=== PATIENT | female | born 1955 | race Caucasian/White ===

== ENCOUNTER 2017-10-23 10:30 | Outpatient (RCR) | payer MEDICAID, SELFPAY ==
[2017-09-27 00:43] VITALS: BP 144/79; PULSE 52; RESP 16; TEMP 37; BMI 41.1
[2017-10-02 09:50] VITALS: BP 144/85; PULSE 54; RESP 18; TEMP 36.9; BMI 41.1
--- NOTE | 2017-10-02 10:41 | PCM.WC.PN ---
(1) Stage 3 chronic renal impairment associated with type 2 diabetes mellitus Status: Chronic Current Visit: Yes Code(s): E11.22 - Type 2 diabetes mellitus with diabetic chronic kidney disease; N18.3 - Chronic kidney disease, stage 3 (moderate) (2) Episodic atrial fibrillation Status: Chronic Current Visit: Yes Code(s): I48.0 - Paroxysmal atrial fibrillation (3) Left ischial pressure sore Status: Chronic Current Visit: Yes Code(s): L89.329 - Pressure ulcer of left buttock, unspecified stage (4) Palpitations Status: Chronic Current Visit: No Code(s): R00.2 - Palpitations (5) Pressure ulcer of left buttock, stage 2 Status: Chronic Current Visit: No Code(s): L89.322 - Pressure ulcer of left buttock, stage 2 (6) Stage II pressure ulcer of right buttock Status: Chronic Current Visit: Yes Code(s): L89.312 - Pressure ulcer of right buttock, stage 2 (7) Anemia Status: Chronic Current Visit: Yes Qualifiers: Anemia type: due to chronic kidney disease Code(s): D64.9 - Anemia, unspecified Type of Wound Date of Service: 10/02/17 Chief Complaint: Follow-up open ulcers on right and left buttocks for approximately 3 weeks History of Wound: 60-year-old white female who has a very complicated history of morbid obesity post bariatric surgery 10 years ago with many complications. 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 Patient has many disabilities and can still walk, but poorly. She has no muscle mass and her buttocks area and in the skin is flabby has developed open ulcers in the perirectal and on each cheek of the right and left buttocks from sitting. She also developed one in her left ischium. These all developed from driving in a car for long periods of time she has been trying to stretch out. She was family was murdered down in [place] and she has been driving daily for the infant is still alive and she travels to the hospital. Progress of Wound: The baby was able to come home with her now so she is not traveling down to [place] anymore. The ulcers on the left and right buttocks and ischium are healing but still open clean and looking healthy. Patient's labs show renal insufficiency stage III her anemia is down to 10 on a hemoglobin her TIBC was all normal. Magnesium was normal vitamin D level was normal and this her vitamin B12 was on the lower end of normal patient was encouraged to increase iron pills to 3 times a day and start vitamin C thousand milligrams a day and zinc. Patient complains of a burning sensation from the ulcers on her buttocks I suggested lighted [place] patches that she is going to try. - Physical Exam Vital Signs Temp Pulse Resp BP 98.4 F 54 L 18 144/85 H 10/02/17 09:50 10/02/17 09:50 10/02/17 09:50 10/02/17 09:50 General: Oriented x3, Cooperative, Well developed HEENT: Atraumatic, PERRLA Oral: Moist Mucosa Neck: Supple, No JVD Lungs: Clear to auscultation, Normal air movement Cardiovascular: Regular rate, Regular Rhythm Abdomen: Bowel Sounds Present, Soft, Non Tender, No Hepato-splenomegaly, Obese Extremities: No clubbing, No edema Skin: - - Decubitus ulcers right and left buttocks and left ischium Wound Measurements and Assessment - Nurse 1 - General Ulcer Measurement Start: 10/02/17 09:50 Freq: Status: Active Protocol: Activity Type Activity Date Activity User E-Sign Co-Sign Detail Recorded Client Recorded Date Recorded By Document 10/02/17 09:50 [id number] 10/02/17 09:59 10/02/17 09:50 Wound Center Nurse 1 [Ulcer Assessment Protocol: WC.WD.LOC] #6 LT GLUTEAL FOLD -Combined with other wound No -Current Size (cm) - Length 0.5 -Current Size (cm) - Width 0.4 -Current Size (cm) - Depth 0.2 -Total Square Cm 0.20 -Photo Taken No -Epithelialization Small 1-33% -Tunneling No -Undermining/Tunneling No -Circular Undermining No -Classification - Thickness Full Thickness without Exposed Support Structure -Exudate Amt Small (1-33%) -Exudate Type Serosanguineous -Wound Margin Distinct, Outline Attached -Granulation Amt Large (67-100%) -Granulation Quality [place] -Slough/Fibrin Yes -Necrosis Amt Small (1-33%) -Necrotic Tissue Type Adherent Slough -Structure Exposed Fascia Fat Layer Exposed -Texture (Lexi-wound Skin Appearance) Scarring -Moisture (Lexi-wound Skin Appearance No Abnormality ) -Color (Lexi-wound Skin Appearance) Erythema -Temperature (Lexi-wound Skin No Abnormality Appearance) (Pt Warm) -Tenderness on Palpation (Lexi-wound No Skin Appearance) -Ulcer Cleansing Rinsed/ Irrigated with Saline -Foul Odor after Cleansing No -Anesthetic Used 4% Lidocaine Solution #5 RT BUTTOCKS -Combined with other wound No -Current Size (cm) - Length 1.4 -Current Size (cm) - Width 1.6 -Current Size (cm) - Depth 0.2 -Total Square Cm 2.24 -Photo Taken No -Epithelialization Small 1-33% -Tunneling No -Undermining/Tunneling Yes -Undermining/Tunneling Starts (O' 9 clock) -Undermining/Tunneling Ends (O'clock) 5 -Maximum Distance (cm) 0.3 -Circular Undermining Yes -Classification - Thickness Full Thickness without Exposed Support Structure -Exudate Amt Small (1-33%) -Exudate Type Serosanguineous -Wound Margin Thickened & Rolled Under -Granulation Amt Large (67-100%) -Granulation Quality [place] -Slough/Fibrin Yes -Necrosis Amt Small (1-33%) -Necrotic Tissue Type Adherent Slough -Structure Exposed Fascia Fat Layer Exposed -Texture (Lexi-wound Skin Appearance) Scarring -Moisture (Lexi-wound Skin Appearance No Abnormality ) -Color (Lexi-wound Skin Appearance) Erythema -Temperature (Lexi-wound Skin No Abnormality Appearance) (Pt Warm) -Tenderness on Palpation (Lexi-wound No Skin Appearance) -Ulcer Cleansing Rinsed/ Irrigated with Saline -Foul Odor after Cleansing No -Anesthetic Used 4% Lidocaine Solution #4- LT BUTTOCKS -Combined with other wound No -Current Size (cm) - Length 1.0 -Current Size (cm) - Width 0.7 -Current Size (cm) - Depth 0.2 -Total Square Cm 0.70 -Photo Taken No -Epithelialization Small 1-33% -Tunneling No -Undermining/Tunneling No -Circular Undermining No -Classification - Thickness Full Thickness without Exposed Support Structure -Exudate Amt Small (1-33%) -Exudate Type Serosanguineous -Wound Margin Distinct, Outline Attached -Granulation Amt Large (67-100%) -Granulation Quality [place] -Slough/Fibrin Yes -Necrosis Amt Small (1-33%) -Necrotic Tissue Type Adherent Slough -Structure Exposed Fascia Fat Layer Exposed -Texture (Lexi-wound Skin Appearance) Scarring -Moisture (Lexi-wound Skin Appearance No Abnormality ) -Color (Lexi-wound Skin Appearance) Erythema -Temperature (Lexi-wound Skin No Abnormality Appearance) (Pt Warm) -Tenderness on Palpation (Lexi-wound No Skin Appearance) -Ulcer Cleansing Rinsed/ Irrigated with Saline -Foul Odor after Cleansing No -Anesthetic Used 4% Lidocaine Solution [Edema Assessment] -Lower Limb Edema Present No WC - Nurse 2 - General Ulcer CM Notes Start: 10/02/17 09:50 Freq: Status: Active Protocol: Activity Type Activity Date Activity User E-Sign Co-Sign Detail Recorded Client Recorded Date Recorded By Document 10/02/17 10:14 MW [id number] 10/02/17 10:20 MW 10/02/17 10:14 Wound Center Nurse 2 [Procedure/Treatment] #6 LT GLUTEAL FOLD -Time 10:15 -Correct Patient Yes -Correct Side, Site, Position Yes -Correct Procedure Yes -Procedure Performed Yes -Type of Procedure Debridement -Clinical Debridement Subcutaneous -Post Debridement Size (cm) - Length 0.4 -Post Debridement Size (cm) - Width 0.7 -Post Debridement Size (cm) - Depth 0.2 -Total Square Cm 0.28 -Wound/Ulcer Outcome Not Healed -Ulcer Cleansing Rinsed/ Irrigated with Saline -Foul Odor after Cleansing No -Bioengineered Tissue No -Cetacaine [place] No -Bleeding Controlled with Pressure -Treatment Response Procedure Tolerated Well #5 RT BUTTOCKS -Time 10:15 -Correct Patient Yes -Correct Side, Site, Position Yes -Correct Procedure Yes -Procedure Performed Yes -Type of Procedure Debridement -Clinical Debridement Subcutaneous -Post Debridement Size (cm) - Length 1.8 -Post Debridement Size (cm) - Width 1.8 -Post Debridement Size (cm) - Depth 0.3 -Total Square Cm 3.24 -Wound/Ulcer Outcome Not Healed -Ulcer Cleansing Rinsed/ Irrigated with Saline -Foul Odor after Cleansing No -Bioengineered Tissue No -Cetacaine [place] No -Bleeding Controlled with Pressure -Treatment Response Procedure Tolerated Well #4- LT BUTTOCKS -Time 10:15 -Correct Patient Yes -Correct Side, Site, Position Yes -Correct Procedure Yes -Procedure Performed Yes -Type of Procedure Debridement -Clinical Debridement Subcutaneous -Post Debridement Size (cm) - Length 0.6 -Post Debridement Size (cm) - Width 0.7 -Post Debridement Size (cm) - Depth 0.2 -Total Square Cm 0.42 -Wound/Ulcer Outcome Not Healed -Ulcer Cleansing Rinsed/ Irrigated with Saline -Foul Odor after Cleansing No -Bioengineered Tissue No -Cetacaine [place] No -Bleeding Controlled with Pressure -Treatment Response Procedure Tolerated Well [See Physician Procedure note for Specifics] Pain Scale: 0-10 Numeric [Pain] -Is Patient Pain Free? Yes Musculoskeletal: No Tenderness to Palpation of Joints or Extremities Lymphatic: No Cervical, Supraclavicular, or Inguinal Adenopathy Neurological: Cranial nerves II-XII grossly intact, Neuro grossly intact Psych/Mental Status: Normal Affect, Appropriate, Alert and oriented to time, place, person, mood and affect Debridement Note Post-Debridement Measurements/Treatment WC - Nurse 2 - General Ulcer CM Notes Start: 10/02/17 09:50 Freq: Status: Active Protocol: Activity Type Activity Date Activity User E-Sign Co-Sign Detail Recorded Client Recorded Date Recorded By Document 10/02/17 10:14 MW [id number] 10/02/17 10:20 MW 10/02/17 10:14 Wound Center Nurse 2 #6 LT GLUTEAL FOLD -Time 10:15 -Correct Patient Yes -Correct Side, Site, Position Yes -Correct Procedure Yes -Procedure Performed Yes -Type of Procedure Debridement -Clinical Debridement Subcutaneous -Post Debridement Size (cm) - Length 0.4 -Post Debridement Size (cm) - Width 0.7 -Post Debridement Size (cm) - Depth 0.2 -Total Square Cm 0.28 -Wound/Ulcer Outcome Not Healed -Ulcer Cleansing Rinsed/ Irrigated with Saline -Foul Odor after Cleansing No -Bioengineered Tissue No -Cetacaine [place] No -Bleeding Controlled with Pressure -Treatment Response Procedure Tolerated Well #5 RT BUTTOCKS -Time 10:15 -Correct Patient Yes -Correct Side, Site, Position Yes -Correct Procedure Yes -Procedure Performed Yes -Type of Procedure Debridement -Clinical Debridement Subcutaneous -Post Debridement Size (cm) - Length 1.8 -Post Debridement Size (cm) - Width 1.8 -Post Debridement Size (cm) - Depth 0.3 -Total Square Cm 3.24 -Wound/Ulcer Outcome Not Healed -Ulcer Cleansing Rinsed/ Irrigated with Saline -Foul Odor after Cleansing No -Bioengineered Tissue No -Cetacaine [place] No -Bleeding Controlled with Pressure -Treatment Response Procedure Tolerated Well #4- LT BUTTOCKS -Time 10:15 -Correct Patient Yes -Correct Side, Site, Position Yes -Correct Procedure Yes -Procedure Performed Yes -Type of Procedure Debridement -Clinical Debridement Subcutaneous -Post Debridement Size (cm) - Length 0.6 -Post Debridement Size (cm) - Width 0.7 -Post Debridement Size (cm) - Depth 0.2 -Total Square Cm 0.42 -Wound/Ulcer Outcome Not Healed -Ulcer Cleansing Rinsed/ Irrigated with Saline -Foul Odor after Cleansing No -Bioengineered Tissue No -Cetacaine [place] No -Bleeding Controlled with Pressure -Treatment Response Procedure Tolerated Well Pain Scale: 0-10 Numeric Is Patient Pain Free? Yes Wound debrided: Left ischium Wound Grade/Stage: Stage II Type of Debridement: Excisional debridement Anesthesia Used: 5% Lidocaine Gel Depth: Down to and including healthy tissue, in the subcutaneous layer Percentage of wound debrided: 100 Instrument Used: 5mm curette Tissue Removed: Fibrin Severity: Limited To Skin Breakdown Amount of bleeding with debridement: Mild Bleeding Controlled with: Compression and gauze Patient tolerated procedure well - Additional Wound Wound debrided: Left buttocks Wound Grade/Stage: Stage II Type of Debridement: Excisional debridement Anesthesia Used: 5% Lidocaine Gel Depth: Down to and including healthy tissue, in the subcutaneous layer Percentage of wound debrided: 100 Instrument Used: 3mm curette Tissue Removed: Fibrin Severity: Limited To Skin Breakdown Amount of bleeding with debridement: Mild Bleeding Controlled with: Compression and gauze Patient tolerated procedure: Patient tolerated procedure well - Additional Wound Wound debrided: Right buttocks Wound Grade/Stage: Stage II Type of Debridement: Excisional debridement Anesthesia Used: 5% Lidocaine Gel Depth: Down to and including healthy tissue, in the subcutaneous layer Percentage of wound debrided: 100 Instrument Used: 3mm curette Tissue Removed: Fibrin Severity: Limited To Skin Breakdown Amount of bleeding with debridement: Mild Bleeding Controlled with: Compression and gauze Patient tolerated procedure: Patient tolerated procedure well Assessment/Plan Active Problems Episodic atrial fibrillation (Chronic) Anemia (Chronic) Stage II pressure ulcer of right buttock (Chronic) Left ischial pressure sore (Chronic) Stage 3 chronic renal impairment associated with type 2 diabetes mellitus (Chronic) Assessment: Morbid obesity. Chronic renal failure stage III. Anemia. Stage II buttocks ulcer right and left ulcer and left ischium. Malnutrition. Chronic diarrhea Plan: Promogran moistened to the right left buttocks and gluteal fold area Adaptic and gauze dressings. These will be done daily. Continue to offload totally in bed on her sides. Overlay to mattress low air. Gel cushion for her chair sitting for when she eats only. Continue taking Doc or any other protein drinks. Follow-up in 1 weeks. Contact patient about cultures taken. Increase ferrous sulfate to 3 times daily for at least 3 months. Vitamin C 1000 mg daily. Zinc daily. Lidoderm patches to affected areas once a day
[2017-10-02 16:28] LABS: Prealbumin 21.2 mg/dL (20.0-40.0)
[2017-10-16 11:01] VITALS: BP 151/80; PULSE 59; RESP 18; TEMP 37.4; BMI 41.1
--- NOTE | 2017-10-16 12:12 | PN.PCM_ITS ---
(1) Stage 3 chronic renal impairment associated with type 2 diabetes mellitus Status: Chronic Current Visit: Yes Code(s): E11.22 - Type 2 diabetes mellitus with diabetic chronic kidney disease; N18.3 - Chronic kidney disease, stage 3 (moderate) (2) Episodic atrial fibrillation Status: Chronic Current Visit: Yes Code(s): I48.0 - Paroxysmal atrial fibrillation (3) Left ischial pressure sore Status: Chronic Current Visit: Yes Code(s): L89.329 - Pressure ulcer of left buttock, unspecified stage (4) Palpitations Status: Chronic Current Visit: No Code(s): R00.2 - Palpitations (5) Pressure ulcer of left buttock, stage 2 Status: Chronic Current Visit: No Code(s): L89.322 - Pressure ulcer of left buttock, stage 2 (6) Stage II pressure ulcer of right buttock Status: Chronic Current Visit: Yes Code(s): L89.312 - Pressure ulcer of right buttock, stage 2 (7) Anemia Status: Chronic Current Visit: Yes Qualifiers: Anemia type: due to chronic kidney disease Code(s): D64.9 - Anemia, unspecified Type of Wound Date of Service: 10/16/17 Chief Complaint: Follow-up open ulcers on right and left buttocks for approximately 3 weeks History of Wound: 60-year-old white female who has a very complicated history of morbid obesity post bariatric surgery 10 years ago with many complications. 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 Patient has many disabilities and can still walk, but poorly. She has no muscle mass and her buttocks area and in the skin is flabby has developed open ulcers in the perirectal and on each cheek of the right and left buttocks from sitting. She also developed one in her left ischium. These all developed from driving in a car for long periods of time she has been trying to stretch out. She was family was murdered down in [place] and she has been driving daily for the infant is still alive and she travels to the hospital. Progress of Wound: The baby was given up to her granddaughter for custody and she appears to be very upset over this. The ulcers on the left and right buttocks and ischium are healing but still open clean and looking healthy. The right buttocks is bigger because patient has been noncompliant in her office visits here. Patient's labs show renal insufficiency stage III her anemia is down to 10 on a hemoglobin her TIBC was all normal. Magnesium was normal vitamin D level was normal and this her vitamin B12 was on the lower end of normal patient was encouraged to increase iron pills to 3 times a day and start vitamin C thousand milligrams a day and zinc. Patient complains of a burning sensation from the ulcers on her buttocks I suggested lighted [place] patches that she is going to try. Her pre-albumin is just barely over at 21 we suggested increasing her protein which she states she has. - Physical Exam Vital Signs Temp Pulse Resp BP 99.3 F H 59 L 18 151/80 H 10/16/17 11:01 10/16/17 11:01 10/16/17 11:01 10/16/17 11:01 General: Oriented x3, Cooperative, Well developed HEENT: Atraumatic, PERRLA Oral: Moist Mucosa Neck: Supple, No JVD Lungs: Clear to auscultation, Normal air movement Cardiovascular: Regular rate, Regular Rhythm Abdomen: Bowel Sounds Present, Soft, Non Tender, No Hepato-splenomegaly, - - Right and left buttocks ulcers and left ischium ulcer Extremities: No clubbing, No edema Wound Measurements and Assessment WC - Nurse 1 - General Ulcer Measurement Start: 10/02/17 09:50 Freq: Status: Active Protocol: Activity Type Activity Date Activity User E-Sign Co-Sign Detail Recorded Client Recorded Date Recorded By Document 10/16/17 11:01 [id number] 10/16/17 11:14 10/16/17 11:01 Wound Center Nurse 1 [Ulcer Assessment Protocol: .WD.LOC] #6 LT GLUTEAL FOLD -Combined with other wound No -Current Size (cm) - Length 0.4 -Current Size (cm) - Width 0.4 -Current Size (cm) - Depth 0.1 -Total Square Cm 0.16 -Date of Last Picture (Recall this 10/16/17 field) -Photo Taken Yes -Epithelialization Small 1-33% -Tunneling No -Undermining/Tunneling No -Circular Undermining No -Classification - Thickness Full Thickness without Exposed Support Structure -Exudate Amt Small (1-33%) -Exudate Type Serosanguineous -Wound Margin Distinct, Outline Attached -Granulation Amt Large (67-100%) -Granulation Quality [place] -Slough/Fibrin Yes -Necrosis Amt Small (1-33%) -Necrotic Tissue Type Adherent Slough -Structure Exposed Fascia Fat Layer Exposed -Texture (Lexi-wound Skin Appearance) No Abnormality -Moisture (Lexi-wound Skin Appearance No Abnormality ) -Color (Lexi-wound Skin Appearance) Erythema -Temperature (Lexi-wound Skin No Abnormality Appearance) (Pt Warm) -Tenderness on Palpation (Lexi-wound No Skin Appearance) -Ulcer Cleansing Rinsed/ Irrigated with Saline -Foul Odor after Cleansing No -Anesthetic Used 5% Lidocaine Gel #5 RT BUTTOCKS -Combined with other wound No -Current Size (cm) - Length 2.8 -Current Size (cm) - Width 2.8 -Current Size (cm) - Depth 0.1 -Total Square Cm 7.84 -Date of Last Picture (Recall this 10/16/17 field) -Photo Taken Yes -Epithelialization Small 1-33% -Tunneling No -Undermining/Tunneling No -Circular Undermining No -Classification - Thickness Full Thickness without Exposed Support Structure -Exudate Amt Small (1-33%) -Exudate Type Serosanguineous -Wound Margin Distinct, Outline Attached -Granulation Amt Large (67-100%) -Granulation Quality [place]agland -Slough/Fibrin Yes -Necrosis Amt Small (1-33%) -Necrotic Tissue Type Adherent Slough -Structure Exposed Fascia Fat Layer Exposed -Texture (Lexi-wound Skin Appearance) No Abnormality -Moisture (Lexi-wound Skin Appearance No Abnormality ) -Color (Lexi-wound Skin Appearance) Erythema -Temperature (Lexi-wound Skin No Abnormality Appearance) (Pt Warm) -Tenderness on Palpation (Lexi-wound No Skin Appearance) -Ulcer Cleansing Rinsed/ Irrigated with Saline -Foul Odor after Cleansing No -Anesthetic Used 5% Lidocaine Gel #4- LT BUTTOCKS -Combined with other wound No -Current Size (cm) - Length 0.7 -Current Size (cm) - Width 0.9 -Current Size (cm) - Depth 0.1 -Total Square Cm 0.63 -Date of Last Picture (Recall this 10/16/17 field) -Photo Taken Yes -Epithelialization Small 1-33% -Tunneling No -Undermining/Tunneling No -Circular Undermining No -Classification - Thickness Full Thickness without Exposed Support Structure -Exudate Amt Small (1-33%) -Exudate Type Serosanguineous -Wound Margin Distinct, Outline Attached -Granulation Amt Large (67-100%) -Granulation Quality N/A Ragland -Slough/Fibrin Yes -Necrosis Amt Small (1-33%) -Necrotic Tissue Type Adherent Slough -Structure Exposed Fascia Fat Layer Exposed -Texture (Lexi-wound Skin Appearance) No Abnormality -Moisture (Lexi-wound Skin Appearance No Abnormality ) -Color (Lexi-wound Skin Appearance) Erythema -Temperature (Lexi-wound Skin No Abnormality Appearance) (Pt Warm) -Tenderness on Palpation (Lexi-wound No Skin Appearance) -Ulcer Cleansing Rinsed/ Irrigated with Saline -Foul Odor after Cleansing No -Anesthetic Used 5% Lidocaine Gel [Edema Assessment] -Lower Limb Edema Present No WC - Nurse 2 - General Ulcer CM Notes Start: 10/02/17 09:50 Freq: Status: Active Protocol: Activity Type Activity Date Activity User E-Sign Co-Sign Detail Recorded Client Recorded Date Recorded By Document 10/16/17 11:24 MW [id number] 10/16/17 11:27 MW 10/16/17 11:24 Wound Center Nurse 2 [Procedure/Treatment] #6 LT GLUTEAL FOLD -Time 11:25 -Correct Patient Yes -Correct Side, Site, Position Yes -Correct Procedure Yes -Procedure Performed Yes -Type of Procedure Debridement -Clinical Debridement Subcutaneous -Post Debridement Size (cm) - Length 0.4 -Post Debridement Size (cm) - Width 0.4 -Post Debridement Size (cm) - Depth 0.1 -Total Square Cm 0.16 -Wound/Ulcer Outcome Not Healed -Ulcer Cleansing Rinsed/ Irrigated with Saline -Foul Odor after Cleansing No -Bioengineered Tissue No -Cetacaine [place] No -Bleeding Controlled with Pressure -Treatment Response Procedure Tolerated Well #5 RT BUTTOCKS -Time 11:25 -Correct Patient Yes -Correct Side, Site, Position Yes -Correct Procedure Yes -Procedure Performed Yes -Type of Procedure Debridement -Clinical Debridement Subcutaneous -Post Debridement Size (cm) - Length 2.0 -Post Debridement Size (cm) - Width 1.2 -Post Debridement Size (cm) - Depth 0.2 -Total Square Cm 2.40 -Wound/Ulcer Outcome Not Healed -Ulcer Cleansing Rinsed/ Irrigated with Saline -Foul Odor after Cleansing No -Bioengineered Tissue No -Cetacaine [place] No -Bleeding Controlled with Pressure -Treatment Response Procedure Tolerated Well #4- LT BUTTOCKS -Time 11:26 -Correct Patient Yes -Correct Side, Site, Position Yes -Correct Procedure Yes -Procedure Performed Yes -Type of Procedure Debridement -Clinical Debridement Subcutaneous -Post Debridement Size (cm) - Length 0.9 -Post Debridement Size (cm) - Width 1.0 -Post Debridement Size (cm) - Depth 1 -Total Square Cm 0.90 -Wound/Ulcer Outcome Not Healed -Ulcer Cleansing Rinsed/ Irrigated with Saline -Foul Odor after Cleansing No -Bioengineered Tissue No -Cetacaine [place] No -Bleeding Controlled with Pressure -Treatment Response Procedure Tolerated Well [See Physician Procedure note for Specifics] Pain Scale: 0-10 Numeric [Pain] -Is Patient Pain Free? Yes Musculoskeletal: No Tenderness to Palpation of Joints or Extremities Lymphatic: No Cervical, Supraclavicular, or Inguinal Adenopathy Neurological: Cranial nerves II-XII grossly intact, Neuro grossly intact Psych/Mental Status: Normal Affect, Appropriate, Alert and oriented to time, place, person, mood and affect Debridement Note Post-Debridement Measurements/Treatment WC - Nurse 2 - General Ulcer CM Notes Start: 10/02/17 09:50 Freq: Status: Active Protocol: Activity Type Activity Date Activity User E-Sign Co-Sign Detail Recorded Client Recorded Date Recorded By Document 10/02/17 10:14 MW [id number] 10/02/17 10:20 MW Document 10/16/17 11:24 MW [id number] 10/16/17 11:27 MW 10/02/17 10/16/17 10:14 11:24 Wound Center Nurse 2 #6 LT GLUTEAL FOLD -Time 10:15 11:25 -Correct Patient Yes Yes -Correct Side, Site, Position Yes Yes -Correct Procedure Yes Yes -Procedure Performed Yes Yes -Type of Procedure Debridement Debridement -Clinical Debridement Subcutaneous Subcutaneous -Post Debridement Size (cm) - Length 0.4 0.4 -Post Debridement Size (cm) - Width 0.7 0.4 -Post Debridement Size (cm) - Depth 0.2 0.1 -Total Square Cm 0.28 0.16 -Wound/Ulcer Outcome Not Healed Not Healed -Ulcer Cleansing Rinsed/ Rinsed/ Irrigated with Irrigated with Saline Saline -Foul Odor after Cleansing No No -Bioengineered Tissue No No -Cetacaine [place] No No -Bleeding Controlled with Pressure Pressure -Treatment Response Procedure Procedure Tolerated Well Tolerated Well #5 RT BUTTOCKS -Time 10:15 11:25 -Correct Patient Yes Yes -Correct Side, Site, Position Yes Yes -Correct Procedure Yes Yes -Procedure Performed Yes Yes -Type of Procedure Debridement Debridement -Clinical Debridement Subcutaneous Subcutaneous -Post Debridement Size (cm) - Length 1.8 2.0 -Post Debridement Size (cm) - Width 1.8 1.2 -Post Debridement Size (cm) - Depth 0.3 0.2 -Total Square Cm 3.24 2.40 -Wound/Ulcer Outcome Not Healed Not Healed -Ulcer Cleansing Rinsed/ Rinsed/ Irrigated with Irrigated with Saline Saline -Foul Odor after Cleansing No No -Bioengineered Tissue No No -Cetacaine [place] No No -Bleeding Controlled with Pressure Pressure -Treatment Response Procedure Procedure Tolerated Well Tolerated Well #4- LT BUTTOCKS -Time 10:15 11:26 -Correct Patient Yes Yes -Correct Side, Site, Position Yes Yes -Correct Procedure Yes Yes -Procedure Performed Yes Yes -Type of Procedure Debridement Debridement -Clinical Debridement Subcutaneous Subcutaneous -Post Debridement Size (cm) - Length 0.6 0.9 -Post Debridement Size (cm) - Width 0.7 1.0 -Post Debridement Size (cm) - Depth 0.2 1 -Total Square Cm 0.42 0.90 -Wound/Ulcer Outcome Not Healed Not Healed -Ulcer Cleansing Rinsed/ Rinsed/ Irrigated with Irrigated with Saline Saline -Foul Odor after Cleansing No No -Bioengineered Tissue No No -Cetacaine [place] No No -Bleeding Controlled with Pressure Pressure -Treatment Response Procedure Procedure Tolerated Well Tolerated Well Pain Scale: 0-10 Numeric Is Patient Pain Free? Yes Yes Wound debrided: Right buttocks ulcer Wound Grade/Stage: Stage II pressure Type of Debridement: Excisional debridement Anesthesia Used: 5% Lidocaine Gel Depth: Down to and including healthy tissue, in the subcutaneous layer Percentage of wound debrided: 100 Instrument Used: 5mm curette Tissue Removed: Fibrin Severity: Limited To Skin Breakdown Amount of bleeding with debridement: Mild Bleeding Controlled with: Compression and gauze Patient tolerated procedure well - Additional Wound Wound debrided: Left buttocks ulcer Wound Grade/Stage: Stage II Type of Debridement: Excisional debridement Depth: Down to and including healthy tissue, in the subcutaneous layer Instrument Used: 5mm curette Tissue Removed: Fibrin Severity: Limited To Skin Breakdown Amount of bleeding with debridement: Mild Bleeding Controlled with: Compression and gauze Patient tolerated procedure: Patient tolerated procedure well - Additional Wound Wound debrided: Left ischium ulcer Wound Grade/Stage: Stage II Type of Debridement: Excisional debridement Anesthesia Used: 5% Lidocaine Gel Depth: Down to and including healthy tissue, in the subcutaneous layer Percentage of wound debrided: 100 Instrument Used: 5mm curette Tissue Removed: Fibrin Severity: Limited To Skin Breakdown Amount of bleeding with debridement: Mild Bleeding Controlled with: Compression and gauze Patient tolerated procedure: Patient tolerated procedure well Assessment/Plan Active Problems Episodic atrial fibrillation (Chronic) Anemia (Chronic) Stage II pressure ulcer of right buttock (Chronic) Left ischial pressure sore (Chronic) Stage 3 chronic renal impairment associated with type 2 diabetes mellitus ( Chronic) Assessment: Morbid obesity. Chronic renal failure stage III. Anemia. Stage II buttocks ulcer right and left ulcer and left ischium. Malnutrition. Chronic diarrhea Plan: Promogran moistened to the right left buttocks and gluteal fold area Adaptic and gauze dressings. These will be done daily. Apply for substitute skin for all open areas. Continue to offload totally in bed on her sides. Overlay to mattress low air. Gel cushion for her chair sitting for when she eats only. Continue taking Doc or any other protein drinks. Follow-up in 1 weeks. Contact patient about cultures taken. Increase ferrous sulfate to 3 times daily for at least 3 months. Vitamin C 1000 mg daily. Zinc daily. Lidoderm patches to affected areas once a day
[2017-10-23 10:30] VITALS: BP 165/91; PULSE 70; RESP 18; TEMP 37; BMI 41.1
--- NOTE | 2017-10-23 11:17 | PCM.WC.PN ---
(1) Stage 3 chronic renal impairment associated with type 2 diabetes mellitus Status: Chronic Current Visit: Yes Code(s): E11.22 - Type 2 diabetes mellitus with diabetic chronic kidney disease; N18.3 - Chronic kidney disease, stage 3 (moderate) (2) Episodic atrial fibrillation Status: Chronic Current Visit: Yes Code(s): I48.0 - Paroxysmal atrial fibrillation (3) Left ischial pressure sore Status: Chronic Current Visit: Yes Code(s): L89.329 - Pressure ulcer of left buttock, unspecified stage (4) Palpitations Status: Chronic Current Visit: No Code(s): R00.2 - Palpitations (5) Pressure ulcer of left buttock, stage 2 Status: Chronic Current Visit: No Code(s): L89.322 - Pressure ulcer of left buttock, stage 2 (6) Stage II pressure ulcer of right buttock Status: Chronic Current Visit: Yes Code(s): L89.312 - Pressure ulcer of right buttock, stage 2 (7) Anemia Status: Chronic Current Visit: Yes Qualifiers: Anemia type: due to chronic kidney disease Code(s): D64.9 - Anemia, unspecified Type of Wound Date of Service: 10/23/17 Chief Complaint: Follow-up open ulcers on right and left buttocks for approximately 3 weeks History of Wound: 60-year-old white female who has a very complicated history of morbid obesity post bariatric surgery 10 years ago with many complications. 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 Patient has many disabilities and can still walk, but poorly. She has no muscle mass and her buttocks area and in the skin is flabby has developed open ulcers in the perirectal and on each cheek of the right and left buttocks from sitting. She also developed one in her left ischium. These all developed from driving in a car for long periods of time she has been trying to stretch out. She was family was murdered down in [place] and she has been driving daily for the infant is still alive and she travels to the hospital. Progress of Wound: The baby was given up to her granddaughter for custody and she appears to be very upset over this. The ulcers on the left and right buttocks and ischium are healing but still open clean and looking healthy. The right buttocks is bigger because patient has been noncompliant in her office visits here. Patient's labs show renal insufficiency stage III her anemia is down to 10 on a hemoglobin her TIBC was all normal. Magnesium was normal vitamin D level was normal and this her vitamin B12 was on the lower end of normal patient was encouraged to increase iron pills to 3 times a day and start vitamin C thousand milligrams a day and zinc. Patient complains of a burning sensation from the ulcers on her buttocks I suggested lidoderm patches that she is going to try. Her pre-albumin is just barely over at 21 we suggested increasing her protein which she states she has. Applied for skin substitute and did get it approved. Today she will receive her first 1 - Physical Exam Vital Signs Temp Pulse Resp BP 98.6 F 70 18 165/91 H 10/23/17 10:30 10/23/17 10:30 10/23/17 10:30 10/23/17 10:30 General: Oriented x3, Cooperative, Well developed HEENT: Atraumatic, PERRLA Oral: Moist Mucosa Neck: Supple, No JVD Lungs: Clear to auscultation, Normal air movement Cardiovascular: Regular rate, Regular Rhythm Abdomen: Bowel Sounds Present, Soft, Non Tender, No Hepato-splenomegaly, Obese Extremities: No clubbing, No edema, - - Right buttocks left gluteal fold and left buttocks decubitus ulcers Wound Measurements and Assessment - Nurse 1 - General Ulcer Measurement Start: 10/02/17 09:50 Freq: Status: Active Protocol: Activity Type Activity Date Activity User E-Sign Co-Sign Detail Recorded Client Recorded Date Recorded By Document 10/23/17 10:30 [id number] 10/23/17 10:34 10/23/17 10:30 Wound Center Nurse 1 [Ulcer Assessment Protocol: .WD.LOC] #6 LT GLUTEAL FOLD -Combined with other wound No -Current Size (cm) - Length 0.3 -Current Size (cm) - Width 0.4 -Current Size (cm) - Depth 0.1 -Total Square Cm 0.12 -Photo Taken No -Epithelialization Small 1-33% -Tunneling No -Undermining/Tunneling No -Circular Undermining No -Classification - Thickness Full Thickness without Exposed Support Structure -Exudate Amt Small (1-33%) -Exudate Type Serosanguineous -Wound Margin Distinct, Outline Attached -Granulation Amt Medium (34-66%) -Granulation Quality [place] -Slough/Fibrin Yes -Necrosis Amt Medium (34-66%) -Necrotic Tissue Type Adherent Slough -Structure Exposed Fascia Fat Layer Exposed -Texture (Lexi-wound Skin Appearance) Scarring -Moisture (Lexi-wound Skin Appearance No Abnormality ) -Color (Lexi-wound Skin Appearance) Erythema -Temperature (Lexi-wound Skin No Abnormality Appearance) (Pt Warm) -Tenderness on Palpation (Lexi-wound No Skin Appearance) -Foul Odor after Cleansing No -Anesthetic Used 5% Lidocaine Gel #5 RT BUTTOCKS -Combined with other wound No -Current Size (cm) - Length 1.0 -Current Size (cm) - Width 2.0 -Current Size (cm) - Depth 0.1 -Total Square Cm 2.00 -Photo Taken No -Epithelialization Small 1-33% -Tunneling No -Undermining/Tunneling No -Circular Undermining No -Classification - Thickness Full Thickness without Exposed Support Structure -Exudate Amt Small (1-33%) -Exudate Type Serosanguineous -Wound Margin Distinct, Outline Attached -Granulation Amt Large (67-100%) -Granulation Quality [place] -Slough/Fibrin Yes -Necrosis Amt Small (1-33%) -Necrotic Tissue Type Adherent Slough -Structure Exposed Fascia Fat Layer Exposed -Texture (Lexi-wound Skin Appearance) Scarring -Moisture (Lexi-wound Skin Appearance No Abnormality ) -Color (Leix-wound Skin Appearance) Erythema -Temperature (Lexi-wound Skin No Abnormality Appearance) (Pt Warm) -Tenderness on Palpation (Lexi-wound No Skin Appearance) -Ulcer Cleansing Rinsed/ Irrigated with Saline -Foul Odor after Cleansing No -Anesthetic Used 5% Lidocaine Gel #4- LT BUTTOCKS -Combined with other wound No -Current Size (cm) - Length 1.0 -Current Size (cm) - Width 0.4 -Current Size (cm) - Depth 0.1 -Total Square Cm 0.40 -Photo Taken No -Epithelialization Small 1-33% -Tunneling No -Undermining/Tunneling No -Circular Undermining No -Classification - Thickness Full Thickness without Exposed Support Structure -Exudate Amt Small (1-33%) -Exudate Type Serosanguineous -Wound Margin Distinct, Outline Attached -Granulation Amt Large (67-100%) -Granulation Quality [place] -Slough/Fibrin Yes -Necrosis Amt Small (1-33%) -Necrotic Tissue Type Adherent Slough -Structure Exposed Fascia Fat Layer Exposed -Texture (Lexi-wound Skin Appearance) Scarring -Moisture (Lexi-wound Skin Appearance No Abnormality ) -Color (Lexi-wound Skin Appearance) Erythema -Temperature (Lexi-wound Skin No Abnormality Appearance) (Pt Warm) -Tenderness on Palpation (Lexi-wound No Skin Appearance) -Ulcer Cleansing Rinsed/ Irrigated with Saline -Foul Odor after Cleansing No -Anesthetic Used 5% Lidocaine Gel [Edema Assessment] -Lower Limb Edema Present No WC - Nurse 2 - General Ulcer CM Notes Start: 10/02/17 09:50 Freq: Status: Active Protocol: Activity Type Activity Date Activity User E-Sign Co-Sign Detail Recorded Client Recorded Date Recorded By Document 10/23/17 10:51 MW [id number] 10/23/17 11:07 MW 10/23/17 10:51 Wound Center Nurse 2 [Procedure/Treatment] #6 LT GLUTEAL FOLD -Time 10:51 -Correct Patient Yes -Correct Side, Site, Position Yes -Correct Procedure Yes -Procedure Performed Yes -Type of Procedure Debridement -Clinical Debridement Subcutaneous -Post Debridement Size (cm) - Length 0.2 -Post Debridement Size (cm) - Width 0.3 -Post Debridement Size (cm) - Depth 0.1 -Total Square Cm 0.06 -Wound/Ulcer Outcome Not Healed -Ulcer Cleansing Rinsed/ Irrigated with Saline -Foul Odor after Cleansing No -Bioengineered Tissue No -Type of bioengineered Tissue EPIFIX -Cetacaine [place] No -Bleeding Controlled with Pressure -Treatment Response Procedure Tolerated Well #5 RT BUTTOCKS -Time 10:52 -Correct Patient Yes -Correct Side, Site, Position Yes -Correct Procedure Yes -Procedure Performed Yes -Type of Procedure Debridement -Clinical Debridement Subcutaneous -Post Debridement Size (cm) - Length 1.8 -Post Debridement Size (cm) - Width 1.8 -Post Debridement Size (cm) - Depth 0.2 -Total Square Cm 3.24 -Wound/Ulcer Outcome Not Healed -Ulcer Cleansing Rinsed/ Irrigated with Saline -Foul Odor after Cleansing No -Bioengineered Tissue No -Expiration Date 08/26/22 -Product Lot Number [id number] -Percent Used 100 -Saline Lot Number [id number] -Cetacaine [place] No -Bleeding Controlled with Pressure -Treatment Response Procedure Tolerated Well #4- LT BUTTOCKS -Time 10:52 -Correct Patient Yes -Correct Side, Site, Position Yes -Correct Procedure Yes -Procedure Performed Yes -Type of Procedure Debridement -Clinical Debridement Subcutaneous -Post Debridement Size (cm) - Length 0.3 -Post Debridement Size (cm) - Width 1.0 -Post Debridement Size (cm) - Depth 0.1 -Total Square Cm 0.30 -Wound/Ulcer Outcome Not Healed -Ulcer Cleansing Rinsed/ Irrigated with Saline -Foul Odor after Cleansing No -Bioengineered Tissue No -Cetacaine [place] No -Bleeding Controlled with Pressure -Treatment Response Procedure Tolerated Well [See Physician Procedure note for Specifics] Pain Scale: 0-10 Numeric [Pain] -Is Patient Pain Free? Yes Musculoskeletal: No Tenderness to Palpation of Joints or Extremities Lymphatic: No Cervical, Supraclavicular, or Inguinal Adenopathy Neurological: Cranial nerves II-XII grossly intact, Neuro grossly intact Psych/Mental Status: Normal Affect, Appropriate Debridement Note Post-Debridement Measurements/Treatment WC - Nurse 2 - General Ulcer CM Notes Start: 10/02/17 09:50 Freq: Status: Active Protocol: Activity Type Activity Date Activity User E-Sign Co-Sign Detail Recorded Client Recorded Date Recorded By Document 10/02/17 10:14 MW [id number] 10/02/17 10:20 MW Document 10/16/17 11:24 MW [id number] 10/16/17 11:27 MW Document 10/23/17 10:51 MW [id number] 10/23/17 11:07 MW 10/02/17 10/16/17 10/23/17 10:14 11:24 10:51 Wound Center Nurse 2 #6 LT GLUTEAL FOLD -Time 10:15 11:25 10:51 -Correct Patient Yes Yes Yes -Correct Side, Site, Position Yes Yes Yes -Correct Procedure Yes Yes Yes -Procedure Performed Yes Yes Yes -Type of Procedure Debridement Debridement Debridement -Clinical Debridement Subcutaneous Subcutaneous Subcutaneous -Post Debridement Size (cm) - Length 0.4 0.4 0.2 -Post Debridement Size (cm) - Width 0.7 0.4 0.3 -Post Debridement Size (cm) - Depth 0.2 0.1 0.1 -Total Square Cm 0.28 0.16 0.06 -Wound/Ulcer Outcome Not Healed Not Healed Not Healed -Ulcer Cleansing Rinsed/ Rinsed/ Rinsed/ Irrigated with Irrigated with Irrigated with Saline Saline Saline -Foul Odor after Cleansing No No No -Bioengineered Tissue No No No -Type of bioengineered Tissue EPIFIX -Cetacaine [place] No No No -Bleeding Controlled with Pressure Pressure Pressure -Treatment Response Procedure Procedure Procedure Tolerated Well Tolerated Well Tolerated Well #5 RT BUTTOCKS -Time 10:15 11:25 10:52 -Correct Patient Yes Yes Yes -Correct Side, Site, Position Yes Yes Yes -Correct Procedure Yes Yes Yes -Procedure Performed Yes Yes Yes -Type of Procedure Debridement Debridement Debridement -Clinical Debridement Subcutaneous Subcutaneous Subcutaneous -Post Debridement Size (cm) - Length 1.8 2.0 1.8 -Post Debridement Size (cm) - Width 1.8 1.2 1.8 -Post Debridement Size (cm) - Depth 0.3 0.2 0.2 -Total Square Cm 3.24 2.40 3.24 -Wound/Ulcer Outcome Not Healed Not Healed Not Healed -Ulcer Cleansing Rinsed/ Rinsed/ Rinsed/ Irrigated with Irrigated with Irrigated with Saline Saline Saline -Foul Odor after Cleansing No No No -Bioengineered Tissue No No No -Expiration Date 08/26/22 -Product Lot Number [id number] -Percent Used 100 -Saline Lot Number [id number] -Cetacaine [place] No No No -Bleeding Controlled with Pressure Pressure Pressure -Treatment Response Procedure Procedure Procedure Tolerated Well Tolerated Well Tolerated Well #4- LT BUTTOCKS -Time 10:15 11:26 10:52 -Correct Patient Yes Yes Yes -Correct Side, Site, Position Yes Yes Yes -Correct Procedure Yes Yes Yes -Procedure Performed Yes Yes Yes -Type of Procedure Debridement Debridement Debridement -Clinical Debridement Subcutaneous Subcutaneous Subcutaneous -Post Debridement Size (cm) - Length 0.6 0.9 0.3 -Post Debridement Size (cm) - Width 0.7 1.0 1.0 -Post Debridement Size (cm) - Depth 0.2 1 0.1 -Total Square Cm 0.42 0.90 0.30 -Wound/Ulcer Outcome Not Healed Not Healed Not Healed -Ulcer Cleansing Rinsed/ Rinsed/ Rinsed/ Irrigated with Irrigated with Irrigated with Saline Saline Saline -Foul Odor after Cleansing No No No -Bioengineered Tissue No No No -Cetacaine [place] No No No -Bleeding Controlled with Pressure Pressure Pressure -Treatment Response Procedure Procedure Procedure Tolerated Well Tolerated Well Tolerated Well Pain Scale: 0-10 Numeric Is Patient Pain Free? Yes Yes Yes Wound debrided: Right buttocks ulcer Wound Grade/Stage: Stage II Type of Debridement: Excisional debridement Anesthesia Used: 5% Lidocaine Gel Depth: Down to and including healthy tissue, in the subcutaneous layer Percentage of wound debrided: 100 Instrument Used: 3mm curette Severity: Limited To Skin Breakdown Amount of bleeding with debridement: Moderate Bleeding Controlled with: Compression and gauze Patient tolerated procedure well - Additional Wound Wound debrided: Left gluteal fold Type of Debridement: Excisional debridement Anesthesia Used: 5% Lidocaine Gel Depth: Down to and including healthy tissue, in the subcutaneous layer Percentage of wound debrided: 100 Instrument Used: 3mm curette Tissue Removed: Fibrin Severity: Limited To Skin Breakdown Amount of bleeding with debridement: Mild Bleeding Controlled with: Compression and gauze Patient tolerated procedure: Patient tolerated procedure well - Additional Wound Wound debrided: Left buttocks Wound Grade/Stage: Stage II Type of Debridement: Excisional debridement Anesthesia Used: 5% Lidocaine Gel Depth: Down to and including healthy tissue, in the subcutaneous layer Percentage of wound debrided: 100 Instrument Used: 3mm curette Tissue Removed: Fibrin Severity: Limited To Skin Breakdown Amount of bleeding with debridement: Mild Bleeding Controlled with: Compression and gauze Patient tolerated procedure: Patient tolerated procedure well Assessment/Plan Active Problems Episodic atrial fibrillation (Chronic) Anemia (Chronic) Stage II pressure ulcer of right buttock (Chronic) Left ischial pressure sore (Chronic) Stage 3 chronic renal impairment associated with type 2 diabetes mellitus (Chronic) Assessment: Morbid obesity. Chronic renal failure stage III. Anemia. Stage II buttocks ulcer right and left ulcer and left ischium. Malnutrition. Chronic diarrhea Plan: Promogran moistened to the left buttocks and gluteal fold area Adaptic and gauze dressings. These will be done daily. #1 epi flex substitute skin to the right buttocks. Cover with Adaptic Steri-Strips gauze tape. Continue to offload totally in bed on her sides. Overlay to mattress low air. Gel cushion for her chair sitting for when she eats only. Continue taking Doc or any other protein drinks. Follow-up in 1 weeks. Contact patient about cultures taken. Increase ferrous sulfate to 3 times daily for at least 3 months. Vitamin C 1000 mg daily. Zinc daily. Lidoderm patches to affected areas once a day
--- NOTE | 2017-10-23 11:23 | PN.PCM_ITS ---
(1) Stage 3 chronic renal impairment associated with type 2 diabetes mellitus Status: Chronic Current Visit: Yes Code(s): E11.22 - Type 2 diabetes mellitus with diabetic chronic kidney disease; N18.3 - Chronic kidney disease, stage 3 (moderate) (2) Episodic atrial fibrillation Status: Chronic Current Visit: Yes Code(s): I48.0 - Paroxysmal atrial fibrillation (3) Left ischial pressure sore Status: Chronic Current Visit: Yes Code(s): L89.329 - Pressure ulcer of left buttock, unspecified stage (4) Palpitations Status: Chronic Current Visit: No Code(s): R00.2 - Palpitations (5) Pressure ulcer of left buttock, stage 2 Status: Chronic Current Visit: No Code(s): L89.322 - Pressure ulcer of left buttock, stage 2 (6) Stage II pressure ulcer of right buttock Status: Chronic Current Visit: Yes Code(s): L89.312 - Pressure ulcer of right buttock, stage 2 (7) Anemia Status: Chronic Current Visit: Yes Qualifiers: Anemia type: due to chronic kidney disease Code(s): D64.9 - Anemia, unspecified Type of Wound Date of Service: 10/23/17 Chief Complaint: Follow-up open ulcers on right and left buttocks for approximately 3 weeks History of Wound: 60-year-old white female who has a very complicated history of morbid obesity post bariatric surgery 10 years ago with many complications. 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 Patient has many disabilities and can still walk, but poorly. She has no muscle mass and her buttocks area and in the skin is flabby has developed open ulcers in the perirectal and on each cheek of the right and left buttocks from sitting. She also developed one in her left ischium. These all developed from driving in a car for long periods of time she has been trying to stretch out. She was family was murdered down in [place] and she has been driving daily for the infant is still alive and she travels to the hospital. Progress of Wound: The baby was given up to her granddaughter for custody and she appears to be very upset over this. The ulcers on the left and right buttocks and ischium are healing but still open clean and looking healthy. The right buttocks is bigger because patient has been noncompliant in her office visits here. Patient's labs show renal insufficiency stage III her anemia is down to 10 on a hemoglobin her TIBC was all normal. Magnesium was normal vitamin D level was normal and this her vitamin B12 was on the lower end of normal patient was encouraged to increase iron pills to 3 times a day and start vitamin C thousand milligrams a day and zinc. Patient complains of a burning sensation from the ulcers on her buttocks I suggested lidoderm patches that she is going to try. Her pre-albumin is just barely over at 21 we suggested increasing her protein which she states she has. Applied for skin substitute and did get it approved. Today she will receive her first 1 - Physical Exam Vital Signs Temp Pulse Resp BP 98.6 F 70 18 165/91 H 10/23/17 10:30 10/23/17 10:30 10/23/17 10:30 10/23/17 10:30 General: Oriented x3, Cooperative, Well developed HEENT: Atraumatic, PERRLA Oral: Moist Mucosa Neck: Supple, No JVD Lungs: Clear to auscultation, Normal air movement Cardiovascular: Regular rate, Regular Rhythm Abdomen: Bowel Sounds Present, Soft, Non Tender, No Hepato-splenomegaly, Obese Extremities: No clubbing, No edema, - - Right buttocks left gluteal fold and left buttocks decubitus ulcers Wound Measurements and Assessment - Nurse 1 - General Ulcer Measurement Start: 10/02/17 09:50 Freq: Status: Active Protocol: Activity Type Activity Date Activity User E-Sign Co-Sign Detail Recorded Client Recorded Date Recorded By Document 10/23/17 10:30 [id number] 10/23/17 10:34 10/23/17 10:30 Wound Center Nurse 1 [Ulcer Assessment Protocol: .WD.LOC] #6 LT GLUTEAL FOLD -Combined with other wound No -Current Size (cm) - Length 0.3 -Current Size (cm) - Width 0.4 -Current Size (cm) - Depth 0.1 -Total Square Cm 0.12 -Photo Taken No -Epithelialization Small 1-33% -Tunneling No -Undermining/Tunneling No -Circular Undermining No -Classification - Thickness Full Thickness without Exposed Support Structure -Exudate Amt Small (1-33%) -Exudate Type Serosanguineous -Wound Margin Distinct, Outline Attached -Granulation Amt Medium (34-66%) -Granulation Quality [place] -Slough/Fibrin Yes -Necrosis Amt Medium (34-66%) -Necrotic Tissue Type Adherent Slough -Structure Exposed Fascia Fat Layer Exposed -Texture (Lexi-wound Skin Appearance) Scarring -Moisture (Lexi-wound Skin Appearance No Abnormality ) -Color (Lexi-wound Skin Appearance) Erythema -Temperature (Lexi-wound Skin No Abnormality Appearance) (Pt Warm) -Tenderness on Palpation (Lexi-wound No Skin Appearance) -Foul Odor after Cleansing No -Anesthetic Used 5% Lidocaine Gel #5 RT BUTTOCKS -Combined with other wound No -Current Size (cm) - Length 1.0 -Current Size (cm) - Width 2.0 -Current Size (cm) - Depth 0.1 -Total Square Cm 2.00 -Photo Taken No -Epithelialization Small 1-33% -Tunneling No -Undermining/Tunneling No -Circular Undermining No -Classification - Thickness Full Thickness without Exposed Support Structure -Exudate Amt Small (1-33%) -Exudate Type Serosanguineous -Wound Margin Distinct, Outline Attached -Granulation Amt Large (67-100%) -Granulation Quality [place] -Slough/Fibrin Yes -Necrosis Amt Small (1-33%) -Necrotic Tissue Type Adherent Slough -Structure Exposed Fascia Fat Layer Exposed -Texture (Lexi-wound Skin Appearance) Scarring -Moisture (Lexi-wound Skin Appearance No Abnormality ) -Color (Lexi-wound Skin Appearance) Erythema -Temperature (Lexi-wound Skin No Abnormality Appearance) (Pt Warm) -Tenderness on Palpation (Lexi-wound No Skin Appearance) -Ulcer Cleansing Rinsed/ Irrigated with Saline -Foul Odor after Cleansing No -Anesthetic Used 5% Lidocaine Gel #4- LT BUTTOCKS -Combined with other wound No -Current Size (cm) - Length 1.0 -Current Size (cm) - Width 0.4 -Current Size (cm) - Depth 0.1 -Total Square Cm 0.40 -Photo Taken No -Epithelialization Small 1-33% -Tunneling No -Undermining/Tunneling No -Circular Undermining No -Classification - Thickness Full Thickness without Exposed Support Structure -Exudate Amt Small (1-33%) -Exudate Type Serosanguineous -Wound Margin Distinct, Outline Attached -Granulation Amt Large (67-100%) -Granulation Quality [place] -Slough/Fibrin Yes -Necrosis Amt Small (1-33%) -Necrotic Tissue Type Adherent Slough -Structure Exposed Fascia Fat Layer Exposed -Texture (Lexi-wound Skin Appearance) Scarring -Moisture (Lexi-wound Skin Appearance No Abnormality ) -Color (Lexi-wound Skin Appearance) Erythema -Temperature (Lexi-wound Skin No Abnormality Appearance) (Pt Warm) -Tenderness on Palpation (Lexi-wound No Skin Appearance) -Ulcer Cleansing Rinsed/ Irrigated with Saline -Foul Odor after Cleansing No -Anesthetic Used 5% Lidocaine Gel [Edema Assessment] -Lower Limb Edema Present No WC - Nurse 2 - General Ulcer CM Notes Start: 10/02/17 09:50 Freq: Status: Active Protocol: Activity Type Activity Date Activity User E-Sign Co-Sign Detail Recorded Client Recorded Date Recorded By Document 10/23/17 10:51 MW [id number] 10/23/17 11:07 MW 10/23/17 10:51 Wound Center Nurse 2 [Procedure/Treatment] #6 LT GLUTEAL FOLD -Time 10:51 -Correct Patient Yes -Correct Side, Site, Position Yes -Correct Procedure Yes -Procedure Performed Yes -Type of Procedure Debridement -Clinical Debridement Subcutaneous -Post Debridement Size (cm) - Length 0.2 -Post Debridement Size (cm) - Width 0.3 -Post Debridement Size (cm) - Depth 0.1 -Total Square Cm 0.06 -Wound/Ulcer Outcome Not Healed -Ulcer Cleansing Rinsed/ Irrigated with Saline -Foul Odor after Cleansing No -Bioengineered Tissue No -Type of bioengineered Tissue EPIFIX -Cetacaine [place] No -Bleeding Controlled with Pressure -Treatment Response Procedure Tolerated Well #5 RT BUTTOCKS -Time 10:52 -Correct Patient Yes -Correct Side, Site, Position Yes -Correct Procedure Yes -Procedure Performed Yes -Type of Procedure Debridement -Clinical Debridement Subcutaneous -Post Debridement Size (cm) - Length 1.8 -Post Debridement Size (cm) - Width 1.8 -Post Debridement Size (cm) - Depth 0.2 -Total Square Cm 3.24 -Wound/Ulcer Outcome Not Healed -Ulcer Cleansing Rinsed/ Irrigated with Saline -Foul Odor after Cleansing No -Bioengineered Tissue No -Expiration Date 08/26/22 -Product Lot Number [id number] -Percent Used 100 -Saline Lot Number [id number] -Cetacaine [place] No -Bleeding Controlled with Pressure -Treatment Response Procedure Tolerated Well #4- LT BUTTOCKS -Time 10:52 -Correct Patient Yes -Correct Side, Site, Position Yes -Correct Procedure Yes -Procedure Performed Yes -Type of Procedure Debridement -Clinical Debridement Subcutaneous -Post Debridement Size (cm) - Length 0.3 -Post Debridement Size (cm) - Width 1.0 -Post Debridement Size (cm) - Depth 0.1 -Total Square Cm 0.30 -Wound/Ulcer Outcome Not Healed -Ulcer Cleansing Rinsed/ Irrigated with Saline -Foul Odor after Cleansing No -Bioengineered Tissue No -Cetacaine [place] No -Bleeding Controlled with Pressure -Treatment Response Procedure Tolerated Well [See Physician Procedure note for Specifics] Pain Scale: 0-10 Numeric [Pain] -Is Patient Pain Free? Yes Musculoskeletal: No Tenderness to Palpation of Joints or Extremities Lymphatic: No Cervical, Supraclavicular, or Inguinal Adenopathy Neurological: Cranial nerves II-XII grossly intact, Neuro grossly intact Psych/Mental Status: Normal Affect, Appropriate Debridement Note Post-Debridement Measurements/Treatment WC - Nurse 2 - General Ulcer CM Notes Start: 10/02/17 09:50 Freq: Status: Active Protocol: Activity Type Activity Date Activity User E-Sign Co-Sign Detail Recorded Client Recorded Date Recorded By Document 10/02/17 10:14 MW [id number] 10/02/17 10:20 MW Document 10/16/17 11:24 MW [id number] 10/16/17 11:27 MW Document 10/23/17 10:51 MW [id number] 10/23/17 11:07 MW 10/02/17 10/16/17 10/23/17 10:14 11:24 10:51 Wound Center Nurse 2 #6 LT GLUTEAL FOLD -Time 10:15 11:25 10:51 -Correct Patient Yes Yes Yes -Correct Side, Site, Position Yes Yes Yes -Correct Procedure Yes Yes Yes -Procedure Performed Yes Yes Yes -Type of Procedure Debridement Debridement Debridement -Clinical Debridement Subcutaneous Subcutaneous Subcutaneous -Post Debridement Size (cm) - Length 0.4 0.4 0.2 -Post Debridement Size (cm) - Width 0.7 0.4 0.3 -Post Debridement Size (cm) - Depth 0.2 0.1 0.1 -Total Square Cm 0.28 0.16 0.06 -Wound/Ulcer Outcome Not Healed Not Healed Not Healed -Ulcer Cleansing Rinsed/ Rinsed/ Rinsed/ Irrigated with Irrigated with Irrigated with Saline Saline Saline -Foul Odor after Cleansing No No No -Bioengineered Tissue No No No -Type of bioengineered Tissue EPIFIX -Cetacaine [place] No No No -Bleeding Controlled with Pressure Pressure Pressure -Treatment Response Procedure Procedure Procedure Tolerated Well Tolerated Well Tolerated Well #5 RT BUTTOCKS -Time 10:15 11:25 10:52 -Correct Patient Yes Yes Yes -Correct Side, Site, Position Yes Yes Yes -Correct Procedure Yes Yes Yes -Procedure Performed Yes Yes Yes -Type of Procedure Debridement Debridement Debridement -Clinical Debridement Subcutaneous Subcutaneous Subcutaneous -Post Debridement Size (cm) - Length 1.8 2.0 1.8 -Post Debridement Size (cm) - Width 1.8 1.2 1.8 -Post Debridement Size (cm) - Depth 0.3 0.2 0.2 -Total Square Cm 3.24 2.40 3.24 -Wound/Ulcer Outcome Not Healed Not Healed Not Healed -Ulcer Cleansing Rinsed/ Rinsed/ Rinsed/ Irrigated with Irrigated with Irrigated with Saline Saline Saline -Foul Odor after Cleansing No No No -Bioengineered Tissue No No No -Expiration Date 08/26/22 -Product Lot Number [id number] -Percent Used 100 -Saline Lot Number [id number] -Cetacaine [place] No No No -Bleeding Controlled with Pressure Pressure Pressure -Treatment Response Procedure Procedure Procedure Tolerated Well Tolerated Well Tolerated Well #4- LT BUTTOCKS -Time 10:15 11:26 10:52 -Correct Patient Yes Yes Yes -Correct Side, Site, Position Yes Yes Yes -Correct Procedure Yes Yes Yes -Procedure Performed Yes Yes Yes -Type of Procedure Debridement Debridement Debridement -Clinical Debridement Subcutaneous Subcutaneous Subcutaneous -Post Debridement Size (cm) - Length 0.6 0.9 0.3 -Post Debridement Size (cm) - Width 0.7 1.0 1.0 -Post Debridement Size (cm) - Depth 0.2 1 0.1 -Total Square Cm 0.42 0.90 0.30 -Wound/Ulcer Outcome Not Healed Not Healed Not Healed -Ulcer Cleansing Rinsed/ Rinsed/ Rinsed/ Irrigated with Irrigated with Irrigated with Saline Saline Saline -Foul Odor after Cleansing No No No -Bioengineered Tissue No No No -Cetacaine [place] No No No -Bleeding Controlled with Pressure Pressure Pressure -Treatment Response Procedure Procedure Procedure Tolerated Well Tolerated Well Tolerated Well Pain Scale: 0-10 Numeric Is Patient Pain Free? Yes Yes Yes Wound debrided: Right buttocks ulcer Wound Grade/Stage: Stage II Type of Debridement: Excisional debridement Anesthesia Used: 5% Lidocaine Gel Depth: Down to and including healthy tissue, in the subcutaneous layer Percentage of wound debrided: 100 Instrument Used: 3mm curette Severity: Limited To Skin Breakdown Amount of bleeding with debridement: Moderate Bleeding Controlled with: Compression and gauze Patient tolerated procedure well - Additional Wound Wound debrided: Left gluteal fold Type of Debridement: Excisional debridement Anesthesia Used: 5% Lidocaine Gel Depth: Down to and including healthy tissue, in the subcutaneous layer Percentage of wound debrided: 100 Instrument Used: 3mm curette Tissue Removed: Fibrin Severity: Limited To Skin Breakdown Amount of bleeding with debridement: Mild Bleeding Controlled with: Compression and gauze Patient tolerated procedure: Patient tolerated procedure well - Additional Wound Wound debrided: Left buttocks Wound Grade/Stage: Stage II Type of Debridement: Excisional debridement Anesthesia Used: 5% Lidocaine Gel Depth: Down to and including healthy tissue, in the subcutaneous layer Percentage of wound debrided: 100 Instrument Used: 3mm curette Tissue Removed: Fibrin Severity: Limited To Skin Breakdown Amount of bleeding with debridement: Mild Bleeding Controlled with: Compression and gauze Patient tolerated procedure: Patient tolerated procedure well Assessment/Plan Active Problems Episodic atrial fibrillation (Chronic) Anemia (Chronic) Stage II pressure ulcer of right buttock (Chronic) Left ischial pressure sore (Chronic) Stage 3 chronic renal impairment associated with type 2 diabetes mellitus ( Chronic) Assessment: Morbid obesity. Chronic renal failure stage III. Anemia. Stage II buttocks ulcer right and left ulcer and left ischium. Malnutrition. Chronic diarrhea Plan: Promogran moistened to the left buttocks and gluteal fold area Adaptic and gauze dressings. These will be done daily. #1 epi flex substitute skin to the right buttocks. Cover with Adaptic Steri-Strips gauze tape. Continue to offload totally in bed on her sides. Overlay to mattress low air. Gel cushion for her chair sitting for when she eats only. Continue taking Doc or any other protein drinks. Follow-up in 1 weeks. Contact patient about cultures taken. Increase ferrous sulfate to 3 times daily for at least 3 months. Vitamin C 1000 mg daily. Zinc daily. Lidoderm patches to affected areas once a day
== END 2017-10-25 23:59 ==
LOC: WC 10:30
PROVIDERS: Family Provider Family Medicine; PCP Family Medicine; Visit Provider Nurse Practitioner
DX: E11.622 Type 2 diabetes mellitus with other skin ulcer (principal); E11.22 Type 2 diabetes mellitus with diabetic chronic kidney disease; N18.3 Chronic kidney disease, stage 3 (moderate); I48.0 Paroxysmal atrial fibrillation; E66.01 Morbid (severe) obesity due to excess calories; Z68.41 Body mass index [BMI] 40.0-44.9, adult; Z71.3 Dietary counseling and surveillance; Z98.84 Bariatric surgery status; L89.322 Pressure ulcer of left buttock, stage 2; L89.312 Pressure ulcer of right buttock, stage 2; L89.222 Pressure ulcer of left hip, stage 2; D63.1 Anemia in chronic kidney disease
CPT/HCPCS: 11042; 84134

== ENCOUNTER 2017-11-13 10:27 | Outpatient (RCR) | payer MEDICAID, SELFPAY ==
[2017-10-26 01:03] VITALS: BP 165/91; PULSE 70; RESP 18; TEMP 37; BMI 41.1
[2017-11-13 10:41] VITALS: BP 161/72; PULSE 69; RESP 18; TEMP 36.2; BMI 41.1
--- NOTE | 2017-11-13 11:22 | PCM.WC.PN ---
(1) Afib Status: Chronic Current Visit: Yes Code(s): I48.91 - Unspecified atrial fibrillation (2) Anemia Status: Chronic Current Visit: Yes Code(s): D64.9 - Anemia, unspecified (3) Aortic valve stenosis, nonrheumatic Status: Chronic Current Visit: Yes Code(s): I35.0 - Nonrheumatic aortic (valve) stenosis (4) Atrial arrhythmia Status: Chronic Current Visit: Yes Code(s): I49.8 - Other specified cardiac arrhythmias (5) Atrial premature beats Status: Chronic Current Visit: Yes Code(s): I49.1 - Atrial premature depolarization (6) Chronic diarrhea Status: Chronic Current Visit: Yes Code(s): K52.9 - Noninfective gastroenteritis and colitis, unspecified (7) Chronic renal insufficiency, stage III (moderate) Status: Chronic Current Visit: Yes Code(s): N18.3 - Chronic kidney disease, stage 3 (moderate) (8) Cirrhosis Status: Chronic Current Visit: Yes Code(s): K74.60 - Unspecified cirrhosis of liver (9) DM2 (diabetes mellitus, type 2) Status: Chronic Current Visit: Yes Code(s): E11.9 - Type 2 diabetes mellitus without complications (10) Pressure ulcer of left buttock, stage 2 Status: Acute Current Visit: Yes Code(s): L89.322 - Pressure ulcer of left buttock, stage 2 (11) Stage II pressure ulcer of right buttock Status: Acute Current Visit: Yes Code(s): L89.312 - Pressure ulcer of right buttock, stage 2 Type of Wound Date of Service: 11/13/17 Chief Complaint: Follow-up open ulcers on right and left buttocks for approximately 3 weeks History of Wound: 60-year-old white female who has a very complicated history of morbid obesity post bariatric surgery 10 years ago with many complications. 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 Patient has many disabilities and can still walk, but poorly. She has no muscle mass and her buttocks area and in the skin is flabby has developed open ulcers in the perirectal and on each cheek of the right and left buttocks from sitting. She also developed one in her left ischium. These all developed from driving in a car for long periods of time she has been trying to stretch out. She was family was murdered down in [place] and she has been driving daily for the infant is still alive and she travels to the hospital. Progress of Wound: Today both ulcers are about half to quarter this size they were before using the epi fix. Patient states that they did stay on and healed well. Seen her for 2 weeks because of weather and illness. Her labs show renal insufficiency stage III her anemia is down to 10 on a hemoglobin her TIBC was all normal. Magnesium was normal vitamin D level was normal and this her vitamin B12 was on the lower end of normal patient was encouraged to increase iron pills to 3 times a day and start vitamin C thousand milligrams a day and zinc. Patient complaints of burning are better since using the epi flex. Her pre-albumin is just barely over at 21 we suggested increasing her protein which she states she has. - Physical Exam Vital Signs Temp Pulse Resp BP 97.1 F L 69 18 161/72 H 11/13/17 10:41 11/13/17 10:41 11/13/17 10:41 11/13/17 10:41 General: Oriented x3, Cooperative, Well developed HEENT: Atraumatic, PERRLA Oral: Moist Mucosa Neck: Supple, No JVD Lungs: Clear to auscultation, Normal air movement Cardiovascular: Regular rate, Regular Rhythm Abdomen: Bowel Sounds Present, Soft, Non Tender, No Hepato-splenomegaly Extremities: No clubbing, No edema Wound Measurements and Assessment - Nurse 1 - General Ulcer Measurement Start: 11/13/17 10:40 Freq: Status: Active Protocol: Activity Type Activity Date Activity User E-Sign Co-Sign Detail Recorded Client Recorded Date Recorded By Document 11/13/17 10:41 [id number] 11/13/17 10:45 11/13/17 10:41 Wound Center Nurse 1 [Ulcer Assessment Protocol: WC.WD.LOC] #6 LT GLUTEAL FOLD -Combined with other wound No -Current Size (cm) - Length 0 -Current Size (cm) - Width 0 -Current Size (cm) - Depth 0 -Total Square Cm 0 -Date of Last Picture (Recall this 11/13/17 field) -Photo Taken Yes -Epithelialization Large 67-100% -Tunneling No -Undermining/Tunneling No -Circular Undermining No -Classification - Thickness Full Thickness without Exposed Support Structure -Exudate Amt None Present (0 %) -Wound Margin Distinct, Outline Attached -Granulation Amt Large (67-100%) -Granulation Quality [place] -Slough/Fibrin No -Necrosis Amt None Present (0 %) -Structure Exposed None/Limited to Skin Breakdown -Texture (Lexi-wound Skin Appearance) Scarring -Moisture (Lexi-wound Skin Appearance Dry/Scaly ) -Color (Lexi-wound Skin Appearance) Erythema -Temperature (Lexi-wound Skin No Abnormality Appearance) (Pt Warm) -Tenderness on Palpation (Lexi-wound No Skin Appearance) -Ulcer Cleansing Rinsed/ Irrigated with Saline -Foul Odor after Cleansing No #5 RT BUTTOCKS -Current Size (cm) - Length 0.5 -Current Size (cm) - Width 0.3 -Current Size (cm) - Depth 0.1 -Total Square Cm 0.15 -Date of Last Picture (Recall this 11/13/17 field) -Photo Taken Yes -Epithelialization Small 1-33% -Tunneling No -Undermining/Tunneling No -Circular Undermining No -Classification - Thickness Full Thickness without Exposed Support Structure -Exudate Amt Small (1-33%) -Exudate Type Serosanguineous -Wound Margin Distinct, Outline Attached -Granulation Amt Large (67-100%) -Granulation Quality Red -Slough/Fibrin Yes -Necrosis Amt Small (1-33%) -Necrotic Tissue Type Adherent Slough -Structure Exposed Fascia Fat Layer Exposed -Texture (Lexi-wound Skin Appearance) Scarring -Moisture (Lexi-wound Skin Appearance No Abnormality ) -Color (Lexi-wound Skin Appearance) Erythema -Temperature (Lexi-wound Skin No Abnormality Appearance) (Pt Warm) -Tenderness on Palpation (Lexi-wound No Skin Appearance) -Ulcer Cleansing Rinsed/ Irrigated with Saline -Foul Odor after Cleansing No -Anesthetic Used 5% Lidocaine Gel #4- LT BUTTOCKS -Combined with other wound No -Current Size (cm) - Length 0.4 -Current Size (cm) - Width 0.5 -Current Size (cm) - Depth 0.1 -Total Square Cm 0.20 -Date of Last Picture (Recall this 11/13/17 field) -Photo Taken Yes -Epithelialization Small 1-33% -Tunneling No -Undermining/Tunneling No -Circular Undermining No -Classification - Thickness Full Thickness without Exposed Support Structure -Exudate Amt Small (1-33%) -Exudate Type Serosanguineous -Wound Margin Distinct, Outline Attached -Granulation Amt Large (67-100%) -Granulation Quality [place] -Slough/Fibrin Yes -Necrosis Amt Small (1-33%) -Necrotic Tissue Type Adherent Slough -Structure Exposed Fascia Fat Layer Exposed -Texture (Lexi-wound Skin Appearance) Scarring -Moisture (Lexi-wound Skin Appearance No Abnormality ) -Color (Lexi-wound Skin Appearance) Erythema -Temperature (Lexi-wound Skin No Abnormality Appearance) (Pt Warm) -Tenderness on Palpation (Lexi-wound No Skin Appearance) -Ulcer Cleansing Rinsed/ Irrigated with Saline -Foul Odor after Cleansing No -Anesthetic Used 5% Lidocaine Gel [Edema Assessment] -Lower Limb Edema Present No WC - Nurse 2 - General Ulcer CM Notes Start: 11/13/17 10:40 Freq: Status: Active Protocol: Activity Type Activity Date Activity User E-Sign Co-Sign Detail Recorded Client Recorded Date Recorded By Document 11/13/17 11:04 MW [id number] 11/13/17 11:10 MW 11/13/17 11:04 Wound Center Nurse 2 [Procedure/Treatment] #5 RT BUTTOCKS -Time 11:05 -Correct Patient Yes -Correct Side, Site, Position Yes -Correct Procedure Yes -Procedure Performed Yes -Type of Procedure Debridement -Clinical Debridement Subcutaneous -Post Debridement Size (cm) - Length 0.7 -Post Debridement Size (cm) - Width 0.4 -Post Debridement Size (cm) - Depth 0.2 -Total Square Cm 0.28 -Wound/Ulcer Outcome Not Healed -Ulcer Cleansing Rinsed/ Irrigated with Saline -Foul Odor after Cleansing No -Bioengineered Tissue Yes -Type of bioengineered Tissue EPIFIX -Expiration Date 08/26/22 -Product Lot Number [id number] -Percent Used 100 -Saline Lot Number [id number] -Cetacaine [place] No -Bleeding Controlled with Pressure -Treatment Response Procedure Tolerated Well #4- LT BUTTOCKS -Time 11:07 -Correct Patient Yes -Correct Side, Site, Position Yes -Correct Procedure Yes -Procedure Performed Yes -Type of Procedure Debridement -Clinical Debridement Subcutaneous -Post Debridement Size (cm) - Length 0.4 -Post Debridement Size (cm) - Width 0.7 -Post Debridement Size (cm) - Depth 0.1 -Total Square Cm 0.28 -Wound/Ulcer Outcome Not Healed -Ulcer Cleansing Rinsed/ Irrigated with Saline -Foul Odor after Cleansing No -Bioengineered Tissue Yes -Type of bioengineered Tissue EPIFIX -Expiration Date 08/26/22 -Product Lot Number [id number] -Percent Used 100 -Saline Lot Number [id number] -Cetacaine [place] No -Bleeding Controlled with Pressure -Treatment Response Procedure Tolerated Well [See Physician Procedure note for Specifics] Pain Scale: 0-10 Numeric [Pain] -Is Patient Pain Free? Yes Musculoskeletal: No Tenderness to Palpation of Joints or Extremities Lymphatic: No Cervical, Supraclavicular, or Inguinal Adenopathy Neurological: Cranial nerves II-XII grossly intact, Neuro grossly intact Psych/Mental Status: Normal Affect, Appropriate, Alert and oriented to time, place, person, mood and affect Debridement Note Post-Debridement Measurements/Treatment WC - Nurse 2 - General Ulcer CM Notes Start: 11/13/17 10:40 Freq: Status: Active Protocol: Activity Type Activity Date Activity User E-Sign Co-Sign Detail Recorded Client Recorded Date Recorded By Document 11/13/17 11:04 MW [id number] 11/13/17 11:10 MW 11/13/17 11:04 Wound Center Nurse 2 #5 RT BUTTOCKS -Time 11:05 -Correct Patient Yes -Correct Side, Site, Position Yes -Correct Procedure Yes -Procedure Performed Yes -Type of Procedure Debridement -Clinical Debridement Subcutaneous -Post Debridement Size (cm) - Length 0.7 -Post Debridement Size (cm) - Width 0.4 -Post Debridement Size (cm) - Depth 0.2 -Total Square Cm 0.28 -Wound/Ulcer Outcome Not Healed -Ulcer Cleansing Rinsed/ Irrigated with Saline -Foul Odor after Cleansing No -Bioengineered Tissue Yes -Type of bioengineered Tissue EPIFIX -Expiration Date 08/26/22 -Product Lot Number [id number] -Percent Used 100 -Saline Lot Number [id number] -Cetacaine [place] No -Bleeding Controlled with Pressure -Treatment Response Procedure Tolerated Well #4- LT BUTTOCKS -Time 11:07 -Correct Patient Yes -Correct Side, Site, Position Yes -Correct Procedure Yes -Procedure Performed Yes -Type of Procedure Debridement -Clinical Debridement Subcutaneous -Post Debridement Size (cm) - Length 0.4 -Post Debridement Size (cm) - Width 0.7 -Post Debridement Size (cm) - Depth 0.1 -Total Square Cm 0.28 -Wound/Ulcer Outcome Not Healed -Ulcer Cleansing Rinsed/ Irrigated with Saline -Foul Odor after Cleansing No -Bioengineered Tissue Yes -Type of bioengineered Tissue EPIFIX -Expiration Date 08/26/22 -Product Lot Number [id number] -Percent Used 100 -Saline Lot Number [id number] -Cetacaine [place] No -Bleeding Controlled with Pressure -Treatment Response Procedure Tolerated Well Pain Scale: 0-10 Numeric Is Patient Pain Free? Yes Wound debrided: Right buttocks Wound Grade/Stage: Page 2 Type of Debridement: Excisional debridement Anesthesia Used: 5% Lidocaine Gel Depth: Down to and including healthy tissue Percentage of wound debrided: 100 Instrument Used: 3mm curette Tissue Removed: Fibrin Severity: Limited To Skin Breakdown Amount of bleeding with debridement: Mild Bleeding Controlled with: Compression and gauze Patient tolerated procedure well - Additional Wound Wound debrided: Left buttocks Wound Grade/Stage: Stage II Type of Debridement: Excisional debridement Depth: Down to and including healthy tissue, in the subcutaneous layer Percentage of wound debrided: 100 Instrument Used: 3mm curette Tissue Removed: Fibrin Severity: Limited To Skin Breakdown Amount of bleeding with debridement: Mild Bleeding Controlled with: Pressure, Compression and gauze Patient tolerated procedure: Patient tolerated procedure well Assessment/Plan Active Problems (Last Reviewed 11/09/17 @ 11:16 by Annalee Laura) Aortic valve stenosis, nonrheumatic (Chronic) Atrial premature beats (Chronic) Cirrhosis (Chronic) DM2 (diabetes mellitus, type 2) (Chronic) Atrial arrhythmia (Chronic) Afib (Chronic) Anemia (Chronic) Chronic renal insufficiency, stage III (moderate) (Chronic) Pressure ulcer of left buttock, stage 2 (Acute) Stage II pressure ulcer of right buttock (Acute) Chronic diarrhea (Chronic) Assessment: Morbid obesity. Chronic renal failure stage III. Anemia. Stage II buttocks ulcer right and left ulcer and left ischium. Malnutrition. Chronic diarrhea Plan: #2 epi flex substitute skin to the right buttocks and left buttocks. Cover with Adaptic Steri-Strips gauze tape. Continue to offload totally in bed on her sides. Overlay to mattress low air. Gel cushion for her chair sitting for when she eats only. Continue taking Doc or any other protein drinks. Follow-up in 1 weeks. Contact patient about cultures taken. Increase ferrous sulfate to 3 times daily for at least 3 months. Vitamin C 1000 mg daily. Zinc daily. Lidoderm patches to affected areas once a day
--- NOTE | 2017-11-13 11:29 | PN.PCM_ITS ---
(1) Afib Status: Chronic Current Visit: Yes Code(s): I48.91 - Unspecified atrial fibrillation (2) Anemia Status: Chronic Current Visit: Yes Code(s): D64.9 - Anemia, unspecified (3) Aortic valve stenosis, nonrheumatic Status: Chronic Current Visit: Yes Code(s): I35.0 - Nonrheumatic aortic ( valve) stenosis (4) Atrial arrhythmia Status: Chronic Current Visit: Yes Code(s): I49.8 - Other specified cardiac arrhythmias (5) Atrial premature beats Status: Chronic Current Visit: Yes Code(s): I49.1 - Atrial premature depolarization (6) Chronic diarrhea Status: Chronic Current Visit: Yes Code(s): K52.9 - Noninfective gastroenteritis and colitis, unspecified (7) Chronic renal insufficiency, stage III (moderate) Status: Chronic Current Visit: Yes Code(s): N18.3 - Chronic kidney disease, stage 3 (moderate) (8) Cirrhosis Status: Chronic Current Visit: Yes Code(s): K74.60 - Unspecified cirrhosis of liver (9) DM2 (diabetes mellitus, type 2) Status: Chronic Current Visit: Yes Code(s): E11.9 - Type 2 diabetes mellitus without complications (10) Pressure ulcer of left buttock, stage 2 Status: Acute Current Visit: Yes Code(s): L89.322 - Pressure ulcer of left buttock, stage 2 (11) Stage II pressure ulcer of right buttock Status: Acute Current Visit: Yes Code(s): L89.312 - Pressure ulcer of right buttock, stage 2 Type of Wound Date of Service: 11/13/17 Chief Complaint: Follow-up open ulcers on right and left buttocks for approximately 3 weeks History of Wound: 60-year-old white female who has a very complicated history of morbid obesity post bariatric surgery 10 years ago with many complications. 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 Patient has many disabilities and can still walk, but poorly. She has no muscle mass and her buttocks area and in the skin is flabby has developed open ulcers in the perirectal and on each cheek of the right and left buttocks from sitting. She also developed one in her left ischium. These all developed from driving in a car for long periods of time she has been trying to stretch out. She was family was murdered down in [place] and she has been driving daily for the infant is still alive and she travels to the hospital. Progress of Wound: Today both ulcers are about half to quarter this size they were before using the epi fix. Patient states that they did stay on and healed well. Seen her for 2 weeks because of weather and illness. Her labs show renal insufficiency stage III her anemia is down to 10 on a hemoglobin her TIBC was all normal. Magnesium was normal vitamin D level was normal and this her vitamin B12 was on the lower end of normal patient was encouraged to increase iron pills to 3 times a day and start vitamin C thousand milligrams a day and zinc. Patient complaints of burning are better since using the epi flex. Her pre-albumin is just barely over at 21 we suggested increasing her protein which she states she has. - Physical Exam Vital Signs Temp Pulse Resp BP 97.1 F L 69 18 161/72 H 11/13/17 10:41 11/13/17 10:41 11/13/17 10:41 11/13/17 10:41 General: Oriented x3, Cooperative, Well developed HEENT: Atraumatic, PERRLA Oral: Moist Mucosa Neck: Supple, No JVD Lungs: Clear to auscultation, Normal air movement Cardiovascular: Regular rate, Regular Rhythm Abdomen: Bowel Sounds Present, Soft, Non Tender, No Hepato-splenomegaly Extremities: No clubbing, No edema Wound Measurements and Assessment - Nurse 1 - General Ulcer Measurement Start: 11/13/17 10:40 Freq: Status: Active Protocol: Activity Type Activity Date Activity User E-Sign Co-Sign Detail Recorded Client Recorded Date Recorded By Document 11/13/17 10:41 [id number] 11/13/17 10:45 11/13/17 10:41 Wound Center Nurse 1 [Ulcer Assessment Protocol: WC.WD.LOC] #6 LT GLUTEAL FOLD -Combined with other wound No -Current Size (cm) - Length 0 -Current Size (cm) - Width 0 -Current Size (cm) - Depth 0 -Total Square Cm 0 -Date of Last Picture (Recall this 11/13/17 field) -Photo Taken Yes -Epithelialization Large 67-100% -Tunneling No -Undermining/Tunneling No -Circular Undermining No -Classification - Thickness Full Thickness without Exposed Support Structure -Exudate Amt None Present (0 %) -Wound Margin Distinct, Outline Attached -Granulation Amt Large (67-100%) -Granulation Quality [place] -Slough/Fibrin No -Necrosis Amt None Present (0 %) -Structure Exposed None/Limited to Skin Breakdown -Texture (Lexi-wound Skin Appearance) Scarring -Moisture (Lexi-wound Skin Appearance Dry/Scaly ) -Color (Lexi-wound Skin Appearance) Erythema -Temperature (Lexi-wound Skin No Abnormality Appearance) (Pt Warm) -Tenderness on Palpation (Lexi-wound No Skin Appearance) -Ulcer Cleansing Rinsed/ Irrigated with Saline -Foul Odor after Cleansing No #5 RT BUTTOCKS -Current Size (cm) - Length 0.5 -Current Size (cm) - Width 0.3 -Current Size (cm) - Depth 0.1 -Total Square Cm 0.15 -Date of Last Picture (Recall this 11/13/17 field) -Photo Taken Yes -Epithelialization Small 1-33% -Tunneling No -Undermining/Tunneling No -Circular Undermining No -Classification - Thickness Full Thickness without Exposed Support Structure -Exudate Amt Small (1-33%) -Exudate Type Serosanguineous -Wound Margin Distinct, Outline Attached -Granulation Amt Large (67-100%) -Granulation Quality Red -Slough/Fibrin Yes -Necrosis Amt Small (1-33%) -Necrotic Tissue Type Adherent Slough -Structure Exposed Fascia Fat Layer Exposed -Texture (Lexi-wound Skin Appearance) Scarring -Moisture (Lexi-wound Skin Appearance No Abnormality ) -Color (Lexi-wound Skin Appearance) Erythema -Temperature (Lexi-wound Skin No Abnormality Appearance) (Pt Warm) -Tenderness on Palpation (Lexi-wound No Skin Appearance) -Ulcer Cleansing Rinsed/ Irrigated with Saline -Foul Odor after Cleansing No -Anesthetic Used 5% Lidocaine Gel #4- LT BUTTOCKS -Combined with other wound No -Current Size (cm) - Length 0.4 -Current Size (cm) - Width 0.5 -Current Size (cm) - Depth 0.1 -Total Square Cm 0.20 -Date of Last Picture (Recall this 11/13/17 field) -Photo Taken Yes -Epithelialization Small 1-33% -Tunneling No -Undermining/Tunneling No -Circular Undermining No -Classification - Thickness Full Thickness without Exposed Support Structure -Exudate Amt Small (1-33%) -Exudate Type Serosanguineous -Wound Margin Distinct, Outline Attached -Granulation Amt Large (67-100%) -Granulation Quality [place] -Slough/Fibrin Yes -Necrosis Amt Small (1-33%) -Necrotic Tissue Type Adherent Slough -Structure Exposed Fascia Fat Layer Exposed -Texture (Lexi-wound Skin Appearance) Scarring -Moisture (Lexi-wound Skin Appearance No Abnormality ) -Color (Lexi-wound Skin Appearance) Erythema -Temperature (Leix-wound Skin No Abnormality Appearance) (Pt Warm) -Tenderness on Palpation (Lexi-wound No Skin Appearance) -Ulcer Cleansing Rinsed/ Irrigated with Saline -Foul Odor after Cleansing No -Anesthetic Used 5% Lidocaine Gel [Edema Assessment] -Lower Limb Edema Present No WC - Nurse 2 - General Ulcer CM Notes Start: 11/13/17 10:40 Freq: Status: Active Protocol: Activity Type Activity Date Activity User E-Sign Co-Sign Detail Recorded Client Recorded Date Recorded By Document 11/13/17 11:04 MW [id number] 11/13/17 11:10 MW 11/13/17 11:04 Wound Center Nurse 2 [Procedure/Treatment] #5 RT BUTTOCKS -Time 11:05 -Correct Patient Yes -Correct Side, Site, Position Yes -Correct Procedure Yes -Procedure Performed Yes -Type of Procedure Debridement -Clinical Debridement Subcutaneous -Post Debridement Size (cm) - Length 0.7 -Post Debridement Size (cm) - Width 0.4 -Post Debridement Size (cm) - Depth 0.2 -Total Square Cm 0.28 -Wound/Ulcer Outcome Not Healed -Ulcer Cleansing Rinsed/ Irrigated with Saline -Foul Odor after Cleansing No -Bioengineered Tissue Yes -Type of bioengineered Tissue EPIFIX -Expiration Date 08/26/22 -Product Lot Number [id number] -Percent Used 100 -Saline Lot Number [id number] -Cetacaine Linn No -Bleeding Controlled with Pressure -Treatment Response Procedure Tolerated Well #4- LT BUTTOCKS -Time 11:07 -Correct Patient Yes -Correct Side, Site, Position Yes -Correct Procedure Yes -Procedure Performed Yes -Type of Procedure Debridement -Clinical Debridement Subcutaneous -Post Debridement Size (cm) - Length 0.4 -Post Debridement Size (cm) - Width 0.7 -Post Debridement Size (cm) - Depth 0.1 -Total Square Cm 0.28 -Wound/Ulcer Outcome Not Healed -Ulcer Cleansing Rinsed/ Irrigated with Saline -Foul Odor after Cleansing No -Bioengineered Tissue Yes -Type of bioengineered Tissue EPIFIX -Expiration Date 08/26/22 -Product Lot Number [id number] -Percent Used 100 -Saline Lot Number [id number] -Cetacaine Linn No -Bleeding Controlled with Pressure -Treatment Response Procedure Tolerated Well [See Physician Procedure note for Specifics] Pain Scale: 0-10 Numeric [Pain] -Is Patient Pain Free? Yes Musculoskeletal: No Tenderness to Palpation of Joints or Extremities Lymphatic: No Cervical, Supraclavicular, or Inguinal Adenopathy Neurological: Cranial nerves II-XII grossly intact, Neuro grossly intact Psych/Mental Status: Normal Affect, Appropriate, Alert and oriented to time, place, person, mood and affect Debridement Note Post-Debridement Measurements/Treatment WC - Nurse 2 - General Ulcer CM Notes Start: 11/13/17 10:40 Freq: Status: Active Protocol: Activity Type Activity Date Activity User E-Sign Co-Sign Detail Recorded Client Recorded Date Recorded By Document 11/13/17 11:04 MW [id number] 11/13/17 11:10 MW 11/13/17 11:04 Wound Center Nurse 2 #5 RT BUTTOCKS -Time 11:05 -Correct Patient Yes -Correct Side, Site, Position Yes -Correct Procedure Yes -Procedure Performed Yes -Type of Procedure Debridement -Clinical Debridement Subcutaneous -Post Debridement Size (cm) - Length 0.7 -Post Debridement Size (cm) - Width 0.4 -Post Debridement Size (cm) - Depth 0.2 -Total Square Cm 0.28 -Wound/Ulcer Outcome Not Healed -Ulcer Cleansing Rinsed/ Irrigated with Saline -Foul Odor after Cleansing No -Bioengineered Tissue Yes -Type of bioengineered Tissue EPIFIX -Expiration Date 08/26/22 -Product Lot Number [id number] -Percent Used 100 -Saline Lot Number [id number] -Cetacaine [place] No -Bleeding Controlled with Pressure -Treatment Response Procedure Tolerated Well #4- LT BUTTOCKS -Time 11:07 -Correct Patient Yes -Correct Side, Site, Position Yes -Correct Procedure Yes -Procedure Performed Yes -Type of Procedure Debridement -Clinical Debridement Subcutaneous -Post Debridement Size (cm) - Length 0.4 -Post Debridement Size (cm) - Width 0.7 -Post Debridement Size (cm) - Depth 0.1 -Total Square Cm 0.28 -Wound/Ulcer Outcome Not Healed -Ulcer Cleansing Rinsed/ Irrigated with Saline -Foul Odor after Cleansing No -Bioengineered Tissue Yes -Type of bioengineered Tissue EPIFIX -Expiration Date 08/26/22 -Product Lot Number [id number] -Percent Used 100 -Saline Lot Number [id number] -Cetacaine [place] No -Bleeding Controlled with Pressure -Treatment Response Procedure Tolerated Well Pain Scale: 0-10 Numeric Is Patient Pain Free? Yes Wound debrided: Right buttocks Wound Grade/Stage: Page 2 Type of Debridement: Excisional debridement Anesthesia Used: 5% Lidocaine Gel Depth: Down to and including healthy tissue Percentage of wound debrided: 100 Instrument Used: 3mm curette Tissue Removed: Fibrin Severity: Limited To Skin Breakdown Amount of bleeding with debridement: Mild Bleeding Controlled with: Compression and gauze Patient tolerated procedure well - Additional Wound Wound debrided: Left buttocks Wound Grade/Stage: Stage II Type of Debridement: Excisional debridement Depth: Down to and including healthy tissue, in the subcutaneous layer Percentage of wound debrided: 100 Instrument Used: 3mm curette Tissue Removed: Fibrin Severity: Limited To Skin Breakdown Amount of bleeding with debridement: Mild Bleeding Controlled with: Pressure, Compression and gauze Patient tolerated procedure: Patient tolerated procedure well Assessment/Plan Active Problems (Last Reviewed 11/09/17 @ 11:16 by Annalee Laura) Aortic valve stenosis, nonrheumatic (Chronic) Atrial premature beats (Chronic) Cirrhosis (Chronic) DM2 (diabetes mellitus, type 2) (Chronic) Atrial arrhythmia (Chronic) Afib (Chronic) Anemia (Chronic) Chronic renal insufficiency, stage III (moderate) (Chronic) Pressure ulcer of left buttock, stage 2 (Acute) Stage II pressure ulcer of right buttock (Acute) Chronic diarrhea (Chronic) Assessment: Morbid obesity. Chronic renal failure stage III. Anemia. Stage II buttocks ulcer right and left ulcer and left ischium. Malnutrition. Chronic diarrhea Plan: #2 epi flex substitute skin to the right buttocks and left buttocks. Cover with Adaptic Steri-Strips gauze tape. Continue to offload totally in bed on her sides. Overlay to mattress low air. Gel cushion for her chair sitting for when she eats only. Continue taking Doc or any other protein drinks. Follow-up in 1 weeks. Contact patient about cultures taken. Increase ferrous sulfate to 3 times daily for at least 3 months. Vitamin C 1000 mg daily. Zinc daily. Lidoderm patches to affected areas once a day
== END 2017-11-25 23:59 ==
LOC: WC 10:27
PROVIDERS: Family Provider Family Medicine; PCP Family Medicine; Visit Provider Nurse Practitioner
DX: E11.622 Type 2 diabetes mellitus with other skin ulcer (principal); L89.322 Pressure ulcer of left buttock, stage 2; L89.312 Pressure ulcer of right buttock, stage 2; K74.60 Unspecified cirrhosis of liver; E11.22 Type 2 diabetes mellitus with diabetic chronic kidney disease; N18.3 Chronic kidney disease, stage 3 (moderate); I48.2 Chronic atrial fibrillation; Z98.84 Bariatric surgery status; E66.01 Morbid (severe) obesity due to excess calories; Z68.41 Body mass index [BMI] 40.0-44.9, adult; Z71.3 Dietary counseling and surveillance
CPT/HCPCS: 15271; Q4131

== ENCOUNTER 2017-12-11 10:30 | Outpatient (RCR) | payer MEDICAID, SELFPAY ==
[2017-11-13 10:41] VITALS: BP 161/72
[2017-11-26 00:42] VITALS: PULSE 69; RESP 18; TEMP 36.2
[2017-11-27 08:32] VITALS: BP 144/72; PULSE 56; RESP 18; TEMP 37; BMI 41.1
--- NOTE | 2017-11-27 10:39 | PCM.WC.PN ---
(1) Pressure ulcer of left buttock, stage 2 Status: Acute Current Visit: Yes Code(s): L89.322 - Pressure ulcer of left buttock, stage 2 (2) Stage II pressure ulcer of right buttock Status: Acute Current Visit: Yes Code(s): L89.312 - Pressure ulcer of right buttock, stage 2 (3) Afib Status: Chronic Current Visit: Yes Code(s): I48.91 - Unspecified atrial fibrillation (4) Anemia Status: Chronic Current Visit: Yes Code(s): D64.9 - Anemia, unspecified (5) Aortic valve stenosis, nonrheumatic Status: Chronic Current Visit: Yes Code(s): I35.0 - Nonrheumatic aortic (valve) stenosis (6) Atrial arrhythmia Status: Chronic Current Visit: Yes Code(s): I49.8 - Other specified cardiac arrhythmias (7) Atrial premature beats Status: Chronic Current Visit: Yes Code(s): I49.1 - Atrial premature depolarization (8) Chronic diarrhea Status: Chronic Current Visit: Yes Code(s): K52.9 - Noninfective gastroenteritis and colitis, unspecified Type of Wound Date of Service: 11/27/17 Chief Complaint: Follow-up open ulcers on right and left buttocks for approximately 3 weeks History of Wound: 60-year-old white female who has a very complicated history of morbid obesity post bariatric surgery 10 years ago with many complications. 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 Patient has many disabilities and can still walk, but poorly. She has no muscle mass and her buttocks area and in the skin is flabby has developed open ulcers in the perirectal and on each cheek of the right and left buttocks from sitting. She also developed one in her left ischium. These all developed from driving in a car for long periods of time she has been trying to stretch out. She was family was murdered down in [place] and she has been driving daily for the infant is still alive and she travels to the hospital. Progress of Wound: Today both ulcers are bigger mostly because patient has not been here for 2 weeks. He will continue to use epi-fax because of the healing properties it did so well after 2 applications they are still's much smaller than what they were originally. Patient is encouraged please come in every week. Patient states was sick last week and that is why they did not show up. Her labs show renal insufficiency stage III her anemia is down to 10 on a hemoglobin her TIBC was all normal. Magnesium was normal vitamin D level was normal and this her vitamin B12 was on the lower end of normal patient was encouraged to increase iron pills to 3 times a day and start vitamin C thousand milligrams a day and zinc. Patient complaints of burning are better since using the epi flex. Her pre-albumin is just barely over at 21 we suggested increasing her protein which she states she has. - Physical Exam Vital Signs Temp Pulse Resp BP 98.6 F 56 L 18 144/72 H 11/27/17 08:32 11/27/17 08:32 11/27/17 08:32 11/27/17 08:32 General: Oriented x3, Cooperative, Well developed HEENT: Atraumatic, PERRLA Oral: Moist Mucosa Neck: Supple, No JVD Lungs: Clear to auscultation, Normal air movement Cardiovascular: Regular rate, Regular Rhythm Abdomen: Bowel Sounds Present, Soft, Non Tender, No Hepato-splenomegaly Extremities: No clubbing, No edema Skin: - - Bilateral stage II pressure ulcers right and left buttocks and some superficial ulcers from skin tears from tape. Wound Measurements and Assessment WC - Nurse 1 - General Ulcer Measurement Start: 11/27/17 08:30 Freq: Status: Active Protocol: Activity Type Activity Date Activity User E-Sign Co-Sign Detail Recorded Client Recorded Date Recorded By Document 11/27/17 08:32 DV [id number] 11/27/17 08:39 DV 11/27/17 08:32 Wound Center Nurse 1 [Ulcer Assessment Protocol: SOFIA.WD.LOC] #5 RT BUTTOCKS -Combined with other wound No -Current Size (cm) - Length 0.7 -Current Size (cm) - Width 0.4 -Current Size (cm) - Depth 0.2 -Total Square Cm 0.28 -Photo Taken No -Epithelialization Small 1-33% -Undermining/Tunneling No -Circular Undermining No -Exudate Amt None Present (0 %) -Wound Margin Distinct, Outline Attached -Granulation Amt None Present (0 %) -Granulation Quality N/A -Slough/Fibrin Yes -Necrosis Amt Large (67-100%) -Necrotic Tissue Type Adherent Slough -Structure Exposed None/Limited to Skin Breakdown -Texture (Lexi-wound Skin Appearance) No Abnormality Assessed -Moisture (Lexi-wound Skin Appearance No Abnormality ) Assessed -Color (Lexi-wound Skin Appearance) No Abnormality Assessed -Temperature (Lexi-wound Skin No Abnormality Appearance) (Pt Warm) -Ulcer Cleansing Rinsed/ Irrigated with Saline -Foul Odor after Cleansing No -Anesthetic Used 4% Lidocaine Solution #4- LT BUTTOCKS -Combined with other wound No -Current Size (cm) - Length 0.6 -Current Size (cm) - Width 0.6 -Current Size (cm) - Depth 0.1 -Total Square Cm 0.36 -Photo Taken No -Epithelialization Small 1-33% -Tunneling No -Undermining/Tunneling No -Circular Undermining No -Exudate Amt None Present (0 %) -Wound Margin Distinct, Outline Attached -Granulation Amt None Present (0 %) -Slough/Fibrin No -Necrosis Amt Large (67-100%) -Necrotic Tissue Type Adherent Slough -Structure Exposed None/Limited to Skin Breakdown -Texture (Lexi-wound Skin Appearance) No Abnormality Assessed -Moisture (Lexi-wound Skin Appearance No Abnormality ) Assessed -Color (Lexi-wound Skin Appearance) No Abnormality Assessed -Temperature (Lexi-wound Skin No Abnormality Appearance) (Pt Warm) -Tenderness on Palpation (Lexi-wound Yes Skin Appearance) -Ulcer Cleansing Rinsed/ Irrigated with Saline -Foul Odor after Cleansing No -Anesthetic Used 4% Lidocaine Solution WC - Nurse 2 - General Ulcer CM Notes Start: 11/27/17 08:30 Freq: Status: Active Protocol: Activity Type Activity Date Activity User E-Sign Co-Sign Detail Recorded Client Recorded Date Recorded By Document 11/27/17 08:58 MW [id number] 11/27/17 09:09 MW 11/27/17 08:58 Wound Center Nurse 2 [Procedure/Treatment] #5 RT BUTTOCKS -Time 08:58 -Correct Patient Yes -Correct Side, Site, Position Yes -Correct Procedure Yes -Procedure Performed Yes -Type of Procedure Debridement -Clinical Debridement Subcutaneous -Post Debridement Size (cm) - Length 0.7 -Post Debridement Size (cm) - Width 0.3 -Post Debridement Size (cm) - Depth 0.2 -Total Square Cm 0.21 -Wound/Ulcer Outcome Not Healed -Ulcer Cleansing Rinsed/ Irrigated with Saline -Foul Odor after Cleansing No -Bioengineered Tissue No -Cetacaine [place] No -Bleeding Controlled with Pressure -Treatment Response Procedure Tolerated Well #4- LT BUTTOCKS -Time 08:59 -Correct Patient Yes -Correct Side, Site, Position Yes -Correct Procedure Yes -Procedure Performed Yes -Type of Procedure Debridement -Clinical Debridement Subcutaneous -Post Debridement Size (cm) - Length 0.5 -Post Debridement Size (cm) - Width 0.6 -Post Debridement Size (cm) - Depth 0.1 -Total Square Cm 0.30 -Wound/Ulcer Outcome Not Healed -Ulcer Cleansing Rinsed/ Irrigated with Saline -Foul Odor after Cleansing No -Bioengineered Tissue Yes -Type of bioengineered Tissue EPIFIX -Expiration Date 10/26/21 -Product Lot Number [id number] -Percent Used 50 -Saline Lot Number [id number] -Cetacaine [place] No -Bleeding Controlled with Pressure -Treatment Response Procedure Tolerated Well [See Physician Procedure note for Specifics] Pain Scale: 0-10 Numeric [Pain] -Is Patient Pain Free? Yes Musculoskeletal: No Tenderness to Palpation of Joints or Extremities Lymphatic: No Cervical, Supraclavicular, or Inguinal Adenopathy Neurological: Cranial nerves II-XII grossly intact, Neuro grossly intact Psych/Mental Status: Normal Affect, Appropriate Debridement Note Post-Debridement Measurements/Treatment WC - Nurse 2 - General Ulcer CM Notes Start: 11/27/17 08:30 Freq: Status: Active Protocol: Activity Type Activity Date Activity User E-Sign Co-Sign Detail Recorded Client Recorded Date Recorded By Document 11/27/17 08:58 MW [id number] 11/27/17 09:09 MW 11/27/17 08:58 Wound Center Nurse 2 #5 RT BUTTOCKS -Time 08:58 -Correct Patient Yes -Correct Side, Site, Position Yes -Correct Procedure Yes -Procedure Performed Yes -Type of Procedure Debridement -Clinical Debridement Subcutaneous -Post Debridement Size (cm) - Length 0.7 -Post Debridement Size (cm) - Width 0.3 -Post Debridement Size (cm) - Depth 0.2 -Total Square Cm 0.21 -Wound/Ulcer Outcome Not Healed -Ulcer Cleansing Rinsed/ Irrigated with Saline -Foul Odor after Cleansing No -Bioengineered Tissue No -Cetacaine [place] No -Bleeding Controlled with Pressure -Treatment Response Procedure Tolerated Well #4- LT BUTTOCKS -Time 08:59 -Correct Patient Yes -Correct Side, Site, Position Yes -Correct Procedure Yes -Procedure Performed Yes -Type of Procedure Debridement -Clinical Debridement Subcutaneous -Post Debridement Size (cm) - Length 0.5 -Post Debridement Size (cm) - Width 0.6 -Post Debridement Size (cm) - Depth 0.1 -Total Square Cm 0.30 -Wound/Ulcer Outcome Not Healed -Ulcer Cleansing Rinsed/ Irrigated with Saline -Foul Odor after Cleansing No -Bioengineered Tissue Yes -Type of bioengineered Tissue EPIFIX -Expiration Date 10/26/21 -Product Lot Number [id number] -Percent Used 50 -Saline Lot Number [id number] -Cetacaine [place] No -Bleeding Controlled with Pressure -Treatment Response Procedure Tolerated Well Pain Scale: 0-10 Numeric Is Patient Pain Free? Yes Wound debrided: Right buttocks ulcer Wound Grade/Stage: Stage II Type of Debridement: Excisional debridement Anesthesia Used: 5% Lidocaine Gel Depth: Down to and including healthy tissue, in the subcutaneous layer Percentage of wound debrided: 100 Instrument Used: 3mm curette Tissue Removed: Fibrin Amount of bleeding with debridement: Mild Bleeding Controlled with: Pressure Patient tolerated procedure well - Additional Wound Wound debrided: Left buttocks ulcer Wound Grade/Stage: Stage II Type of Debridement: Excisional debridement Anesthesia Used: 5% Lidocaine Gel Depth: Down to and including healthy tissue, in the subcutaneous layer Percentage of wound debrided: 100 Instrument Used: 3mm curette Tissue Removed: Fibrin Severity: Limited To Skin Breakdown Amount of bleeding with debridement: Mild Bleeding Controlled with: Compression and gauze Patient tolerated procedure: Patient tolerated procedure well Assessment/Plan Active Problems (Last Reviewed 11/09/17 @ 11:16 by Annalee Laura) Aortic valve stenosis, nonrheumatic (Chronic) Atrial premature beats (Chronic) Atrial arrhythmia (Chronic) Afib (Chronic) Anemia (Chronic) Pressure ulcer of left buttock, stage 2 (Acute) Stage II pressure ulcer of right buttock (Acute) Chronic diarrhea (Chronic) Assessment: Morbid obesity. Chronic renal failure stage III. Anemia. Stage II buttocks ulcer right and left ulcer and left ischium. Malnutrition. Chronic diarrhea Plan: #3 epi flex substitute skin to the right buttocks and left buttocks. Cover with Adaptic Steri-Strips gauze tape. Continue to offload totally in bed on her sides. Overlay to mattress low air. Gel cushion for her chair sitting for when she eats only. Continue taking Doc or any other protein drinks. Follow-up in 1 weeks. Contact patient about cultures taken. Increase ferrous sulfate to 3 times daily for at least 3 months. Vitamin C 1000 mg daily. Zinc daily. Lidoderm patches to affected areas once a day
--- NOTE | 2017-11-27 10:46 | PN.PCM_ITS ---
(1) Pressure ulcer of left buttock, stage 2 Status: Acute Current Visit: Yes Code(s): L89.322 - Pressure ulcer of left buttock, stage 2 (2) Stage II pressure ulcer of right buttock Status: Acute Current Visit: Yes Code(s): L89.312 - Pressure ulcer of right buttock, stage 2 (3) Afib Status: Chronic Current Visit: Yes Code(s): I48.91 - Unspecified atrial fibrillation (4) Anemia Status: Chronic Current Visit: Yes Code(s): D64.9 - Anemia, unspecified (5) Aortic valve stenosis, nonrheumatic Status: Chronic Current Visit: Yes Code(s): I35.0 - Nonrheumatic aortic ( valve) stenosis (6) Atrial arrhythmia Status: Chronic Current Visit: Yes Code(s): I49.8 - Other specified cardiac arrhythmias (7) Atrial premature beats Status: Chronic Current Visit: Yes Code(s): I49.1 - Atrial premature depolarization (8) Chronic diarrhea Status: Chronic Current Visit: Yes Code(s): K52.9 - Noninfective gastroenteritis and colitis, unspecified Type of Wound Date of Service: 11/27/17 Chief Complaint: Follow-up open ulcers on right and left buttocks for approximately 3 weeks History of Wound: 60-year-old white female who has a very complicated history of morbid obesity post bariatric surgery 10 years ago with many complications. 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 Patient has many disabilities and can still walk, but poorly. She has no muscle mass and her buttocks area and in the skin is flabby has developed open ulcers in the perirectal and on each cheek of the right and left buttocks from sitting. She also developed one in her left ischium. These all developed from driving in a car for long periods of time she has been trying to stretch out. She was family was murdered down in [place] and she has been driving daily for the is still alive and she travels to the hospital. Progress of Wound: Today both ulcers are bigger mostly because patient has not been here for 2 weeks. He will continue to use epi-fax because of the healing properties it did so well after 2 applications they are still's much smaller than what they were originally. Patient is encouraged please come in every week. Patient states was sick last week and that is why they did not show up. Her labs show renal insufficiency stage III her anemia is down to 10 on a hemoglobin her TIBC was all normal. Magnesium was normal vitamin D level was normal and this her vitamin B12 was on the lower end of normal patient was encouraged to increase iron pills to 3 times a day and start vitamin C thousand milligrams a day and zinc. Patient complaints of burning are better since using the epi flex. Her pre-albumin is just barely over at 21 we suggested increasing her protein which she states she has. - Physical Exam Vital Signs Temp Pulse Resp BP 98.6 F 56 L 18 144/72 H 11/27/17 08:32 11/27/17 08:32 11/27/17 08:32 11/27/17 08:32 General: Oriented x3, Cooperative, Well developed HEENT: Atraumatic, PERRLA Oral: Moist Mucosa Neck: Supple, No JVD Lungs: Clear to auscultation, Normal air movement Cardiovascular: Regular rate, Regular Rhythm Abdomen: Bowel Sounds Present, Soft, Non Tender, No Hepato-splenomegaly Extremities: No clubbing, No edema Skin: - - Bilateral stage II pressure ulcers right and left buttocks and some superficial ulcers from skin tears from tape. Wound Measurements and Assessment WC - Nurse 1 - General Ulcer Measurement Start: 11/27/17 08:30 Freq: Status: Active Protocol: Activity Type Activity Date Activity User E-Sign Co-Sign Detail Recorded Client Recorded Date Recorded By Document 11/27/17 08:32 DV [id number] 11/27/17 08:39 DV 11/27/17 08:32 Wound Center Nurse 1 [Ulcer Assessment Protocol: SOFIA.WD.LOC] #5 RT BUTTOCKS -Combined with other wound No -Current Size (cm) - Length 0.7 -Current Size (cm) - Width 0.4 -Current Size (cm) - Depth 0.2 -Total Square Cm 0.28 -Photo Taken No -Epithelialization Small 1-33% -Undermining/Tunneling No -Circular Undermining No -Exudate Amt None Present (0 %) -Wound Margin Distinct, Outline Attached -Granulation Amt None Present (0 %) -Granulation Quality N/A -Slough/Fibrin Yes -Necrosis Amt Large (67-100%) -Necrotic Tissue Type Adherent Slough -Structure Exposed None/Limited to Skin Breakdown -Texture (Lexi-wound Skin Appearance) No Abnormality Assessed -Moisture (Lexi-wound Skin Appearance No Abnormality ) Assessed -Color (Lexi-wound Skin Appearance) No Abnormality Assessed -Temperature (Lexi-wound Skin No Abnormality Appearance) (Pt Warm) -Ulcer Cleansing Rinsed/ Irrigated with Saline -Foul Odor after Cleansing No -Anesthetic Used 4% Lidocaine Solution #4- LT BUTTOCKS -Combined with other wound No -Current Size (cm) - Length 0.6 -Current Size (cm) - Width 0.6 -Current Size (cm) - Depth 0.1 -Total Square Cm 0.36 -Photo Taken No -Epithelialization Small 1-33% -Tunneling No -Undermining/Tunneling No -Circular Undermining No -Exudate Amt None Present (0 %) -Wound Margin Distinct, Outline Attached -Granulation Amt None Present (0 %) -Slough/Fibrin No -Necrosis Amt Large (67-100%) -Necrotic Tissue Type Adherent Slough -Structure Exposed None/Limited to Skin Breakdown -Texture (Lexi-wound Skin Appearance) No Abnormality Assessed -Moisture (Lexi-wound Skin Appearance No Abnormality ) Assessed -Color (Lexi-wound Skin Appearance) No Abnormality Assessed -Temperature (Lexi-wound Skin No Abnormality Appearance) (Pt Warm) -Tenderness on Palpation (Lexi-wound Yes Skin Appearance) -Ulcer Cleansing Rinsed/ Irrigated with Saline -Foul Odor after Cleansing No -Anesthetic Used 4% Lidocaine Solution WC - Nurse 2 - General Ulcer CM Notes Start: 11/27/17 08:30 Freq: Status: Active Protocol: Activity Type Activity Date Activity User E-Sign Co-Sign Detail Recorded Client Recorded Date Recorded By Document 11/27/17 08:58 MW [id number] 11/27/17 09:09 MW 11/27/17 08:58 Wound Center Nurse 2 [Procedure/Treatment] #5 RT BUTTOCKS -Time 08:58 -Correct Patient Yes -Correct Side, Site, Position Yes -Correct Procedure Yes -Procedure Performed Yes -Type of Procedure Debridement -Clinical Debridement Subcutaneous -Post Debridement Size (cm) - Length 0.7 -Post Debridement Size (cm) - Width 0.3 -Post Debridement Size (cm) - Depth 0.2 -Total Square Cm 0.21 -Wound/Ulcer Outcome Not Healed -Ulcer Cleansing Rinsed/ Irrigated with Saline -Foul Odor after Cleansing No -Bioengineered Tissue No -Cetacaine [place] No -Bleeding Controlled with Pressure -Treatment Response Procedure Tolerated Well #4- LT BUTTOCKS -Time 08:59 -Correct Patient Yes -Correct Side, Site, Position Yes -Correct Procedure Yes -Procedure Performed Yes -Type of Procedure Debridement -Clinical Debridement Subcutaneous -Post Debridement Size (cm) - Length 0.5 -Post Debridement Size (cm) - Width 0.6 -Post Debridement Size (cm) - Depth 0.1 -Total Square Cm 0.30 -Wound/Ulcer Outcome Not Healed -Ulcer Cleansing Rinsed/ Irrigated with Saline -Foul Odor after Cleansing No -Bioengineered Tissue Yes -Type of bioengineered Tissue EPIFIX -Expiration Date 10/26/21 -Product Lot Number [id number] -Percent Used 50 -Saline Lot Number [id number] -Cetacaine [place] No -Bleeding Controlled with Pressure -Treatment Response Procedure Tolerated Well [See Physician Procedure note for Specifics] Pain Scale: 0-10 Numeric [Pain] -Is Patient Pain Free? Yes Musculoskeletal: No Tenderness to Palpation of Joints or Extremities Lymphatic: No Cervical, Supraclavicular, or Inguinal Adenopathy Neurological: Cranial nerves II-XII grossly intact, Neuro grossly intact Psych/Mental Status: Normal Affect, Appropriate Debridement Note Post-Debridement Measurements/Treatment WC - Nurse 2 - General Ulcer CM Notes Start: 11/27/17 08:30 Freq: Status: Active Protocol: Activity Type Activity Date Activity User E-Sign Co-Sign Detail Recorded Client Recorded Date Recorded By Document 11/27/17 08:58 MW [id number] 11/27/17 09:09 MW 11/27/17 08:58 Wound Center Nurse 2 #5 RT BUTTOCKS -Time 08:58 -Correct Patient Yes -Correct Side, Site, Position Yes -Correct Procedure Yes -Procedure Performed Yes -Type of Procedure Debridement -Clinical Debridement Subcutaneous -Post Debridement Size (cm) - Length 0.7 -Post Debridement Size (cm) - Width 0.3 -Post Debridement Size (cm) - Depth 0.2 -Total Square Cm 0.21 -Wound/Ulcer Outcome Not Healed -Ulcer Cleansing Rinsed/ Irrigated with Saline -Foul Odor after Cleansing No -Bioengineered Tissue No -Cetacaine [place] No -Bleeding Controlled with Pressure -Treatment Response Procedure Tolerated Well #4- LT BUTTOCKS -Time 08:59 -Correct Patient Yes -Correct Side, Site, Position Yes -Correct Procedure Yes -Procedure Performed Yes -Type of Procedure Debridement -Clinical Debridement Subcutaneous -Post Debridement Size (cm) - Length 0.5 -Post Debridement Size (cm) - Width 0.6 -Post Debridement Size (cm) - Depth 0.1 -Total Square Cm 0.30 -Wound/Ulcer Outcome Not Healed -Ulcer Cleansing Rinsed/ Irrigated with Saline -Foul Odor after Cleansing No -Bioengineered Tissue Yes -Type of bioengineered Tissue EPIFIX -Expiration Date 10/26/21 -Product Lot Number [id number] -Percent Used 50 -Saline Lot Number [id number] -Cetacaine [place] No -Bleeding Controlled with Pressure -Treatment Response Procedure Tolerated Well Pain Scale: 0-10 Numeric Is Patient Pain Free? Yes Wound debrided: Right buttocks ulcer Wound Grade/Stage: Stage II Type of Debridement: Excisional debridement Anesthesia Used: 5% Lidocaine Gel Depth: Down to and including healthy tissue, in the subcutaneous layer Percentage of wound debrided: 100 Instrument Used: 3mm curette Tissue Removed: Fibrin Amount of bleeding with debridement: Mild Bleeding Controlled with: Pressure Patient tolerated procedure well - Additional Wound Wound debrided: Left buttocks ulcer Wound Grade/Stage: Stage II Type of Debridement: Excisional debridement Anesthesia Used: 5% Lidocaine Gel Depth: Down to and including healthy tissue, in the subcutaneous layer Percentage of wound debrided: 100 Instrument Used: 3mm curette Tissue Removed: Fibrin Severity: Limited To Skin Breakdown Amount of bleeding with debridement: Mild Bleeding Controlled with: Compression and gauze Patient tolerated procedure: Patient tolerated procedure well Assessment/Plan Active Problems (Last Reviewed 11/09/17 @ 11:16 by Annalee Laura) Aortic valve stenosis, nonrheumatic (Chronic) Atrial premature beats (Chronic) Atrial arrhythmia (Chronic) Afib (Chronic) Anemia (Chronic) Pressure ulcer of left buttock, stage 2 (Acute) Stage II pressure ulcer of right buttock (Acute) Chronic diarrhea (Chronic) Assessment: Morbid obesity. Chronic renal failure stage III. Anemia. Stage II buttocks ulcer right and left ulcer and left ischium. Malnutrition. Chronic diarrhea Plan: #3 epi flex substitute skin to the right buttocks and left buttocks. Cover with Adaptic Steri-Strips gauze tape. Continue to offload totally in bed on her sides. Overlay to mattress low air. Gel cushion for her chair sitting for when she eats only. Continue taking Doc or any other protein drinks. Follow-up in 1 weeks. Contact patient about cultures taken. Increase ferrous sulfate to 3 times daily for at least 3 months. Vitamin C 1000 mg daily. Zinc daily. Lidoderm patches to affected areas once a day
[2017-12-04 10:49] VITALS: BP 132/76; PULSE 59; RESP 18; TEMP 37; BMI 41.1
--- NOTE | 2017-12-04 12:04 | PCM.WC.PN ---
(1) Pressure ulcer of left buttock, stage 2 Status: Acute Current Visit: Yes Code(s): L89.322 - Pressure ulcer of left buttock, stage 2 (2) Stage II pressure ulcer of right buttock Status: Acute Current Visit: No Code(s): L89.312 - Pressure ulcer of right buttock, stage 2 (3) Afib Status: Chronic Current Visit: Yes Code(s): I48.91 - Unspecified atrial fibrillation (4) Anemia Status: Chronic Current Visit: Yes Code(s): D64.9 - Anemia, unspecified (5) Aortic valve stenosis, nonrheumatic Status: Chronic Current Visit: Yes Code(s): I35.0 - Nonrheumatic aortic (valve) stenosis (6) Atrial arrhythmia Status: Chronic Current Visit: Yes Code(s): I49.8 - Other specified cardiac arrhythmias (7) Atrial premature beats Status: Chronic Current Visit: Yes Code(s): I49.1 - Atrial premature depolarization (8) Chronic diarrhea Status: Chronic Current Visit: Yes Code(s): K52.9 - Noninfective gastroenteritis and colitis, unspecified Type of Wound Date of Service: 12/04/17 Chief Complaint: Follow-up open ulcers on right and left buttocks for approximately 3 weeks History of Wound: 60-year-old white female who has a very complicated history of morbid obesity post bariatric surgery 10 years ago with many complications. 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 Patient has many disabilities and can still walk, but poorly. She has no muscle mass and her buttocks area and in the skin is flabby has developed open ulcers in the perirectal and on each cheek of the right and left buttocks from sitting. She also developed one in her left ischium. These all developed from driving in a car for long periods of time she has been trying to stretch out. She was family was murdered down in [place] and she has been driving daily for the is still alive and she travels to the hospital. Progress of Wound: Today right buttocks ulcer is healed after 3 epi fix and the left buttocks ulcer is getting smaller. SHe will continue to use epi-fix because of the healing properties it did so well after 2 applications they are still's much smaller than what they were originally. Patient is encouraged please come in every week. Patient states was sick last week and that is why they did not show up. Her labs show renal insufficiency stage III her anemia is down to 10 on a hemoglobin her TIBC was all normal. Magnesium was normal vitamin D level was normal and this her vitamin B12 was on the lower end of normal patient was encouraged to increase iron pills to 3 times a day and start vitamin C thousand milligrams a day and zinc. Patient complaints of burning are better since using the epi flex. Her pre-albumin is just barely over at 21 we suggested increasing her protein which she states she has. - Physical Exam Vital Signs Temp Pulse Resp BP 98.6 F 59 L 18 132/76 H 12/04/17 10:49 12/04/17 10:49 12/04/17 10:49 12/04/17 10:49 General: Oriented x3, Cooperative, Well developed HEENT: Atraumatic, PERRLA Oral: Moist Mucosa Neck: Supple, No JVD Lungs: Clear to auscultation, Normal air movement Cardiovascular: Regular rate, Regular Rhythm Abdomen: Bowel Sounds Present, Soft, Non Tender, No Hepato-splenomegaly Extremities: No clubbing, No edema Skin: - - And left buttocks ulcers stage II's Wound Measurements and Assessment WC - Nurse 1 - General Ulcer Measurement Start: 11/27/17 08:30 Freq: Status: Active Protocol: Activity Type Activity Date Activity User E-Sign Co-Sign Detail Recorded Client Recorded Date Recorded By Document 12/04/17 10:49 [id number] 12/04/17 10:52 12/04/17 10:49 Wound Center Nurse 1 [Ulcer Assessment Protocol: SOFIA.WD.LOC] #5 RT BUTTOCKS -Combined with other wound No -Current Size (cm) - Length 0 -Current Size (cm) - Width 0 -Current Size (cm) - Depth 0 -Total Square Cm 0 -Date of Last Picture (Recall this 12/04/17 field) -Photo Taken Yes -Epithelialization Large 67-100% -Tunneling No -Undermining/Tunneling No -Circular Undermining No -Classification - Thickness Full Thickness without Exposed Support Structure -Exudate Amt None Present (0 %) -Wound Margin Distinct, Outline Attached -Granulation Amt Large (67-100%) -Granulation Quality [place] -Slough/Fibrin No -Necrosis Amt None Present (0 %) -Structure Exposed None/Limited to Skin Breakdown -Texture (Lexi-wound Skin Appearance) Friable Scarring -Moisture (Lexi-wound Skin Appearance Dry/Scaly ) -Color (Lexi-wound Skin Appearance) No Abnormality -Temperature (Lexi-wound Skin No Abnormality Appearance) (Pt Warm) -Tenderness on Palpation (Lexi-wound No Skin Appearance) -Ulcer Cleansing Rinsed/ Irrigated with Saline -Foul Odor after Cleansing No #4- LT BUTTOCKS -Combined with other wound No -Current Size (cm) - Length 0.5 -Current Size (cm) - Width 0.3 -Current Size (cm) - Depth 0.1 -Total Square Cm 0.15 -Photo Taken No -Epithelialization Small 1-33% -Tunneling No -Undermining/Tunneling No -Circular Undermining No -Classification - Thickness Full Thickness without Exposed Support Structure -Exudate Amt Small (1-33%) -Exudate Type Serosanguineous -Wound Margin Distinct, Outline Attached -Granulation Amt None Present (0 %) -Granulation Quality N/A -Slough/Fibrin Yes -Necrosis Amt Large (67-100%) -Necrotic Tissue Type Adherent Slough -Structure Exposed Fascia Fat Layer Exposed -Texture (Lexi-wound Skin Appearance) Friable Scarring -Moisture (Lexi-wound Skin Appearance No Abnormality ) -Color (Lexi-wound Skin Appearance) Erythema -Temperature (Lexi-wound Skin No Abnormality Appearance) (Pt Warm) -Tenderness on Palpation (Lexi-wound No Skin Appearance) -Ulcer Cleansing Rinsed/ Irrigated with Saline -Foul Odor after Cleansing No -Anesthetic Used 5% Lidocaine Gel [Edema Assessment] -Lower Limb Edema Present No WC - Nurse 2 - General Ulcer CM Notes Start: 11/27/17 08:30 Freq: Status: Active Protocol: Activity Type Activity Date Activity User E-Sign Co-Sign Detail Recorded Client Recorded Date Recorded By Document 12/04/17 11:17 MW [id number] 12/04/17 11:22 MW 12/04/17 11:17 Wound Center Nurse 2 [Procedure/Treatment] #4- LT BUTTOCKS -Time 11:18 -Correct Patient Yes -Correct Side, Site, Position Yes -Correct Procedure Yes -Procedure Performed Yes -Type of Procedure Debridement -Clinical Debridement Subcutaneous -Post Debridement Size (cm) - Length 0.7 -Post Debridement Size (cm) - Width 0.4 -Post Debridement Size (cm) - Depth 0.1 -Total Square Cm 0.28 -Wound/Ulcer Outcome Not Healed -Ulcer Cleansing Rinsed/ Irrigated with Saline -Foul Odor after Cleansing No -Bioengineered Tissue Yes -Type of bioengineered Tissue EPIFIX -Expiration Date 08/26/11 -Product Lot Number [id number] -Percent Used 50 -Saline Lot Number [id number] -Bleeding Controlled with Pressure -Treatment Response Procedure Tolerated Well [See Physician Procedure note for Specifics] Pain Scale: 0-10 Numeric [Pain] -Is Patient Pain Free? Yes Musculoskeletal: No Tenderness to Palpation of Joints or Extremities Lymphatic: No Cervical, Supraclavicular, or Inguinal Adenopathy Neurological: Cranial nerves II-XII grossly intact, Neuro grossly intact Psych/Mental Status: Normal Affect, Appropriate Debridement Note Post-Debridement Measurements/Treatment WC - Nurse 2 - General Ulcer CM Notes Start: 11/27/17 08:30 Freq: Status: Active Protocol: Activity Type Activity Date Activity User E-Sign Co-Sign Detail Recorded Client Recorded Date Recorded By Document 11/27/17 08:58 MW [id number] 11/27/17 09:09 MW Document 12/04/17 11:17 MW [id number] 12/04/17 11:22 MW 11/27/17 12/04/17 08:58 11:17 Wound Center Nurse 2 #5 RT BUTTOCKS -Time 08:58 -Correct Patient Yes -Correct Side, Site, Position Yes -Correct Procedure Yes -Procedure Performed Yes -Type of Procedure Debridement -Clinical Debridement Subcutaneous -Post Debridement Size (cm) - Length 0.7 -Post Debridement Size (cm) - Width 0.3 -Post Debridement Size (cm) - Depth 0.2 -Total Square Cm 0.21 -Wound/Ulcer Outcome Not Healed -Ulcer Cleansing Rinsed/ Irrigated with Saline -Foul Odor after Cleansing No -Bioengineered Tissue No -Cetacaine [place] No -Bleeding Controlled with Pressure -Treatment Response Procedure Tolerated Well #4- LT BUTTOCKS -Time 08:59 11:18 -Correct Patient Yes Yes -Correct Side, Site, Position Yes Yes -Correct Procedure Yes Yes -Procedure Performed Yes Yes -Type of Procedure Debridement Debridement -Clinical Debridement Subcutaneous Subcutaneous -Post Debridement Size (cm) - Length 0.5 0.7 -Post Debridement Size (cm) - Width 0.6 0.4 -Post Debridement Size (cm) - Depth 0.1 0.1 -Total Square Cm 0.30 0.28 -Wound/Ulcer Outcome Not Healed Not Healed -Ulcer Cleansing Rinsed/ Rinsed/ Irrigated with Irrigated with Saline Saline -Foul Odor after Cleansing No No -Bioengineered Tissue Yes Yes -Type of bioengineered Tissue EPIFIX EPIFIX -Expiration Date 10/26/21 08/26/11 -Product Lot Number [id number] -Percent Used 50 50 -Saline Lot Number [id number] -Cetacaine [place] No -Bleeding Controlled with Pressure Pressure -Treatment Response Procedure Procedure Tolerated Well Tolerated Well Pain Scale: 0-10 Numeric Is Patient Pain Free? Yes Yes Wound debrided: Buttocks ulcer Type of Debridement: Excisional debridement Anesthesia Used: 5% Lidocaine Gel Depth: Down to and including healthy tissue, in the subcutaneous layer Percentage of wound debrided: 100 Instrument Used: 3mm curette Tissue Removed: fibrin and slough Severity: Limited To Skin Breakdown Amount of bleeding with debridement: Mild Bleeding Controlled with: Compression and gauze Patient tolerated procedure well Assessment/Plan Active Problems (Last Reviewed 11/09/17 @ 11:16 by Annalee Laura) Aortic valve stenosis, nonrheumatic (Chronic) Atrial premature beats (Chronic) Atrial arrhythmia (Chronic) Afib (Chronic) Anemia (Chronic) Pressure ulcer of left buttock, stage 2 (Acute) Chronic diarrhea (Chronic) Assessment: Morbid obesity. Chronic renal failure stage III. Anemia. Stage II buttocks ulcer right healed. left ulcer stage II. Malnutrition. Chronic diarrhea Plan: #4epi fix substitute skin to the left buttocks. Cover with Adaptic Steri-Strips gauze tape. Continue to offload totally in bed on her sides. Overlay to mattress low air. Gel cushion for her chair sitting for when she eats only. Continue taking Doc or any other protein drinks. Follow-up in 1 weeks. Contact patient about cultures taken. Increase ferrous sulfate to 3 times daily for at least 3 months. Vitamin C 1000 mg daily. Zinc daily. Lidoderm patches to affected areas once a day
--- NOTE | 2017-12-04 12:14 | PN.PCM_ITS ---
(1) Pressure ulcer of left buttock, stage 2 Status: Acute Current Visit: Yes Code(s): L89.322 - Pressure ulcer of left buttock, stage 2 (2) Stage II pressure ulcer of right buttock Status: Acute Current Visit: No Code(s): L89.312 - Pressure ulcer of right buttock, stage 2 (3) Afib Status: Chronic Current Visit: Yes Code(s): I48.91 - Unspecified atrial fibrillation (4) Anemia Status: Chronic Current Visit: Yes Code(s): D64.9 - Anemia, unspecified (5) Aortic valve stenosis, nonrheumatic Status: Chronic Current Visit: Yes Code(s): I35.0 - Nonrheumatic aortic ( valve) stenosis (6) Atrial arrhythmia Status: Chronic Current Visit: Yes Code(s): I49.8 - Other specified cardiac arrhythmias (7) Atrial premature beats Status: Chronic Current Visit: Yes Code(s): I49.1 - Atrial premature depolarization (8) Chronic diarrhea Status: Chronic Current Visit: Yes Code(s): K52.9 - Noninfective gastroenteritis and colitis, unspecified Type of Wound Date of Service: 12/04/17 Chief Complaint: Follow-up open ulcers on right and left buttocks for approximately 3 weeks History of Wound: 60-year-old white female who has a very complicated history of morbid obesity post bariatric surgery 10 years ago with many complications. 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 Patient has many disabilities and can still walk, but poorly. She has no muscle mass and her buttocks area and in the skin is flabby has developed open ulcers in the perirectal and on each cheek of the right and left buttocks from sitting. She also developed one in her left ischium. These all developed from driving in a car for long periods of time she has been trying to stretch out. She was family was murdered down in [place] and she has been driving daily for the infant is still alive and she travels to the hospital. Progress of Wound: Today right buttocks ulcer is healed after 3 epi fix and the left buttocks ulcer is getting smaller. SHe will continue to use epi-fix because of the healing properties it did so well after 2 applications they are still's much smaller than what they were originally. Patient is encouraged please come in every week. Patient states was sick last week and that is why they did not show up. Her labs show renal insufficiency stage III her anemia is down to 10 on a hemoglobin her TIBC was all normal. Magnesium was normal vitamin D level was normal and this her vitamin B12 was on the lower end of normal patient was encouraged to increase iron pills to 3 times a day and start vitamin C thousand milligrams a day and zinc. Patient complaints of burning are better since using the epi flex. Her pre-albumin is just barely over at 21 we suggested increasing her protein which she states she has. - Physical Exam Vital Signs Temp Pulse Resp BP 98.6 F 59 L 18 132/76 H 12/04/17 10:49 12/04/17 10:49 12/04/17 10:49 12/04/17 10:49 General: Oriented x3, Cooperative, Well developed HEENT: Atraumatic, PERRLA Oral: Moist Mucosa Neck: Supple, No JVD Lungs: Clear to auscultation, Normal air movement Cardiovascular: Regular rate, Regular Rhythm Abdomen: Bowel Sounds Present, Soft, Non Tender, No Hepato-splenomegaly Extremities: No clubbing, No edema Skin: - - And left buttocks ulcers stage II's Wound Measurements and Assessment WC - Nurse 1 - General Ulcer Measurement Start: 11/27/17 08:30 Freq: Status: Active Protocol: Activity Type Activity Date Activity User E-Sign Co-Sign Detail Recorded Client Recorded Date Recorded By Document 12/04/17 10:49 [id number] 12/04/17 10:52 12/04/17 10:49 Wound Center Nurse 1 [Ulcer Assessment Protocol: SOFIA.WD.LOC] #5 RT BUTTOCKS -Combined with other wound No -Current Size (cm) - Length 0 -Current Size (cm) - Width 0 -Current Size (cm) - Depth 0 -Total Square Cm 0 -Date of Last Picture (Recall this 12/04/17 field) -Photo Taken Yes -Epithelialization Large 67-100% -Tunneling No -Undermining/Tunneling No -Circular Undermining No -Classification - Thickness Full Thickness without Exposed Support Structure -Exudate Amt None Present (0 %) -Wound Margin Distinct, Outline Attached -Granulation Amt Large (67-100%) -Granulation Quality [place] -Slough/Fibrin No -Necrosis Amt None Present (0 %) -Structure Exposed None/Limited to Skin Breakdown -Texture (Lexi-wound Skin Appearance) Friable Scarring -Moisture (Lexi-wound Skin Appearance Dry/Scaly ) -Color (Lexi-wound Skin Appearance) No Abnormality -Temperature (Lexi-wound Skin No Abnormality Appearance) (Pt Warm) -Tenderness on Palpation (Lexi-wound No Skin Appearance) -Ulcer Cleansing Rinsed/ Irrigated with Saline -Foul Odor after Cleansing No #4- LT BUTTOCKS -Combined with other wound No -Current Size (cm) - Length 0.5 -Current Size (cm) - Width 0.3 -Current Size (cm) - Depth 0.1 -Total Square Cm 0.15 -Photo Taken No -Epithelialization Small 1-33% -Tunneling No -Undermining/Tunneling No -Circular Undermining No -Classification - Thickness Full Thickness without Exposed Support Structure -Exudate Amt Small (1-33%) -Exudate Type Serosanguineous -Wound Margin Distinct, Outline Attached -Granulation Amt None Present (0 %) -Granulation Quality N/A -Slough/Fibrin Yes -Necrosis Amt Large (67-100%) -Necrotic Tissue Type Adherent Slough -Structure Exposed Fascia Fat Layer Exposed -Texture (Lexi-wound Skin Appearance) Friable Scarring -Moisture (Lexi-wound Skin Appearance No Abnormality ) -Color (Lexi-wound Skin Appearance) Erythema -Temperature (Lexi-wound Skin No Abnormality Appearance) (Pt Warm) -Tenderness on Palpation (Lexi-wound No Skin Appearance) -Ulcer Cleansing Rinsed/ Irrigated with Saline -Foul Odor after Cleansing No -Anesthetic Used 5% Lidocaine Gel [Edema Assessment] -Lower Limb Edema Present No WC - Nurse 2 - General Ulcer CM Notes Start: 11/27/17 08:30 Freq: Status: Active Protocol: Activity Type Activity Date Activity User E-Sign Co-Sign Detail Recorded Client Recorded Date Recorded By Document 12/04/17 11:17 MW [id number] 12/04/17 11:22 MW 12/04/17 11:17 Wound Center Nurse 2 [Procedure/Treatment] #4- LT BUTTOCKS -Time 11:18 -Correct Patient Yes -Correct Side, Site, Position Yes -Correct Procedure Yes -Procedure Performed Yes -Type of Procedure Debridement -Clinical Debridement Subcutaneous -Post Debridement Size (cm) - Length 0.7 -Post Debridement Size (cm) - Width 0.4 -Post Debridement Size (cm) - Depth 0.1 -Total Square Cm 0.28 -Wound/Ulcer Outcome Not Healed -Ulcer Cleansing Rinsed/ Irrigated with Saline -Foul Odor after Cleansing No -Bioengineered Tissue Yes -Type of bioengineered Tissue EPIFIX -Expiration Date 08/26/11 -Product Lot Number [id number] -Percent Used 50 -Saline Lot Number [id number] -Bleeding Controlled with Pressure -Treatment Response Procedure Tolerated Well [See Physician Procedure note for Specifics] Pain Scale: 0-10 Numeric [Pain] -Is Patient Pain Free? Yes Musculoskeletal: No Tenderness to Palpation of Joints or Extremities Lymphatic: No Cervical, Supraclavicular, or Inguinal Adenopathy Neurological: Cranial nerves II-XII grossly intact, Neuro grossly intact Psych/Mental Status: Normal Affect, Appropriate Debridement Note Post-Debridement Measurements/Treatment WC - Nurse 2 - General Ulcer CM Notes Start: 11/27/17 08:30 Freq: Status: Active Protocol: Activity Type Activity Date Activity User E-Sign Co-Sign Detail Recorded Client Recorded Date Recorded By Document 11/27/17 08:58 MW [id number] 11/27/17 09:09 MW Document 12/04/17 11:17 MW [id number] 12/04/17 11:22 MW 11/27/17 12/04/17 08:58 11:17 Wound Center Nurse 2 #5 RT BUTTOCKS -Time 08:58 -Correct Patient Yes -Correct Side, Site, Position Yes -Correct Procedure Yes -Procedure Performed Yes -Type of Procedure Debridement -Clinical Debridement Subcutaneous -Post Debridement Size (cm) - Length 0.7 -Post Debridement Size (cm) - Width 0.3 -Post Debridement Size (cm) - Depth 0.2 -Total Square Cm 0.21 -Wound/Ulcer Outcome Not Healed -Ulcer Cleansing Rinsed/ Irrigated with Saline -Foul Odor after Cleansing No -Bioengineered Tissue No -Cetacaine [place] No -Bleeding Controlled with Pressure -Treatment Response Procedure Tolerated Well #4- LT BUTTOCKS -Time 08:59 11:18 -Correct Patient Yes Yes -Correct Side, Site, Position Yes Yes -Correct Procedure Yes Yes -Procedure Performed Yes Yes -Type of Procedure Debridement Debridement -Clinical Debridement Subcutaneous Subcutaneous -Post Debridement Size (cm) - Length 0.5 0.7 -Post Debridement Size (cm) - Width 0.6 0.4 -Post Debridement Size (cm) - Depth 0.1 0.1 -Total Square Cm 0.30 0.28 -Wound/Ulcer Outcome Not Healed Not Healed -Ulcer Cleansing Rinsed/ Rinsed/ Irrigated with Irrigated with Saline Saline -Foul Odor after Cleansing No No -Bioengineered Tissue Yes Yes -Type of bioengineered Tissue EPIFIX EPIFIX -Expiration Date 10/26/21 08/26/11 -Product Lot Number [id number] -Percent Used 50 50 -Saline Lot Number [id number] -Cetacaine [place] No -Bleeding Controlled with Pressure Pressure -Treatment Response Procedure Procedure Tolerated Well Tolerated Well Pain Scale: 0-10 Numeric Is Patient Pain Free? Yes Yes Wound debrided: Buttocks ulcer Type of Debridement: Excisional debridement Anesthesia Used: 5% Lidocaine Gel Depth: Down to and including healthy tissue, in the subcutaneous layer Percentage of wound debrided: 100 Instrument Used: 3mm curette Tissue Removed: fibrin and slough Severity: Limited To Skin Breakdown Amount of bleeding with debridement: Mild Bleeding Controlled with: Compression and gauze Patient tolerated procedure well Assessment/Plan Active Problems (Last Reviewed 11/09/17 @ 11:16 by Annalee Laura) Aortic valve stenosis, nonrheumatic (Chronic) Atrial premature beats (Chronic) Atrial arrhythmia (Chronic) Afib (Chronic) Anemia (Chronic) Pressure ulcer of left buttock, stage 2 (Acute) Chronic diarrhea (Chronic) Assessment: Morbid obesity. Chronic renal failure stage III. Anemia. Stage II buttocks ulcer right healed. left ulcer stage II. Malnutrition. Chronic diarrhea Plan: #4epi fix substitute skin to the left buttocks. Cover with Adaptic Steri -Strips gauze tape. Continue to offload totally in bed on her sides. Overlay to mattress low air. Gel cushion for her chair sitting for when she eats only. Continue taking Doc or any other protein drinks. Follow-up in 1 weeks. Contact patient about cultures taken. Increase ferrous sulfate to 3 times daily for at least 3 months. Vitamin C 1000 mg daily. Zinc daily. Lidoderm patches to affected areas once a day
[2017-12-11 10:36] VITALS: BP 150/97; PULSE 71; RESP 18; TEMP 36.5; BMI 41.1
--- NOTE | 2017-12-11 10:59 | PCM.WC.PN ---
(1) Pressure ulcer of left buttock, stage 2 Status: Acute Current Visit: Yes Code(s): L89.322 - Pressure ulcer of left buttock, stage 2 (2) Stage II pressure ulcer of right buttock Status: Acute Current Visit: No Code(s): L89.312 - Pressure ulcer of right buttock, stage 2 (3) Afib Status: Chronic Current Visit: Yes Code(s): I48.91 - Unspecified atrial fibrillation (4) Anemia Status: Chronic Current Visit: Yes Code(s): D64.9 - Anemia, unspecified (5) Aortic valve stenosis, nonrheumatic Status: Chronic Current Visit: Yes Code(s): I35.0 - Nonrheumatic aortic (valve) stenosis (6) Atrial arrhythmia Status: Chronic Current Visit: Yes Code(s): I49.8 - Other specified cardiac arrhythmias (7) Atrial premature beats Status: Chronic Current Visit: Yes Code(s): I49.1 - Atrial premature depolarization (8) Chronic diarrhea Status: Chronic Current Visit: Yes Code(s): K52.9 - Noninfective gastroenteritis and colitis, unspecified Type of Wound Date of Service: 12/11/17 Chief Complaint: Follow-up open ulcers on right and left buttocks for approximately 3 weeks History of Wound: 60-year-old white female who has a very complicated history of morbid obesity post bariatric surgery 10 years ago with many complications. 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 Patient has many disabilities and can still walk, but poorly. She has no muscle mass and her buttocks area and in the skin is flabby has developed open ulcers in the perirectal and on each cheek of the right and left buttocks from sitting. She also developed one in her left ischium. These all developed from driving in a car for long periods of time she has been trying to stretch out. She was family was murdered down in [place] and she has been driving daily for the is still alive and she travels to the hospital. Progress of Wound: Today right buttocks ulcer is healed after 3 epi fix and the left buttocks ulcer is healed after 4 epi effects. Patient will be discharged from the wound center follow-up as needed - Physical Exam Vital Signs Temp Pulse Resp BP 97.7 F L 71 18 150/97 H 12/11/17 10:36 12/11/17 10:36 12/11/17 10:36 12/11/17 10:36 General: Oriented x3, Cooperative, Well developed HEENT: Atraumatic, PERRLA Oral: Moist Mucosa Neck: Supple, No JVD Lungs: Clear to auscultation, Normal air movement Cardiovascular: Regular rate, Regular Rhythm Abdomen: Bowel Sounds Present, Soft, Non Tender, No Hepato-splenomegaly Extremities: No clubbing, No edema Skin: Ulcer/ Wound - Left buttocks ulcer Wound Measurements and Assessment WC - Nurse 1 - General Ulcer Measurement Start: 11/27/17 08:30 Freq: Status: Active Protocol: Activity Type Activity Date Activity User E-Sign Co-Sign Detail Recorded Client Recorded Date Recorded By Document 12/11/17 10:36 TM [id number] 12/11/17 10:38 TM 12/11/17 10:36 Wound Center Nurse 1 [Ulcer Assessment] #4- LT BUTTOCKS -Combined with other wound No -Current Size (cm) - Length 0 -Current Size (cm) - Width 0 -Current Size (cm) - Depth 0 -Total Square Cm 0 -Date of Last Picture (Recall this 12/11/17 field) -Photo Taken Yes -Epithelialization Large 67-100% -Tunneling No -Undermining/Tunneling No -Circular Undermining No -Classification - Thickness Full Thickness without Exposed Support Structure -Exudate Amt None Present (0 %) -Wound Margin Distinct, Outline Attached -Granulation Amt Large (67-100%) -Granulation Quality Pale -Slough/Fibrin No -Necrosis Amt None Present (0 %) -Structure Exposed None/Limited to Skin Breakdown -Texture (Lexi-wound Skin Appearance) Scarring -Moisture (Lexi-wound Skin Appearance Dry/Scaly ) -Color (Lexi-wound Skin Appearance) Erythema -Temperature (Lexi-wound Skin No Abnormality Appearance) (Pt Warm) -Tenderness on Palpation (Lexi-wound No Skin Appearance) -Ulcer Cleansing Rinsed/ Irrigated with Saline -Foul Odor after Cleansing No [Edema Assessment] -Lower Limb Edema Present No WC - Nurse 2 - General Ulcer CM Notes Start: 11/27/17 08:30 Freq: Status: Active Protocol: Activity Type Activity Date Activity User E-Sign Co-Sign Detail Recorded Client Recorded Date Recorded By Document 12/11/17 10:47 MW [id number] 12/11/17 10:48 MW 12/11/17 10:47 Pain Scale: 0-10 Numeric [Pain] -Is Patient Pain Free? Yes Musculoskeletal: No Tenderness to Palpation of Joints or Extremities Lymphatic: No Cervical, Supraclavicular, or Inguinal Adenopathy Neurological: Cranial nerves II-XII grossly intact, Neuro grossly intact Psych/Mental Status: Normal Affect, Appropriate Debridement Note Post-Debridement Measurements/Treatment WC - Nurse 2 - General Ulcer CM Notes Start: 11/27/17 08:30 Freq: Status: Active Protocol: Activity Type Activity Date Activity User E-Sign Co-Sign Detail Recorded Client Recorded Date Recorded By Document 11/27/17 08:58 MW [id number] 11/27/17 09:09 MW Document 12/04/17 11:17 MW [id number] 12/04/17 11:22 MW Document 12/11/17 10:47 MW [id number] 12/11/17 10:48 MW 11/27/17 12/04/17 12/11/17 08:58 11:17 10:47 Wound Center Nurse 2 #5 RT BUTTOCKS -Time 08:58 -Correct Patient Yes -Correct Side, Site, Position Yes -Correct Procedure Yes -Procedure Performed Yes -Type of Procedure Debridement -Clinical Debridement Subcutaneous -Post Debridement Size (cm) - Length 0.7 -Post Debridement Size (cm) - Width 0.3 -Post Debridement Size (cm) - Depth 0.2 -Total Square Cm 0.21 -Wound/Ulcer Outcome Not Healed -Ulcer Cleansing Rinsed/ Irrigated with Saline -Foul Odor after Cleansing No -Bioengineered Tissue No -Cetacaine [place] No -Bleeding Controlled with Pressure -Treatment Response Procedure Tolerated Well #4- LT BUTTOCKS -Time 08:59 11:18 -Correct Patient Yes Yes -Correct Side, Site, Position Yes Yes -Correct Procedure Yes Yes -Procedure Performed Yes Yes -Type of Procedure Debridement Debridement -Clinical Debridement Subcutaneous Subcutaneous -Post Debridement Size (cm) - Length 0.5 0.7 -Post Debridement Size (cm) - Width 0.6 0.4 -Post Debridement Size (cm) - Depth 0.1 0.1 -Total Square Cm 0.30 0.28 -Wound/Ulcer Outcome Not Healed Not Healed -Ulcer Cleansing Rinsed/ Rinsed/ Irrigated with Irrigated with Saline Saline -Foul Odor after Cleansing No No -Bioengineered Tissue Yes Yes -Type of bioengineered Tissue EPIFIX EPIFIX -Expiration Date 10/26/21 08/26/11 -Product Lot Number [id number] -Percent Used 50 50 -Saline Lot Number [id number] -Cetacaine [place] No -Bleeding Controlled with Pressure Pressure -Treatment Response Procedure Procedure Tolerated Well Tolerated Well Pain Scale: 0-10 Numeric Is Patient Pain Free? Yes Yes Yes No debridement was completed today Assessment/Plan Active Problems (Last Reviewed 11/09/17 @ 11:16 by Annalee Laura) Aortic valve stenosis, nonrheumatic (Chronic) Atrial premature beats (Chronic) Atrial arrhythmia (Chronic) Afib (Chronic) Anemia (Chronic) Pressure ulcer of left buttock, stage 2 (Acute) Chronic diarrhea (Chronic) Assessment: Morbid obesity. Chronic renal failure stage III. Anemia. Stage II buttocks ulcer right healed. left ulcer stage II. Malnutrition. Chronic diarrhea Plan: From the wound center follow-up as needed
--- NOTE | 2017-12-11 11:02 | PN.PCM_ITS ---
(1) Pressure ulcer of left buttock, stage 2 Status: Acute Current Visit: Yes Code(s): L89.322 - Pressure ulcer of left buttock, stage 2 (2) Stage II pressure ulcer of right buttock Status: Acute Current Visit: No Code(s): L89.312 - Pressure ulcer of right buttock, stage 2 (3) Afib Status: Chronic Current Visit: Yes Code(s): I48.91 - Unspecified atrial fibrillation (4) Anemia Status: Chronic Current Visit: Yes Code(s): D64.9 - Anemia, unspecified (5) Aortic valve stenosis, nonrheumatic Status: Chronic Current Visit: Yes Code(s): I35.0 - Nonrheumatic aortic ( valve) stenosis (6) Atrial arrhythmia Status: Chronic Current Visit: Yes Code(s): I49.8 - Other specified cardiac arrhythmias (7) Atrial premature beats Status: Chronic Current Visit: Yes Code(s): I49.1 - Atrial premature depolarization (8) Chronic diarrhea Status: Chronic Current Visit: Yes Code(s): K52.9 - Noninfective gastroenteritis and colitis, unspecified Type of Wound Date of Service: 12/11/17 Chief Complaint: Follow-up open ulcers on right and left buttocks for approximately 3 weeks History of Wound: 60-year-old white female who has a very complicated history of morbid obesity post bariatric surgery 10 years ago with many complications. 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 Patient has many disabilities and can still walk, but poorly. She has no muscle mass and her buttocks area and in the skin is flabby has developed open ulcers in the perirectal and on each cheek of the right and left buttocks from sitting. She also developed one in her left ischium. These all developed from driving in a car for long periods of time she has been trying to stretch out. She was family was murdered down in [place] and she has been driving daily for the infant is still alive and she travels to the hospital. Progress of Wound: Today right buttocks ulcer is healed after 3 epi fix and the left buttocks ulcer is healed after 4 epi effects. Patient will be discharged from the wound center follow-up as needed - Physical Exam Vital Signs Temp Pulse Resp BP 97.7 F L 71 18 150/97 H 12/11/17 10:36 12/11/17 10:36 12/11/17 10:36 12/11/17 10:36 General: Oriented x3, Cooperative, Well developed HEENT: Atraumatic, PERRLA Oral: Moist Mucosa Neck: Supple, No JVD Lungs: Clear to auscultation, Normal air movement Cardiovascular: Regular rate, Regular Rhythm Abdomen: Bowel Sounds Present, Soft, Non Tender, No Hepato-splenomegaly Extremities: No clubbing, No edema Skin: Ulcer/ Wound - Left buttocks ulcer Wound Measurements and Assessment WC - Nurse 1 - General Ulcer Measurement Start: 11/27/17 08:30 Freq: Status: Active Protocol: Activity Type Activity Date Activity User E-Sign Co-Sign Detail Recorded Client Recorded Date Recorded By Document 12/11/17 10:36 TM [id number] 12/11/17 10:38 TM 12/11/17 10:36 Wound Center Nurse 1 [Ulcer Assessment] #4- LT BUTTOCKS -Combined with other wound No -Current Size (cm) - Length 0 -Current Size (cm) - Width 0 -Current Size (cm) - Depth 0 -Total Square Cm 0 -Date of Last Picture (Recall this 12/11/17 field) -Photo Taken Yes -Epithelialization Large 67-100% -Tunneling No -Undermining/Tunneling No -Circular Undermining No -Classification - Thickness Full Thickness without Exposed Support Structure -Exudate Amt None Present (0 %) -Wound Margin Distinct, Outline Attached -Granulation Amt Large (67-100%) -Granulation Quality Pale -Slough/Fibrin No -Necrosis Amt None Present (0 %) -Structure Exposed None/Limited to Skin Breakdown -Texture (Lexi-wound Skin Appearance) Scarring -Moisture (Lexi-wound Skin Appearance Dry/Scaly ) -Color (Lexi-wound Skin Appearance) Erythema -Temperature (Lexi-wound Skin No Abnormality Appearance) (Pt Warm) -Tenderness on Palpation (Lexi-wound No Skin Appearance) -Ulcer Cleansing Rinsed/ Irrigated with Saline -Foul Odor after Cleansing No [Edema Assessment] -Lower Limb Edema Present No WC - Nurse 2 - General Ulcer CM Notes Start: 11/27/17 08:30 Freq: Status: Active Protocol: Activity Type Activity Date Activity User E-Sign Co-Sign Detail Recorded Client Recorded Date Recorded By Document 12/11/17 10:47 MW [id number] 12/11/17 10:48 MW 12/11/17 10:47 Pain Scale: 0-10 Numeric [Pain] -Is Patient Pain Free? Yes Musculoskeletal: No Tenderness to Palpation of Joints or Extremities Lymphatic: No Cervical, Supraclavicular, or Inguinal Adenopathy Neurological: Cranial nerves II-XII grossly intact, Neuro grossly intact Psych/Mental Status: Normal Affect, Appropriate Debridement Note Post-Debridement Measurements/Treatment WC - Nurse 2 - General Ulcer CM Notes Start: 11/27/17 08:30 Freq: Status: Active Protocol: Activity Type Activity Date Activity User E-Sign Co-Sign Detail Recorded Client Recorded Date Recorded By Document 11/27/17 08:58 MW [id number] 11/27/17 09:09 MW Document 12/04/17 11:17 MW [id number] 12/04/17 11:22 MW Document 12/11/17 10:47 MW [id number] 12/11/17 10:48 MW 11/27/17 12/04/17 12/11/17 08:58 11:17 10:47 Wound Center Nurse 2 #5 RT BUTTOCKS -Time 08:58 -Correct Patient Yes -Correct Side, Site, Position Yes -Correct Procedure Yes -Procedure Performed Yes -Type of Procedure Debridement -Clinical Debridement Subcutaneous -Post Debridement Size (cm) - Length 0.7 -Post Debridement Size (cm) - Width 0.3 -Post Debridement Size (cm) - Depth 0.2 -Total Square Cm 0.21 -Wound/Ulcer Outcome Not Healed -Ulcer Cleansing Rinsed/ Irrigated with Saline -Foul Odor after Cleansing No -Bioengineered Tissue No -Cetacaine [place] No -Bleeding Controlled with Pressure -Treatment Response Procedure Tolerated Well #4- LT BUTTOCKS -Time 08:59 11:18 -Correct Patient Yes Yes -Correct Side, Site, Position Yes Yes -Correct Procedure Yes Yes -Procedure Performed Yes Yes -Type of Procedure Debridement Debridement -Clinical Debridement Subcutaneous Subcutaneous -Post Debridement Size (cm) - Length 0.5 0.7 -Post Debridement Size (cm) - Width 0.6 0.4 -Post Debridement Size (cm) - Depth 0.1 0.1 -Total Square Cm 0.30 0.28 -Wound/Ulcer Outcome Not Healed Not Healed -Ulcer Cleansing Rinsed/ Rinsed/ Irrigated with Irrigated with Saline Saline -Foul Odor after Cleansing No No -Bioengineered Tissue Yes Yes -Type of bioengineered Tissue EPIFIX EPIFIX -Expiration Date 10/26/21 08/26/11 -Product Lot Number [id number] -Percent Used 50 50 -Saline Lot Number [id number] -Cetacaine [place] No -Bleeding Controlled with Pressure Pressure -Treatment Response Procedure Procedure Tolerated Well Tolerated Well Pain Scale: 0-10 Numeric Is Patient Pain Free? Yes Yes Yes No debridement was completed today Assessment/Plan Active Problems (Last Reviewed 11/09/17 @ 11:16 by Annalee Laura) Aortic valve stenosis, nonrheumatic (Chronic) Atrial premature beats (Chronic) Atrial arrhythmia (Chronic) Afib (Chronic) Anemia (Chronic) Pressure ulcer of left buttock, stage 2 (Acute) Chronic diarrhea (Chronic) Assessment: Morbid obesity. Chronic renal failure stage III. Anemia. Stage II buttocks ulcer right healed. left ulcer stage II. Malnutrition. Chronic diarrhea Plan: From the wound center follow-up as needed
== END 2017-12-23 23:59 ==
LOC: WC 10:30
PROVIDERS: Family Provider Family Medicine; PCP Family Medicine; Visit Provider Nurse Practitioner
DX: L89.312 Pressure ulcer of right buttock, stage 2 (principal); L89.322 Pressure ulcer of left buttock, stage 2; I48.2 Chronic atrial fibrillation; K52.9 Noninfective gastroenteritis and colitis, unspecified; E66.01 Morbid (severe) obesity due to excess calories; Z68.41 Body mass index [BMI] 40.0-44.9, adult; Z71.3 Dietary counseling and surveillance; N18.3 Chronic kidney disease, stage 3 (moderate); D64.9 Anemia, unspecified
CPT/HCPCS: 11042; 15271; 99212; Q4131; G0463

== ENCOUNTER → 2017-12-11 10:52 | Outpatient (CLI) | payer MEDICAID, SELFPAY ==
[2017-11-27 08:32] VITALS: BP 144/72
[2017-12-11 12:07] LABS: Albumin, Serum 3.4 g/dL (3.2-5.0); BUN 30 mg/dL (7-18); BUN/Creat Ratio 17.4 RATIO (10-20); Calcium,Total 8.7 mg/dL (8.5-10.1); Chloride 114 mmol/L (98-107); Creatinine, Serum 1.72 mg/dL (0.55-1.02); EST Glomerular Filtration Rate 32 mL/min (>60); Est Glom Filt Rate - Afr Amer 39 mL/min (>60); Glucose 89 mg/dL (74-106); Phosphorus 4.5 mg/dL (2.5-4.9); Potassium 4.6 mmol/L (3.5-5.1); Sodium Level 144 mmol/L (136-145)
== END ==
PROVIDERS: Family Provider Family Medicine; PCP Family Medicine; Visit Provider Internal Medicine Nephrology
DX: N18.3 Chronic kidney disease, stage 3 (moderate) (principal); L89.312 Pressure ulcer of right buttock, stage 2; L89.322 Pressure ulcer of left buttock, stage 2; I48.2 Chronic atrial fibrillation; K52.9 Noninfective gastroenteritis and colitis, unspecified; E66.01 Morbid (severe) obesity due to excess calories; Z68.41 Body mass index [BMI] 40.0-44.9, adult; Z71.3 Dietary counseling and surveillance; D64.9 Anemia, unspecified
CPT/HCPCS: 36415; 80069; 99212; G0463

== ENCOUNTER → 2018-01-29 08:34 | Outpatient (CLI) | payer MEDICAID, SELFPAY ==
[2018-01-29 09:38] LABS: Albumin, Serum 2.9 g/dL (3.2-5.0); BUN 39 mg/dL (7-18); BUN/Creat Ratio 20.1 RATIO (10-20); Calcium,Total 8.5 mg/dL (8.5-10.1); Chloride 114 mmol/L (98-107); Creatinine, Serum 1.94 mg/dL (0.55-1.02); EST Glomerular Filtration Rate 28 mL/min (>60); Est Glom Filt Rate - Afr Amer 34 mL/min (>60); Glucose 91 mg/dL (74-106); Phosphorus 3.7 mg/dL (2.5-4.9); Potassium 4.7 mmol/L (3.5-5.1); Sodium Level 143 mmol/L (136-145)
== END ==
PROVIDERS: Family Provider Family Medicine; PCP Family Medicine; Visit Provider Internal Medicine Nephrology
DX: N18.3 Chronic kidney disease, stage 3 (moderate) (principal)
CPT/HCPCS: 36415; 80069

== ENCOUNTER → 2018-03-31 12:23 | Outpatient (CLI) | payer MEDICAID, SELFPAY ==
--- NOTE | 2018-03-31 12:23 | DT_ITS ---
This patient was seen during an EMR downtime March 29, 2018 - April 05, 2018. This patient may have a combination of paper and electronic documentation or all paper documentation. All documentation is viewable within the e-chart portion of [facility] for each patient visit.
[2018-04-05 15:40] LABS: BUN 33 mg/dL (7-18); Glucose 92 mg/dL (74-106)
[2018-04-05 15:41] LABS: Anion Gap 8 (5-15); BUN/Creat Ratio 17.2 RATIO (10-20); Calcium,Total 8.6 mg/dL (8.5-10.1); Chloride 115 mmol/L (98-107); Creatinine, Serum 1.92 mg/dL (0.55-1.02); EST Glomerular Filtration Rate 28 mL/min (>60); Est Glom Filt Rate - Afr Amer 34 mL/min (>60); Potassium 5.1 mmol/L (3.5-5.1); Sodium Level 144 mmol/L (136-145)
== END ==
PROVIDERS: Family Provider Family Medicine; PCP Family Medicine; Visit Provider Internal Medicine Nephrology
DX: N17.9 Acute kidney failure, unspecified (principal)
CPT/HCPCS: 36415; 80048

== ENCOUNTER → 2018-04-30 08:46 | Outpatient (CLI) | payer MEDICAID, SELFPAY ==
--- NOTE | 2018-04-30 08:51 | CDU_ITS ---
Reason For Study: CAROTID STENOSIS Rt. Velocities/BP Lt. Velocities/BP Prox CCA 89/20 cm/sec. Prox CCA 78/16 cm/sec. Mid CCA 71/16 cm/sec. Mid CCA 73/21 cm/sec. Dist CCA 58/16 cm/sec. Dist CCA 70/24 cm/sec. Prox ICA 70/26 cm/sec. Prox ICA 74/25 cm/sec. Mid ICA 97/41 cm/sec. Mid ICA 123/43 cm/sec. Dist ICA 168/39 cm/sec. Dist ICA 86/31 cm/sec. Rt. ICA/CCA = 2.4. Lt. ICA/CCA = 1.7. Prox ECA 58/11 cm/sec. Prox ECA 74/16 cm/sec. Rt. Vert. 85/22 cm/sec. Lt. Vert. 59/22 cm/sec. Right Extracranial There is homogeneous, smooth atherosclerotic plaque noted in the right common carotid artery. There is heterogeneous, irregular atherosclerotic plaque noted in the right internal carotid artery. The tortuous nature of the right internal carotid artery may result in flow velocities overestimating the degree of stenosis. There is heterogeneous, irregular atherosclerotic plaque noted in the right external carotid artery. Antegrade flow is noted in the right vertebral artery. There is heterogeneous, irregular atherosclerotic plaque noted in the right bulb. Left Extracranial There is homogeneous, smooth atherosclerotic plaque noted in the left common carotid artery. There is heterogeneous, irregular atherosclerotic plaque noted in the left internal carotid artery. There is heterogeneous, irregular atherosclerotic plaque noted in the left external carotid artery. Antegrade flow is noted in the left vertebral artery. There is heterogeneous, irregular atherosclerotic plaque noted in the left bulb. Procedure Carotid Duplex [id number]. Exam performed in department. Interpretation Summary Mild (<50%) stenosis right extracranial internal carotid. Mild (<50%) stenosis left extracranial internal carotid. Flow within the vertebral arteries is antegrade bilaterally. Ordering Physician: Brenda Aguilera Referring Physician: YFN SUGGS FREE Performed By: Ariane Cardenas, SWAPNA, RVT
--- NOTE | 2018-04-30 09:46 | EKG12_ITS ---
Test Reason : ARRHYTHMIA Blood Pressure : / mmHG Vent. Rate : 066 BPM Atrial Rate : 055 BPM P-R Int : 000 ms QRS Dur : 096 ms QT Int : 422 ms P-R-T Axes : 000 002 058 degrees QTc Int : 442 ms Atrial fibrillation Nonspecific ST and T wave abnormality , probably digitalis effect Abnormal ECG Confirmed by JOSE ANTONIO CABAN, CRYSTAL ([id number]), subeditor IAN CHAPMAN ([id number]) on 05/03/2018 3:29:22 PM Referred By: [facility] Confirmed By:CRYSTAL BRADY MD
== END ==
PROVIDERS: Family Provider Nurse Practitioner Family; PCP Nurse Practitioner Family; Visit Provider Nurse Practitioner Family
DX: R09.89 Other specified symptoms and signs involving the circulatory and respiratory systems (principal); I49.9 Cardiac arrhythmia, unspecified
CPT/HCPCS: 93005; 93880

== ENCOUNTER → 2018-05-20 08:50 | Outpatient (CLI) | payer MEDICAID, SELFPAY ==
--- NOTE | 2018-05-20 08:52 | ECHOD_ITS ---
Reason For Study: DARDEN Procedure This was a 2D Doppler, Color Flow transthoracic echocardiogram. The exam was of adequate technical quality. Exam performed in department. Left Ventricle Normal LV size. Left ventricular systolic function is normal. The estimated ejection fraction is 65 %. There is evidence of diastolic dysfunction. No regional wall motion abnormalities noted. Right Ventricle Normal RV size. Normal systolic function. Atria The left atrium is moderately enlarged. Normal right atrium. No doppler evidence for ASD. Mitral Valve There is no mitral annular calcification. Normal mitral valve. Trivial mitral valve insufficiency. Tricuspid Valve Normal tricuspid valve. Trivial tricuspid valve insufficiency. Right ventricular systolic pressure estimated to be 29 mmHg. Aortic Valve Trisinus/trileaflet aortic valve. Mild focal aortic valve calcification. Aortic sclerosis, no stenosis. Trivial aortic valve insufficiency. Pulmonic Valve The pulmonic valve is not well visualized. Trivial pulmonic valve insufficiency. Great Vessels Normal sized aortic root. Calcified aortic root. Pericardium/Pleural No pericardial effusion. MMode/2D Measurements & Calculations LVIDd: 5.2 cm IVSd: 1.1 cm LVOT diam: 2.2 cm LVIDs: 3.0 cm LVPWd: 1.1 cm LVOT area: 3.8 cm2 RVDd: 3.2 cm FS: 42.7 % Ao root diam: 3.3 cm LAV(MOD-bp): 114.9 ml LA A4 area: 30.9 cm2 LA dimension: 5.1 cm LAV(MOD-bp) Indexed: 53.0 ml/m2 LAV(MOD-sp2): 113.1 ml LAV(MOD-sp4): 113.8 ml RA A4 area: 20.0 cm2 Doppler Measurements & Calculations MV E max darryl: 104.2 cm/sec Lat Peak E' Darryl: 9.6 cm/sec Med Peak E' Darryl: 7.0 cm/sec MV A max darryl: 77.2 cm/sec E/E' lat: 10.8 E/E' med: 14.8 MV E/A: 1.3 Ao V2 max: 223.3 cm/sec AI max darryl: 357.3 cm/sec LV V1 max: 119.0 cm/sec Ao max P.9 mmHg AI max P.1 mmHg LV V1 max P.7 mmHg Ao V2 mean: 158.9 cm/sec AI dec slope: 99.8 cm/sec2 LV V1 mean P.3 mmHg Ao mean P.0 mmHg AI P1/2t: 1049 msec LV V1 mean: 88.4 cm/sec Ao V2 VTI: 55.1 cm LV V1 VTI: 30.6 cm RIGOBERTO(I,D): 2.1 cm2 RIGOBERTO(V,D): 2.0 cm2 SV(LVOT): 116.6 ml PA V2 max: 119.1 cm/sec PI end-d darryl: 97.3 cm/sec TR max darryl: 255.1 cm/sec TR max P.3 mmHg Interpretation Summary Left ventricular systolic function is normal. The estimated ejection fraction is 65 %. The left atrium is moderately enlarged. Trivial mitral valve insufficiency. Trivial tricuspid valve insufficiency. Aortic sclerosis, no stenosis. Trivial aortic valve insufficiency. Trivial pulmonic valve insufficiency. Calcified aortic root. Right ventricular systolic pressure estimated to be 29 mmHg. There is evidence of diastolic dysfunction. Ordering Physician: Joel Gomez Referring Physician: [facility] Performed By: Jessica Guzman, SWAPNA, RVT
== END ==
PROVIDERS: Visit Provider Nurse Practitioner Family
DX: R06.09 Other forms of dyspnea (principal); R00.2 Palpitations; I49.8 Other specified cardiac arrhythmias
CPT/HCPCS: 93225; 93226; 93306

== ENCOUNTER → 2018-07-14 14:02 | Outpatient (CLI) | payer MEDICAID, SELFPAY ==
[2018-07-14 16:15] LABS: Anion Gap 9 (5-15); BUN 45 mg/dL (7-18); Calcium,Total 8.8 mg/dL (8.5-10.1); Chloride 116 mmol/L (98-107); Creatinine, Serum 2.25 mg/dL (0.55-1.02); EST Glomerular Filtration Rate 24 mL/min (>60); Est Glom Filt Rate - Afr Amer 28 mL/min (>60); Glucose 91 mg/dL (74-106); Potassium 5.3 mmol/L (3.5-5.1); Sodium Level 141 mmol/L (136-145)
== END ==
PROVIDERS: Visit Provider Internal Medicine Nephrology
DX: N17.9 Acute kidney failure, unspecified (principal)
CPT/HCPCS: 36415; 80048

== ENCOUNTER → 2018-09-02 09:38 | Outpatient (CLI) | payer MEDICAID, SELFPAY ==
[2018-09-02 11:09] LABS: Albumin, Serum 3.2 g/dL (3.2-5.0); BUN 39 mg/dL (7-18); BUN/Creat Ratio 17.2 RATIO (10-20); Calcium,Total 8.6 mg/dL (8.5-10.1); Chloride 112 mmol/L (98-107); Creatinine, Serum 2.27 mg/dL (0.55-1.02); EST Glomerular Filtration Rate 23 mL/min (>60); Est Glom Filt Rate - Afr Amer 28 mL/min (>60); Glucose 87 mg/dL (74-106); Phosphorus 4.2 mg/dL (2.5-4.9); Potassium 4.8 mmol/L (3.5-5.1); Sodium Level 140 mmol/L (136-145)
[2018-09-02 17:48] LABS: PTHIN 199.5 pg/mL (18.4-80.1)
== END ==
PROVIDERS: Referring Provider Internal Medicine Nephrology; Visit Provider Internal Medicine Nephrology
DX: E87.5 Hyperkalemia (principal)
CPT/HCPCS: 36415; 80069; 83970

== ENCOUNTER → 2018-09-27 15:29 | Outpatient (CLI) | payer MEDICAID, SELFPAY ==
[2018-08-26 12:59] VITALS: BMI 44.6
[2018-09-27 16:30] LABS: Absolute Lymphocyte Count 0.37 X10^3/ul (0.83-4.51); Absolute Neutrophil Count 1.3 X10^3/uL (2.0-7.7); Basophil# 0.02 X10^3/uL; Eosinophil# 0.12 X10^3/uL; Eosinophils% 5.8 % (0-5); Hematocrit 31.7 % (37-47); Hemoglobin 10.2 g/dl (12.0-15.0); Lymphocyte # 0.37 X10^3/ul (4.0); Lymphocyte % 17.9 % (19-41); Mean Corp Hgb Conc 32.2 g/gl (32-36); Mean Corpuscular Hgb 29.3 pg (27.0-32.0); Mean Corpuscular Volume 91.1 fL (81-99); Mean Platelet Vol. 11.8 fl (6.2-12.0); Monocyte# 0.22 X10^3/uL; Monocyte% 10.6 % (0-10); Neutrophil # 1.34 X10^3/uL (2.7-7.7); Neutrophil % 64.7 % (47-70); Platelet Count 83 K/mm3 (150-450); RBC Distribution Width CV 14.1 % (11.6-14.6); RBC Distribution Width SD 45.1 fl (35.1-43.9); Red Blood Count 3.48 M/mm3 (4.2-5.4); White Blood Count 2.1 K/mm3 (4.4-11.0)
[2018-09-27 16:32] LABS: Differential Indicated SCAN CRITERIA MET; POSITIVE COUNT NO; POSITIVE DIFFERENTIAL YES; POSITIVE MORPHOLOGY NO
== END ==
PROVIDERS: Referring Provider Physician Assistant Medical; Visit Provider Physician Assistant Medical
DX: I48.0 Paroxysmal atrial fibrillation (principal)
CPT/HCPCS: 36415; 85025

== ENCOUNTER → 2018-11-12 13:12 | Outpatient (CLI) | payer MEDICAID, SELFPAY ==
[2018-08-26 12:59] VITALS: BMI 44.6
[2018-11-12 14:24] LABS: Albumin, Serum 3.1 g/dL (3.2-5.0); BUN 32 mg/dL (7-18); BUN/Creat Ratio 16.6 RATIO (10-20); Calcium,Total 8.5 mg/dL (8.5-10.1); Chloride 113 mmol/L (98-107); Creatinine, Serum 1.93 mg/dL (0.55-1.02); EST Glomerular Filtration Rate 28 mL/min (>60); Est Glom Filt Rate - Afr Amer 34 mL/min (>60); Glucose 89 mg/dL (74-106); Phosphorus 4.8 mg/dL (2.5-4.9); Potassium 5.5 mmol/L (3.5-5.1); Sodium Level 144 mmol/L (136-145)
[2018-11-12 14:33] LABS: PTHIN 177.9 pg/mL (18.4-80.1); Vitamin D,25 Hydroxy 34.3 ng/mL (29.95-100.01)
--- OUTSIDE RECORDS SUMMARY | 2019-01-17 03:10 | XMS RPT_ITS ---
:1955 Author Organization OHIP Support Name Relationship Address Phone GUYMATTHEW TENORIO Unavailable [address] + [address] [place] [address] D Unavailable Unavailable Unavailable GUY MATTHEW Unavailable [address] + [address] [place] [address] D Unavailable Unavailable Unavailable GUY MATTHEW Unavailable [address] + [address] [place] [address] D Unavailable Unavailable Unavailable GUY MATTHEW Unavailable [address] + [address] [place] [address] D Unavailable Unavailable Unavailable GUY MATTHEW Unavailable [address] + [address] [place] [address] D Unavailable Unavailable Unavailable UGY MATTHEW Unavailable [address] + [address] [place] [address] D Unavailable Unavailable Unavailable GUY MATTHEW Unavailable [address] + [address] [place] [address] D Unavailable Unavailable Unavailable GUY MATTHEW Unavailable [address] + [address] [place] [address] D Unavailable Unavailable Unavailable GUY MATTHEW Unavailable [address] + [address] [place] [address] D Unavailable Unavailable Unavailable GUY MATTHEW Unavailable [address] + [address] [place] [address] D Unavailable Unavailable Unavailable GUY MATTHEW Unavailable [address] + [address] [place] [address] D Unavailable Unavailable Unavailable GUY MATTHEW Unavailable [address] + [address] [place] [address] D Unavailable Unavailable Unavailable GUY MATTHEW Unavailable [address] + [address] [place] [address] D Unavailable Unavailable Unavailable GUY, MATTHEW Unavailable [address] + [address] [place] [address] D Unavailable Unavailable Unavailable MATTHEW TOVAR Unavailable [address] + [address] [place] [address] D Unavailable Unavailable Unavailable MATTHEW TOVAR Unavailable [address] + [address] [place] [address] D Unavailable Unavailable Unavailable MATTHEW TOVAR Unavailable [address] + [address] [place] [address] D Unavailable Unavailable Unavailable MATTHEW TOVAR Unavailable [address] + [address] [place] [address] D Unavailable Unavailable Unavailable MATTHEW TOVAR Unavailable [address] + [address] [place] [address] D Unavailable Unavailable Unavailable MATTHEW TOVAR Unavailable [address] + [address] [place] [address] D Unavailable Unavailable Unavailable MATTHEW TOVAR Unavailable [address] + [address] [place] [address] D Unavailable Unavailable Unavailable Care Team Providers Name Role Phone Gerardo Russell Attending Unavailable Gerardo Russell Referring Unavailable Kayla Jacobs Attending Unavailable [facility] Primary Care Unavailable Kayla Jacobs Referring Unavailable Brenda Aguilera Consulting Unavailable [place] BIRTHING NURSE-C Attending Unavailable Sanjay, Nora Primary Care Unavailable Kayla Jacobs Attending Unavailable Sanjay, Nora Primary Care Unavailable Kayla Jacobs Referring Unavailable Sanjay, Nora Attending Unavailable Sanjay, Nora Primary Care Unavailable Kayla Jacobs Attending Unavailable [facility] Primary Care Unavailable [place] BIRTHING NURSE-C Attending Unavailable Sanjay, Nora Primary Care Unavailable Kayla Jacobs Attending Unavailable Sanjay, Nora Primary Care Unavailable Kayla Jacobs Referring Unavailable Kayla Jacobs Attending Unavailable Sanjay, Nora Primary Care Unavailable Kayla Jacobs Referring Unavailable Gerardo Russell Attending Unavailable Sanjay, Nora Referring Unavailable Brenda Aguilera Attending Unavailable [facility] Referring Unavailable Brenda Aguilera Primary Care Unavailable Matthew Gomez Attending Unavailable Brenda Aguilera Referring Unavailable Brenda Aguilera Primary Care Unavailable Roof, Matthew H Attending Unavailable Roof, Matthew H Referring Unavailable [facility] Primary Care Unavailable Brenda Aguilera Consulting Unavailable PrietoPancho decker Attending Unavailable PrietoPancho decker Referring Unavailable Kayla Jacobs Attending Unavailable [facility] Primary Care Unavailable MoodGerardo glover Attending Unavailable Edna Nash Attending Unavailable Brenda Aguilera Referring Unavailable [facility] Primary Care Unavailable Edna Nash Attending Unavailable Edna Nash Referring Unavailable [facility] Primary Care Unavailable Edna Nash Attending Unavailable [facility] Referring Unavailable Kayla Jacobs Attending Unavailable [facility] Primary Care Unavailable Kayla Jacobs Referring Unavailable Edna Nash Attending Unavailable Edna Nash Referring Unavailable [facility] Primary Care Unavailable PROBLEMS PROBLEMS DATE TYPE CONDITION / CODE ATTENDING STATUS SOURCE 11/16/2018 Unknown E87.5 - Hyperkalemia / Kayla Jacobs Active [place] E87.5(ICD-10) [facility] Repository 09/27/2018 Unknown I48.0 - Paroxysmal Nash Active [place] atrial fibrillation / [facility] I48.0(ICD-10) Hospital Repository 10/08/2018 Unknown R00.1 - Bradycardia, [place], Active [place] unspecified / [facility] R00.1(ICD-10) Hospital Repository 07/14/2018 Unknown R53.83 - Other fatigue Nash, Active [place] / R53.83(ICD-10) [facility] Repository 05/11/2018 Unknown R00.2 - Palpitations / Matthew Gomez Active [place] R00.2(ICD-10) [facility] Repository 05/11/2018 Unknown I49.8 - Other Roof, Matthew Dangelo Active [place] specified cardiac Community arrhythmias / Hospital I49.8(ICD-10) Repository 05/11/2018 Unknown R06.09 - Other forms Matthew Gomez Active [place] of dyspnea / Community R06.09(ICD-10) Hospital Repository 05/31/2018 Unknown R94.31 - Abnormal [place], [place] Active [place] electrocardiogram Community [ECG] [EKG] / Hospital R94.31(ICD-10) Repository 05/31/2018 Unknown I49.9 - Cardiac PrietoRakan deckerril Active [place] arrhythmia, Community unspecified / Hospital I49.9(ICD-10) Repository 04/21/2018 Unknown N17.9 - Acute kidney Kayla Jacobs Active [place] failure, unspecified / Community N17.9(ICD-10) Hospital Repository 12/11/2017 Unknown N18.3 - Chronic kidney Kayla Jacobs Active [place] disease, stage 3 Community (moderate) / Hospital N18.3(ICD-10) Repository PROCEDURES PROCEDURES No Procedure Records FoundRESULTS RESULTS CBC-COMPLETE BLOOD CNT Collected: 11/16/2018 Status: F Source: [place] NO DIFF 10:31 AM [facility] REPOSITORY TYPE CODE TESTS RESULT OUT OF RANGE REFERENCE UNITS LAB L100.1000 4.4-11.0 K/mm3 Low WBC 1.8 LAB L100.1200 4.2-5.4 M/mm3 Low RBC 3.30 LAB L100.1300 12.0-15.0 g/dl Low HGB 9.6 LAB L100.1400 37-47 % Low HCT 30.4 LAB L100.1500 81-99 fL Normal MCV 92.1 LAB L100.1600 27.0-32.0 pg Normal MCH 29.1 LAB L100.1700 32-36 g/gl Low MCHC 31.6 LAB L100.1810 11.6-14.6 % Normal RDW CV 14.6 LAB L100.1820 35.1-43.9 fl High RDW SD 48.8 LAB L100.1900 150-450 K/mm3 Low PLT 68 LAB L100.2000 6.2-12.0 fl High MPV 12.3 Performed By: #### L100.0500 #### [facility] [address] [place], [address] POTASSIUM Collected: 11/16/2018 Status: F Source: [place] 10:31 AM [facility] REPOSITORY TYPE CODE TESTS RESULT OUT OF RANGE REFERENCE UNITS LAB L501.5600 3.5-5.1 mmol/L High K 5.4 Performed By: #### L501.5600 #### [facility] [address] [place], [address] RENAL PROFILE Collected: 11/12/2018 Status: F Source: [place] 1:20 PM [facility] REPOSITORY TYPE CODE TESTS RESULT OUT OF RANGE REFERENCE UNITS LAB L501.0100 74-106 mg/dL Normal GLU 89 Result Comment: Please note revised GLUCOSE reference range effective 2017. LAB L501.1000 7-18 mg/dL High BUN 32 LAB L501.1100 0.55-1.02 mg/dL High CREAT,SERUM 1.93 Result Comment: The validity of the calculated GFR AND GFRAA in patients over 70 years has not been determined. Clinical correlation is essential. LAB L501.1110 >60 mL/min Low EST GFR 28 Result Comment: Non- GFR Calc LAB L501.1115 >60 mL/min Low EST GFR - AA 34 Result Comment: GFR Calc LAB L501.1300 10-20 RATIO Normal BUN/CRE 16.6 LAB L501.1800 3.2-5.0 g/dL Low ALB 3.1 LAB L501.2200 8.5-10.1 mg/dL CA Normal 8.5 LAB L501.2300 2.5-4.9 mg/dL Normal PHOS 4.8 LAB L501.5300 136-145 mmol/L NA Normal 144 LAB L501.5600 3.5-5.1 mmol/L High K 5.5 LAB L501.5900 98-107 mmol/L High CL 113 LAB L501.6100 21.0-32.0 mmol/L Normal CO2 21.0 Performed By: #### L500.3600 #### [facility] [address] [place], [place] [address] [place], [address] VITAMIN D,25 HYDROXY Collected: 11/12/2018 Status: F Source: [place] 1:20 PM [facility] REPOSITORY TYPE CODE TESTS RESULT OUT OF RANGE REFERENCE UNITS LAB L506.1000 29.95-100.01 ng/mL Normal Vitamin D 34.3 25-OH Result Comment: Vitamin D 25(OH) Status Range Deficiency <20 ng/mL (50nmol/L) Insuffciency 20 - 30 ng/mL (50 - 75 nmol/L) Sufficiency 30 - 100 ng/mL (75 - 250 nmol/L) Toxicity >100 ng/mL (>250 nmol/L) Performed By: #### L506.1000 #### [facility] [address] [place], [place], [address] PTHIN Collected: 11/12/2018 Status: F Source: [place] 1:20 PM [facility] REPOSITORY TYPE CODE TESTS RESULT OUT OF RANGE REFERENCE UNITS LAB L509.1000 18.4-80.1 pg/mL High PTHIN 177.9 Performed By: #### L509.1000 #### [facility] [address] [place], [address] CBC W/DIFF, AUTOMATED Collected: 09/27/2018 Status: F Source: [place] 3:46 PM [facility] REPOSITORY TYPE CODE TESTS RESULT OUT OF RANGE REFERENCE UNITS LAB L100.1000 4.4-11.0 K/mm3 Low WBC 2.1 LAB L100.1200 4.2-5.4 M/mm3 Low RBC 3.48 LAB L100.1300 12.0-15.0 g/dl Low HGB 10.2 LAB L100.1400 37-47 % Low HCT 31.7 LAB L100.1500 81-99 fL Normal MCV 91.1 LAB L100.1600 27.0-32.0 pg Normal MCH 29.3 LAB L100.1700 32-36 g/gl Normal MCHC 32.2 LAB L100.1810 11.6-14.6 % Normal RDW CV 14.1 LAB L100.1820 35.1-43.9 fl High RDW SD 45.1 LAB L100.1900 150-450 K/mm3 Low PLT 83 LAB L100.2000 6.2-12.0 fl Normal MPV 11.8 LAB L100.2100 47-70 % Normal NEUT% 64.7 LAB L100.2200 19-41 % Low LY% 17.9 LAB L100.2300 0-10 % High MONO% 10.6 LAB L100.2400 0-5 % High EO% 5.8 LAB L100.2500 0-1 % Normal BASO% 1.0 LAB L100.2550 0.0-0.9 % Normal IM GRAN % 0.000 Result Comment: IG% - Immature Granulocytes (promyelocytes, myelocytes and metamyelocytes) > 1% indicates that a LEFT SHIFT is Present. LAB L100.2620 2.0-7.7 X10 3/uL Low Absolute Neut 1.3 LAB L100.2720 0.83-4.51 X10 3/ul Low Absolute Lymph 0.37 LAB L100.4500 SMEAR Normal COMMENT Result Comment: LYMPHOPENIA NOTED Performed By: #### L100.0100 #### [facility] [address] [facility] [place], [address] PTHIN Collected: 09/02/2018 Status: F Source: [place] 1:57 PM [facility] REPOSITORY TYPE CODE TESTS RESULT OUT OF RANGE REFERENCE UNITS LAB L509.1000 18.4-80.1 pg/mL High PTHIN 199.5 Performed By: #### L509.1000 #### [facility] [address] [place], [place], [address] RENAL PROFILE Collected: 09/02/2018 Status: F Source: [place] 9:45 AM [facility] REPOSITORY TYPE CODE TESTS RESULT OUT OF RANGE REFERENCE UNITS LAB L501.0100 74-106 mg/dL Normal GLU 87 Result Comment: Please note revised GLUCOSE reference range effective 2017. LAB L501.1000 7-18 mg/dL High BUN 39 LAB L501.1100 0.55-1.02 mg/dL High CREAT,SERUM 2.27 Result Comment: The validity of the calculated GFR AND GFRAA in patients over 70 years has not been determined. Clinical correlation is essential. LAB L501.1110 >60 mL/min Low EST GFR 23 Result Comment: Non- GFR Calc LAB L501.1115 >60 mL/min Low EST GFR - AA 28 Result Comment: GFR Calc LAB L501.1300 10-20 RATIO Normal BUN/CRE 17.2 LAB L501.1800 3.2-5.0 g/dL Normal ALB 3.2 LAB L501.2200 8.5-10.1 mg/dL CA Normal 8.6 LAB L501.2300 2.5-4.9 mg/dL Normal PHOS 4.2 LAB L501.5300 136-145 mmol/L NA Normal 140 LAB L501.5600 3.5-5.1 mmol/L K Normal 4.8 LAB L501.5900 98-107 mmol/L High CL 112 LAB L501.6100 21.0-32.0 mmol/L Normal CO2 22.0 Performed By: #### L500.3600 #### [facility] [address] [place], [address] CARDIOLOGY VISIT Observed: 08/26/2018 Status: F Source: [place] REPORT 1:49 PM [facility] REPOSITORY [facility] [facility] [address] [place] [address] OFFICE VISIT Date of Service: 08/26/18 MR#: [id number] Acct: [id number] Name: RISSA TOVAR Rep #: [id number] : 1955 Provider: Edna Nash Age/Sex: 62/F [place] [facility] [place] Status: Signed HPI HPI Details: RISSA TOVAR, is a 62 F who presents to the office today for a cardiovascular outpatient follow-up. At her last office visit, patient continues to still complain of fatigue and feeling that her heart is dragging and racing. We did obtain a 30-day event monitor. She has a history of atrial fibrillation with RVR, bradycardia, anemia, chronic kidney disease, and gastric bypass. She has been intolerant to beta-ivan/metoprolol due to sinus bradycardia. She has been intolerant to anticoagulation due to anemia and need for blood transfusions. She is legally blind in rt eye. Pts main complaint is fatigue. She does not have any palpitations that she is aware of. She does not have any lightheadedness or dizziness. She does not have any chest pain or worsening shortness of breath. She does not have any lower extremity edema. Intake Vital Signs08/26/18 Height 5 ft 4 in 08/26/18 Weight: 260 lb 08/26/18 Body Mass Index (BMI) 44.6 08/26/18 Blood Pressure 138/70 H 08/26/18 Blood Pressure Location Lt brachial Intake Visit Reasons: 6 wk FU Infectious Waste Technician Required: No Accompanied by: None Is patient in pain?: No Allergies aspirin Allergy (Verified 08/26/18 13:06) Shortness of breath celecoxib [From Celebrex] Allergy (Verified 08/26/18 13:06) Shortness of breath Iodinated Contrast- Oral and IV Dye [Iodinated Contrast Media - IV Dye] Allergy (Verified 08/26/18 13:06) Shortness of breath lithium [Raymore] Allergy (Verified 08/26/18 13:06) Shortness of breath metoprolol Adverse Reaction (Severe, Verified 08/26/18 13:06) Marked bradycardia divalproex sodium [From Depakote] Adverse Reaction (Verified 08/26/18 13:06) Other Sulfa (Sulfonamide Antibiotics) Adverse Reaction (Verified 08/26/18 13:06) Unknown Medications Cetirizine HCl [Zyrtec] 10 mg PO DAILY 04/16/16 [History Confirmed 08/26/18] Cholestyramine/Aspartame [Cholestyramine Light Powder] 4 gm PO TID 04/16/16 [History Confirmed 08/26/18] Latanoprost 0.005% [Xalatan Opthalmic] 1 drp EACH EYE QHS 04/16/16 [History Confirmed 08/26/18] Brimonidine Tartrate 0.2% [Brimonidine 0.2% 5Ml Bottle] 1 drp EACH EYE BID 08/22/16 [History Confirmed 08/26/18] Timolol 0.5% [Timoptic] 1 drp EACH EYE BID 08/22/16 [History Confirmed 08/26/18] Aripiprazole [Abilify] 10 mg PO DAILY 09/11/17 [History Confirmed 08/26/18] Cholecalciferol (Vitamin D3) [Vitamin D3] 50,000 unit PO QWEEK 09/11/17 [History Confirmed 08/26/18] Cyanocobalamin (Vitamin B-12) [Vitamin B12] 10,000 mcg PO DAILY 09/11/17 [History Confirmed 08/26/18] aspirin 81 mg tablet,delayed release 81 mg PO DAILY #1 tab 08/26/18 [Rx Confirmed 08/26/18] netarsudil 0.02 % eye drops 1 drp OPHTHALMIC QPM 08/26/18 [History Confirmed 08/26/18] Ejection fraction %: 65 to 70 PFSH Medical History Thrombocytopenia, unspecified (Chronic) Aortic valve stenosis, nonrheumatic (Chronic) Shortness of breath (Chronic) Atrial premature beats (Chronic) Premature ventricular contraction (Chronic) Sinus bradycardia (Chronic) Paroxysmal atrial fibrillation (Chronic) Orthostatic hypotension (Chronic) Left carotid bruit (Chronic) Surgical History History of appendectomy (Resolved) History of cholecystectomy (Resolved) H/O gastric bypass (Resolved) H/O: hysterectomy (Resolved) Family History Mother , Age 60 of CHF Diabetes Hypertension Myocardial infarction CHF (congestive heart failure) Father , 34 [place] Myocardial infarction Ruptured, aorta CAD (coronary artery disease) Brother Diabetes Brother , [place] age 44 Myocardial infarction Diabetes Liver problem Social History Smoking Status: Former smoker how long ago did patient quit smokin alcohol intake: never substance use type: does not use caffeine: Yes Type: coffee Number of servings: 1, tea Number of servings: 2 what type of physical activity do you participate in: none additional social history: ROS Const Const: Negative for weakness, fatigue, fever(s) or headache(s) Eyes Eyes: Negative for blind spots, loss of peripheral vision or transient loss of vision ENT ENT: Negative for headache(s), dizziness, tinnitus or Nosebleed/epistaxis Cardio Chest Pain: No Palpitations: No Edema: None Muscle aches with walking: None Resp Respiratory: Negative for SOB with activity, SOB at rest, SOB orthopnea\SOB lying down or Cough GI GI: Negative nausea, vomiting, heartburn or vomiting blood/hematemesis : Negative for hematuria Musc Musc: Negative for muscle aches/ myalgia Neuro Neuro: Negative for weakness, headache(s), dizziness, near syncope, syncope, lightheadedness or orthostatic symptoms Edmund Hematologic/Lymphatic: Negative for easy bleeding Endo Endo: Negative for fatigue Cardiology Exam Const Appearance: cooperative, healthy appearing, comfortable and no acute distress Nutritional Appearance: obese Orientation: alert, awake and oriented x3 Head Head: normal to inspection Ears: hearing grossly normal bilaterally Nose: external nose normal Face and Sinus: face symmetric Mouth: oral mucosae normal Eyes General: appearance normal, both eyes and all related structures Eyelids: eyelids normal Neck Neck: no JVD and normal visual inspection Carotids: normal carotid upstroke Chest Chest inspection: normal inspection of the chest and normal respiratory effort; negative cough Auscultation: Bilateral: Clear to Auscultation Cardio Rate: bradycardic Rhythm: regular rhythm Heart sounds: S2 normal and murmur; negative rub or gallop Murmur: Grade 2/6 and LLSB GI GI: obese Neuro General: alert, awake, oriented x3 and CN's II-XI intact bilaterally Skin Skin: no rashes or lesions noted Extremities Pulses: Normal: Right Posterior Tibial Pulse, Left Posterior Tibial Pulse, Right Radial Pulse, Left Radial Pulse Lower Extremity Edema: None: Bilateral Psych Psychological: normal affect Supplemental Info Echocardiogram from 2018 demonstrated an ejection fraction of 65%. Left atrium is moderately enlarged. Trivial mitral, tricuspid, aortic and pulmonic valvular insufficiency. RVSP 29 mmHg. Stress test from July 2014 was a normal pharmacological myocardial perfusion stress test with a preserved ejection fraction of 61%. 24-hour Holter monitor demonstrated an average heart rate of 57 bpm with approximately 5% atrial ectopy. Assessment AND Plan Problems 1. Paroxysmal atrial fibrillation I48.0 Plan Reviewed 30-day event monitor with patient. Patient does have paroxysms of atrial fibrillation. It has been a number of years since she has needed a transfusion. Would like to retry a low-dose aspirin for her paroxysmal atrial fibrillation. She does have a chads score of 0. She is intolerant to beta-blockers due to her low heart rates. We will recheck her blood counts in the near future. Patient Instructions Start a low dose Aspirin daily and repeat blood work in 4- 6 weeks. Orders Orders: Medications New: Plan Detail Follow Up 08/26/18 (Keep as is) Coding Level of Care Code Off vis,est,level 3 Diagnoses Paroxysmal atrial fibrillation I48.0 Coding Level of Care Code Off vis,est,level 3 Diagnoses Paroxysmal atrial fibrillation I48.0 08/26/18 1349 <Electronically signed by Edna ALFARO> Date Edna ALFARO Cosigner Signature: Date (if applicable) CC: [facility] BASIC METABOLIC Collected: 07/14/2018 Status: F Source: [place] PROFILE (BMP) 2:05 PM [facility] REPOSITORY TYPE CODE TESTS RESULT OUT OF RANGE REFERENCE UNITS LAB L501.0100 74-106 mg/dL Normal GLU 91 Result Comment: Please note revised GLUCOSE reference range effective 2017. LAB L501.1000 7-18 mg/dL High BUN 45 LAB L501.1100 0.55-1.02 mg/dL High CREAT,SERUM 2.25 Result Comment: The validity of the calculated GFR AND GFRAA in patients over 70 years has not been determined. Clinical correlation is essential. LAB L501.1110 >60 mL/min Low EST GFR 24 Result Comment: Non- GFR Calc LAB L501.1115 >60 mL/min Low EST GFR - AA 28 Result Comment: GFR Calc LAB L501.1300 10-20 RATIO Normal BUN/CRE 20.0 LAB L501.2200 8.5-10.1 mg/dL CA Normal 8.8 LAB L501.5300 136-145 mmol/L NA Normal 141 LAB L501.5600 3.5-5.1 mmol/L High K 5.3 LAB L501.5900 98-107 mmol/L High CL 116 LAB L501.6100 21.0-32.0 mmol/L Low CO2 16.0 LAB L501.6200 5-15 Normal GAP 9 Performed By: #### L500.2500 #### [facility] [address] [facility] [place], [address] CARDIOLOGY VISIT Observed: 07/14/2018 Status: F Source: [place] REPORT 1:46 PM [facility] REPOSITORY [facility] [address] [place] [address] OFFICE VISIT Date of Service: 07/14/18 MR#: [id number] Acct: [id number] Name: RISSA TOVAR Rep #: [id number] : 1955 Provider: Edna Nash Age/Sex: 62/F Location: [facility] [place] Status: Signed HPI HPI Details: RISSA TOVAR, is a 62 F who presents to the office today for a cardiovascular outpatient follow-up. She has a history of atrial fibrillation with RVR, bradycardia, anemia, chronic kidney disease, and gastric bypass. She has been intolerant to beta-ivan/metoprolol due to sinus bradycardia. She has been intolerant to anticoagulation due to anemia and need for blood transfusions. She was in our office 2 months ago with concerns over just not feeling right. Echocardiogram demonstrated an ejection fraction of 65%. 24-hour Holter monitor demonstrated an average heart rate of 57 bpm with approximately 5% atrial ectopy. Pt feels that she is better than what she was 2 months ago. But she still have times where she just has no energy. She has also discussed this with her PCP. She does not have any chest pain/heaviness. She only feels more SOB when she is tired. She has had a few palpitations since she was here last, these are not new and do not last long. She does feels at times that her heart is dragging and other times it is racing. She does not have any syncope but does feels as if she could pass out. She does not have any edema. She is legally blind in rt eye. Intake Vital Signs07/14/18 Height 5 ft 4 in 07/14/18 Weight: 257 lb 07/14/18 Body Mass Index (BMI) 44.1 07/14/18 Blood Pressure 138/85 07/14/18 Blood Pressure Location Lt brachial Intake Visit Reasons: 2 M Infectious Waste Technician Required: No Accompanied by: none Is patient in pain?: No Allergies aspirin Allergy (Verified 07/14/18 13:04) Shortness of breath celecoxib [From Celebrex] Allergy (Verified 07/14/18 13:04) Shortness of breath Iodinated Contrast- Oral and IV Dye [Iodinated Contrast Media - IV Dye] Allergy (Verified 07/14/18 13:04) Shortness of breath lithium [Raymore] Allergy (Verified 07/14/18 13:04) Shortness of breath metoprolol Adverse Reaction (Severe, Verified 07/14/18 13:04) Marked bradycardia divalproex sodium [From Depakote] Adverse Reaction (Verified 07/14/18 13:04) Other Sulfa (Sulfonamide Antibiotics) Adverse Reaction (Verified 07/14/18 13:04) Unknown Medications Cetirizine HCl [Zyrtec] 10 mg PO DAILY 04/16/16 [History Confirmed 05/11/18] Cholestyramine/Aspartame [Cholestyramine Light Powder] 4 gm PO TID 04/16/16 [History Confirmed 05/11/18] Latanoprost 0.005% [Xalatan Opthalmic] 1 drp EACH EYE QHS 04/16/16 [History Confirmed 05/11/18] Brimonidine Tartrate 0.2% [Brimonidine 0.2% 5Ml Bottle] 1 drp EACH EYE BID 08/22/16 [History Confirmed 05/11/18] Timolol 0.5% [Timoptic] 1 drp EACH EYE BID 08/22/16 [History Confirmed 05/11/18] Calcium Carbonate/Vitamin D3 [Os-Be 500+D3 Caplet] 1 ea PO DAILY #30 tab 08/24/16 [Rx Confirmed 05/11/18] Aripiprazole [Abilify] 10 mg PO DAILY 09/11/17 [History Confirmed 05/11/18] Cholecalciferol (Vitamin D3) [Vitamin D3] 50,000 unit PO QWEEK 09/11/17 [History Confirmed 05/11/18] Cyanocobalamin (Vitamin B-12) [Vitamin B12] 10,000 mcg PO DAILY 09/11/17 [History Confirmed 05/11/18] PFSH Medical History Thrombocytopenia, unspecified (Chronic) Aortic valve stenosis, nonrheumatic (Chronic) Shortness of breath (Chronic) Atrial premature beats (Chronic) Premature ventricular contraction (Chronic) Sinus bradycardia (Chronic) Paroxysmal atrial fibrillation (Chronic) Orthostatic hypotension (Chronic) Left carotid bruit (Chronic) Surgical History H/O gastric bypass (Resolved) H/O: hysterectomy (Resolved) Family History Mother , Age 60 of CHF Diabetes Hypertension Myocardial infarction CHF (congestive heart failure) Father , 34 [place] Myocardial infarction Ruptured, aorta CAD (coronary artery disease) Brother Diabetes Brother , [place] age 44 Myocardial infarction Diabetes Liver problem Social History Smoking Status: Former smoker how long ago did patient quit smokin alcohol intake: never substance use type: does not use what type of physical activity do you participate in: none additional social history: ROS Const Const: Positive for weakness and fatigue; negative for fever(s) or headache(s) Eyes Eyes: Positive for other (blind in Right, cateract in left) ENT ENT: Negative for headache(s), dizziness, tinnitus or Nosebleed/epistaxis Cardio Chest Pain: No Palpitations: Yes Edema: None Muscle aches with walking: None Resp Respiratory: Positive for SOB with activity (when she feels fatigued); negative for SOB at rest, SOB orthopnea\SOB lying down or Cough GI GI: Negative nausea, vomiting, heartburn or vomiting blood/hematemesis : Negative for hematuria Musc Musc: Positive for muscle weakness; negative for muscle aches/ myalgia Neuro Neuro: Positive for weakness; negative for headache(s), dizziness, near syncope, syncope, lightheadedness or orthostatic symptoms Edmund Hematologic/Lymphatic: Negative for easy bleeding Endo Endo: Positive for fatigue Cardiology Exam Const Appearance: cooperative, healthy appearing, comfortable and no acute distress Nutritional Appearance: obese Orientation: alert, awake and oriented x3 Head Head: normal to inspection Ears: hearing grossly normal bilaterally Nose: external nose normal Face and Sinus: face symmetric Mouth: oral mucosae normal Eyes General: appearance normal, both eyes and all related structures Eyelids: eyelids normal Neck Neck: no JVD and normal visual inspection Carotids: normal carotid upstroke Chest Chest inspection: normal inspection of the chest and normal respiratory effort; negative cough Auscultation: Bilateral: Clear to Auscultation Cardio Rate: bradycardic Rhythm: regular rhythm Heart sounds: S2 normal and murmur; negative rub or gallop Murmur: Grade 2/6 and LLSB GI GI: obese Neuro General: alert, awake, oriented x3 and CN's II-XI intact bilaterally Skin Skin: no rashes or lesions noted Extremities Pulses: Normal: Right Posterior Tibial Pulse, Left Posterior Tibial Pulse, Right Radial Pulse, Left Radial Pulse Lower Extremity Edema: None: Bilateral Psych Psychological: normal affect Supplemental Info Echocardiogram from 2018 demonstrated an ejection fraction of 65%. Left atrium is moderately enlarged. Trivial mitral, tricuspid, aortic and pulmonic valvular insufficiency. RVSP 29 mmHg. Stress test from July 2014 was a normal pharmacological myocardial perfusion stress test with a preserved ejection fraction of 61%. Assessment AND Plan Problems 1. Paroxysmal atrial fibrillation I48.0 2. Fatigue, unspecified type R53.83 3. Sinus bradycardia R00.1 Plan With patient's continued complaint over feeling her fast heart rates in her slow heart rates and feeling like she might pass out will obtain a 30 day event monitor to see if she is having any pauses that were not noted on her Holter monitor. Patient is agreeable with this. She will follow-up with her office after testing is complete. Orders Orders: Plan Detail Additional Comments Thank you for allowing us to participate in the patients plan of care, if you have any questions please do not hesitate to call. This note was generated using a voice recognition system and there may be incorrect words, spelling or punctuation that were not noted when reviewing the office note prior to saving. Follow Up 6 Weeks (MMM) Coding Level of Care Code Off vis,est,level 4 Diagnoses Paroxysmal atrial fibrillation I48.0 Fatigue, unspecified type R53.83 Fatigue type: unspecified Sinus bradycardia R00.1 Coding Level of Care Code Off vis,est,level 4 Diagnoses Paroxysmal atrial fibrillation I48.0 Fatigue, unspecified type R53.83 Fatigue type: unspecified Sinus bradycardia R00.1 07/14/18 1346 <Electronically signed by Edna ALFARO> Date Edna ALFARO Cosigner Signature: Date (if applicable) CC: YFN [facility] ECHOCARDIOGRAM COMPLETE Observed: 05/20/2018 Status: F Source: [place] 5:43 PM [facility] REPOSITORY [facility] Cardiovascular Services [address] [place] [address] Echo Complete 05/20/18 0852 MR#: [id number] Acct: [id number] Name: RISSA TOVAR Rep #: [id number] : 1955 62 From: Gerardo Russell MD Attending Dr: Matthew Gomez BIRTHING NURSE Status: REG CLI Ordering Dr: Matthew Gomez BIRTHING NURSE-C Date: 05/20/18 Location: [facility] Sex: F C Admitted: Reason For Study: DARDEN Procedure This was a 2D Doppler, Color Flow transthoracic echocardiogram. The exam was of adequate technical quality. Exam performed in department. Left Ventricle Normal LV size. Left ventricular systolic function is normal. The estimated ejection fraction is 65 %. There is evidence of diastolic dysfunction. No regional wall motion abnormalities noted. Right Ventricle Normal RV size. Normal systolic function. Atria The left atrium is moderately enlarged. Normal right atrium. No doppler evidence for ASD. Mitral Valve There is no mitral annular calcification. Normal mitral valve. Trivial mitral valve insufficiency. Tricuspid Valve Normal tricuspid valve. Trivial tricuspid valve insufficiency. Right ventricular systolic pressure estimated to be 29 mmHg. Aortic Valve Trisinus/trileaflet aortic valve. Mild focal aortic valve calcification. Aortic sclerosis, no stenosis. Trivial aortic valve insufficiency. Pulmonic Valve The pulmonic valve is not well visualized. Trivial pulmonic valve insufficiency. Great Vessels Normal sized aortic root. Calcified aortic root. Pericardium/Pleural No pericardial effusion. MMode/2D Measurements AND Calculations LVIDd: 5.2 cm IVSd: 1.1 cm LVOT diam: 2.2 cm LVIDs: 3.0 cm LVPWd: 1.1 cm LVOT area: 3.8 cm2 RVDd: 3.2 cm FS: 42.7 % Ao root diam: 3.3 cm LAV(MOD-bp): 114.9 ml LA A4 area: 30.9 cm2 LA dimension: 5.1 cm LAV(MOD-bp) Indexed: 53.0 ml/m2 LAV(MOD-sp2): 113.1 ml LAV(MOD-sp4): 113.8 ml RA A4 area: 20.0 cm2 Doppler Measurements AND Calculations MV E max darryl: 104.2 cm/sec Lat Peak E' Darryl: 9.6 cm/sec Med Peak E' Darryl: 7.0 cm/sec MV A max darryl: 77.2 cm/sec E/E' lat: 10.8 E/E' med: 14.8 MV E/A: 1.3 Ao V2 max: 223.3 cm/sec AI max darryl: 357.3 cm/sec LV V1 max: 119.0 cm/sec Ao max P.9 mmHg AI max P.1 mmHg LV V1 max P.7 mmHg Ao V2 mean: 158.9 cm/sec AI dec slope: 99.8 cm/sec2 LV V1 mean P.3 mmHg Ao mean P.0 mmHg AI P1/2t: 1049 msec LV V1 mean: 88.4 cm/sec Ao V2 VTI: 55.1 cm LV V1 VTI: 30.6 cm RIGOBERTO(I,D): 2.1 cm2 RIGOBERTO(V,D): 2.0 cm2 SV(LVOT): 116.6 ml PA V2 max: 119.1 cm/sec PI end-d darryl: 97.3 cm/sec TR max darryl: 255.1 cm/sec TR max P.3 mmHg Interpretation Summary Left ventricular systolic function is normal. The estimated ejection fraction is 65 %. The left atrium is moderately enlarged. Trivial mitral valve insufficiency. Trivial tricuspid valve insufficiency. Aortic sclerosis, no stenosis. Trivial aortic valve insufficiency. Trivial pulmonic valve insufficiency. Calcified aortic root. Right ventricular systolic pressure estimated to be 29 mmHg. There is evidence of diastolic dysfunction. Ordering Physician: Matthew Gomez Referring Physician: Y[facility] Performed By: Jessica Guzman RDCS, RVT 05/20/181741 Date Gerarod Russell MD CC: JOESPH Gomez; YFN [facility] Date Dictated: 05/20/18 0852 Date Transcribed: 05/20/181741 Service Cashier: Signed CARDIOLOGY VISIT Observed: 05/11/2018 Status: F Source: [place] REPORT 4:45 PM [facility] REPOSITORY [facility] [address] [place] [address] OFFICE VISIT Date of Service: 05/11/18 MR#: [id number] Acct: [id number] Name: RISSA TOVAR Rep #: [id number] : 1955 Provider: JOESPH Gomez Age/Sex: 62/F Location: [facility] Status: Signed HPI HPI Details: RISSA TOVAR, is a 62 F who presents to the office today for a cardiovascular outpatient follow-up. She has a history of atrial fibrillation with RVR, bradycardia, anemia, chronic kidney disease, and gastric bypass. She has been intolerant to beta-ivan/metoprolol due to sinus bradycardia. She has been intolerant to anticoagulation due to anemia and need for blood transfusions. Patient states feeling generalized weakness and tiredness with elements of palpitations and the sensations of going down. These symptoms have been going on for a least one year. She states feeling dyspnea on exertion. She also states with minimal exertion she has some back pain. The symptoms have been ongoing for years. Pt denies chest, arm, jaw, or neck discomfort. His exercise tolerance is stable. Pt denies syncopal episodes. Pt denies edema or claudication issues. Pt. denies orthopnea, PND, fever, chills, blood in urine, blood in stool, myalgia. Intake Vital Signs05/11/18 Height 5 ft 4 in 05/11/18 Weight: 257 lb 05/11/18 Body Mass Index (BMI) 44.1 05/11/18 Blood Pressure 138/90 Intake Visit Reasons: 6 M FU Allergies aspirin Allergy (Verified 08/28/16 11:00) Shortness of breath celecoxib [From Celebrex] Allergy (Verified 08/28/16 11:00) Shortness of breath Iodinated Contrast- Oral and IV Dye [Iodinated Contrast Media - IV Dye] Allergy (Verified 04/16/16 18:12) Shortness of breath lithium [[place]] Allergy (Unverified 08/28/16 11:00) Shortness of breath metoprolol Adverse Reaction (Severe, Verified 01/21/18 11:10) Marked bradycardia divalproex sodium [From Depakote] Adverse Reaction (Verified 08/28/16 11:00) Other Sulfa (Sulfonamide Antibiotics) Adverse Reaction (Verified 11/09/17 10:41) Unknown Medications Cetirizine HCl [Zyrtec] 10 mg PO DAILY 04/16/16 [History Confirmed 05/11/18] Cholestyramine/Aspartame [Cholestyramine Light Powder] 4 gm PO TID 04/16/16 [History Confirmed 05/11/18] Latanoprost 0.005% [Xalatan Opthalmic] 1 drp EACH EYE QHS 04/16/16 [History Confirmed 05/11/18] Brimonidine Tartrate 0.2% [Brimonidine 0.2% 5Ml Bottle] 1 drp EACH EYE BID 08/22/16 [History Confirmed 05/11/18] Timolol 0.5% [Timoptic] 1 drp EACH EYE BID 08/22/16 [History Confirmed 05/11/18] Calcium Carbonate/Vitamin D3 [Os-Be 500+D3 Caplet] 1 ea PO DAILY #30 tab 08/24/16 [Rx Confirmed 05/11/18] Aripiprazole [Abilify] 10 mg PO DAILY 09/11/17 [History Confirmed 05/11/18] Cholecalciferol (Vitamin D3) [Vitamin D3] 50,000 unit PO QWEEK 09/11/17 [History Confirmed 05/11/18] Cyanocobalamin (Vitamin B-12) [Vitamin B12] 10,000 mcg PO DAILY 09/11/17 [History Confirmed 05/11/18] PFSH Medical History Thrombocytopenia, unspecified (Chronic) Aortic valve stenosis, nonrheumatic (Chronic) Shortness of breath (Chronic) Atrial premature beats (Chronic) Premature ventricular contraction (Chronic) Sinus bradycardia (Chronic) Paroxysmal atrial fibrillation (Chronic) Orthostatic hypotension (Chronic) Left carotid bruit (Chronic) Surgical History H/O gastric bypass (Resolved) H/O: hysterectomy (Resolved) Family History Mother , Age 60 of CHF Diabetes Hypertension Myocardial infarction CHF (congestive heart failure) Father , 34 [place] Myocardial infarction Ruptured, aorta CAD (coronary artery disease) Brother Diabetes Brother , [place] age 44 Myocardial infarction Diabetes Liver problem Social History Smoking Status: Former smoker how long ago did patient quit smokin alcohol intake: never substance use type: does not use what type of physical activity do you participate in: none additional social history: ROS Const Const: Positive for fatigue and weakness; negative for body ache, fever(s) or chills ENT ENT: Positive for dizziness Cardio Chest Pain: No Palpitations: No Edema: None Muscle aches with walking: None Resp Respiratory: Positive for SOB with activity; negative for SOB at rest, SOB orthopnea\SOB lying down or paroxysmal nocturnal dyspnea GI GI: Negative nausea, black,tarry stools, bright, red blood in stools or vomiting blood/hematemesis : Negative for hematuria or frequent nighttime urination/ nocturia Musc Musc: Negative for muscle aches/ myalgia Skin Skin: Negative non-healing lesions or rash Neuro Neuro: Positive for weakness, dizziness, lightheadedness and near syncope; negative for syncope or orthostatic symptoms Endo Endo: Positive for fatigue Allergy Allergy/Immunology: Negative for rash Cardiology Exam Const Appearance: cooperative, healthy appearing, comfortable and no acute distress Nutritional Appearance: obese Orientation: alert, awake and oriented x3 Head Head: normal to inspection Ears: hearing grossly normal bilaterally Nose: external nose normal Face and Sinus: face symmetric Mouth: oral mucosae normal Eyes General: appearance normal, both eyes and all related structures Eyelids: eyelids normal Neck Neck: no JVD and normal visual inspection Carotids: normal carotid upstroke Chest Chest inspection: normal inspection of the chest and normal respiratory effort; negative cough Auscultation: Bilateral: Clear to Auscultation Cardio Rate: bradycardic Rhythm: regular rhythm Heart sounds: S2 normal and murmur; negative rub or gallop Murmur: Grade 2/6 and LLSB GI GI: normal to inspection and obese Neuro General: alert, awake, oriented x3 and CN's II-XI intact bilaterally Skin Skin: no rashes or lesions noted Extremities Pulses: Normal: Right Posterior Tibial Pulse, Left Posterior Tibial Pulse, Right Radial Pulse, Left Radial Pulse Lower Extremity Edema: None: Bilateral Psych Psychological: normal affect Supplemental Info Echocardiogram from July 2016 showed mild concentric LVH, estimated ejection fraction of 65%, stage I diastolic dysfunction, RVSP of 26 mmHg, mild aortic stenosis, and when compared to echocardiogram in July 2014 LV function has remained the same, RVSP has increased from 13-26 mmHg, and degree of aortic stenosis has remained the same. Stress test from July 2014 was a normal pharmacological myocardial perfusion stress test with a preserved ejection fraction of 61%. Assessment AND Plan 1. Dyspnea on exertion R06.09 Plan Patient describes very vague symptoms of dyspnea on exertion. The symptoms are not new, but patient states that they are more persistent. She will undergo a repeat echocardiogram to evaluate ejection fraction and valvular status. She will continue current medications in the interim. Orders Orders: 2. Paroxysmal atrial fibrillation I48.0 Plan Patient's heart rate remains low today in office. She is not on any rate limiting medications other than timolol eye drops. She will undergo a 24-hour Holter monitor to evaluate rhythm and average heart rate. We will wait for the results of this test for further recommendation. 3. Sinus bradycardia R00.1 Plan Patient's heart rhythm appears regular in office she will be undergoing a 24-hour Holter monitor for further evaluation of this. 4. Anemia D64.9 Plan This may be contributing to patient's shortness of breath. This has recently been evaluated by primary care physician and she states that her hemoglobin was 10.6. She has not tolerated iron supplements in the past. She was asked to continue to follow- up with primary care physician for ongoing treatment and management of this. 5. Non-rheumatic aortic stenosis I35.0 Plan Patient's echocardiogram from July 2016 showed mild aortic stenosis. She will undergo a repeat echocardiogram to evaluate if there are any changes that are contributing to her dyspnea on exertion. She will continue current medications. We will wait for results of her echocardiogram for further recommendation. 6. Left carotid bruit R09.89 Plan Carotid duplex ultrasound from April 2018 showed mild, less than 50%, stenosis of both right and left extracranial internal carotid. This is consistent with her July 2017 report. She will continue current medications and we will continue to monitor. Plan Detail Other Orders Orders: Additional Comments He will see her back in approximately 2 months to evaluate 24-hour Holter monitor and echocardiogram results. Thank you for allowing us to participate in the patients plan of care, if you have any questions please do not hesitate to call. This note was generated using a voice recognition system and there may be incorrect words, spelling or punctuation that were not noted when reviewing the office note prior to saving. Coding Level of Care Code Off vis,est,level 3 Diagnoses Dyspnea on exertion R06.09 Paroxysmal atrial fibrillation I48.0 Sinus bradycardia R00.1 Anemia D64.9 Non-rheumatic aortic stenosis I35.0 Left carotid bruit R09.89 Coding Level of Care Code Off vis,est,level 3 Diagnoses Dyspnea on exertion R06.09 Paroxysmal atrial fibrillation I48.0 Sinus bradycardia R00.1 Anemia D64.9 Non-rheumatic aortic stenosis I35.0 Left carotid bruit R09.89 05/11/18 5845 <Electronically signed by Matthew ROY> Date Matthew ROY Cosigner Signature: Date (if applicable) CC: Brenda VILLALTA CAROTID DUPLEX Observed: 05/05/2018 Status: F Source: [place] ULTRASOUND 11:18 AM [facility] REPOSITORY [facility] Cardiovascular Services [address] [address] Carotid Duplex Ultrasound 04/30/18 0902 MR#: [id number] Acct: [id number] Name: RISSA TOVAR Rep #: [id number] : 1955 62 From: Samuel Patterson MD Attending Dr: Brenda Aguilera Status: REG CLI Ordering Dr: Brenda Ge BIRTHING NURSE-C Date: 04/30/18 Location: [facility] Sex: F C Admitted: Reason For Study: CAROTID STENOSIS Rt. Velocities/BP Lt. Velocities/BP Prox CCA 89/20 cm/sec. Prox CCA 78/16 cm/sec. Mid CCA 71/16 cm/sec. Mid CCA 73/21 cm/sec. Dist CCA 58/16 cm/sec. Dist CCA 70/24 cm/sec. Prox ICA 70/26 cm/sec. Prox ICA 74/25 cm/sec. Mid ICA 97/41 cm/sec. Mid ICA 123/43 cm/sec. Dist ICA 168/39 cm/sec. Dist ICA 86/31 cm/sec. Rt. ICA/CCA = 2.4. Lt. ICA/CCA = 1.7. Prox ECA 58/11 cm/sec. Prox ECA 74/16 cm/sec. Rt. Vert. 85/22 cm/sec. Lt. Vert. 59/22 cm/sec. Right Extracranial There is homogeneous, smooth atherosclerotic plaque noted in the right common carotid artery. There is heterogeneous, irregular atherosclerotic plaque noted in the right internal carotid artery. The tortuous nature of the right internal carotid artery may result in flow velocities overestimating the degree of stenosis. There is heterogeneous, irregular atherosclerotic plaque noted in the right external carotid artery. Antegrade flow is noted in the right vertebral artery. There is heterogeneous, irregular atherosclerotic plaque noted in the right bulb. Left Extracranial There is homogeneous, smooth atherosclerotic plaque noted in the left common carotid artery. There is heterogeneous, irregular atherosclerotic plaque noted in the left internal carotid artery. There is heterogeneous, irregular atherosclerotic plaque noted in the left external carotid artery. Antegrade flow is noted in the left vertebral artery. There is heterogeneous, irregular atherosclerotic plaque noted in the left bulb. Procedure Carotid Duplex 84723. Exam performed in department. Interpretation Summary Mild (<50%) stenosis right extracranial internal carotid. Mild (<50%) stenosis left extracranial internal carotid. Flow within the vertebral arteries is antegrade bilaterally. Ordering Physician: Brenda Aguilera Referring Physician: YFN SUGGS Performed By: Ariane Cardenas, SWAPNA, RVT 05/05/18 1117 Date Samuel Patterson MD CC: Brenda VILLALTA; YFN [facility] Date Dictated: 04/30/18901 Date Transcribed: 05/05/18 111 Service Cashier: Signed 12 LEAD ELECTROCARDIOGRAM Observed: 05/03/2018 Status: F Source: [place] 3:29 PM [facility] REPOSITORY [facility] Cardiovascular Services [address] [place] [address] 12 Lead EKG 04/30/18 1011 MR#: [id number] Acct: [id number] Name: RISSA TOVAR Rep #: [id number] : 1955 62 From: Pancho Moreau MD Attending Dr: Brenda Aguilera Status: REG CLI Ordering Dr: Brenda Ge BIRTHING NURSE-C Date: 04/30/18 Location: [facility] Sex: F C Admitted: Test Reason : ARRHYTHMIA Blood Pressure : / mmHG Vent. Rate : 066 BPM Atrial Rate : 055 BPM P-R Int : 000 ms QRS Dur : 096 ms QT Int : 422 ms P-R-T Axes : 000 002 058 degrees QTc Int : 442 ms Atrial fibrillation Nonspecific ST and T wave abnormality , probably digitalis effect Abnormal ECG Confirmed by PRIETO CABAN, PANCHO ([id number]), supervising editor news reel IAN CHAPMAN ([id number]) on 05/03/2018 3:29:22 PM Referred By: [facility] Confirmed By:PANCHO MOREAU MD 05/03/18 1529 Date Pancho Moreau MD CC: Brenda VILLALTA; YFN [facility] Signed DOWNTIME REPORT Observed: 04/15/2018 Status: F Source: [place] 11:59 AM [facility] REPOSITORY [facility] Medical Records Department [address] [facility] [address] Downtime Report MR#: [id number] Acct: [id number] Name: RISSA TOVAR Rep #: [id number] : 1955 62 From: Billy Chapman PCP: Sanjay CABANNora Status: REG CLI This patient was seen during an EMR downtime March 29, 2018 - April 05, 2018. This patient may have a combination of paper and electronic documentation or all paper documentation. All documentation is viewable within the e-chart portion of knowNormal for each patient visit. BASIC METABOLIC Collected: 03/31/2018 Status: F Source: [place] PROFILE (BMP) 12:32 PM [facility] REPOSITORY Order Comment: RESULT(S) PREVIOUSLY REPORTED ON MANUAL REQUISITION DURING DOWNTIME. TYPE CODE TESTS RESULT OUT OF RANGE REFERENCE UNITS LAB L501.0100 74-106 mg/dL Normal GLU 92 Result Comment: Please note revised GLUCOSE reference range effective 2017. LAB L501.1000 7-18 mg/dL High BUN 33 LAB L501.1100 0.55-1.02 mg/dL High CREAT,SERUM 1.92 Result Comment: The validity of the calculated GFR AND GFRAA in patients over 70 years has not been determined. Clinical correlation is essential. LAB L501.1110 >60 mL/min Low EST GFR 28 LAB L501.1115 >60 mL/min Low EST GFR - AA 34 LAB L501.1300 10-20 RATIO Normal BUN/CRE 17.2 LAB L501.2200 8.5-10.1 mg/dL Normal CA 8.6 LAB L501.5300 136-145 mmol/L Normal NA 144 LAB L501.5600 3.5-5.1 mmol/L Normal K 5.1 LAB L501.5900 98-107 mmol/L High CL 115 LAB L501.6100 21.0-32.0 mmol/L Normal CO2 21.0 LAB L501.6200 5-15 Normal GAP 8 Performed By: #### L500.2500 #### [facility] [address] [place], [address] RENAL PROFILE Collected: 01/29/2018 Status: F Source: [place] 8:40 AM [facility] REPOSITORY TYPE CODE TESTS RESULT OUT OF RANGE REFERENCE UNITS LAB L501.0100 74-106 mg/dL Normal GLU 91 Result Comment: Please note revised GLUCOSE reference range effective 2017. LAB L501.1000 7-18 mg/dL High BUN 39 LAB L501.1100 0.55-1.02 mg/dL High CREAT,SERUM 1.94 Result Comment: The validity of the calculated GFR AND GFRAA in patients over 70 years has not been determined. Clinical correlation is essential. LAB L501.1110 >60 mL/min Low EST GFR 28 Result Comment: Non- GFR Calc LAB L501.1115 >60 mL/min Low EST GFR - AA 34 Result Comment: GFR Calc LAB L501.1300 10-20 RATIO High BUN/CRE 20.1 LAB L501.1800 3.2-5.0 g/dL Low ALB 2.9 LAB L501.2200 8.5-10.1 mg/dL CA Normal 8.5 LAB L501.2300 2.5-4.9 mg/dL Normal PHOS 3.7 LAB L501.5300 136-145 mmol/L NA Normal 143 LAB L501.5600 3.5-5.1 mmol/L K Normal 4.7 LAB L501.5900 98-107 mmol/L High CL 114 LAB L501.6100 21.0-32.0 mmol/L Low CO2 20.0 Performed By: #### L500.3600 #### [facility] [address] [place], [place], [id number] RENAL PROFILE Collected: 12/11/2017 Status: F Source: [place] 10:58 AM [facility] [facility] REPOSITORY TYPE CODE TESTS RESULT OUT OF RANGE REFERENCE UNITS LAB L501.0100 74-106 mg/dL Normal GLU 89 Result Comment: Please note revised GLUCOSE reference range effective 2017. LAB L501.1000 7-18 mg/dL High BUN 30 LAB L501.1100 0.55-1.02 mg/dL High CREAT,SERUM 1.72 Result Comment: The validity of the calculated GFR AND GFRAA in patients over 70 years has not been determined. Clinical correlation is essential. LAB L501.1110 >60 mL/min Low EST GFR 32 Result Comment: Non- GFR Calc LAB L501.1115 >60 mL/min Low EST GFR - AA 39 Result Comment: GFR Calc LAB L501.1300 10-20 RATIO Normal BUN/CRE 17.4 LAB L501.1800 3.2-5.0 g/dL Normal ALB 3.4 LAB L501.2200 8.5-10.1 mg/dL CA Normal 8.7 LAB L501.2300 2.5-4.9 mg/dL Normal PHOS 4.5 LAB L501.5300 136-145 mmol/L NA Normal 144 LAB L501.5600 3.5-5.1 mmol/L K Normal 4.6 LAB L501.5900 98-107 mmol/L High CL 114 LAB L501.6100 21.0-32.0 mmol/L Low CO2 20.0 Performed By: #### L500.3600 #### [facility] [address] [place], [place], [address] ALLERGIES ALLERGIES DATE TYPE / CODE NAME / CODE REACTION SEVERITY SOURCE 08/26/2018 Drug Iodinated Shortness of Unknown [place] Allergy/416 Contrast- Oral breath [facility] 154179([facility] and [facility] ED CT) Dye/[id number](R Repository XNORM) 08/26/2018 Drug Sulfa Unknown Unknown [place] Allergy/416 (Sulfonamide Community 868649([facility] Antibiotics)/F[address] [facility] [address] [facility]) 7359337(RXNORM) Repository 08/26/2018 Drug lithium/[id number] Shortness of Unknown [place] Allergy/416 32(RXNORM) breath Community 571206([facility] ED CT) Repository 08/26/2018 Drug aspirin/Y0467612 Shortness of Unknown [place] Allergy/416 87(RXNORM) breath Community 458323([facility] ED CT) Repository 08/26/2018 Drug divalproex Other Unknown [place] Allergy/416 sodium/[id number] Community 866988([facility] 4(RXNORM) [facility] ED CT) Repository 08/26/2018 Drug metoprolol/F0060 Marked SV [place] Allergy/416 91005(RXNORM) bradycardia Community 747938([facility] ED CT) Repository 08/26/2018 Drug celecoxib/Z85472 Shortness of Unknown [place] Allergy/416 7731(RXNORM) breath Community 281364([facility] ED CT) Repository ENCOUNTERS ENCOUNTERS ADMIT/DISCHARGE ACCOUNT ADMITTING ENCOUNTER LOCATION SOURCE NUMBER CLASS 11/16/2018 [id number] Ambulatory [place] 3 [facility] ing:POLAB3 Repository 11/12/2018 [id number] Ambulatory [place] 9 [facility] ing:LAB.FUTUR Repository E 09/27/2018 [id number] Ambulatory [place] 3 [facility] ing:LAB Repository 09/02/2018 [id number] Ambulatory [place] 0 [facility] ing:LAB.FUTUR Repository E 08/26/2018/ [id number] Ambulatory BMSBuilding:B [place] 8 8 [facility] Repository 07/16/2018 [id number] Ambulatory [place] 8 [facility] ing:[facility] Repository 07/16/2018 [id number] Ambulatory BMSBuilding:W [place] 8 [facility] Repository 07/14/2018 [id number] Ambulatory [place] 2 [facility] ing:POLAB3 Repository 07/14/2018/ [id number] Ambulatory BMSBuilding:B [place] 8 6 [facility] Repository 05/20/2018 [id number] Ambulatory [place] 1 [facility] ing:[facility] Repository 05/20/2018 [id number] Ambulatory BMSBuilding:W [place] 9 [facility] Repository 05/11/2018/ [id number] Ambulatory BMSBuilding:B [place] 8 8 [facility] Repository 04/30/2018 [id number] Ambulatory [place] 1 [facility] ing:[facility] Repository 04/30/2018 [id number] Ambulatory BMSBuilding:W [place] 1 [facility] Repository 04/26/2018 [id number] Ambulatory BMSBuilding:B [place] 1 [facility] Repository 03/31/2018 [id number] Ambulatory [place] 0 [facility] ing:LAB.FUTUR Repository E 01/29/2018 [id number] Ambulatory [place] 4 [facility] ing:LAB.FUTUR Repository E 01/03/2018 [id number] Ambulatory [place] 6 [facility] ing: Repository 12/11/2017 [id number] Ambulatory [place] 8 [facility] ing:LAB.FUTUR Repository E 12/11/2017/ [id number] Ambulatory [place] 8 0 [facility] ing: Repository 12/09/2017 [id number] Ambulatory [place] 5 [facility] ing:LAB.FUTUR Repository E PAYERS PAYERS ENCOUNTER GUARANTOR PAYER SUBSCRIBER SOURCE 11/16/2018 RISSA L Primary RISSA L [place] [id number] [facility]P [facility] Number: [id number] [id number] Repository [address]Wns: 234) Date:2018-11-16 O [phone] () [address]ATTN: [place] [address]JS: 11/16/2018 Secondary NOT GIVENUNK [place] Insurance:SELF PAY [facility] Number: Effective Repository Date:2018-11-16 11/12/2018 RISSA L Primary RISSA L [place] [id number] Insurance:CARESOURCEP BRANHAMDOB: Community DO mar Number: [id number] [id number] Repository 98[address]Vyz: (234) Date:2018-11-08P O [phone] () [address]ATTN: [place] [address]WS: 11/12/2018 Secondary NOT GIVENUNK [place] Insurance:SELF PAY [facility] Number: Effective Repository Date:2018-11-08 09/27/2018 RISSA L Primary RISSA L [place] [id number] Insurance:CARESOURCEP BRANHAMDOB: [facility] DO mar Number: [id number] [id number] Repository 48[address]Ytv: (234) Date:2018-09-27P O [phone] () [address]ATTN: [place] [address]FX: 09/27/2018 Secondary NOT GIVENUNK [place] Insurance:SELF PAY [facility] Number: Effective Repository Date:2018-09-27 09/02/2018 RISSA L Primary RISSA L [place] [id number] Insurance:CARESOURCEP BRANHAMDOB: [facility] DO mar Number: [id number] [id number] Repository [address]Pjl: (234) Date:2018-08-30P O [phone] () [address]ATTN: [place] [address]VF: 09/02/2018 Secondary NOT GIVENUNK [place] Insurance:SELF PAY [facility] Number: Effective Repository Date:2018-08-30 08/26/2018 RISSA L Primary RISSA L [place] [id number] Insurance:CARESOURCEP BRANHAMDOB: [facility] DO DIANE mar Number: [id number] [id number] Repository 4[address]Rie: (234) Date:2018-07-14P O [phone] () [address]ATTN: [place] [address]OY: 08/26/2018 Secondary NOT GIVENUNK [place] Insurance:SELF PAY [facility] Number: Effective Repository Date:2018-08-26 07/16/2018 RISSA L Primary NOT GIVENUNK [place] [id number] Insurance:SELF PAY [address] Number: Effective Repository [phone]: (234) Date:2018-07-14 [phone] () 07/16/2018 RISSA L Primary RISSA L [place] [id number] Insurance:CARESOURCEP BRANHAMDOB: Community DO DRAPT olicy Number: [id number] [id number] Repository 26[address]Xzl: (234) Date:2018-06-14 O [phone] () [address]ATTN: [place] [address]EW: 07/16/2018 Secondary NOT GIVENUNK [place] Insurance:SELF PAY [facility] Number: Effective Repository Date:2018-07-16 07/14/2018 RISSA L Primary RISSA L [place] [id number] Insurance:CARESOURCEP BRANHAMDOB: [facility] DO [address] o[place]y Number: [id number] [id number] Repository 454[address]Rxw: (234) Date:2018-06-14P O [phone] () [address]ATTN: [place] [address]ZX: 07/14/2018 Secondary NOT GIVENUNK [place] Insurance:SELF PAY [facility] Number: Effective Repository Date:2018-06-14 07/14/2018 RISSA L Primary RISSA L [place] [id number] Insurance:CARESOURCEP BRANHAMDOB: [facility] DO [address] Number: [id number] [id number] Repository 37[address]Prv: (234) Date:2018-05-11 O [phone] (HP) [address]ATTN: [place] [address]QY: 07/14/2018 Secondary NOT GIVENUNK [place] Insurance:SELF PAY [facility] Number: Effective Repository Date:2018-07-14 05/20/2018 RISSA L Primary RISSA L [place] [id number] Insurance:CARESOURCEP BRANHAMDOB: Community DO [address] [place] Number: [id number] [id number] Repository [address]Uao: (234) Date:2018-05-11P O [phone] () [address]ATTN: [place] [address]YS: 05/20/2018 Secondary NOT GIVENUNK [place] Insurance:SELF PAY [facility] Number: Effective Repository Date:2018-05-11 05/20/2018 RISSA L Primary RISSA L [place] [id number] Insurance:CARESOURCEP BRANHAMDOB: Community DO [address] [place] Number: [id number] [id number] Repository [address]Dik: (234) Date:2018-05-11 O [phone] () [address]ATTN: [place] [address]QD: 05/20/2018 Secondary NOT GIVENUNK [place] Insurance:SELF PAY [facility] Number: Effective Repository Date:2018-05-20 05/11/2018 RISSA L Primary RISSA L [place] [id number] Insurance:CARESOURCEP BRANHAMDOB: Community DO [address] Number: [id number] [id number] Repository [address]Mrq: (234) Date:2018-05-05 O [phone] () [address]ATTN: [place] [address]ZP: 05/11/2018 Secondary NOT GIVENUNK [place] Insurance:SELF PAY [facility] Number: Effective Repository Date:2018-05-11 04/30/2018 RISSA L Primary RISSA L [place] [id number] Insurance:CARESOURCEP BRANHAMDOB: Community DO [address] Number: [id number] [id number] Repository 25[address]Mkz: (234) Date:2018-04-23P O [phone] () [address]ATTN: [place] [address]GW: 04/30/2018 Secondary NOT GIVENUNK [place] Insurance:SELF PAY [facility] Number: Effective Repository Date:2018-04-23 04/30/2018 RISSA L Primary RISSA L [place] [id number] Insurance:CARESOURCEP BRANHAMDOB: [facility] DO APT oldavidy Number: [id number] [id number] Repository 71218Uch: (234) Date:2018-04-23P O [phone] () [address]ATTN: [place] [address]CR: 04/30/2018 Secondary NOT GIVENUNK [place] Insurance:SELF PAY [facility] Number: Effective Repository Date:2018-04-30 04/26/2018 RISSA L Primary RISSA L [place] [id number] Insurance:CARESOURCEP BRANHAMDOB: Community Do [address] Number: [id number] [id number] Repository [address]Xcd: (234) Date:2017-10-13P O [phone] () [address]ATTN: [place] [address]MZ: 04/26/2018 Secondary NOT GIVENUNK [place] Insurance:SELF PAY [facility] Number: Effective Repository Date:2017-10-13 03/31/2018 RISSA L Primary RISSA L [place] [id number] Insurance:CARESOURCEP BRANHAMDOB: Community DO valenciay Number: [id number] [id number] Repository [address]Daj: (234) Date:2018-03-01P O [phone] () [address]ATTN: [place] [address]OR: 03/31/2018 Secondary NOT GIVENUNK [place] Insurance:SELF PAY [facility] Number: Effective Repository Date:2018-03-01 01/29/2018 RISSA L Primary RISSA L [place] [id number] Insurance:CARESOURCEP BRANHAMDOB: [facility] Do [place] olicy Number: [id number] [id number] Repository 1987[address]Cfh: (234) Date:2018-01-05P O [phone] () [address]ATTN: [place] [address]OF: 01/29/2018 Secondary NOT GIVENUNK [place] Insurance:SELF PAY [facility] Number: Effective Repository Date:2018-01-05 01/03/2018 Rissa Primary Rissa [place] [id number] Insurance:CARESOURCEP BranhamDOB: Community Do [place] [address] Number: [id number] [id number] Repository [address]49[address]Htw: (234) Date:2016-08-21P O [phone] () [address]ATTN: [place] [address]LC: 01/03/2018 Secondary NOT GIVENUNK [place] Insurance:SELF PAY [facility] Number: Effective Repository Date:2017-12-24 12/11/2017 Rissa Primary Rissa [place] [id number] Insurance:CARESOURCEP BranhamDOB: Community Do [place] Number: [id number] [id number] Repository [address]Nps: (234) Date:2017-12-01P O [phone] () [address]ATTN: [place] [address]AL: 12/11/2017 Secondary NOT GIVENUNK [place] Insurance:SELF PAY [facility] Number: Effective Repository Date:2017-12-01 12/11/2017 Rissa Primary Rissa [place] [id number] Insurance:CARESOURCEP BranhamDOB: [facility] Number: [id number] [id number] Repository [address]Ecm: (234) Date:2016-08-21P O [phone] (HP) [address]ATTN: [place] [address]MA: 12/11/2017 Secondary NOT GIVENUNK [place] Insurance:SELF PAY [facility] Number: Effective Repository Date:2017-11-26 12/09/2017 Rissa Primary Rissa Storm [id number] Insurance:CARESOURCEP BranhamDOB: [facility] Number: [id number] [id number] Repository [address]Yln: (234) Date:2017-12-09P O [phone] () [address]ATTN: [place] [address]OS: 12/09/2017 Secondary NOT GIVENUNK [place] Insurance:SELF PAY [facility] Number: Effective Repository Date:2017-12-09
== END ==
PROVIDERS: Referring Provider Internal Medicine Nephrology; Visit Provider Internal Medicine Nephrology
DX: E55.9 Vitamin D deficiency, unspecified (principal); N17.9 Acute kidney failure, unspecified; N25.81 Secondary hyperparathyroidism of renal origin
CPT/HCPCS: 36415; 80069; 82306; 83970

== ENCOUNTER → 2018-11-16 10:29 | Outpatient (CLI) | payer MEDICAID, SELFPAY ==
[2018-11-16 10:44] LABS: Hematocrit 30.4 % (37-47); Hemoglobin 9.6 g/dl (12.0-15.0); Mean Corp Hgb Conc 31.6 g/gl (32-36); Mean Corpuscular Hgb 29.1 pg (27.0-32.0); Mean Corpuscular Volume 92.1 fL (81-99); Mean Platelet Vol. 12.3 fl (6.2-12.0); Platelet Count 68 K/mm3 (150-450); RBC Distribution Width CV 14.6 % (11.6-14.6); RBC Distribution Width SD 48.8 fl (35.1-43.9); White Blood Count 1.8 K/mm3 (4.4-11.0)
[2018-11-16 10:45] LABS: Scan Indicated on CBC? Y/N NO
[2018-11-16 10:52] LABS: Potassium 5.4 mmol/L (3.5-5.1)
--- OUTSIDE RECORDS SUMMARY | 2019-01-18 13:14 | XMS RPT_ITS ---
:1955 Author Organization OHIP Support Name Relationship Address Phone GUYMATTHEW TENORIO Unavailable [address] + [address] [place] [address] D Unavailable Unavailable Unavailable GUY MATTHEW Unavailable [address] + [address] [place] [address] D Unavailable Unavailable Unavailable GUY MATTHEW Unavailable [address] + [address] [place] [address] D Unavailable Unavailable Unavailable GUY MATTHEW Unavailable [address] + [address] [place] [address] D Unavailable Unavailable Unavailable GUY MATTHEW Unavailable [address] + [address] [place] [address] D Unavailable Unavailable Unavailable GUY MATTHEW Unavailable [address] + [address] [place] [address] D Unavailable Unavailable Unavailable GUY MATTHEW Unavailable [address] + [address] [place] [address] D Unavailable Unavailable Unavailable GUY MATTHEW Unavailable [address] + [address] [place] [address] D Unavailable Unavailable Unavailable GUY MATTHEW Unavailable [address] + [address] [place] [address] D Unavailable Unavailable Unavailable GUY MATTHEW Unavailable [address] + [address] [place] [address] D Unavailable Unavailable Unavailable GUY MATTHEW Unavailable [address] + [address] [place] [address] D Unavailable Unavailable Unavailable GUY MATTHEW Unavailable [address] + [address] [place] [address] D Unavailable Unavailable Unavailable GUY MATTHEW Unavailable [address] + [address] [place] [address] D Unavailable Unavailable Unavailable GUY, MATTHEW Unavailable [address] + [address] [place] [address] D Unavailable Unavailable Unavailable MATTHEW TOVAR Unavailable [address] + [address] [place] [address] D Unavailable Unavailable Unavailable MATTHEW TOVAR Unavailable [address] + [address] [place] [address] D Unavailable Unavailable Unavailable MATTHEW TOVAR Unavailable [address] + [address] [place] [address] D Unavailable Unavailable Unavailable MATTHEW TOVAR Unavailable [address] + [address] [place] [address] D Unavailable Unavailable Unavailable MATTHEW TOVAR Unavailable [address] + [address] [place] [address] D Unavailable Unavailable Unavailable MATTHEW TOVAR Unavailable [address] + [address] [place] [address] D Unavailable Unavailable Unavailable MATTHEW TOVAR Unavailable [address] + [address] [place] [address] D Unavailable Unavailable Unavailable Care Team Providers Name Role Phone Gerardo Russell Attending Unavailable Gerardo Russell Referring Unavailable Kayla Jacobs Attending Unavailable [facility] Primary Care Unavailable Edna Nash Attending Unavailable Edna Nash Referring Unavailable [facility] Primary Care Unavailable Edna Nash Attending Unavailable Edna Nash Referring Unavailable [facility] Primary Care Unavailable Kayla Jacobs Attending Unavailable [facility] Primary Care Unavailable Kayla Jacobs Referring Unavailable Edna Nash Attending Unavailable [facility] Referring Unavailable Edna Nash Attending Unavailable Brenda Aguilera Referring Unavailable [facility] Primary Care Unavailable Gerardo Russell Attending Unavailable Kayla Jacobs Attending Unavailable [facility] Primary Care Unavailable Pancho Moreau Attending Unavailable Pancho Moreau Referring Unavailable Matthew Gomez Attending Unavailable Matthew Gomez Referring Unavailable [facility] Primary Care Unavailable Brenda Aguilera Consulting Unavailable Matthew Gomez Attending Unavailable Luma VILLALTA, Brenda Referring Unavailable [place] PULMONOLOGY TECHNICIAN, Brenda Primary Care Unavailable Luma VILLALTA, Brenda Attending Unavailable [facility] Referring Unavailable Luma VILLALTA, Brenda Primary Care Unavailable Moodispaw, Gerardo Attending Unavailable Sanjay, Nora Referring Unavailable Kayla Jacobs Attending Unavailable Sanjay, Nora Primary Care Unavailable Kayla Jacobs Referring Unavailable Kayla Jacobs Attending Unavailable Sanjay, Nora Primary Care Unavailable ReynaldoKayla Referring Unavailable [place] UTILIZATION MANAGEMENT RN-C Attending Unavailable Sanjay, Nora Primary Care Unavailable Sanjay, Nora Attending Unavailable Sanjay, Nora Primary Care Unavailable Kayla Jacobs Attending Unavailable Sanjay, Nora Primary Care Unavailable Kayla Jacobs Referring Unavailable [place] UTILIZATION MANAGEMENT RN-C Attending Unavailable Sanjay, Nora Primary Care Unavailable Reynaldo, Kayla Attending Unavailable [facility], [facility] Primary Care Unavailable Thien Jacobsine Referring Unavailable Luma VILLALTA, Brenda Consulting Unavailable PROBLEMS PROBLEMS DATE TYPE CONDITION / CODE ATTENDING STATUS SOURCE 11/16/2018 Unknown E87.5 - Hyperkalemia / Kayla Jacobs Active [place] E87.5(ICD-10) [facility] Repository 09/27/2018 Unknown I48.0 - Paroxysmal Nsah, Active [place] atrial fibrillation / [facility] I48.0(ICD-10) Hospital Repository 10/08/2018 Unknown R00.1 - Bradycardia, Moodispaw, Active [place] unspecified / [facility] R00.1(ICD-10) Hospital Repository 07/14/2018 Unknown R53.83 - Other fatigue Nash, Active [place] / R53.83(ICD-10) [facility] Repository 05/11/2018 Unknown R00.2 - Palpitations / Matthew Gomez Active [place] R00.2(ICD-10) [facility] Repository 05/11/2018 Unknown I49.8 - Other Matthew Gomez Active [place] specified cardiac Community arrhythmias / Hospital I49.8(ICD-10) Repository 05/11/2018 Unknown R06.09 - Other forms Matthew Gomez Active [place] of dyspnea / Community R06.09(ICD-10) Hospital Repository 05/31/2018 Unknown R94.31 - Abnormal Prieto, [place] Active [place] electrocardiogram Community [ECG] [EKG] / Hospital R94.31(ICD-10) Repository 05/31/2018 Unknown I49.9 - Cardiac PrietoRakna deckerril Active [place] arrhythmia, Community unspecified / Hospital I49.9(ICD-10) Repository 04/21/2018 Unknown N17.9 - Acute kidney Kayla Jacobs Active [place] failure, unspecified / Community N17.9(ICD-10) Hospital Repository 12/11/2017 Unknown N18.3 - Chronic kidney Kayla Jacobs Active [place] disease, stage 3 Community (moderate) / Hospital N18.3(ICD-10) Repository PROCEDURES PROCEDURES No Procedure Records FoundRESULTS RESULTS CBC-COMPLETE BLOOD CNT Collected: 11/16/2018 Status: F Source: [place] NO DIFF 10:31 AM [facility] REPOSITORY TYPE CODE TESTS RESULT OUT OF [...] MPV 12.3 Performed By: #### L100.0500 #### [facility] [address] [place], [address] POTASSIUM Collected: 11/16/2018 Status: F Source: [place] 10:31 AM [facility] REPOSITORY TYPE CODE TESTS RESULT OUT OF RANGE REFERENCE UNITS LAB L501.5600 3.5-5.1 mmol/L High K 5.4 Performed By: #### L501.5600 #### [facility] [address] [place] [place], [address] RENAL PROFILE Collected: 11/12/2018 Status: F Source: [place] 1:20 PM [facility] REPOSITORY TYPE CODE TESTS RESULT OUT OF [...] CO2 21.0 Performed By: #### L500.3600 #### [facility] [address] [place], [place] [address] [place], [address] VITAMIN D,25 HYDROXY Collected: 11/12/2018 Status: F Source: [place] 1:20 PM [facility] REPOSITORY TYPE CODE TESTS RESULT OUT OF RANGE REFERENCE UNITS LAB L506.1000 29.95-100.01 ng/mL Normal Vitamin D 34.3 25-OH Result Comment: Vitamin D 25(OH) Status Range Deficiency <20 ng/mL (50nmol/L) Insuffciency 20 - 30 ng/mL (50 - 75 nmol/L) Sufficiency 30 - 100 ng/mL (75 - 250 nmol/L) Toxicity >100 ng/mL (>250 nmol/L) Performed By: #### L506.1000 #### [facility] [address] [place], [place], [address] PTHIN Collected: 11/12/2018 Status: F Source: [place] 1:20 PM [facility] REPOSITORY TYPE CODE TESTS RESULT OUT OF RANGE REFERENCE UNITS LAB L509.1000 18.4-80.1 pg/mL High PTHIN 177.9 Performed By: #### L509.1000 #### [facility] [address] [place], [address] CBC W/DIFF, AUTOMATED Collected: 09/27/2018 Status: F Source: [place] 3:46 PM [facility] REPOSITORY TYPE CODE TESTS RESULT OUT OF [...] LYMPHOPENIA NOTED Performed By: #### L100.0100 #### [facility] [address] [facility] [place], [address] PTHIN Collected: 09/02/2018 Status: F Source: [place] 1:57 PM [facility] REPOSITORY TYPE CODE TESTS RESULT OUT OF RANGE REFERENCE UNITS LAB L509.1000 18.4-80.1 pg/mL High PTHIN 199.5 Performed By: #### L509.1000 #### [facility] [address] [place], [place], [address] RENAL PROFILE Collected: 09/02/2018 Status: F Source: [place] 9:45 AM [facility] REPOSITORY TYPE CODE TESTS RESULT OUT OF [...] CO2 22.0 Performed By: #### L500.3600 #### [facility] [address] [place], [address] CARDIOLOGY VISIT Observed: 08/26/2018 Status: F Source: [place] REPORT 1:49 PM [facility] REPOSITORY [facility] [address] [place] [address] OFFICE VISIT Date of Service: 08/26/18 MR#: [id number] Acct: [id number] Name: RISSA TOVAR Rep #: [id number] : 1955 Provider: Edna Nash Age/Sex: 62/F Location[facility] Status: Signed HPI HPI Details: RISSA TOVRA, is a 62 F who presents to [...] brachial Intake Visit Reasons: 6 wk FU Water Service Dispatcher Required: No Accompanied by: None Is patient in pain?: No Allergies aspirin Allergy (Verified 08/26/18 13:06) Shortness of breath celecoxib [From Celebrex] Allergy (Verified 08/26/18 13:06) Shortness of breath Iodinated Contrast- Oral and IV Dye [Iodinated Contrast Media - IV Dye] Allergy (Verified 08/26/18 13:06) Shortness of breath lithium [Old Mystic] Allergy (Verified 08/26/18 13:06) Shortness of breath [...] CHF (congestive heart failure) Father , 34 [place] Myocardial infarction Ruptured, aorta CAD (coronary artery disease) Brother Diabetes Brother , [place] age 44 Myocardial infarction Diabetes Liver problem [...] F Source: [place] PROFILE (BMP) 2:05 PM [facility] REPOSITORY TYPE CODE TESTS RESULT OUT OF [...] GAP 9 Performed By: #### L500.2500 #### [facility] [address] [facility] [place], [address] CARDIOLOGY VISIT Observed: 07/14/2018 Status: F Source: [place] REPORT 1:46 PM [facility] REPOSITORY [facility] [address] [place] [address] OFFICE VISIT Date of Service: 07/14/18 MR#: [id number] Acct: [id number] Name: RISSA TOVAR Rep #: [id number] : 1955 Provider: Edna Nash Age/Sex: 62/F Location: [facility] Status: Signed HPI HPI Details: RISSA TOVAR, [...] Lt brachial Intake Visit Reasons: 2 M Water Service Dispatcher Required: No Accompanied by: none Is patient in pain?: No Allergies aspirin Allergy (Verified 07/14/18 13:04) Shortness of breath celecoxib [From Celebrex] Allergy (Verified 07/14/18 13:04) Shortness of breath Iodinated Contrast- Oral and IV Dye [Iodinated Contrast Media - IV Dye] Allergy (Verified 07/14/18 13:04) Shortness of breath lithium [[place] Mystic] Allergy (Verified 07/14/18 13:04) Shortness of breath [...] CHF (congestive heart failure) Father , 34 [place] Myocardial infarction Ruptured, aorta CAD (coronary artery disease) Brother Diabetes Brother , [place] age 44 Myocardial infarction Diabetes Liver problem [...] Signature: Date (if applicable) CC: YFN [facility] ECHOCARDIOGRAM COMPLETE Observed: 05/20/2018 Status: F Source: [place] 5:43 PM [facility] REPOSITORY [facility] Cardiovascular Services [address] [place] [address] Echo Complete 05/20/18 0852 MR#: [id number] Acct: [id number] Name: RISSA TOVAR Rep #: [id number] : 1955 62 From: Gerardo Russell MD Attending Dr: Matthew Gomez UTILIZATION MANAGEMENT RN Status: REG CLI Ordering Dr: Matthew Gomez UTILIZATION MANAGEMENT RN-C Date: 05/20/18 Location: [facility] Sex: F C Admitted: Reason For Study: [...] By: Jessica Guzman RDCS, RVT 05/20/181741 Date Gerardo Russell MD CC: JOESPH Gomez; YFN [facility] Date Dictated: 05/20/18 0852 Date Transcribed: 05/20/181741 Finishing Machine Operator Automatic: Signed CARDIOLOGY VISIT Observed: 05/11/2018 Status: F Source: [place] REPORT 4:45 PM [facility] REPOSITORY [place] [facility] [address] [place] [address] OFFICE VISIT Date of Service: 05/11/18 MR#: [id number] Acct: [id number] Name: RISSA TOVAR Rep #: [id number] : 1955 Provider: JOESPH Gomez Age/Sex: 62/F Location: [facility] Status: Signed HPI HPI Details: RISSA TOVAR, [...] (Verified 04/16/16 18:12) Shortness of breath lithium [[place] Mystic] Allergy (Unverified 08/28/16 11:00) Shortness of breath [...] CHF (congestive heart failure) Father , 34 [place] Myocardial infarction Ruptured, aorta CAD (coronary artery disease) Brother Diabetes Brother , [place] age 44 Myocardial infarction Diabetes Liver problem [...] stenosis I35.0 Left carotid bruit R09.89 05/11/18 3095 <Electronically signed by Matthew ROY> Date Matthew ROY Cosigner Signature: Date (if applicable) CC: Brenda VILLALTA CAROTID DUPLEX Observed: 05/05/2018 Status: F Source: [place] ULTRASOUND 11:18 AM [facility] REPOSITORY [facility] Cardiovascular Services [address] [address] Carotid Duplex Ultrasound 04/30/18 0902 MR#: [id number] Acct: [id number] Name: RISSA TOVAR Rep #: [id number] : 1955 62 From: Samuel Patterson MD Attending Dr: Brenda Aguilera Status: REG CLI Ordering Dr: Brenda Ge UTILIZATION MANAGEMENT RN-C Date: 04/30/18 Location: [facility] Sex: F C Admitted: Reason For Study: [...] in the left bulb. Procedure Carotid Duplex 26234. Exam performed in department. Interpretation Summary Mild (<50%) stenosis right extracranial internal carotid. Mild (<50%) stenosis left extracranial internal carotid. Flow within the vertebral arteries is antegrade bilaterally. Ordering Physician: Brenda Aguilera Referring Physician: YFN SUGGS Performed By: Ariane Cardenas, SWAPNA, RVT 05/05/18 1117 Date Samuel Patterson MD CC: Brenda VILLALTA; YFN [facility] Date Dictated: 04/30/18901 Date Transcribed: 05/05/18 111 Finishing Machine Operator Automatic: Signed 12 LEAD ELECTROCARDIOGRAM Observed: 05/03/2018 Status: F Source: [place] 3:29 PM [facility] REPOSITORY [facility] Cardiovascular Services [address] [place] [address] 12 Lead EKG 04/30/18 1011 MR#: [id number] Acct: [id number] Name: RISSA TOVAR Rep #: [id number] : 1955 62 From: Pancho Moreau MD Attending Dr: Brenda Aguilera Status: REG CLI Ordering Dr: Brenda Ge UTILIZATION MANAGEMENT RN-C Date: 04/30/18 Location: [facility] Sex: F C Admitted: Test Reason : [...] ECG Confirmed by PRIETO CABAN, PANCHO ([id number]), desk editor IAN CHAPMAN ([id number]) on 05/03/2018 3:29:22 PM Referred By: [facility] Confirmed By:PANCHO MOREAU MD 05/03/18 1529 Date Pancho Moreau MD CC: Brenda VILLALTA; YFN [facility] Signed DOWNTIME REPORT Observed: 04/15/2018 Status: F Source: [place] 11:59 AM [facility] REPOSITORY [facility] Medical Records Department [address] [facility] [address] Downtime Report MR#: [id number] Acct: [id number] Name: RISSA TOVAR Rep #: [id number] : 1955 62 From: Billy Chapman PCP: Sanjay CABANNora Status: REG CLI This patient was seen during an EMR downtime March 29, 2018 - April 05, 2018. This patient may have a combination of paper and electronic documentation or all paper documentation. All documentation is viewable within the e-chart portion of [facility] for each patient visit. BASIC METABOLIC Collected: 03/31/2018 Status: F Source: [place] PROFILE (BMP) 12:32 PM [facility] REPOSITORY Order Comment: RESULT(S) PREVIOUSLY REPORTED ON [...] GAP 8 Performed By: #### L500.2500 #### [facility] [address] [place], [address] RENAL PROFILE Collected: 01/29/2018 Status: F Source: [place] 8:40 AM [facility] REPOSITORY TYPE CODE TESTS RESULT OUT OF [...] CO2 20.0 Performed By: #### L500.3600 #### [facility] [address] [place], [place], [address] RENAL PROFILE Collected: 12/11/2017 Status: F Source: [place] 10:58 AM [facility] REPOSITORY TYPE CODE TESTS RESULT OUT OF [...] CO2 20.0 Performed By: #### L500.3600 #### [facility] [address] [place], [place], [address] ALLERGIES ALLERGIES DATE TYPE / CODE NAME / CODE REACTION SEVERITY SOURCE 08/26/2018 Drug Iodinated Shortness of Unknown [place] Allergy/416 Contrast- Oral breath [facility] 113874([facility] ED CT) Dye/[id number](R Repository XNORM) 08/26/2018 Drug Sulfa Unknown Unknown [place] Allergy/416 (Sulfonamide Community 562503([facility] Antibiotics)/F[address]) 6480980(RXNORM) Repository 08/26/2018 Drug lithium/H0488847 Shortness of Unknown [place] Allergy/416 32(RXNORM) breath Community 780438([facility] ED CT) Repository 08/26/2018 Drug aspirin/G3383577 Shortness of Unknown [place] Allergy/416 87(RXNORM) breath Community 322726([facility] ED CT) Repository 08/26/2018 Drug divalproex Other Unknown [place] Allergy/416 sodium/K24513013 Community 671672([facility] 4(RXNORM) [facility] ED CT) Repository 08/26/2018 Drug metoprolol/F0060 Marked SV [place] Allergy/416 16551(RXNORM) bradycardia Community 643081([facility] ED CT) Repository 08/26/2018 Drug celecoxib/F88277 Shortness of Unknown [place] Allergy/416 7731(RXNORM) breath Community 610419([facility] ED CT) Repository ENCOUNTERS ENCOUNTERS ADMIT/DISCHARGE ACCOUNT ADMITTING ENCOUNTER LOCATION SOURCE NUMBER CLASS 11/16/2018 [id number] [place] 3 [facility] ing:POLAB3 Repository 11/12/2018 [id number] Ambulatory [place] 9 [facility] ing:LAB.FUTUR Repository E 09/27/2018 [id number] Ambulatory [place] 3 [facility] ing:LAB Repository 09/02/2018 [id number] Ambulatory [place] 0 [facility] ing:LAB.FUTUR Repository E 08/26/2018/ [id number] Ambulatory BMSBuilding:B [place] 8 8 [facility] Repository 07/16/2018 [id number] Ambulatory [place] 8 [facility] ing:[facility] Repository 07/16/2018 [id number] Ambulatory BMSBuilding:W [place] 8 [facility] Repository 07/14/2018 [id number] Amb[place] 2 [facility] ing:POLAB3 Repository 07/14/2018/ [id number] Ambulatory BMSBuilding:B [place] 8 6 [facility] Repository 05/20/2018 [id number] Ambulatory BMSBuilding:W [place] 9 [facility] Repository 05/20/2018 [id number] Ambulatory [place] 1 [facility] ing:[facility] Repository 05/11/2018/ [id number] Ambulatory BMSBuilding:B [place] 8 8 [facility] Repository 04/30/2018 [id number] Ambulatory BMSBuilding:W [place] 1 [facility] Repository 04/30/2018 [id number] Ambulatory [place] 1 [facility] ing:[facility] Repository 04/26/2018 [id number] Ambulatory BMSBuilding:B [place] 1 [facility] Repository 03/31/2018 [id number] Ambulatory [place] 0 [facility] ing:LAB.FUTUR Repository E 01/29/2018 [id number] Ambulatory [place] 4 [facility] ing:LAB.FUTUR Repository E 01/03/2018 [id number] Ambulatory [place] 6 [facility] ing: Repository 12/11/2017 [id number] Ambulatory [place] 8 [facility] ing:LAB.FUTUR Repository E 12/11/2017/ [id number] Ambulatory [place] 8 0 [facility] ing: Repository 12/09/2017 [id number] Amb[place] 5 [facility] ing:LAB.FUTUR Repository E PAYERS PAYERS ENCOUNTER GUARANTOR PAYER SUBSCRIBER SOURCE 11/16/2018 RISSA L Primary RISSA L [place] [id number] Insurance:CARESOURCEP [facility] Number: [id number] [id number] Repository [address]Ror: [phone]) Date:2018-11-16 O [phone] () [address]ATTN: [place] [address]NQ: 11/16/2018 Secondary NOT GIVENUNK [place] Insurance:SELF PAY [facility] Number: Effective Repository Date:2018-11-16 11/12/2018 RISSA L Primary RISSA L [place] [id number] Insurance:CARESOURCEP BRANHAMDOB: Community DO mar Number: [id number] [id number] Repository [address]Iwg: ([phone]) Date:2018-11-08P O [phone] () [address]ATTN: [place] [address]GI: 11/12/2018 Secondary NOT GIVENUNK [place] Insurance:SELF PAY [facility] Number: Effective Repository Date:2018-11-08 09/27/2018 RISSA L Primary RISSA L [place] [id number] Insurance:CARESOURCEP BRANHAMDOB: [facility] DO mar Number: [id number] [id number] Repository [address]Njf: ([phone]) Date:2018-09-27P O [phone] () [address]ATTN: [place] [address]AN: 09/27/2018 Secondary NOT GIVENUNK [place] Insurance:SELF PAY [facility] Number: Effective Repository Date:2018-09-27 09/02/2018 RISSA L Primary RISSA L [place] [id number] Insurance:CARESOURCEP BRANHAMDOB: [facility] DO mar Number: [id number] [id number] Repository [address]Ayr: ([phone]) Date:2018-08-30P O [phone] () [address]ATTN: [place] [address]IJ: 09/02/2018 Secondary NOT GIVENUNK [place] Insurance:SELF PAY [facility] Number: Effective Repository Date:2018-08-30 08/26/2018 RISSA L Primary RISSA L [place] [id number] Insurance:CARESOURCEP BRANHAMDOB: [facility] DO DIANE mar Number: [id number] [id number] Repository [address]Itj: ([phone]) Date:2018-07-14P O [phone] () [address]ATTN: [place] [address]OW: 08/26/2018 Secondary NOT GIVENUNK [place] Insurance:SELF PAY [facility] Number: Effective Repository Date:2018-08-26 07/16/2018 RISSA L Primary NOT GIVENUNK [place] [id number] Insurance:SELF PAY [address] Number: Effective Repository [phone]: ([phone]) Date:2018-07-14 [phone] () 07/16/2018 RISSA L Primary RISSA L [place] [id number] Insurance:CARESOURCEP BRANHAMDOB: Community DO DRAPT olicy Number: [id number] [id number] Repository [address]Vxn: ([phone]) Date:2018-06-14 O [phone] () [address]ATTN: [place] [address]IM: 07/16/2018 Secondary NOT GIVENUNK [place] Insurance:SELF PAY [facility] Number: Effective Repository Date:2018-07-16 07/14/2018 RISSA L Primary RISSA L [place] [id number] Insurance:CARESOURCEP BRANHAMDOB: [facility] DO DRAPT olicy Number: [id number] [id number] Repository [address]Zya: (234) Date:2018-06-14P O [phone] () [address]ATTN: [place] [address]DD: 07/14/2018 Secondary NOT GIVENUNK [place] Insurance:SELF PAY [facility] Number: Effective Repository Date:2018-06-14 07/14/2018 RISSA L Primary RISSA L [place] [id number] Insurance:CARESOURCEP BRANHAMDOB: [facility] DO DRAPT olicy Number: [id number] [id number] Repository [address]Kmx: ([phone]) Date:2018-05-11P O [phone] () [address]ATTN: [place] [address]IV: 07/14/2018 Secondary NOT GIVENUNK [place] Insurance:SELF PAY [facility] Number: Effective Repository Date:2018-07-14 05/20/2018 RISSA L Primary RISSA L [place] [id number] Insurance:CARESOURCEP BRANHAMDOB: Community DO DRAPT olicy Number: [id number] [id number] Repository [address]Sly: ([phone]) Date:2018-05-11P O [phone] () [address]ATTN: [place] [address]RX: 05/20/2018 Secondary NOT GIVENUNK [place] Insurance:SELF PAY [facility] Number: Effective Repository Date:2018-05-20 05/20/2018 RISSA L Primary RISSA L [place] [id number] Insurance:CARESOURCEP BRANHAMDOB: Community DO DRAPT olicy Number: [id number] [id number] Repository [address]Cpu: (234) Date:2018-05-11 O [phone] () [address]ATTN: [place] [address]DM: 05/20/2018 Secondary NOT GIVENUNK [place] Insurance:SELF PAY [facility] Number: Effective Repository Date:2018-05-11 05/11/2018 RISSA L Primary RISSA L [place] [id number] Insurance:CARESOURCEP BRANHAMDOB: Community DO DRAPT olicy Number: [id number] [id number] Repository [address]Ioh: (234) Date:2018-05-05 O [phone] () [address]ATTN: [place] [address]VY: 05/11/2018 Secondary NOT GIVENUNK [place] Insurance:SELF PAY [facility] Number: Effective Repository Date:2018-05-11 04/30/2018 RISSA L Primary RISSA L [place] [id number] Insurance:CARESOURCEP BRANHAMDOB: Community DO DRAPT olicy Number: [id number] [id number] Repository [address]Tec: ([phone]) Date:2018-04-23P O [phone] () [address]ATTN: [place] [address]OL: 04/30/2018 Secondary NOT GIVENUNK [place] Insurance:SELF PAY [facility] Number: Effective Repository Date:2018-04-30 04/30/2018 RISSA L Primary RISSA L [place] [id number] Insurance:CARESOURCEP BRANHAMDOB: [facility] DO APT oldavidy Number: [id number] [id number] Repository [address]Tcf: (234) Date:2018-04-23P O [phone] () [address]ATTN: [place] [address]QF: 04/30/2018 Secondary NOT GIVENUNK [place] Insurance:SELF PAY [facility] Number: Effective Repository Date:2018-04-23 04/26/2018 RISSA L Primary RISSA L [place] [id number] Insurance:CARESOURCEP BRANHAMDOB: Community Do [address]y Number: [id number] [id number] Repository [address]Kbr: (234) Date:2017-10-13P O [phone] () [address]ATTN: [place] [address]OY: 04/26/2018 Secondary NOT GIVENUNK [place] Insurance:SELF PAY [facility] Number: Effective Repository Date:2017-10-13 03/31/2018 RISSA L Primary RISSA L [place] [id number] Insurance:CARESOURCEP BRANHAMDOB: Community DO valenciay Number: [id number] [id number] Repository [address]Pof: (234) Date:2018-03-01P O [phone] () [address]ATTN: [place] [address]MV: 03/31/2018 Secondary NOT GIVENUNK [place] Insurance:SELF PAY [facility] Number: Effective Repository Date:2018-03-01 01/29/2018 RISSA L Primary RISSA L [place] [id number] Insurance:CARESOURCEP BRANHAMDOB: [facility] Do [place]der[place]ott olicy Number: [id number] [id number] Repository [address]Rkn: ([phone]) Date:2018-01-05P O [phone] () [address]ATTN: [place] [address]YE: 01/29/2018 Secondary NOT GIVENUNK [place] Insurance:SELF PAY [facility] Number: Effective Repository Date:2018-01-05 01/03/2018 Rissa Primary Rissa [place] [id number] Insurance:CARESOURCEP BranhamDOB: Community Do [address] olicy Number: [id number] [id number] Repository [address]Mnv: (234) Date:2016-08-21P O [phone] () [address]ATTN: [place] [address]UT: 01/03/2018 Secondary NOT GIVENUNK [place] Insurance:SELF PAY [facility] Number: Effective Repository Date:2017-12-24 12/11/2017 Rissa Primary Rissa [place] [id number] Insurance:CARESOURCEP BranhamDOB: Community Do [address] olicy Number: [id number] [id number] Repository [address]Fke: (234) Date:2017-12-01P O [phone] () [address]ATTN: [place] [address]VX: 12/11/2017 Secondary NOT GIVENUNK [place] Insurance:SELF PAY [facility] Number: Effective Repository Date:2017-12-01 12/11/2017 Rissa Primary Rissa [place] [id number] Insurance:CARESOURCEP BranhamDOB: [facility] Number: [id number] [id number] Repository [address]Ycl: (234) Date:2016-08-21P O [phone] (HP) [address]ATTN: [place] [address]CL: 12/11/2017 Secondary NOT GIVENUNK [place] Insurance:SELF PAY [facility] Number: Effective Repository Date:2017-11-26 12/09/2017 Rissa Primary Rissa [place] [id number] Insurance:CARESOURCEP BranhamDOB: [facility] Number: [id number] [id number] Repository [address]Pgk: ([phone]) Date:2017-12-09P O [phone] () [address]ATTN: [place] [address]PT: 12/09/2017 Secondary NOT GIVENUNK [place] Insurance:SELF PAY [facility] Number: Effective Repository Date:2017-12-09
== END ==
PROVIDERS: Visit Provider Internal Medicine Nephrology
DX: E87.5 Hyperkalemia (principal); R53.83 Other fatigue
CPT/HCPCS: 36415; 84132; 85027

== ENCOUNTER 2019-01-26 09:22 | Outpatient (RCR) | payer MEDICAID, SELFPAY | END 2019-01-26 23:59 | LOC: NS 09:22 | PROVIDERS: Visit Provider Nurse Practitioner Family | DX: E66.01 Morbid (severe) obesity due to excess calories (principal); E78.5 Hyperlipidemia, unspecified; N18.3 Chronic kidney disease, stage 3 (moderate); Z98.84 Bariatric surgery status | CPT/HCPCS: 97802 ==

== ENCOUNTER → 2019-03-03 15:59 | Outpatient (CLI) | payer MEDICAID, SELFPAY ==
[2018-08-26 12:59] VITALS: BMI 44.6
[2019-03-03 18:10] LABS: Albumin, Serum 3.1 g/dL (3.2-5.0); BUN 34 mg/dL (7-18); BUN/Creat Ratio 15.2 RATIO (10-20); Calcium,Total 8.2 mg/dL (8.5-10.1); Chloride 115 mmol/L (98-107); Creatinine, Serum 2.23 mg/dL (0.55-1.02); EST Glomerular Filtration Rate 24 mL/min (>60); Est Glom Filt Rate - Afr Amer 29 mL/min (>60); Glucose 95 mg/dL (74-106); Phosphorus 3.6 mg/dL (2.5-4.9); Potassium 4.4 mmol/L (3.5-5.1); Sodium Level 143 mmol/L (136-145)
== END ==
PROVIDERS: Visit Provider Internal Medicine Nephrology
DX: N18.3 Chronic kidney disease, stage 3 (moderate) (principal)
CPT/HCPCS: 36415; 80069

== ENCOUNTER → 2019-07-12 06:37 | Outpatient (CLI) | payer MEDICAID, SELFPAY ==
[2019-06-20 10:59] VITALS: BMI 47.0
[2019-07-12 10:43] LABS: Hematocrit 28.4 % (37-47); Hemoglobin 8.4 g/dL (12.0-15.0); Mean Corp Hgb Conc 29.6 g/dL (32-36); Mean Corpuscular Hgb 27.6 pg (27.0-32.0); Mean Corpuscular Volume 93.4 fL (81-99); Mean Platelet Vol. 12.3 fl (6.2-12.0); Platelet Count 67 K/mm3 (150-450); RBC Distribution Width CV 14.4 % (11.6-14.6); RBC Distribution Width SD 48.9 fl (35.1-43.9); Red Blood Count 3.04 M/mm3 (4.2-5.4)
[2019-07-12 11:06] LABS: Albumin, Serum 3.2 g/dL (3.2-5.0); BUN 43 mg/dL (7-18); BUN/Creat Ratio 18.2 RATIO (10-20); Calcium,Total 8.6 mg/dL (8.5-10.1); Chloride 114 mmol/L (98-107); Creatinine, Serum 2.36 mg/dL (0.55-1.02); EST Glomerular Filtration Rate 22 mL/min (>60); Est Glom Filt Rate - Afr Amer 27 mL/min (>60); Glucose 84 mg/dL (74-106); Phosphorus 4.4 mg/dL (2.5-4.9); Potassium 5.3 mmol/L (3.5-5.1); Sodium Level 140 mmol/L (136-145)
[2019-07-12 11:15] LABS: PTHIN 186.5 pg/mL (18.4-80.1); Vitamin D,25 Hydroxy 26.7 ng/mL (29.95-100.01)
--- NOTE | 2019-07-12 13:09 | STRESSREP ---
Stress Test Report Date: 07-12-19 Procedure: Pharmacologic stress nuclear imaging study Indications: Chest pain; paroxysmal atrial fibrillation Consent: Per the patient Procedure: The patient underwent pharmacologic (Regadenoson) evaluation with a peak heart rate of 68 beats per minute (43 %predicted maximal heart rate) and a peak blood pressure of 188/88 mmHg. The baseline ECG demonstrated sinus bradycardia. The peak pharmacologic ECG demonstrated no obvious ECG changes. There were no cardiac dysrhythmias pretest, during pharmacologic infusion, or recovery. There was no complaint of chest discomfort during pharmacologic infusion or recovery. The examination was discontinued secondary to completion of protocol. Impression: 1. Pharmacologic (Regadenoson) evaluation 2. Peak pharmacologic ECG with no obvious ECG changes. 3. There were no cardiac dysrhythmias pretest, during pharmacologic infusion, or recovery. 4. Nuclear images pending Myocardial perfusion imaging study: Technique: The patient was injected with 14.5 millicuries of technetium 99m Cardiolite and subsequently rest SPECT Cardiolite nuclear imaging was obtained in the horizontal long, vertical long, and short axis views. The patient underwent pharmacologic (Regadenoson) evaluation with a peak heart rate of 68 beats per minute (43 % percent predicted maximal heart rate) and a peak blood pressure of 188/88 mmHg. The patient was injected with 44.8 millicuries of technetium 99m Cardiolite and subsequently stress SPECT Cardiolite nuclear imaging was obtained in the horizontal long, vertical long, and short axis views. A gated Cardiolite study at peak stress was obtained. Interpretation: Rest and stress SPECT Cardiolite nuclear imaging status post realignment, normalization, and attenuation correction demonstrate relative uniform tracer uptake and myocardial perfusion appearing within normal limits. There is end systolic thickening and brightening. The gated Cardiolite study demonstrates myocardial thickening and inward wall motion. The reported LVEF is 62 %. Impression: 1. Rest and stress SPECT Cardiolite nuclear imaging demonstrate myocardial perfusion appearing within normal limits. 2. The gated Cardiolite study reports an LVEF of 62 %. This note was generated with OpenCloudation software. It may contain incorrect words, spelling, and punctuation that were not noted in checking the note before signing.
== END ==
PROVIDERS: Family Provider Internal Medicine; PCP Internal Medicine; Referring Provider Internal Medicine Cardiovascular Disease; Visit Provider Internal Medicine Nephrology
DX: R07.2 Precordial pain (principal); N18.3 Chronic kidney disease, stage 3 (moderate); E55.9 Vitamin D deficiency, unspecified; D64.9 Anemia, unspecified
CPT/HCPCS: 36415; 78452; 80069; 82306; 83970; 85027; 93017; A9500; A4216; J2785

== ENCOUNTER → 2020-01-02 14:14 | Outpatient (CLI) | payer MEDICAID, SELFPAY ==
[2019-06-20 10:59] VITALS: BMI 47.0
[2020-01-02 16:37] LABS: Albumin, Serum 3.1 g/dL (3.2-5.0); BUN 44 mg/dL (7-18); BUN/Creat Ratio 15.9 RATIO (10-20); Calcium,Total 8.2 mg/dL (8.5-10.1); Chloride 116 mmol/L (98-107); Creatinine, Serum 2.77 mg/dL (0.55-1.02); EST Glomerular Filtration Rate 18 mL/min (>60); Est Glom Filt Rate - Afr Amer 22 mL/min (>60); Glucose 87 mg/dL (74-106); Phosphorus 4.2 mg/dL (2.5-4.9); Potassium 5.6 mmol/L (3.5-5.1); Sodium Level 140 mmol/L (136-145)
[2020-01-02 16:41] LABS: PTHIN 268.7 pg/mL (18.4-80.1)
== END ==
PROVIDERS: Family Provider Internal Medicine; PCP Internal Medicine; Referring Provider Internal Medicine Nephrology; Visit Provider Internal Medicine Nephrology
DX: N18.3 Chronic kidney disease, stage 3 (moderate) (principal); E87.5 Hyperkalemia; N25.81 Secondary hyperparathyroidism of renal origin
CPT/HCPCS: 36415; 80069; 83970

== ENCOUNTER → 2020-01-11 09:17 | Outpatient (CLI) | payer MEDICAID, SELFPAY ==
[2019-06-20 10:59] VITALS: BMI 47.0
--- NOTE | 2020-01-11 09:22 | VDUE_ITS ---
Reason For Study: Stage 4 kidney disease Right Arm Left Arm Right Cephalic Vein at the wrist measures Left Cephalic Vein at the wrist measures 0.13 0.21 x 0.21 cm. x 0.13 cm. Right Cephalic Vein in the forearm measures Left Cephalic Vein in the forearm measures 0.27 x 0.27 cm. 0.27 x 0.26 cm. Right Cephalic Vein below antecub measures Left Cephalic Vein below antecub measures 0.29 x 0.28 cm. 0.22 x 0.22 cm. Right Cephalic Vein above antecub measures Cephalic vein above antecube not visualized. 0.24 x 0.23 cm. Left Cephalic Vein at mid bicep measures 0.12 Right Cephalic Vein mid bicep measures 0.29 x 0.12 cm. x 0.28 cm. Left Cephalic Vein at the shoulder measures Right Cephalic Vein at the shoulder measures 0.16 x 0.14 cm. 0.24 x 0.26 cm. Basilic vein at origin measures 0.39 x 0.37 Right Basilic Vein at the origin measures cm. 0.44 x 0.42 cm. Basilic vein at bicep measures 0.43 x 0.44 Right Basilic Vein mid bicep measures 0.43 x cm. 0.44 cm. Basilic vein above antecub measures 0.43 x Right Basilic Vein above antecub measures 0.46 cm. 0.46 x 0.46 cm. Left Brachial artery measures 0.29 x 0.30 cm Right Brachial artery measures 0.31x 0.33 cm with a velocity of 120.3 cm/sec. with a velocity of 115.1 cm/sec. Left Radial artery measures 0.16 x 0.16 cm Right Radial artery measures 0.18 x 0.18 cm with a velocity of 83.8 cm/sec. with a velocity of 69.5 cm/sec. Interpretation Summary Patent and compressible bilateral upper extremity cephalic and basilic veins with dimensions as noted. Note that the left upper extremity cephalic vein has variable diameters throughout Adequate diameter and flow bilateral brachial arteries Small radial arteries bilaterally Ordering Physician: Kayla Jacobs Referring Physician: William Barfield M.D. Performed By: Gabriela France RVT ?
== END ==
PROVIDERS: PCP Internal Medicine; Referring Provider Internal Medicine Nephrology; Visit Provider Internal Medicine Nephrology
DX: N18.4 Chronic kidney disease, stage 4 (severe) (principal)
CPT/HCPCS: 93970

== ENCOUNTER 2020-01-25 06:14 | Day surgery (SDC) | payer MEDICAID, SELFPAY ==
[2020-01-20 09:37] VITALS: BMI 47.0
--- NOTE | 2020-01-20 10:14 | HP_ITS ---
Intake Vital Signs 01/20/20 Height 5 ft 4.5 in 01/20/20 Weight: 267 lb 01/20/20 BMI 45.1 01/20/20 BP 152/85 H 01/20/20 Blood Pressure Location Rt brachial 01/20/20 Position Sitting 01/20/20 Respiration 18 Intake Visit Reasons: VM-01/10 WCH/Chronic Kidney Disease Stage 4 Motor Route Carrier Required: No Is patient in pain?: No Allergies aspirin Allergy (Verified 01/20/20 09:37) Shortness of breath celecoxib [From Celebrex] Allergy (Verified 01/20/20 09:37) Shortness of breath Iodinated Contrast Media [Iodinated Contrast Media - IV Dye] Allergy (Verified 01/20/20 09:37) Shortness of breath lithium [[place]] Allergy (Verified 01/20/20 09:37) Shortness of breath metoprolol Adverse Reaction (Severe, Verified 01/20/20 09:37) Marked bradycardia divalproex sodium [From Depakote] Adverse Reaction (Verified 01/20/20 09:37) Other Sulfa (Sulfonamide Antibiotics) Adverse Reaction (Verified 01/20/20 09:37) Unknown Medications Cetirizine HCl [Zyrtec] 10 mg PO DAILY 04/16/16 [History Confirmed 01/20/20] Cholestyramine/Aspartame [Cholestyramine Light Powder] 4 gm PO TID 04/16/16 [History Confirmed 01/20/20] Cholecalciferol (Vitamin D3) [Vitamin D3] 50,000 unit PO QWEEK 09/11/17 [History Confirmed 01/20/20] aripiprazole 30 mg tablet 30 mg PO DAILY 01/04/20 [History Confirmed 01/20/20] ferrous sulfate 140 mg (45 mg iron) tablet,extended release 140 mg PO BID tab 01/04/20 [History Confirmed 01/20/20] lorazepam 1 mg tablet 1 mg PO Q6H PRN tab 01/04/20 [History Confirmed 01/20/20] meclizine 25 mg tablet 25 mg PO Q6H PRN tab 01/04/20 [History Confirmed 01/20/20] sodium polystyrene sulfonate 15 g PO .3XWEEK g 01/04/20 [History Confirmed 01/20/20] [facility] Medical History Essential hypertension (Chronic) Aortic valve stenosis, nonrheumatic (Chronic) Shortness of breath (Chronic) Atrial premature beats (Chronic) Premature ventricular contraction (Chronic) Sinus bradycardia (Chronic) Paroxysmal atrial fibrillation (Chronic) Orthostatic hypotension (Chronic) Left carotid bruit (Chronic) Obesity (Chronic) DM2 (diabetes mellitus, type 2) (Chronic) Atrial arrhythmia (Chronic) Chronic renal insufficiency, stage III (moderate) (Chronic) Anemia (Chronic) Cirrhosis (Chronic) Nonalcoholic steatohepatitis (RANKIN) (Chronic) Stage 3 chronic renal impairment associated with type 2 diabetes mellitus (Chronic) Thrombocytopenia, unspecified (Chronic) Surgical History H/O gastric bypass (Resolved) H/O: hysterectomy (Resolved) History of appendectomy (Resolved) History of cholecystectomy (Resolved) Family History Mother , Age 60 of CHF Diabetes Hypertension Myocardial infarction CHF (congestive heart failure) Father , 34 [place] Myocardial infarction Ruptured, aorta CAD (coronary artery disease) Brother Diabetes Brother , [place] age 44 Myocardial infarction Diabetes Liver problem Social History (Updated 01/20/20 @ 10:[address] Lasha Sanders MD) Smoking Status: Former smoker Tobacco: How many years used: 20 how long ago did patient quit smokin alcohol intake: never substance use type: does not use caffeine: Yes Type: coffee Number of servings: 1, tea Number of servings: 2 what type of physical activity do you participate in: none additional social history: HPI HPI HPI: ROSS TOVAR, is a 64 F who presents to the office today for HPI HPI Surgical H&P: Yes HPI: ROSS TOVAR, is a 64 F who presents to the office today for surgical consultation regarding creation of an arteriovenous hemodialysis fistula. The patient is referred by Dr. Kayla Jacobs and a written copy of my surgical consult and recommendations will be returned to her. At the [facility] on January 11, 2020 the patient had bilateral upper extremity vein mapping. Unfortunate the left extremity cephalic vein throughout its course was either small or intermittently absent. The right upper extremity cephalic vein was borderline throughout. Bilateral upper extremity basilic veins were adequate. The patient unfortunately has a BMI of 47. As of January 02, 2020 her BUN was 44 and creatinine 2.77 with a estimated GFR of 18. She has had a previous history of atrial fibrillation although she is not on chronic anticoagulation. 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 Gerardo Russell. She had a stress test performed July 12, 2019 with an ejection fraction of 62%. She is right arm dominant. ROS General General: Yes weight change, fatigue and weakness; no appetite, colon cancer or breast cancer HEENT HEENT: Yes eye injury and eye surgery; no difficulty swallowing, swollen glands or hoarseness Endo Endocrine: Yes diabetes mellitus; no thyroid disease, thyroid cancer, Hair loss, heat intolerance or cold intolerance Skin Skin: No rash or changing moles Breast Breast: No left breast lump, right breast lump, nipple discharge, breast pain, abnormal mammogram, abnormal US or breast enlargement Musc Musculoskeletal: No back problems, arthritis, rheumatoid arthritis, gout or joint pain Cardio Cardiovascular: Yes murmur, high blood pressure and palpitations; no pacemaker, heart disease, atrial fibrillation, heart attack, heart stent, shortness of breat with exertion or chest pain Psych Psychiatric: Yes anxiety; no depression or hearing voices Resp Respiratory: No shortness of breath, No sleep apnea, No cough, No COPD, No asthma, No emphysema, No wheezing Gastro Gastrointestinal: No abdominal pain, No nausea or vomiting, No diarrhea, No constipation, No blood in stool, No acid reflux, No hemorrhoids, No ulcers, No gallbladder problem, No black,tarry stools [place] Hematologic: No blood thinners, No blood disorders, No bleeding, Yes anemia, No blood clots Neuro Neurologic: No system reviewed and no additional complaints, except as docu, No as per HPI, No abnormal walking, No abnormal hearing, No abnormal movements, No abnormal speech, No behavioral changes, No burning sensations, No confusion, No seizure-like activity, No unsteadiness, No dizziness, No localized weakness, No frequent falls, No headache(s), No lack of coordination, No loss of vision, No memory loss, No numbness, No other visual disturbances, No radiating pain, No restless legs, No sensory deficit, No fainting, No tingling, No tremor(s), Yes weakness, No other Exam Const General: cooperative, comfortable, no acute distress Nutritional Appearance: obese Orientation: alert, awake, oriented x3 HENMT Head: normal to inspection Chest Breast Palpation: No nipple discharge Resp Effort & Inspection: normal respiratory effort Auscultation: clear to auscultation bilaterally Cardio Rate: regular rate Rhythm: regular rhythm Heart Sounds: murmur GI Palpation: soft Other: Patient body habitus precludes palpation of any internal organs Skin General: no rashes or lesions noted Neuro Cognition: normal cognition Extrem General: no calf tenderness bilaterally Other: Right upper extremity inspected: 3+ right radial pulse, using ultrasound and inspected the right forearm cephalic vein. Although relatively small closer to the wrist just slightly more proximal it was more borderline. It was patent and compressible Psych Affect: normal affect Assessment & Plan Problems 1. Chronic renal failure, stage 4 (severe) N18.4 Plan Stage IV chronic renal failure in need of arteriovenous fistula creation for hemodialysis I recommend to the patient a right forearm radial to cephalic arteriovenous fistula creation. I have discussed the technique, benefit, risk, alternatives. I believe that based upon fistula first and autologous hemodialysis access benefit that this meets criteria to proceed with definitive surgery. I believe that this does correlate with state recommendations as noted below. We will try to schedule and proceed. I appreciate the opportunity of assisting with her surgical care Cc: Dr. Kayla Jacobs and Dr. William Sanders M.D., F.A.C.S. Insert as a result of the January 10, 2020 order by the [facility] of Health director Siomara Castellanos MD to cancel nonessential surgeries that would use PPE, unless special criteria are met, I reviewed the clinical record for this patient and have determined that the schedule procedure meets the criteria to go forward because it qualifies for 1 of the following reasons There is a threat to the patient's life if the surgery or procedure is not performed There is a threat of permanent dysfunction of an extremity or organ system There is a risk of metastasis or progression of staging There is a risk of rapidly worsening to severe symptoms Coding Level of Care Code 92697 Diagnoses Chronic renal failure, stage 4 (severe) N18.4 01/20/20 1014 <Electronically signed by Lasha solis MD> Date _ Lasha Sanders MD
[2020-01-25 06:48] VITALS: BP 124/53; PULSE 48; RESP 18; TEMP 36.7; O2SAT 100; BMI 45.1
[2020-01-25] MEDS: 0.45% Normal Saline 1,000 ML 30 ML IV (07:16)
--- NOTE | 2020-01-25 08:04 | HP.PCM_ITS ---
Problem List (1) Chronic renal failure, stage 4 (severe) Status: Chronic History and Physical Date of Admission: 01/25/20 Intake Visit Reasons: -01/10 [facility]/Chronic Kidney Disease Stage 4 Environmental Educator Required: No Is patient in pain?: No Allergies aspirin Allergy (Verified 01/20/20 09:37) Shortness of breath celecoxib [From Celebrex] Allergy (Verified 01/20/20 09:37) Shortness of breath Iodinated Contrast Media [Iodinated Contrast Media - IV Dye] Allergy (Verified 01/20/20 09:37) Shortness of breath lithium [[place]] Allergy (Verified 01/20/20 09:37) Shortness of breath metoprolol Adverse Reaction (Severe, Verified 01/20/20 09:37) Marked bradycardia divalproex sodium [From Depakote] Adverse Reaction (Verified 01/20/20 09:37) Other Sulfa (Sulfonamide Antibiotics) Adverse Reaction (Verified 01/20/20 09:37) Unknown Medications Cetirizine HCl [Zyrtec] 10 mg PO DAILY 04/16/16 [History Confirmed 01/20/20] Cholestyramine/Aspartame [Cholestyramine Light Powder] 4 gm PO TID 04/16/16 [History Confirmed 01/20/20] Cholecalciferol (Vitamin D3) [Vitamin D3] 50,000 unit PO QWEEK 09/11/17 [History Confirmed 01/20/20] aripiprazole 30 mg tablet 30 mg PO DAILY 01/04/20 [History Confirmed 01/20/20] ferrous sulfate 140 mg (45 mg iron) tablet,extended release 140 mg PO BID tab 01/04/20 [History Confirmed 01/20/20] lorazepam 1 mg tablet 1 mg PO Q6H PRN tab 01/04/20 [History Confirmed 01/20/20] meclizine 25 mg tablet 25 mg PO Q6H PRN tab 01/04/20 [History Confirmed 01/20/20] sodium polystyrene sulfonate 15 g PO .3XWEEK g 01/04/20 [History Confirmed 01/20/20] [facility] Medical History Essential hypertension (Chronic) Aortic valve stenosis, nonrheumatic (Chronic) Shortness of breath (Chronic) Atrial premature beats (Chronic) Premature ventricular contraction (Chronic) Sinus bradycardia (Chronic) Paroxysmal atrial fibrillation (Chronic) Orthostatic hypotension (Chronic) Left carotid bruit (Chronic) Obesity (Chronic) DM2 (diabetes mellitus, type 2) (Chronic) Atrial arrhythmia (Chronic) Chronic renal insufficiency, stage III (moderate) (Chronic) Anemia (Chronic) Cirrhosis (Chronic) Nonalcoholic steatohepatitis (RANKIN) (Chronic) Stage 3 chronic renal impairment associated with type 2 diabetes mellitus (Chronic) Thrombocytopenia, unspecified (Chronic) Surgical History H/O gastric bypass (Resolved) H/O: hysterectomy (Resolved) History of appendectomy (Resolved) History of cholecystectomy (Resolved) Family History Mother , Age 60 of CHF Diabetes Hypertension Myocardial infarction CHF (congestive heart failure) Father , 34 [place] Myocardial infarction Ruptured, aorta CAD (coronary artery disease) Brother Diabetes Brother , [place] age 44 Myocardial infarction Diabetes Liver problem Social History (Updated 01/20/20 @ 10:[address] Lasha Sanders MD) Smoking Status: Former smoker Tobacco: How many years used: 20 how long ago did patient quit smokin alcohol intake: never substance use type: does not use caffeine: Yes Type: coffee Number of servings: 1, tea Number of servings: 2 what type of physical activity do you participate in: none additional social history: HPI HPI HPI: ROSS TOVAR, is a 64 F who presents to the office today for HPI HPI Surgical H&P: Yes HPI: ROSS TOVAR, is a 64 F who presents to the office today for surgical consultation regarding creation of an arteriovenous hemodialysis fistula. The patient is referred by Dr. Kayla Jacobs and a written copy of my surgical consult and recommendations will be returned to her. At the [facility] on January 11, 2020 the patient had bilateral upper extremity vein mapping. Unfortunate the left extremity cephalic vein throughout its course was either small or intermittently absent. The right upper extremity cephalic vein was borderline throughout. Bilateral upper extremity basilic veins were adequate. The patient unfortunately has a BMI of 47. As of January 02, 2020 her BUN was 44 and creatinine 2.77 with a estimated GFR of 18. She has had a previous history of atrial fibrillation although she is not on chronic anticoagulation. 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 Gerardo Russell. She had a stress test performed July 12, 2019 with an ejection fraction of 62%. She is right arm dominant. ROS General General: Yes weight change, fatigue and weakness; no appetite, colon cancer or breast cancer HEENT HEENT: Yes eye injury and eye surgery; no difficulty swallowing, swollen glands or hoarseness Endo Endocrine: Yes diabetes mellitus; no thyroid disease, thyroid cancer, Hair loss, heat intolerance or cold intolerance Skin Skin: No rash or changing moles Breast Breast: No left breast lump, right breast lump, nipple discharge, breast pain, abnormal mammogram, abnormal US or breast enlargement Musc Musculoskeletal: No back problems, arthritis, rheumatoid arthritis, gout or joint pain Cardio Cardiovascular: Yes murmur, high blood pressure and palpitations; no pacemaker, heart disease, atrial fibrillation, heart attack, heart stent, shortness of breat with exertion or chest pain Psych Psychiatric: Yes anxiety; no depression or hearing voices Resp Respiratory: No shortness of breath, No sleep apnea, No cough, No COPD, No asthma, No emphysema, No wheezing Gastro Gastrointestinal: No abdominal pain, No nausea or vomiting, No diarrhea, No constipation, No blood in stool, No acid reflux, No hemorrhoids, No ulcers, No gallbladder problem, No black,tarry stools [place] Hematologic: No blood thinners, No blood disorders, No bleeding, Yes anemia, No blood clots Neuro Neurologic: No system reviewed and no additional complaints, except as docu, No as per HPI, No abnormal walking, No abnormal hearing, No abnormal movements, No abnormal speech, No behavioral changes, No burning sensations, No confusion, No seizure-like activity, No unsteadiness, No dizziness, No localized weakness, No frequent falls, No headache(s), No lack of coordination, No loss of vision, No memory loss, No numbness, No other visual disturbances, No radiating pain, No restless legs, No sensory deficit, No fainting, No tingling, No tremor(s), Yes weakness, No other Exam Const General: cooperative, comfortable, no acute distress Nutritional Appearance: obese Orientation: alert, awake, oriented x3 HENMT Head: normal to inspection Chest Breast Palpation: No nipple discharge Resp Effort & Inspection: normal respiratory effort Auscultation: clear to auscultation bilaterally Cardio Rate: regular rate Rhythm: regular rhythm Heart Sounds: murmur GI Palpation: soft Other: Patient body habitus precludes palpation of any internal organs Skin General: no rashes or lesions noted Neuro Cognition: normal cognition Extrem General: no calf tenderness bilaterally Other: Right upper extremity inspected: 3+ right radial pulse, using ultrasound and inspected the right forearm cephalic vein. Although relatively small closer to the wrist just slightly more proximal it was more borderline. It was patent and compressible Psych Affect: normal affect Assessment & Plan Problems 1. Chronic renal failure, stage 4 (severe) N18.4 Plan Stage IV chronic renal failure in need of arteriovenous fistula creation for hemodialysis I recommend to the patient a right forearm radial to cephalic arteriovenous fistula creation. I have discussed the technique, benefit, risk, alternatives. I believe that based upon fistula first and autologous hemodialysis access benefit that this meets criteria to proceed with definitive surgery. I believe that this does correlate with state recommendations as noted below. We will try to schedule and proceed. I appreciate the opportunity of assisting with her surgical care Cc: Dr. Kayla Jacobs and Dr. William Sanders M.D., F.A.C.S. Insert as a result of the January 10, 2020 order by the [facility] of Health director Siomara Castellanos MD to cancel nonessential surgeries that would use PPE, unless special criteria are met, I reviewed the clinical record for this patient and have determined that the schedule procedure meets the criteria to go forward because it qualifies for 1 of the following reasons There is a threat to the patient's life if the surgery or procedure is not performed There is a threat of permanent dysfunction of an extremity or organ system There is a risk of metastasis or progression of staging There is a risk of rapidly worsening to severe symptoms Coding Level of Care Code 84269 Diagnoses Chronic renal failure, stage 4 (severe) N18.4 01/20/20 1014 <Electronically signed by Lasha solis MD> Date _ Lasha Sanders MD Cosigner Signature: Date (if applicable) CC: Kayla Jacobs DO; William Barfield MD ~ I have re-examined the patient. There are no clinical changes since date of exam. Essential Procedure Criteria Risk to Patient if Procedure Delayed: Threat to patient's life if surgery or procedure is not performed
--- NOTE | 2020-01-25 08:32 | DCINST_ITS ---
Discharge Diet: Renal Diet Discharge Activity: May Not Drive - for 2-3 days or while taking narcotic pain medications., May Shower, May Take a Tub Bath - in 5 days. Lifting Restrictions: 5 pounds Keep extremity elevated above heart level: - - Keep arm elevated above the heart level for 3 days. Additional Activity Instructions:: Exercise hand vigorously with a stress ball. Call your doctor if your incision/area has: Continuous Slow Oozing, Sudden Increased Bleeding - apply pressure and call your doctor., Increased Pain/ Swelling, Increased Redness, Foul Smelling Discharge Call your doctor if you observe: Fever of 101 or Higher Suture Line Care: Avoid Pulling/Pushing, Avoid Pinching/Bending Cleanse incision/area with: Keep Dressing Clean & Dry Additional Dressing/Incision Instructions:: Change or remove dressing in one day. May protect with a gauze bandaid. Allergies/Adverse Reactions: Allergies aspirin Allergy (Verified 01/25/20 06:45) Shortness of breath celecoxib [From Celebrex] Allergy (Verified 01/25/20 06:45) Shortness of breath Iodinated Contrast Media [Iodinated Contrast Media - IV Dye] Allergy (Verified 01/25/20 06:45) Shortness of breath lithium [[place]] Allergy (Verified 01/25/20 06:45) Shortness of breath Sulfa (Sulfonamide Antibiotics) Allergy (Verified 01/25/20 06:45) Shortness of breath metoprolol Adverse Reaction (Severe, Verified 01/25/20 06:45) Marked bradycardia divalproex sodium [From Depakote] Adverse Reaction (Verified 01/25/20 06:45) seizures Medications to take at Discharge Cholestyramine/Aspartame [Cholestyramine Light Powder] 4 gm PO TID 04/16/16 aripiprazole 30 mg tablet 30 mg PO DAILY 01/04/20 lorazepam 1 mg tablet 1 mg PO Q6H PRN tab 01/04/20 sodium polystyrene sulfonate 15 g PO .3XWEEK g 01/04/20 Albuterol IH (ProAir) [Proair Hfa (SP)Vent Pts] 1 - 2 puff INHALATION Q4H PRN PRN 01/24/20 Darbepoetin Gino in Polysorbat [Aranesp] 60 mcg IJ .QMONTH 01/24/20 Fluticasone 110 Mcg [Flovent (SP)] 1 puff INHALATION QHS 01/24/20 Iron Polysaccharide Complex [Ferrex 150] 150 mg PO DAILYCM 01/24/20 Vit B6/Me-Thfolate/Me-B12/Ala [Podiapn Capsule] 1 ea PO DAILY 01/24/20 Primary Care Physician: William Barfield MD [Primary Care Provider] - Test Results: Test results from this visit will be discussed in further detail at your follow- up appointment, if applicable. Please Follow Up With: Lasha Sanders MD - [phone] When: Call to make an appointment for suture removal and follow up in 3 weeks
[2020-01-25] MEDS: Bupivacaine Mpf 0.5% 30 ML VIAL (08:54)
[2020-01-25] MEDS: Heparin Injection (Vial) 5,000 UNIT/ML VIAL 5000 UNIT (09:15)
--- NOTE | 2020-01-25 09:54 | OP.PCM_ITS ---
Problem List (1) Chronic renal failure, stage 4 (severe) Status: Chronic Report of Operation Date of Procedure: 01/25/20 Pre-Operative Diagnosis: Stage IV chronic renal insufficiency Post-Operative Diagnosis: Same Surgery/Procedure Performed:: Right forearm radial to cephalic arteriovenous hemodialysis fistula creation Description of Surgical Findings:: Timeout and informed consent was obtained. 64-year-old female was taken the operating place upon the table underwent monitored anesthesia care. The right arm was sterilely prepped and draped. 1% lidocaine mixed 50-50 with 0.5% Dequan magaly was used as a local anesthetic. A total of 8 cc was used. A slightly oblique transverse incision was created sharp and blunt dissection was used to identify the cephalic vein it was circumferentially dissected free. Then sharp and blunt dissection was used to identify the radial artery. Vessel loop was placed. The patient received 8000 units of heparin intravenously. The cephalic vein was ligated distally with a Hemoclip. I then spatulated it. Placed peripheral vas clamps on the radial artery which had been partially mobilized. An 11 blade was used to make an arteriotomy which was extended with [place] scissors. In a end-to-side fashion with the heel more distally and the toe more proximally and performed a end-to-side anastomosis with a running 7-0 Prolene. This just appeared to be a good positional lie for the vein to the artery with a nice smooth curvilinear curve. The anastomosis was completed there was good inflow. A single side branch was secured with a [id number] suture of 7-0 Prolene. Anastomosis was nicely hemostatic. There was good flow good positional lie. Doppler demonstrated good signal. The wound was closed with a deep suture of interrupted 3-0 Vicryl in a running septic of 4-0 Monocryl. Steri-Strips Telfa and tape dressings applied. Sponge and instrument and needle counts reported to the surgeon to be correct. Blood loss 5 cc. Specimens none. Drains none. Blood loss 5 cc. Lasha Sanders M.D., F.A.C.S. Type of Anesthesia:: Local MAC
[2020-01-25 10:03] VITALS: BP 110/65; BP 124/53; PULSE 63; RESP 16; TEMP 36.7; O2SAT 97
[2020-01-25 10:05] VITALS: BP 106/67; BP 124/53; PULSE 63; RESP 16; O2SAT 96
[2020-01-25 10:10] VITALS: BP 104/75; BP 124/53; PULSE 60; RESP 16; O2SAT 98
[2020-01-25 10:18] VITALS: BP 115/67; BP 124/53; PULSE 57; RESP 16; TEMP 36.6; O2SAT 100
[2020-01-25 10:57] VITALS: BP 124/53
== END 2020-01-25 11:07 | disposition home or self-care (01) ==
LOC: SDC 06:17 → AC 06:18
PROVIDERS: PCP Internal Medicine; Referring Provider Surgery; Visit Provider Surgery
PROC: (CPT 36821; principal; 2020-01-25 08:10)
DX: I12.9 Hypertensive chronic kidney disease with stage 1 through stage 4 chronic kidney disease, or unspecified chronic kidney disease (principal); N18.4 Chronic kidney disease, stage 4 (severe); I35.0 Nonrheumatic aortic (valve) stenosis; I48.0 Paroxysmal atrial fibrillation; E11.9 Type 2 diabetes mellitus without complications; D69.6 Thrombocytopenia, unspecified; J45.909 Unspecified asthma, uncomplicated; Z82.49 Family history of ischemic heart disease and other diseases of the circulatory system; Z68.42 Body mass index [BMI] 45.0-49.9, adult; Z87.891 Personal history of nicotine dependence; Z88.2 Allergy status to sulfonamides; Z88.6 Allergy status to analgesic agent; Z98.84 Bariatric surgery status
CPT/HCPCS: 36821

== ENCOUNTER → 2020-02-04 08:13 | Outpatient (CLI) | payer MEDICAID, SELFPAY ==
[2020-01-25 06:48] VITALS: BMI 45.1
[2020-02-04 08:52] LABS: Albumin, Serum 3.5 g/dL (3.2-5.0); BUN 53 mg/dL (7-18); BUN/Creat Ratio 18.9 RATIO (10-20); Calcium,Total 8.5 mg/dL (8.5-10.1); Chloride 118 mmol/L (98-107); Creatinine, Serum 2.81 mg/dL (0.55-1.02); EST Glomerular Filtration Rate 18 mL/min (>60); Est Glom Filt Rate - Afr Amer 22 mL/min (>60); Glucose 93 mg/dL (74-106); Phosphorus 4.3 mg/dL (2.5-4.9); Potassium 4.5 mmol/L (3.5-5.1); Sodium Level 142 mmol/L (136-145)
== END ==
PROVIDERS: PCP Internal Medicine; Referring Provider Internal Medicine Nephrology; Visit Provider Internal Medicine Nephrology
DX: E87.5 Hyperkalemia (principal)
CPT/HCPCS: 36415; 80069

== ENCOUNTER → 2020-04-09 12:51 | Outpatient (CLI) | payer MEDICAID, SELFPAY ==
[2020-02-07 15:21] VITALS: BMI 45.1
[2020-04-09 13:48] LABS: Hematocrit 30.7 % (37-47); Hemoglobin 9.9 g/dL (12.0-15.0); Mean Corp Hgb Conc 32.2 g/dL (32-36); Mean Corpuscular Hgb 32.1 pg (27.0-32.0); Mean Corpuscular Volume 99.7 fL (81-99); Mean Platelet Vol. 11.8 fl (6.2-12.0); POSITIVE COUNT YES; Platelet Count 71 K/mm3 (150-450); RBC Distribution Width CV 13.2 % (11.6-14.6); RBC Distribution Width SD 46.9 fl (35.1-43.9); Red Blood Count 3.08 M/mm3 (4.2-5.4); White Blood Count 2.5 K/mm3 (4.4-11.0)
[2020-04-09 14:36] LABS: Albumin, Serum 3.5 g/dL (3.2-5.0); BUN 53 mg/dL (7-18); BUN/Creat Ratio 19.6 RATIO (10-20); Chloride 119 mmol/L (98-107); EST Glomerular Filtration Rate 19 mL/min (>60); Est Glom Filt Rate - Afr Amer 23 mL/min (>60); Glucose 92 mg/dL (74-106); Phosphorus 4.3 mg/dL (2.5-4.9); Potassium 5.2 mmol/L (3.5-5.1); Sodium Level 141 mmol/L (136-145)
== END ==
PROVIDERS: PCP Internal Medicine; Referring Provider Internal Medicine Nephrology; Visit Provider Internal Medicine Nephrology
DX: N18.4 Chronic kidney disease, stage 4 (severe) (principal); D64.9 Anemia, unspecified; E87.2 Acidosis
CPT/HCPCS: 36415; 80069; 85027

== ENCOUNTER → 2020-04-18 09:09 | Outpatient (CLI) | payer MEDICAID, SELFPAY ==
[2020-02-07 15:21] VITALS: BMI 45.1
[2020-04-18 10:53] LABS: Hematocrit 29.9 % (37-47); Hemoglobin 9.6 g/dL (12.0-15.0); Mean Corp Hgb Conc 32.1 g/dL (32-36); Mean Corpuscular Hgb 32.3 pg (27.0-32.0); Mean Corpuscular Volume 100.7 fL (81-99); Mean Platelet Vol. 11.9 fl (6.2-12.0); POSITIVE COUNT YES; Platelet Count 58 K/mm3 (150-450); RBC Distribution Width CV 13.5 % (11.6-14.6); RBC Distribution Width SD 49.6 fl (35.1-43.9); Red Blood Count 2.97 M/mm3 (4.2-5.4)
[2020-04-18 10:54] LABS: Scan Indicated on CBC? Y/N YES- FLAGS NOTED
[2020-04-18 11:03] LABS: 24 Hour Urine Protein 418.7 mg/24HR (<150 MG/24HR); 24HR. UA Prot. Total Volume 1325 mL; Urine Protein (24 Hour) 31.6 mg/dL (<11.9)
[2020-04-18 11:04] LABS: Albumin, Serum 3.3 g/dL (3.2-5.0); BUN 58 mg/dL (7-18); BUN/Creat Ratio 20.3 RATIO (10-20); Calcium,Total 8.6 mg/dL (8.5-10.1); Chloride 117 mmol/L (98-107); Creatinine, Serum 2.86 mg/dL (0.55-1.02); EST Glomerular Filtration Rate 18 mL/min (>60); Est Glom Filt Rate - Afr Amer 21 mL/min (>60); Ferritin 89 ng/mL (8-252); Glucose 86 mg/dL (74-106); Iron 70 ug/dL (50-170); Iron Binding Capacity,Total 319 ug/dL (250-450); Phosphorus 4.7 mg/dL (2.5-4.9); Potassium 5.1 mmol/L (3.5-5.1); Sodium Level 142 mmol/L (136-145)
[2020-04-18 11:10] LABS: Creat.Clear Total Volume 1325 mL; Creatinine Clearance 18 ml/min (100-200); Creatinine Serum Creat 2.9 mg/dL (0.6-1.0); EST Glomerular Filtration Rate 18 mL/min (>60); Est Glom Filt Rate - Afr Amer 21 mL/min (>60)
[2020-04-18 11:17] LABS: PTHIN 299.3 pg/mL (18.4-80.1)
== END ==
PROVIDERS: PCP Internal Medicine; Visit Provider Internal Medicine Nephrology
DX: N18.4 Chronic kidney disease, stage 4 (severe) (principal); D50.9 Iron deficiency anemia, unspecified; N25.81 Secondary hyperparathyroidism of renal origin
CPT/HCPCS: 36415; 80069; 82575; 82728; 83540; 83550; 83970; 84156; 85027

== ENCOUNTER → 2020-05-14 06:59 | Outpatient (CLI) | payer MEDICAID, SELFPAY ==
[2020-02-07 15:21] VITALS: BMI 45.1
[2020-05-14 08:48] LABS: PTHIN 202.8 pg/mL (18.4-80.1)
[2020-05-14 09:00] LABS: Albumin, Serum 3.3 g/dL (3.2-5.0); BUN 37 mg/dL (7-18); Calcium,Total 8.6 mg/dL (8.5-10.1); Chloride 118 mmol/L (98-107); Creatinine, Serum 2.65 mg/dL (0.55-1.02); EST Glomerular Filtration Rate 19 mL/min (>60); Est Glom Filt Rate - Afr Amer 23 mL/min (>60); Glucose 83 mg/dL (74-106); Phosphorus 4.6 mg/dL (2.5-4.9); Potassium 5.2 mmol/L (3.5-5.1); Sodium Level 140 mmol/L (136-145)
== END ==
PROVIDERS: PCP Internal Medicine; Referring Provider Internal Medicine Nephrology; Visit Provider Internal Medicine Nephrology
DX: N18.4 Chronic kidney disease, stage 4 (severe) (principal); N25.81 Secondary hyperparathyroidism of renal origin
CPT/HCPCS: 36415; 80069; 83970

== ENCOUNTER → 2020-07-11 12:38 | Outpatient (CLI) | payer MEDICAID, SELFPAY ==
[2020-02-07 15:21] VITALS: BMI 45.1
[2020-07-11 14:16] LABS: Albumin, Serum 3.4 g/dL (3.2-5.0); BUN 50 mg/dL (7-18); Calcium,Total 8.4 mg/dL (8.5-10.1); Chloride 113 mmol/L (98-107); Creatinine, Serum 3.12 mg/dL (0.55-1.02); EST Glomerular Filtration Rate 16 mL/min (>60); Est Glom Filt Rate - Afr Amer 19 mL/min (>60); Glucose 88 mg/dL (74-106); Phosphorus 4.3 mg/dL (2.5-4.9); Sodium Level 139 mmol/L (136-145)
== END ==
PROVIDERS: PCP Internal Medicine; Referring Provider Internal Medicine Nephrology; Visit Provider Internal Medicine Nephrology
DX: N18.4 Chronic kidney disease, stage 4 (severe) (principal); N25.81 Secondary hyperparathyroidism of renal origin
CPT/HCPCS: 36415; 80069; 83970

== ENCOUNTER → 2020-08-15 12:54 | Outpatient (CLI) | payer MEDICAID, SELFPAY ==
[2020-02-07 15:21] VITALS: BMI 45.1
[2020-08-15 13:41] LABS: PTHIN 362.4 pg/mL (18.4-80.1)
[2020-08-15 13:45] LABS: Albumin, Serum 3.4 g/dL (3.2-5.0); BUN 32 mg/dL (7-18); BUN/Creat Ratio 11.3 RATIO (10-20); Calcium,Total 8.8 mg/dL (8.5-10.1); Chloride 116 mmol/L (98-107); Creatinine, Serum 2.84 mg/dL (0.55-1.02); EST Glomerular Filtration Rate 18 mL/min (>60); Est Glom Filt Rate - Afr Amer 22 mL/min (>60); Glucose 91 mg/dL (74-106); Phosphorus 3.9 mg/dL (2.5-4.9); Potassium 5.4 mmol/L (3.5-5.1); Sodium Level 141 mmol/L (136-145)
== END ==
PROVIDERS: PCP Internal Medicine; Referring Provider Internal Medicine Nephrology; Visit Provider Internal Medicine Nephrology
DX: N18.4 Chronic kidney disease, stage 4 (severe) (principal); N25.81 Secondary hyperparathyroidism of renal origin
CPT/HCPCS: 36415; 80069; 83970

== ENCOUNTER → 2020-08-22 13:35 | Outpatient (CLI) | payer MEDICAID, SELFPAY ==
[2020-02-07 15:21] VITALS: BMI 45.1
[2020-08-22 14:12] LABS: Potassium 5.2 mmol/L (3.5-5.1)
== END ==
PROVIDERS: PCP Internal Medicine; Referring Provider Internal Medicine Nephrology; Visit Provider Internal Medicine Nephrology
DX: E87.5 Hyperkalemia (principal)
CPT/HCPCS: 36415; 84132

== ENCOUNTER → 2020-10-17 08:20 | Outpatient (CLI) | payer MEDICAID, SELFPAY ==
[2020-02-07 15:21] VITALS: BMI 45.1
[2020-10-17 09:18] LABS: PTHIN 249.6 pg/mL (18.4-80.1)
[2020-10-17 09:27] LABS: Albumin, Serum 3.6 g/dL (3.2-5.0); BUN 51 mg/dL (7-18); BUN/Creat Ratio 16.5 RATIO (10-20); Calcium,Total 8.8 mg/dL (8.5-10.1); Chloride 112 mmol/L (98-107); Creatinine, Serum 3.09 mg/dL (0.55-1.02); EST Glomerular Filtration Rate 16 mL/min (>60); Est Glom Filt Rate - Afr Amer 20 mL/min (>60); Glucose 91 mg/dL (74-106); Potassium 4.8 mmol/L (3.5-5.1); Sodium Level 141 mmol/L (136-145)
== END ==
PROVIDERS: PCP Internal Medicine; Visit Provider Internal Medicine Nephrology
DX: N18.4 Chronic kidney disease, stage 4 (severe) (principal); N25.81 Secondary hyperparathyroidism of renal origin
CPT/HCPCS: 36415; 80069; 83970

== ENCOUNTER → 2020-10-25 11:27 | Outpatient (CLI) | payer MEDICAID, SELFPAY ==
[2020-02-07 15:21] VITALS: BMI 45.1
[2020-10-25 12:25] LABS: Hemoglobin 9.3 g/dL (12.0-15.0); Mean Corp Hgb Conc 33.2 g/dL (32-36); Mean Corpuscular Hgb 33.1 pg (27.0-32.0); Mean Corpuscular Volume 99.6 fL (81-99); Mean Platelet Vol. 11.7 fl (6.2-12.0); POSITIVE COUNT YES; Platelet Count 62 K/mm3 (150-450); RBC Distribution Width CV 14.5 % (11.6-14.6); RBC Distribution Width SD 53.4 fl (35.1-43.9); Red Blood Count 2.81 M/mm3 (4.2-5.4); White Blood Count 1.8 K/mm3 (4.4-11.0)
[2020-10-25 12:30] LABS: Scan Indicated on CBC? Y/N NO
[2020-10-25 12:40] LABS: Ferritin 44 ng/mL (8-252); Iron 76 ug/dL (50-170); Iron Binding Capacity,Total 346 ug/dL (250-450)
== END ==
PROVIDERS: PCP Internal Medicine; Visit Provider Internal Medicine Nephrology
DX: D50.9 Iron deficiency anemia, unspecified (principal)
CPT/HCPCS: 36415; 82728; 83540; 83550; 85027

== ENCOUNTER → 2020-11-22 10:14 | Outpatient (CLI) | payer MEDICAID, SELFPAY ==
[2020-02-07 15:21] VITALS: BMI 45.1
[2020-11-22 12:32] LABS: Hematocrit 27.7 % (37-47); Hemoglobin 8.9 g/dL (12.0-15.0); Mean Corp Hgb Conc 32.1 g/dL (32-36); Mean Corpuscular Hgb 31.9 pg (27.0-32.0); Mean Corpuscular Volume 99.3 fL (81-99); Mean Platelet Vol. 11.9 fl (6.2-12.0); POSITIVE COUNT YES; Platelet Count 53 K/mm3 (150-450); RBC Distribution Width CV 13.8 % (11.6-14.6); RBC Distribution Width SD 49.8 fl (35.1-43.9); Red Blood Count 2.79 M/mm3 (4.2-5.4); White Blood Count 1.5 K/mm3 (4.4-11.0)
[2020-11-22 12:36] LABS: Scan Indicated on CBC? Y/N YES- FLAGS NOTED
[2020-11-22 13:10] LABS: Albumin, Serum 3.3 g/dL (3.2-5.0); BUN 48 mg/dL (7-18); BUN/Creat Ratio 16.6 RATIO (10-20); Calcium,Total 8.6 mg/dL (8.5-10.1); Chloride 114 mmol/L (98-107); Cholesterol 127 mg/dL (200); EST Glomerular Filtration Rate 17 mL/min (>60); Est Glom Filt Rate - Afr Amer 21 mL/min (>60); Ferritin 38 ng/mL (8-252); Glucose 88 mg/dL (74-106); High Density Lipoprotein 61 mg/dL; Iron 59 ug/dL (50-170); Iron Binding Capacity,Total 368 ug/dL (250-450); Phosphorus 4.2 mg/dL (2.5-4.9); Potassium 4.9 mmol/L (3.5-5.1); Sodium Level 140 mmol/L (136-145); Triglycerides 46 mg/dL; Very Low Density Lipoprotein 9 mg/dL (5-40)
[2020-11-22 13:13] LABS: PTHIN 172.4 pg/mL (18.4-80.1)
[2020-11-22 14:51] LABS: Hemoglobin A1c < 3.8 % (3.8-5.6)
[2020-11-23 11:37] LABS: Pathologist Review Reviewed
== END ==
PROVIDERS: PCP Internal Medicine; Visit Provider Internal Medicine Nephrology
DX: E11.40 Type 2 diabetes mellitus with diabetic neuropathy, unspecified (principal); N18.4 Chronic kidney disease, stage 4 (severe); D50.9 Iron deficiency anemia, unspecified; N25.81 Secondary hyperparathyroidism of renal origin
CPT/HCPCS: 36415; 80061; 80069; 82728; 83036; 83540; 83550; 83970; 85027

== ENCOUNTER → 2021-01-22 08:40 | Outpatient (CLI) | payer MEDICAID, SELFPAY ==
[2020-02-07 15:21] VITALS: BMI 45.1
[2020-12-07 13:47] VITALS: BMI 43.0
[2021-01-22 09:35] LABS: Hematocrit 27.5 % (37-47); Hemoglobin 8.9 g/dL (12.0-15.0); Mean Corp Hgb Conc 32.4 g/dL (32-36); Mean Corpuscular Hgb 32.1 pg (27.0-32.0); Mean Corpuscular Volume 99.3 fL (81-99); POSITIVE COUNT YES; Platelet Count 85 K/mm3 (150-450); RBC Distribution Width SD 54.7 fl (35.1-43.9); Red Blood Count 2.77 M/mm3 (4.2-5.4); Scan Indicated on CBC? Y/N YES- FLAGS NOTED; White Blood Count 2.5 K/mm3 (4.4-11.0)
[2021-01-22 10:01] LABS: PTHIN 325.5 pg/mL (18.4-80.1)
[2021-01-22 10:05] LABS: Albumin, Serum 3.1 g/dL (3.2-5.0); BUN 45 mg/dL (7-18); BUN/Creat Ratio 14.9 RATIO (10-20); Calcium,Total 8.6 mg/dL (8.5-10.1); Chloride 113 mmol/L (98-107); Creatinine, Serum 3.02 mg/dL (0.55-1.02); EST Glomerular Filtration Rate 17 mL/min (>60); Est Glom Filt Rate - Afr Amer 20 mL/min (>60); Glucose 97 mg/dL (74-106); Phosphorus 4.6 mg/dL (2.5-4.9); Potassium 4.9 mmol/L (3.5-5.1); Sodium Level 139 mmol/L (136-145)
== END ==
PROVIDERS: PCP Internal Medicine; Referring Provider Internal Medicine Nephrology; Visit Provider Internal Medicine Nephrology
DX: N18.4 Chronic kidney disease, stage 4 (severe) (principal); N25.81 Secondary hyperparathyroidism of renal origin; D50.9 Iron deficiency anemia, unspecified
CPT/HCPCS: 36415; 80069; 83970; 85027

== ENCOUNTER → 2021-03-29 08:57 | Outpatient (CLI) | payer MEDICAID, SELFPAY ==
[2020-12-07 13:47] VITALS: BMI 43.0
[2021-03-29] MEDS: Acetaminophen 325 MG Tablet 650 MG PO (09:13)
[2021-03-29] MEDS: 0.9% NaCl Peripheral Flush Adult/Peds IV (09:14)
[2021-03-29 09:27] VITALS: BP 142/58; PULSE 78; RESP 16; TEMP 36.6; O2SAT 100; BMI 41.5
[2021-03-29 10:05] VITALS: BP 129/49; PULSE 71; RESP 16; TEMP 36.3; O2SAT 99
[2021-03-29 10:59] VITALS: BP 106/51; PULSE 54; RESP 16; TEMP 36.4; O2SAT 99
[2021-03-29 11:48] VITALS: BP 131/49; PULSE 51; RESP 18; TEMP 36.3; O2SAT 100
[2021-03-29] MEDS: Furosemide 20 MG/2 ML VIAL IV (11:55)
== END ==
PROVIDERS: PCP Internal Medicine; Referring Provider Internal Medicine Hematology & Oncology; Visit Provider Internal Medicine Hematology & Oncology
DX: Z51.89 Encounter for other specified aftercare (principal); D64.9 Anemia, unspecified; N18.9 Chronic kidney disease, unspecified
CPT/HCPCS: 36430; 86850; 86900; 86901; 86920; 86922; J7040; J7050; P9016; A4216; J1940

== ENCOUNTER → 2021-04-06 09:15 | Outpatient (CLI) | payer MEDICAID, SELFPAY ==
[2020-12-07 13:47] VITALS: BMI 43.0
[2021-03-29 09:27] VITALS: BMI 41.5
[2021-04-06 10:19] LABS: Albumin, Serum 3.2 g/dL (3.2-5.0); BUN 47 mg/dL (7-18); BUN/Creat Ratio 14.6 RATIO (10-20); Calcium,Total 8.8 mg/dL (8.5-10.1); Chloride 113 mmol/L (98-107); Creatinine, Serum 3.22 mg/dL (0.55-1.02); EST Glomerular Filtration Rate 15 mL/min (>60); Est Glom Filt Rate - Afr Amer 19 mL/min (>60); Glucose 96 mg/dL (74-106); Sodium Level 139 mmol/L (136-145)
== END ==
PROVIDERS: PCP Internal Medicine; Referring Provider Internal Medicine Nephrology; Visit Provider Internal Medicine Nephrology
DX: N18.4 Chronic kidney disease, stage 4 (severe) (principal); N25.81 Secondary hyperparathyroidism of renal origin
CPT/HCPCS: 36415; 80069; 83970

== ENCOUNTER → 2021-06-17 08:31 | Outpatient (CLI) | payer MEDICAID, SELFPAY ==
[2021-03-29 09:27] VITALS: BMI 41.5
[2021-06-17 10:06] LABS: Albumin, Serum 3.1 g/dL (3.2-5.0); BUN 41 mg/dL (7-18); BUN/Creat Ratio 11.5 RATIO (10-20); Calcium,Total 8.5 mg/dL (8.5-10.1); Chloride 113 mmol/L (98-107); Creatinine, Serum 3.57 mg/dL (0.55-1.02); EST Glomerular Filtration Rate 14 mL/min (>60); Est Glom Filt Rate - Afr Amer 17 mL/min (>60); Glucose 92 mg/dL (74-106); Phosphorus 3.8 mg/dL (2.5-4.9); Potassium 4.6 mmol/L (3.5-5.1); Sodium Level 141 mmol/L (136-145)
[2021-06-17 10:09] LABS: PTHIN 236.1 pg/mL (18.4-80.1)
== END ==
PROVIDERS: PCP Internal Medicine; Referring Provider Internal Medicine Nephrology; Visit Provider Internal Medicine Nephrology
DX: N18.4 Chronic kidney disease, stage 4 (severe) (principal); E11.40 Type 2 diabetes mellitus with diabetic neuropathy, unspecified; N25.81 Secondary hyperparathyroidism of renal origin
CPT/HCPCS: 36415; 80069; 83970

== ENCOUNTER → 2021-07-17 09:34 | Outpatient (CLI) | payer MEDICAID, SELFPAY ==
[2021-07-17] MEDS: Acetaminophen 325 MG Tablet 650 MG PO (09:42)
[2021-07-17 10:02] VITALS: BP 152/51; PULSE 73; RESP 16; TEMP 36.3; O2SAT 100; BMI 41.0
[2021-07-17 10:28] VITALS: BP 133/56; PULSE 65; RESP 16; TEMP 36.2; O2SAT 100
[2021-07-17 11:28] VITALS: BP 147/58; PULSE 81; RESP 16; TEMP 35.7; O2SAT 100
[2021-07-17 12:15] VITALS: BP 158/65; PULSE 66; RESP 16; TEMP 36.1; O2SAT 100
== END ==
PROVIDERS: PCP Internal Medicine; Referring Provider Internal Medicine Hematology & Oncology; Visit Provider Internal Medicine Hematology & Oncology
DX: Z51.89 Encounter for other specified aftercare (principal); N18.9 Chronic kidney disease, unspecified
CPT/HCPCS: 36430; 86850; 86900; 86901; 86920; 86922; J7040; P9016; A4216

== ENCOUNTER → 2021-08-14 10:31 | Outpatient (CLI) | payer MEDICAID, SELFPAY ==
[2021-08-14] MEDS: Acetaminophen 325 MG Tablet 650 MG PO (10:56)
[2021-08-14] MEDS: 0.9% NaCl Peripheral Flush Adult/Peds IV (10:57)
[2021-08-14 11:12] VITALS: BP 149/55; PULSE 76; RESP 16; TEMP 36.8; O2SAT 98; BMI 41.5
[2021-08-14 11:54] VITALS: BP 139/55; PULSE 75; RESP 16; TEMP 36.7; O2SAT 98
[2021-08-14 12:49] VITALS: BP 144/61; PULSE 73; RESP 16; TEMP 36.7; O2SAT 100
[2021-08-14 13:49] VITALS: BP 136/52; PULSE 71; RESP 16; TEMP 36.8; O2SAT 98
[2021-08-14 13:55] VITALS: BP 136/52; PULSE 71; RESP 16; TEMP 36.8; O2SAT 98
== END ==
PROVIDERS: PCP Internal Medicine; Referring Provider Internal Medicine Hematology & Oncology; Visit Provider Internal Medicine Hematology & Oncology
DX: D50.9 Iron deficiency anemia, unspecified (principal)
CPT/HCPCS: 36430; 86850; 86900; 86901; 86920; 86922; J7040; P9016; A4216

== ENCOUNTER → 2021-08-24 08:10 | Outpatient (CLI) | payer MEDICAID, SELFPAY ==
[2021-08-24 09:00] LABS: Albumin, Serum 3.1 g/dL (3.2-5.0); BUN 49 mg/dL (7-18); BUN/Creat Ratio 12.7 RATIO (10-20); Chloride 109 mmol/L (98-107); Creatinine, Serum 3.85 mg/dL (0.55-1.02); EST Glomerular Filtration Rate 13 mL/min (>60); Est Glom Filt Rate - Afr Amer 15 mL/min (>60); Glucose 109 mg/dL (74-106); Phosphorus 3.6 mg/dL (2.5-4.9); Potassium 4.3 mmol/L (3.5-5.1); Sodium Level 142 mmol/L (136-145)
[2021-08-26 10:36] LABS: PTHIN 134.6 pg/mL (18.4-80.1)
== END ==
PROVIDERS: PCP Internal Medicine; Referring Provider Internal Medicine Nephrology; Visit Provider Internal Medicine Nephrology
DX: N18.5 Chronic kidney disease, stage 5 (principal); N25.81 Secondary hyperparathyroidism of renal origin; K74.60 Unspecified cirrhosis of liver
CPT/HCPCS: 36415; 80069; 83970

== ENCOUNTER → 2021-09-18 09:39 | Outpatient (CLI) | payer MEDICAID, SELFPAY ==
[2021-09-18] MEDS: Acetaminophen 325 MG Tablet 650 MG PO (10:01)
[2021-09-18] MEDS: 0.9% NaCl Peripheral Flush Adult/Peds IV ×2 (10:01→11:39)
[2021-09-18 10:08] VITALS: BP 144/54; PULSE 63; RESP 16; TEMP 36.4; O2SAT 98; BMI 42.7
[2021-09-18 10:41] VITALS: BP 146/64; PULSE 61; RESP 16; TEMP 36.4; O2SAT 100
[2021-09-18 11:41] VITALS: BP 160/75; PULSE 62; RESP 16; TEMP 36.4; O2SAT 100
[2021-09-18 12:41] VITALS: BP 156/72; PULSE 56; RESP 16; TEMP 36.4; O2SAT 100
[2021-09-18 13:28] VITALS: BP 157/72; PULSE 62; RESP 16; TEMP 36.3; O2SAT 100
== END ==
PROVIDERS: PCP Internal Medicine; Referring Provider Internal Medicine Hematology & Oncology; Visit Provider Internal Medicine Hematology & Oncology
DX: D50.9 Iron deficiency anemia, unspecified (principal)
CPT/HCPCS: 36430; 86850; 86900; 86901; 86920; 86922; J7040; P9016; A4216

== ENCOUNTER → 2021-10-02 08:52 | Outpatient (CLI) | payer MEDICAID, SELFPAY ==
[2021-10-02 10:28] LABS: PTHIN 146.6 pg/mL (18.4-80.1)
[2021-10-02 10:29] LABS: Albumin, Serum 2.7 g/dL (3.2-5.0); BUN 41 mg/dL (7-18); BUN/Creat Ratio 12.8 RATIO (10-20); Calcium,Total 8.6 mg/dL (8.5-10.1); Chloride 117 mmol/L (98-107); Creatinine, Serum 3.21 mg/dL (0.55-1.02); EST Glomerular Filtration Rate 15 mL/min (>60); Est Glom Filt Rate - Afr Amer 19 mL/min (>60); Glucose 90 mg/dL (74-106); Phosphorus 3.1 mg/dL (2.5-4.9); Sodium Level 140 mmol/L (136-145)
== END ==
PROVIDERS: PCP Internal Medicine; Referring Provider Internal Medicine Nephrology; Visit Provider Internal Medicine Nephrology
DX: N18.5 Chronic kidney disease, stage 5 (principal); N25.81 Secondary hyperparathyroidism of renal origin
CPT/HCPCS: 36415; 80069; 83970

== ENCOUNTER 2021-11-19 13:18 | Emergency (ER) | payer MEDICAID, SELFPAY ==
[2021-11-19 13:18] VITALS: BP 155/105; PULSE 86; RESP 16; TEMP 36.4; O2SAT 99; BMI 41.1
--- NOTE | 2021-11-19 14:01 | CT_ITS ---
STUDY: CT Abdomen And Pelvis W/O Contrast Injection 11/19/2021 3:57 PM REASON FOR EXAM: Female, 65 years old. Technologist Notes Pain, chronic renal failure-stage 4. History of RANKIN, appendectomy, cholecystectomy, hysterectomy, gastric bypass abd pain, vomiting, no BM -- PO contrast only TECHNIQUE: Transaxial images were obtained with Oral Gastrografin contrast, and without intravenous contrast. Individualized dose optimization techniques were used for this CT. COMPARISON: None. FINDINGS: Patchy bilateral groundglass infiltrate suggesting pneumonia. There are coronary arterial calcifications. There is a diffuse contour abnormality of the liver consistent with cirrhotic changes. There are surgical clips in the gallbladder fossa consistent with a prior cholecystectomy. Normal spleen. Normal pancreas. Splenic varices. Paraesophageal varices. Recanalization of the umbilical vein. Normal bilateral adrenal glands. There is moderate cortical atrophy of the right kidney, consistent with chronic medical renal disease. There is moderate cortical atrophy of the left kidney, consistent with chronic medical renal disease. There are multiple surgical clips around the stomach. There are also anastomotic sutures around the stomach and altered gastrointestinal anatomy. This is consistent for prior gastric surgery (this may include sleeve, Gianni, or gastric bypass and other types of gastric surgery). Normal small intestine. Stool throughout the colon. There is non-visualization of the appendix. There are no acute findings of the abdominal aorta. Normal inferior vena cava. Subcentimeter mesenteric lymph nodes. Normal urinary bladder. There is absence of the uterus consistent with a prior hysterectomy. There is an umbilical hernia containing fat. There are diffuse degenerative changes of the visualized lumbar spine. IMPRESSION: (NOT LISTED IN ORDER OF SIGNIFICANCE) There are coronary arterial calcifications. Hepatic cirrhosis. Ascites. Gastric bypass changes. Atrophic kidneys. Patchy bilateral groundglass infiltrate suggesting pneumonia. Other findings as above. Electronically Signed: Shan Davidson MD at 16:08 [facility] , CT/Abdomen/Pel W ORAL Cont Only
--- NOTE | 2021-11-19 14:03 | EDS_ITS ---
HPI <Dr. Lavell Joseph MD - Last Filed: 11/19/21 14:50> HPI - GI History of Present Illness Chief Complaint: Constipation Informant: patient Abdominal Pain/Flank Pain Onset: Weeks (1) Context: Gradual Onset Timing: Continuous Quality: Aching Location: Right Flank and Left Flank Current Severity: Mild Maximum Severity: Mild Worsened by: Food Relieved by: Nothing (He has tried multiple oral laxatives and stool softeners) Nausea/Vomiting/Emesis GI Symptom: Positive for Nausea and Vomiting Onset: Yesterday (Both times triggered by eating small amount of food) Quality: Positive for Nonbilious; Negative for Blood streaks, Coffee ground and Hematemesis Episodes: 2 Diarrhea/Melena/Hematochezia GI Symptom: Positive for Diarrhea (Small amount of liquid stool coming out in past week since constipated); Negative for Melena and Hematochezia Associated Symptoms Associated Symptoms: Negative for Dysuria, Frequency, Hematuria and Urgency Narrative Narrative: Patient has not had a bowel movement in 1 week. She started vomiting yesterday, only when she tried to eat something. She is able to drink fluids. She is feeling like she has hard firm colon in both sides of her abdomen where she is also having mild pain/discomfort. She has had several abdominal surgeries in the past including gastric bypass, and after discussing today with her doctor was advised to come to the ER for further evaluation. [facility] <Dr. Lavell Joseph MD - Last Filed: 11/19/21 14:50> [facility] Medical History (Updated 11/19/21 @ 16:[address] Jeff Rivera, DO) Anemia Aortic valve stenosis, nonrheumatic Atrial arrhythmia Atrial premature beats Chronic renal failure, stage 4 (severe) Chronic renal insufficiency, stage III (moderate) Cirrhosis DM2 (diabetes mellitus, type 2) Essential hypertension Left carotid bruit Nonalcoholic steatohepatitis (RANKIN) Obesity Orthostatic hypotension Paroxysmal atrial fibrillation Premature ventricular contraction Shortness of breath Sinus bradycardia Stage 3 chronic renal impairment associated with type 2 diabetes mellitus Thrombocytopenia, unspecified Home Medications aripiprazole 30 mg tablet 30 mg PO DAILY 01/04/20 [History Last Taken Unknown] lorazepam 1 mg tablet 1 mg PO Q6H PRN tab 01/04/20 [History Last Taken 01/25/20 04:00] albuterol sulfate 1 - 2 puff INHALATION Q4H PRN PRN 01/24/20 [History Last Taken Unknown] darbepoetin yayo in polysorbat 60 mcg IJ .QMONTH 01/24/20 [History Last Taken Unknown] vit [id number]-bx-[id number]-me-B12-ALA 1 ea PO DAILY 01/24/20 [History Last Taken Unknown] cetirizine 10 mg tablet 10 mg PO DAILY 04/12/20 [History Last Taken Unknown] calcium carbonate 600 mg calcium (1,500 mg) tablet 600 mg PO DAILY 08/23/20 [History Last Taken Unknown] cholestyramine-aspartame 4 gram oral powder 1 ea PO 4X/DAY g 08/23/20 [History Last Taken Unknown] sodium bicarbonate 650 mg tablet 650 mg PO TID tab 08/23/20 [History Last Taken Unknown] budesonide-formoterol HFA 80 mcg-4.5 mcg/actuation aerosol inhaler 2 puff INHALATION BID 12/07/20 [History Last Taken Unknown] cyanocobalamin (vitamin B-12) 1,000 mcg/mL injection solution 100 mcg IM QMONTH 12/07/20 [History Last Taken Unknown] calcitriol 0.25 mcg capsule 0.5 mcg PO DAILY cap 01/29/21 [History Last Taken Unknown] amlodipine 2.5 mg tablet See Rx Instructions .ROUTE .COMPLEX #90 tab 05/03/21 [Rx Last Taken Unknown] Allergy/AdvReac Type Severity Reaction Status Date / Time aspirin Allergy Shortness Verified 11/19/21 13:21 of breath celecoxib [From Celebrex] Allergy Shortness Verified 11/19/21 13:21 of breath Iodinated Contrast Media Allergy Shortness Verified 11/19/21 13:21 [Iodinated Contrast Media - of breath IV Dye] lithium [[place]] Allergy Shortness Verified 11/19/21 13:21 of breath Sulfa (Sulfonamide Allergy Shortness Verified 11/19/21 13:21 Antibiotics) of breath metoprolol AdvReac Severe Marked Verified 11/19/21 13:21 bradycardia divalproex sodium AdvReac seizures Verified 11/19/21 13:21 [From Depakote] Family History Mother , Age 60 of CHF Diabetes Hypertension Myocardial infarction CHF (congestive heart failure) Father , 34 [place] Myocardial infarction Ruptured, aorta CAD (coronary artery disease) Brother Diabetes Brother , [place] age 44 Myocardial infarction Diabetes Liver problem Surgical History H/O gastric bypass H/O: hysterectomy History of appendectomy History of cholecystectomy Social History Smoking Status: Former smoker Tobacco: How many years used: 20 how long ago did patient quit smokin alcohol intake: never substance use type: does not use caffeine: Yes Type: coffee Number of servings: 1 and tea Number of servings: 2 what type of physical activity do you participate in: none additional social history: ROS <Dr. Lavell Joseph MD - Last Filed: 11/19/21 14:50> ROS ED Constitutional Constitutional ED: Denies chills or fever(s) Eyes Eyes: Denies change in vision or diplopia ENT ENT ED: Denies rhinorrhea or sore throat Cardiovascular Cardiovascular: Denies chest pain or palpitations Respiratory/Chest Respiratory/Chest: Denies cough or dyspnea Gastrointestinal Gastrointestinal: Reports as per HPI, abdominal pain, constipation, diarrhea, nausea and vomiting Genitourinary Genitourinary ED: Denies dysuria or hematuria Musculoskeletal Musculoskeletal: Denies back pain or neck pain Integumentary Denies abscess or rash Neurologic Neurologic: Denies headache(s), paresthesias or weakness Psychiatric Psychiatric: Denies anxiety or suicidal thoughts EXAM <Dr. Lavell Joseph MD - Last Filed: 11/19/21 14:50> Physical Exam Const Vital Signs: 11/19/21 13:18 Temperature 97.6 F L Temperature Source Temporal Pulse Rate 86 Respiratory Rate 16 Blood Pressure 155/105 H Blood Pressure Mean 121 Pulse Ox 99 Oxygen Delivery Method Room Air Positive well nourished and well developed General Appearance ED: well developed and NAD Nutritional Appearance: morbidly obese HEENT Reports moist mucous membranes normocephalic and atraumatic Eyes PERRL and EOMs intact bilaterally Neck full ROM and supple Resp normal respiratory effort and clear to auscultation bilaterally Cardio regular rate, regular rhythm and no murmurs GI GI Narrative: Soft distended abdomen, mildly tympanic to percussion, mild tenderness in both flanks in the middle of abdomen. Otherwise nontender. No guarding or rebound tenderness. Exam limited by obesity. Auscultation: hypoactive bowel sounds Palpation: soft Back/Spine no CVA tenderness General Back: other FROM Extremity normal to inspection General Extremety ED: Negative for edema, pulses abnormal or tenderness General Extremity: Negative for edema or pulses abnormal Neuro oriented x3, CN's II-XII intact bilaterally and no sensory deficits noted Sensorium / Orientation: awake and alert Motor Exam: strength 5/5 throughout Skin no rashes or lesions noted and no wounds <Dr. Jeff Rivera DO - Last Filed: 11/19/21 16:38> Physical Exam Const Vital Signs: 11/19/21 13:18 Temperature 97.6 F L Temperature Source Temporal Pulse Rate 86 Respiratory Rate 16 Blood Pressure 155/105 H Blood Pressure Mean 121 Pulse Ox 99 Oxygen Delivery Method Room Air MDM <Dr. Lavell Joseph MD - Last Filed: 11/19/21 14:50> MDM MDM Narrative Medical decision making narrative: I discussed several options with the patient including performing a digital rectal exam, and/or providing a fleets enema and/or a larger soapsuds enema prior to undergoing CT scanning in the hopes that her symptoms would resolve and she may be able to avoid hours-long work-up. She declines all of that and does not want that, just the studies. She has an anaphylactoid reaction to IV contrast dye in addition to chronic renal failure, so oral contrast only CT ordered. Lab Data Labs: Laboratory Results - last 24 hr 11/19/21 11/19/21 11/19/21 14:01 14:01 14:01 WBC 1.9 L RBC 3.12 L Hgb 9.7 L Hct 30.4 L MCV 97.4 MCH 31.1 MCHC 31.9 L RDW Std Deviation 54.7 H RDW Coeff of Mayte 15.3 H Plt Count 106 L MPV 10.5 Immature Gran % (Auto) 0.000 Neut % (Auto) 68.1 Lymph % (Auto) 16.5 L [place] % (Auto) 12.2 H Eos % (Auto) 2.1 Baso % (Auto) 1.1 H Absolute Neuts (auto) 1.3 L Absolute Lymphs (auto) 0.31 L Nucleated RBC % 0 PT INR APTT Sodium 137 Potassium 4.5 Chloride 111 H Carbon Dioxide 21.0 Anion Gap 5 BUN 39 H Creatinine 3.50 H Estim Creat Clear Calc 14.02 Est GFR (MDRD) Af Amer 17 L Est GFR (MDRD) Non-Af 14 L BUN/Creatinine Ratio 11.1 Glucose 98 Calcium 8.8 Total Bilirubin 1.70 H Direct Bilirubin 0.51 H AST 19 ALT 15 Alkaline Phosphatase 63 Total Protein 6.7 Albumin 3.0 L Globulin 3.7 11/19/21 14:10 WBC RBC Hgb Hct MCV MCH MCHC RDW Std Deviation RDW Coeff of Mayte Plt Count MPV Immature Gran % (Auto) Neut % (Auto) Lymph % (Auto) [place] % (Auto) Eos % (Auto) Baso % (Auto) Absolute Neuts (auto) Absolute Lymphs (auto) Nucleated RBC % PT 14.1 INR 1.2 APTT 34.5 Sodium Potassium Chloride Carbon Dioxide Anion Gap BUN Creatinine Estim Creat Clear Calc Est GFR (MDRD) Af Amer Est GFR (MDRD) Non-Af BUN/Creatinine Ratio Glucose Calcium Total Bilirubin Direct Bilirubin AST ALT Alkaline Phosphatase Total Protein Albumin Globulin Radiography Diagnostic Testing: Clinical Impression(s) from Imaging Studies Abdomen CT 11/19/21 14:01 <Dr. Jeff Rivera, DO - Last Filed: 11/19/21 16:38> [facility] MDM Narrative Medical decision making narrative: I spoke with the patient regarding her labs and CT findings. The patient states that she has cirrhosis due to fatty liver. 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 She has ascites on CT. I am going to set her up to have a outpatient paracentesis tomorrow. This should greatly relieve a lot of her symptoms such as the dyspnea with laying down and abdominal distention. In preparation for the paracentesis I did order liver enzymes and coags. I am also going to attempt to speak with GI and her PCP as she will most likely need further paracentesis. Lab Data Attestation: I reviewed the patient's lab results. Labs: Laboratory Results - last 24 hr 11/19/21 11/19/21 11/19/21 14:01 14:01 14:01 WBC 1.9 L RBC 3.12 L Hgb 9.7 L Hct 30.4 L MCV 97.4 MCH 31.1 MCHC 31.9 L RDW Std Deviation 54.7 H RDW Coeff of Mayte 15.3 H Plt Count 106 L MPV 10.5 Immature Gran % (Auto) 0.000 Neut % (Auto) 68.1 Lymph % (Auto) 16.5 L [place] % (Auto) 12.2 H Eos % (Auto) 2.1 Baso % (Auto) 1.1 H Absolute Neuts (auto) 1.3 L Absolute Lymphs (auto) 0.31 L Nucleated RBC % 0 PT INR APTT Sodium 137 Potassium 4.5 Chloride 111 H Carbon Dioxide 21.0 Anion Gap 5 BUN 39 H Creatinine 3.50 H Estim Creat Clear Calc 14.02 Est GFR (MDRD) Af Amer 17 L Est GFR (MDRD) Non-Af 14 L BUN/Creatinine Ratio 11.1 Glucose 98 Calcium 8.8 Total Bilirubin 1.70 H Direct Bilirubin 0.51 H AST 19 ALT 15 Alkaline Phosphatase 63 Total Protein 6.7 Albumin 3.0 L Globulin 3.7 11/19/21 14:10 WBC RBC Hgb Hct MCV MCH MCHC RDW Std Deviation RDW Coeff of Mayte Plt Count MPV Immature Gran % (Auto) Neut % (Auto) Lymph % (Auto) [place] % (Auto) Eos % (Auto) Baso % (Auto) Absolute Neuts (auto) Absolute Lymphs (auto) Nucleated RBC % PT 14.1 INR 1.2 APTT 34.5 Sodium Potassium Chloride Carbon Dioxide Anion Gap BUN Creatinine Estim Creat Clear Calc Est GFR (MDRD) Af Amer Est GFR (MDRD) Non-Af BUN/Creatinine Ratio Glucose Calcium Total Bilirubin Direct Bilirubin AST ALT Alkaline Phosphatase Total Protein Albumin Globulin Radiography Diagnostic Testing: Clinical Impression(s) from Imaging Studies Abdomen CT 11/19/21 14:01 Discharge Plan Triage Chief Complaint: Constipation ED Provider: Lavell Joseph Dx/Rx/DC Orders Clinical Impression: 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, Chronic renal insufficiency, stage III (moderate), Abdominal ascites Instructions: ED Ascites, ED Cirrhosis Prescriptions: No Action aripiprazole 30 mg tablet 30 mg PO DAILY RF: 0 lorazepam 1 mg tablet 1 mg PO Q6H PRN (Reason: Anxiety) RF: 0 budesonide-formoterol [Symbicort] 80-4.5 mcg/actuation HFA aerosol inhaler 2 puff INHALATION BID RF: 0 cyanocobalamin (vitamin B-12) 1,000 mcg/mL solution 100 mcg IM QMONTH RF: 0 calcium carbonate [Calcium 600] 600 mg calcium (1,500 mg) tablet 600 mg PO DAILY RF: 0 sodium bicarbonate 650 mg tablet 650 mg PO TID RF: 0 cholestyramine-aspartame 4 gram powder 1 ea PO 4X/DAY RF: 0 vit [id number]-ku-yveuwxuh-me-B12-ALA 1 EACH capsule 1 ea PO DAILY RF: 0 darbepoetin yayo in polysorbat 60 MCG/0.3 ML syringe 60 mcg IJ .QMONTH RF: 0 albuterol sulfate 1 PUFF inhaler 1 - 2 puff inhalation Q4H PRN PRN (Reason: Sob &/Or Wheezing) RF: 0 cetirizine [Zyrtec] 10 mg tablet 10 mg PO DAILY RF: 0 calcitriol 0.25 mcg capsule 0.5 mcg PO DAILY RF: 0 amlodipine 2.5 mg tablet See Rx Instructions .ROUTE .COMPLEX Qty: 90 RF: 3 Other Ambulatory Orders: Paracentesis with US (Routine) Facility: [facility] - Location: [facility] Ordered By: Dr. Jeff Rivera Primary Care Provider: William Barfield Referrals: Robles Jurado DO [STAFF PHYSICIAN] - As soon as possible (For gastroenterology) William Barfield MD [Primary Care Provider] - As soon as possible Disposition Disposition: Home, Self Care
[2021-11-19] MEDS: Ondansetron 4 MG/2 ML Vial IV (14:18)
[2021-11-19] MEDS: 0.9% Normal Saline 1,000 ML 125 ML IV (14:18)
[2021-11-19 14:21] LABS: Absolute Lymphocyte Count 0.31 X10^3/uL (0.83-4.51); Absolute Neutrophil Count 1.3 X10^3/uL (2.0-7.7); Basophil# 0.02 X10^3/uL; Basophil% 1.1 % (0-1); Eosinophil# 0.04 X10^3/uL; Eosinophils% 2.1 % (0-5); Hematocrit 30.4 % (37-47); Hemoglobin 9.7 g/dL (12.0-15.0); Lymphocyte # 0.31 X10^3/ul (0.83-4.51); Lymphocyte % 16.5 % (19-41); Mean Corp Hgb Conc 31.9 g/dL (32-36); Mean Corpuscular Hgb 31.1 pg (27.0-32.0); Mean Corpuscular Volume 97.4 fL (81-99); Mean Platelet Vol. 10.5 fl (6.2-12.0); Monocyte# 0.23 X10^3/uL; Monocyte% 12.2 % (0-10); NRBC Flagged by Analyzer 0 % (0-5); Neutrophil # 1.28 X10^3/uL (2.7-7.7); Neutrophil % 68.1 % (47-70); POSITIVE DIFFERENTIAL YES; Platelet Count 106 K/mm3 (150-450); RBC Distribution Width CV 15.3 % (11.6-14.6); RBC Distribution Width SD 54.7 fl (35.1-43.9); Red Blood Count 3.12 M/mm3 (4.2-5.4); White Blood Count 1.9 K/mm3 (4.4-11.0)
[2021-11-19 14:22] LABS: Differential Indicated SCAN CRITERIA MET
[2021-11-19 14:38] LABS: Anion Gap 5 (5-15); BUN 39 mg/dL (7-18); BUN/Creat Ratio 11.1 RATIO (10-20); Calcium,Total 8.8 mg/dL (8.5-10.1); Chloride 111 mmol/L (98-107); EST Glomerular Filtration Rate 14 mL/min (>60); Est Glom Filt Rate - Afr Amer 17 mL/min (>60); Estimated Creatinine Clearance 14.02 ml/min; Glucose 98 mg/dL (74-106); Potassium 4.5 mmol/L (3.5-5.1); Sodium Level 137 mmol/L (136-145)
[2021-11-19 15:18] VITALS: BP 157/84; PULSE 79; RESP 19; O2SAT 96
[2021-11-19 16:20] LABS: International Normalized Ratio 1.2; Prothrombin Time (Protime)PT. 14.1 SECONDS (11.7-14.9)
[2021-11-19 16:21] LABS: Partial Thromboplast Time 34.5 Seconds (24.1-36.2)
[2021-11-19 16:34] LABS: AST(SGOT) 19 U/L (15-37); Alanine Aminotransfer ALT/SGPT 15 U/L (13-56); Alkaline Phosphatase 63 U/L (45-117); Bilirubin, Direct 0.51 mg/dL (0.00-0.30); Globulin 3.7 g/dL (2.2-4.2); Protein, Total 6.7 g/dL (6.4-8.2)
[2021-11-19 17:19] VITALS: BP 163/89; PULSE 82; RESP 17; O2SAT 96
[2021-11-20 14:00] LABS: Pathologist Review Reviewed
== END 2021-11-19 17:21 | disposition home or self-care (01) ==
PROVIDERS: Emergency Medicine; Emergency Provider Emergency Medicine; PCP Internal Medicine; Visit Provider Emergency Medicine
DX: K74.60 Unspecified cirrhosis of liver (principal); E11.22 Type 2 diabetes mellitus with diabetic chronic kidney disease; E66.01 Morbid (severe) obesity due to excess calories; Z68.41 Body mass index [BMI] 40.0-44.9, adult; N18.30 Chronic kidney disease, stage 3 unspecified; I12.9 Hypertensive chronic kidney disease with stage 1 through stage 4 chronic kidney disease, or unspecified chronic kidney disease; K75.81 Nonalcoholic steatohepatitis (NASH); Z87.891 Personal history of nicotine dependence; Z86.2 Personal history of diseases of the blood and blood-forming organs and certain disorders involving the immune mechanism; Z79.899 Other long term (current) drug therapy; K76.0 Fatty (change of) liver, not elsewhere classified; R18.8 Other ascites
CPT/HCPCS: 74176; 80048; 80076; 85025; 85610; 85730; 96361; 96374; 99285; J7030; A4216; J2405

== ENCOUNTER 2021-11-20 11:37 | Outpatient (CLI) | payer MEDICAID, SELFPAY ==
--- NOTE | 2021-11-20 11:40 | US_ITS ---
PROCEDURE: Ultrasound guided paracentesis. DATE OF EXAMINATION: 11/20/2021. INDICATION: Female, 65 years old. Ascites. PHYSICIAN: Mannie Escobedo M.D. TECHNIQUE: The risks, benefits, and alternatives to the procedure were explained to the patient. The specific risks of bleeding, infection, and damage to bowel were detailed and accepted. Witnessed informed consent was obtained. The abdomen was ultrasonographically surveyed. An appropriate pocket of fluid was identified at the left lower quadrant. The skin were cleaned and prepped in the usual sterile fashion. Using ultrasound guidance, the peritoneal cavity was accessed with a 5-Turkish paracentesis needle/catheter system. The trocar was removed. A total of 5700 ml of camilo-colored fluid were removed from the peritoneal cavity. The catheter was removed and a sterile dressing was applied. The procedure was well tolerated. US/Paracentesis with US IMPRESSION: Ultrasound guided paracentesis. Electronically Signed: Mannie Escobedo MD at 13:35 EST ,
[2021-11-20 12:15] VITALS: BP 154/81; BP 155/70; BP 157/70; BP 175/74; PULSE 67; PULSE 68; PULSE 69; PULSE 77; RESP 16; RESP 18; TEMP 36.9; O2SAT 100
[2021-11-20] MEDS: Lidocaine 2% (20 ml mdv) 20 ML Vial INFILT (12:18)
== END 2021-11-20 23:59 | disposition home or self-care (01) ==
PROVIDERS: PCP Internal Medicine; Referring Provider Emergency Medicine; Visit Provider Emergency Medicine
DX: R18.8 Other ascites (principal)
CPT/HCPCS: 49083

== ENCOUNTER 2021-12-03 10:36 | Outpatient (RCR) | payer MEDICARE, MEDICAID, SELFPAY ==
[2021-12-03 11:42] LABS: Albumin, Serum 2.9 g/dL (3.2-5.0); BUN 53 mg/dL (7-18); BUN/Creat Ratio 13.2 RATIO (10-20); Calcium,Total 8.7 mg/dL (8.5-10.1); Chloride 111 mmol/L (98-107); Creatinine, Serum 4.03 mg/dL (0.55-1.02); EST Glomerular Filtration Rate 12 mL/min (>60); Est Glom Filt Rate - Afr Amer 14 mL/min (>60); Glucose 103 mg/dL (74-106); Phosphorus 3.9 mg/dL (2.5-4.9); Potassium 4.4 mmol/L (3.5-5.1); Sodium Level 139 mmol/L (136-145)
== END 2021-12-03 18:00 | disposition home or self-care (01) ==
LOC: LAB 10:36
PROVIDERS: PCP Internal Medicine; Referring Provider Internal Medicine Nephrology; Visit Provider Internal Medicine Nephrology
DX: N18.5 Chronic kidney disease, stage 5 (principal); N25.81 Secondary hyperparathyroidism of renal origin
CPT/HCPCS: 36415; 80069; 83970

== ENCOUNTER 2021-12-03 13:45 | Outpatient (CLI) | payer MEDICARE, MEDICAID, SELFPAY ==
[2021-12-03 11:50] LABS: ALB/GLOB Ratio 0.7 RATIO (0.9-2.4); AST(SGOT) 20 U/L (15-37); Alanine Aminotransfer ALT/SGPT 20 U/L (13-56); Albumin, Serum 2.8 g/dL (3.2-5.0); Alkaline Phosphatase 60 U/L (45-117); Anion Gap 8 (5-15); BUN 54 mg/dL (7-18); BUN/Creat Ratio 13.4 RATIO (10-20); Calcium,Total 8.8 mg/dL (8.5-10.1); Chloride 111 mmol/L (98-107); Creatinine, Serum 4.02 mg/dL (0.55-1.02); EST Glomerular Filtration Rate 12 mL/min (>60); Est Glom Filt Rate - Afr Amer 14 mL/min (>60); Globulin 3.9 g/dL (2.2-4.2); Glucose 105 mg/dL (74-106); Potassium 4.5 mmol/L (3.5-5.1); Protein, Total 6.7 g/dL (6.4-8.2); Sodium Level 140 mmol/L (136-145)
[2021-12-04 12:09] LABS: HEPATITIS B SURFACE AG Negative (Negative); Hepatitis A IgM Antibody Negative (Negative); Hepatitis B Core AB IgM Negative (Negative)
[2021-12-04 13:17] LABS: Carbohydrate Ag 19-9 2261 13 U/mL (0-35); Hep C Antibodies 0.9 s/co ratio (0.0-0.9)
== END 2021-12-03 23:59 | disposition home or self-care (01) ==
LOC: PAT 01-10 13:46
PROVIDERS: Nurse Practitioner Adult Health; PCP Internal Medicine; Referring Provider Internal Medicine; Visit Provider Internal Medicine Gastroenterology
DX: K74.60 Unspecified cirrhosis of liver (principal); K75.81 Nonalcoholic steatohepatitis (NASH)
CPT/HCPCS: 36415; 80053; 80074; 82105; 82140; 86301

== ENCOUNTER 2021-12-18 13:39 | Outpatient (CLI) | payer MEDICARE, SELFPAY | END 2021-12-18 23:59 | disposition home or self-care (01) | LOC: LABSPEC 01-08 13:40 | PROVIDERS: PCP Internal Medicine; Visit Provider Internal Medicine Hematology & Oncology | DX: Z51.89 Encounter for other specified aftercare (principal); D46.20 Refractory anemia with excess of blasts, unspecified; N18.9 Chronic kidney disease, unspecified; D64.9 Anemia, unspecified | CPT/HCPCS: 86850; 86900; 86901; 86920; 86922 ==

== ENCOUNTER 2022-01-03 11:04 | Outpatient (CLI) | payer MEDICARE, MEDICAID, SELFPAY ==
[2022-01-03 12:13] LABS: Hemoglobin 7.6 g/dL (12.0-15.0); Mean Corp Hgb Conc 31.7 g/dL (32-36); Mean Corpuscular Hgb 31.9 pg (27.0-32.0); Mean Corpuscular Volume 100.8 fL (81-99); Mean Platelet Vol. 10.5 fl (6.2-12.0); Platelet Count 128 K/mm3 (150-450); RBC Distribution Width CV 16.4 % (11.6-14.6); RBC Distribution Width SD 59.2 fl (35.1-43.9); Red Blood Count 2.38 M/mm3 (4.2-5.4); White Blood Count 2.1 K/mm3 (4.4-11.0)
[2022-01-03 12:43] LABS: PTHIN 232.4 pg/mL (18.4-80.1)
[2022-01-03 12:45] LABS: 24 Hour Urine Protein 174.8 mg/24HR (<150 MG/24HR); 24HR. UA Prot. Total Volume 1150 mL; Urine Protein (24 Hour) 15.2 mg/dL (<11.9)
[2022-01-03 12:47] LABS: Creat.Clear Total Volume 1150 mL; Creatinine Clearance 18 ml/min (100-200); EST Glomerular Filtration Rate 9 mL/min (>60); Est Glom Filt Rate - Afr Amer 11 mL/min (>60)
[2022-01-03 12:48] LABS: Albumin, Serum 3.1 g/dL (3.2-5.0); BUN 61 mg/dL (7-18); BUN/Creat Ratio 12.2 RATIO (10-20); Chloride 114 mmol/L (98-107); Creatinine, Serum 4.98 mg/dL (0.55-1.02); EST Glomerular Filtration Rate 9 mL/min (>60); Est Glom Filt Rate - Afr Amer 11 mL/min (>60); Glucose 102 mg/dL (74-106); Phosphorus 4.1 mg/dL (2.5-4.9); Potassium 4.4 mmol/L (3.5-5.1); Sodium Level 141 mmol/L (136-145)
== END 2022-01-03 23:59 | disposition home or self-care (01) ==
LOC: LAB 11:12
PROVIDERS: PCP Internal Medicine; Referring Provider Internal Medicine Nephrology; Visit Provider Internal Medicine Nephrology
DX: N18.5 Chronic kidney disease, stage 5 (principal); N25.81 Secondary hyperparathyroidism of renal origin
CPT/HCPCS: 36415; 80069; 81050; 82575; 83970; 84156; 85027

== ENCOUNTER 2022-01-03 11:35 | Outpatient (CLI) | payer MEDICARE, MEDICAID, SELFPAY ==
--- NOTE | 2022-01-03 11:38 | US_ITS ---
PROCEDURE: Ultrasound guided paracentesis. DATE OF EXAMINATION: 01/03/2022. INDICATION: Female, 66 years old. Ascites. PHYSICIAN: Mannie Escobedo M.D. TECHNIQUE: The risks, benefits, and alternatives to the procedure were explained to the patient. The specific risks of bleeding, infection, and damage to bowel were detailed and accepted. Witnessed informed consent was obtained. The abdomen was ultrasonographically surveyed. An appropriate pocket of fluid was identified at the right lower quadrant. The skin were cleaned and prepped in the usual sterile fashion. Using ultrasound guidance, the peritoneal cavity was accessed with a 5-Kyrgyz paracentesis needle/catheter system. The trocar was removed. A total of 4950 ml of camilo-colored fluid were removed from the peritoneal cavity. The catheter was removed and a sterile dressing was applied. The procedure was well tolerated. US/Paracentesis with US IMPRESSION: Ultrasound guided paracentesis. Electronically Signed: Mannie Escobedo MD at 14:04 EST ,
[2022-01-03 13:18] VITALS: BP 138/67; PULSE 85; PULSE 86; RESP 18; RESP 20; TEMP 37.1; O2SAT 100; O2SAT 99
[2022-01-03] MEDS: Lidocaine 2% (20 ml mdv) 20 ML Vial INFILT (13:20)
--- NOTE | 2022-01-03 15:00 | NURSING ---
Patient set up for paracentesis next Thursday to drain remaining fluid and have her first albumin infusion. Patient transportation arranged with [facility]ANNA[facility]itrago to/from the appt.
== END 2022-01-03 23:59 | disposition home or self-care (01) ==
PROVIDERS: PCP Internal Medicine; Referring Provider Internal Medicine Gastroenterology; Visit Provider Internal Medicine Gastroenterology
DX: K75.81 Nonalcoholic steatohepatitis (NASH) (principal); K74.60 Unspecified cirrhosis of liver; N18.5 Chronic kidney disease, stage 5; N25.81 Secondary hyperparathyroidism of renal origin; R18.8 Other ascites
CPT/HCPCS: 49083; 36415; 80069; 81050; 82575; 83970; 84156; 85027

== ENCOUNTER 2022-01-08 10:28 | Outpatient (CLI) | payer MEDICARE, MEDICAID, SELFPAY ==
--- NOTE | 2022-01-08 10:31 | US_ITS ---
PROCEDURE: ULTRASOUND GUIDED PARACENTESIS CLINICAL HISTORY: Female, 66 years old. CIRRHOSIS CONSENT: PROCEDURE: Ultrasound guided paracentesis. DATE OF EXAMINATION: 01/08/2022. INDICATION: Female, 66 years old. Ascites. PHYSICIAN: Dr. Johnathan Elizabeth TECHNIQUE: The risks, benefits, and alternatives to the procedure were explained to the patient. The specific risks of bleeding, infection, and damage to bowel were detailed and accepted. Witnessed informed consent was obtained. The abdomen was ultrasonographically surveyed. An appropriate pocket of fluid was identified at the right lower quadrant. The skin were cleaned and prepped in the usual sterile fashion. Using ultrasound guidance, the peritoneal cavity was accessed with a 5-Setswana paracentesis needle/catheter system. The trocar was removed. A total of 6100 ml of clear yellow ascites fluid were removed from the peritoneal cavity. The catheter was removed and a sterile dressing was applied. The procedure was well tolerated. US/Paracentesis with US IMPRESSION: Ultrasound guided paracentesis with approximately 6100 cc of clear yellow ascites fluid aspirated and discarded. Electronically Signed: Johnathan Elizabeth, at 11:41 EDT ,
[2022-01-08 10:56] VITALS: BP 128/63; BP 135/51; BP 136/46; PULSE 61; PULSE 64; PULSE 67; RESP 18; TEMP 36.8; O2SAT 100
[2022-01-08] MEDS: Lidocaine 2% (20 ml mdv) 20 ML Vial INFILT (10:57)
[2022-01-08 11:44] VITALS: BP 139/71; PULSE 56; RESP 16; TEMP 36.1; O2SAT 99; BMI 37.5
[2022-01-08] MEDS: 0.9% Saline Lock 10 ML Syringe IV (11:50)
[2022-01-08] MEDS: Albumin Human 25% (100 mL) 25 GM/100 ML BAG IV (11:50)
[2022-01-08] MEDS: Albumin Human 25% (50 mL) 12.5 GM/50 ML IV.SOLN IV (13:19)
[2022-01-08 14:20] VITALS: BP 124/64; PULSE 70; RESP 16; TEMP 36.8; O2SAT 99
--- NOTE | 2022-01-10 17:45 | CASEMGMT ---
BRIAN BAUER Care Coordination assessment/note: BRIAN BAUER placed call to pt. Introduced self and role at [facility]. PCP: Dr Barfield Specialists: Dr Cifuentes-oncology, [facility]/cardiology--Dr Russell, Dr Jurado- GI. Dr Jacobs-nephrology. Pt states she is right on the border of needing dialysis. She has had a fistula placed and is ready whenever that happens. Paracentesis: Pt comes to [facility] for weekly paracentesis and receives Albumin infusion if she has >5,000 ml drained. Her next scheduled Paracentesis is Wednesday 01/17. Preferred Pharmacy: [facility]. Pt states she has all of her medications needed. Insurance: [facility] A/B, [facility] Prescription Benefit: Yes. Living Will/HPOA: Pt states she has completed paperwork for HPOA, which was a friend/caregiver, but states she moved away and she does not know how to contact her or if she is still alive. Pt would like to complete new AD for POA, she is just not sure who she would want to be her POA. She states she will think about it and if she has decided on who she wants to be her POA, she would like to complete this when she comes in for her next paracentesis next 01/17. LNOK/support: Pt has no NOK or emergency contact lens molder listed on her demographics. Pt states she used to live in [facility] [place], but she and her moved to [place] about 21 yrs ago d/t she was on the liver transplant list and [facility] told her it was a requirement she lived w/in an hour of [facility] in case a liver became available. She states she ended up not needing a liver transplant during all those years. She states her just in Jun very suddenly right before my eyes at home. All of her relatives live in [place] and she has no family in [place] whatsoever. She states she has some local taoist friends that are able to help at times, but she does not like to ask for help very often. She states her late has some nieces and nephews in the area and she may consider listing one of them as an emergency contact. She states she would like to put some thought into it before making a decision. Living Arrangements: Pt lives alone in ground-floor apt w/no steps to enter. She states she is 90% legally blind. She has many different items of adaptive equipment for vision impairment and is able to manage well in her home. She has a CM, Patsy Cabezas @ [facility] through [employer]. She states she qualifies for an aide and they are currently looking an aide for her. She used to have [employer], but cancelled them d/t not tasteful. She currently gets all of her groceries through [employer]. Transportation: Taxi or [employer] Van transport. DME: has the following DME: Many items of adaptive equipment for visually impaired such as magnifiers, special computer screen, e-mail program that talks to her, and much more. She also has: shower chair, rollator (does not use often), and medical alert button Pt states no need for further DME at this time. Fluid and dietary restrictions: Pt states she has a very good understanding of her dietary restrictions for low Na+ and renal diet. She states, I understand it. I just don't like it. She tries to avoid any canned or processed foods and tries to cook everything naturally. Pt denies having any concerns, needs, or questions at this time and thanked BRIAN BAUER for calling. Pt provided w/this RN CM contact # as well as RN CM assistant store manager, Mariajose Laboy's contact # to contact if any needs arise. She voices appreciation. Elise IBARRA RN, CM
== END 2022-01-08 23:59 | disposition home or self-care (01) ==
LOC: US 10:29 → MEDOUTP 11:34
PROVIDERS: PCP Internal Medicine; Referring Provider Internal Medicine Gastroenterology; Visit Provider Internal Medicine Gastroenterology
DX: K75.81 Nonalcoholic steatohepatitis (NASH) (principal); K74.60 Unspecified cirrhosis of liver; R18.8 Other ascites
CPT/HCPCS: 96365; 96366; 49083; P9047; A4216

== ENCOUNTER 2022-01-17 10:04 | Outpatient (CLI) | payer MEDICARE, MEDICAID, SELFPAY ==
--- NOTE | 2022-01-17 10:09 | US_ITS ---
PROCEDURE: Ultrasound guided paracentesis. DATE OF EXAMINATION: 01/17/2022. INDICATION: Female, 66 years old. Ascites. PHYSICIAN: Mannie Escobedo M.D. TECHNIQUE: The risks, benefits, and alternatives to the procedure were explained to the patient. The specific risks of bleeding, infection, and damage to bowel were detailed and accepted. Witnessed informed consent was obtained. The abdomen was ultrasonographically surveyed. An appropriate pocket of fluid was identified at the right lower quadrant. The skin were cleaned and prepped in the usual sterile fashion. Using ultrasound guidance, the peritoneal cavity was accessed with a 5-Jordanian paracentesis needle/catheter system. The trocar was removed. A total of 5400 ml of camilo-colored fluid were removed from the peritoneal cavity. The catheter was removed and a sterile dressing was applied. The procedure was well tolerated. US/Paracentesis with US IMPRESSION: Ultrasound guided paracentesis. Electronically Signed: Mannie Escobedo MD at 11:26 EDT ,
[2022-01-17 10:35] VITALS: BP 139/62; BP 147/58; PULSE 63; PULSE 65; RESP 16; TEMP 36.6; O2SAT 100
[2022-01-17] MEDS: Lidocaine 2% (20 ml mdv) 20 ML Vial INFILT (10:35)
[2022-01-17 11:18] VITALS: BP 134/59; PULSE 58; RESP 16; TEMP 36.4; O2SAT 99
[2022-01-17] MEDS: Albumin Human 25% (100 mL) 25 GM/100 ML BAG IV (11:33)
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
--- NOTE | 2022-01-23 13:41 | CASEMGMT ---
Social Work (late entry for intervention occurring on 01.17.2022) Referral received from RN CM regarding patient's interest in completing advanced directives. Met with patient in the infusion bay, introducing to self and social work role. RN CM also present for conversation. Patient confirms desire to complete both the power of commercial attorney for health care and living will. Explored patient's understanding of these documents. Patient expresses understanding and desire to complete. POAHC and Living Will completed. Copies made for patient. Copy to medical records, and at patient's request mailing copy to identified power of commercial attorney Chiqui Colon (who lives in [place]). No other services requested or indicated. Supportive listening provided. -SHANNON Jackson, SERVICE COUNTER CASHIER
== END 2022-01-17 23:59 | disposition home or self-care (01) ==
LOC: US 10:08 → MEDOUTP 11:10
PROVIDERS: PCP Internal Medicine; Referring Provider Internal Medicine Gastroenterology; Visit Provider Internal Medicine Gastroenterology
DX: K75.81 Nonalcoholic steatohepatitis (NASH) (principal); K74.60 Unspecified cirrhosis of liver; R18.8 Other ascites
CPT/HCPCS: 49083; 96365; 96366; P9047; A4216

== ENCOUNTER 2022-01-24 08:57 | Outpatient (CLI) | payer MEDICARE, MEDICAID, SELFPAY ==
--- NOTE | 2022-01-24 09:00 | US_ITS ---
PROCEDURE: Ultrasound guided paracentesis. DATE OF EXAMINATION: 01/24/2022. INDICATION: Female, 66 years old. Ascites. PHYSICIAN: Mannie Escobedo M.D. TECHNIQUE: The risks, benefits, and alternatives to the procedure were explained to the patient. The specific risks of bleeding, infection, and damage to bowel were detailed and accepted. Witnessed informed consent was obtained. The abdomen was ultrasonographically surveyed. An appropriate pocket of fluid was identified at the right lower quadrant. The skin were cleaned and prepped in the usual sterile fashion. Using ultrasound guidance, the peritoneal cavity was accessed with a 5-Cymro paracentesis needle/catheter system. The trocar was removed. A total of 7400 ml of camilo-colored fluid were removed from the peritoneal cavity. The catheter was removed and a sterile dressing was applied. The procedure was well tolerated. US/Paracentesis with US IMPRESSION: Ultrasound guided paracentesis. Electronically Signed: Mannie Escobedo MD at 10:32 EDT ,
[2022-01-24] MEDS: Lidocaine 2% (20 ml mdv) 20 ML Vial INFILT (09:44)
[2022-01-24 09:46] VITALS: BP 134/50; BP 135/56; BP 139/57; PULSE 55; PULSE 67; PULSE 95; RESP 16; TEMP 36.6; O2SAT 100; O2SAT 98
[2022-01-24] MEDS: 0.9% Saline Lock 10 ML Syringe IV ×2 (10:13→13:05)
[2022-01-24 10:29] VITALS: BP 126/49; PULSE 63; RESP 16; TEMP 36.3; O2SAT 100; BMI 37.5
[2022-01-24] MEDS: Albumin Human 25% (100 mL) 25 GM/100 ML BAG IV (10:39)
[2022-01-24] MEDS: Albumin Human 25% (50 mL) 12.5 GM/50 ML IV.SOLN IV (12:04)
[2022-01-24 13:10] VITALS: BP 138/59; PULSE 73
== END 2022-01-24 23:59 | disposition home or self-care (01) ==
LOC: US 08:58 → MEDOUTP 10:17
PROVIDERS: PCP Internal Medicine; Referring Provider Internal Medicine Gastroenterology; Visit Provider Internal Medicine Gastroenterology
DX: R18.8 Other ascites (principal); K74.60 Unspecified cirrhosis of liver; K75.81 Nonalcoholic steatohepatitis (NASH)
CPT/HCPCS: 49083; P9047; A4216

== ENCOUNTER 2022-01-29 09:31 | Outpatient (CLI) | payer MEDICARE, MEDICAID, SELFPAY ==
[2022-01-29 11:35] LABS: PTHIN 253.5 pg/mL (18.4-80.1)
[2022-01-29 11:38] LABS: Albumin, Serum 2.8 g/dL (3.2-5.0); BUN 57 mg/dL (7-18); BUN/Creat Ratio 13.6 RATIO (10-20); Calcium,Total 8.4 mg/dL (8.5-10.1); Chloride 113 mmol/L (98-107); EST Glomerular Filtration Rate 11 mL/min (>60); Est Glom Filt Rate - Afr Amer 14 mL/min (>60); Glucose 95 mg/dL (74-106); Phosphorus 5.8 mg/dL (2.5-4.9); Potassium 4.7 mmol/L (3.5-5.1); Sodium Level 138 mmol/L (136-145)
== END 2022-01-29 23:59 | disposition home or self-care (01) ==
PROVIDERS: PCP Internal Medicine; Referring Provider Internal Medicine Nephrology; Visit Provider Internal Medicine Nephrology
DX: N18.5 Chronic kidney disease, stage 5 (principal); N25.81 Secondary hyperparathyroidism of renal origin
CPT/HCPCS: 36415; 80069; 83970

== ENCOUNTER 2022-01-31 10:14 | Outpatient (CLI) | payer MEDICARE, MEDICAID, SELFPAY ==
--- NOTE | 2022-01-31 10:16 | US_ITS ---
PROCEDURE: Ultrasound guided paracentesis. DATE OF EXAMINATION: 01/31/2022. INDICATION: Female, 66 years old. Ascites. PHYSICIAN: Mannie Escobedo M.D. TECHNIQUE: The risks, benefits, and alternatives to the procedure were explained to the patient. The specific risks of bleeding, infection, and damage to bowel were detailed and accepted. Witnessed informed consent was obtained. The abdomen was ultrasonographically surveyed. An appropriate pocket of fluid was identified at the right lower quadrant. The skin were cleaned and prepped in the usual sterile fashion. Using ultrasound guidance, the peritoneal cavity was accessed with a 5-Swedish paracentesis needle/catheter system. The trocar was removed. A total of 6900 ml of camilo-colored fluid were removed from the peritoneal cavity. The catheter was removed and a sterile dressing was applied. The procedure was well tolerated. US/Paracentesis with US IMPRESSION: Ultrasound guided paracentesis. Electronically Signed: Mannie Escobedo MD at 12:51 EDT ,
[2022-01-31 10:45] VITALS: BP 104/53; BP 112/52; BP 113/52; BP 120/54; PULSE 51; PULSE 53; PULSE 57; PULSE 59; RESP 16; RESP 18; TEMP 36.8; O2SAT 100; O2SAT 99
[2022-01-31] MEDS: Lidocaine 2% (20 ml mdv) 20 ML Vial INFILT (10:46)
[2022-01-31] MEDS: Albumin Human 25% (100 mL) 25 GM/100 ML BAG IV (11:55)
[2022-01-31 11:56] VITALS: BP 109/40; PULSE 55; RESP 18; TEMP 35.9; O2SAT 99
[2022-01-31] MEDS: Albumin Human 25% (50 mL) 12.5 GM/50 ML IV.SOLN IV (13:18)
[2022-01-31 14:18] VITALS: BP 119/53; PULSE 63; RESP 18; O2SAT 100
== END 2022-01-31 23:59 | disposition home or self-care (01) ==
LOC: US 10:15 → MEDOUTP 11:26
PROVIDERS: PCP Internal Medicine; Referring Provider Internal Medicine Gastroenterology; Visit Provider Internal Medicine Gastroenterology
DX: K75.81 Nonalcoholic steatohepatitis (NASH) (principal); K74.60 Unspecified cirrhosis of liver; R18.8 Other ascites
CPT/HCPCS: 96365; 96366; 49083; P9047

== ENCOUNTER 2022-02-07 09:51 | Outpatient (CLI) | payer MEDICARE, MEDICAID, SELFPAY ==
--- NOTE | 2022-02-07 09:54 | US_ITS ---
PROCEDURE: Ultrasound guided paracentesis. DATE OF EXAMINATION: 02/07/2022. INDICATION: Female, 66 years old. Ascites. PHYSICIAN: Mannie Escobedo M.D. TECHNIQUE: The risks, benefits, and alternatives to the procedure were explained to the patient. The specific risks of bleeding, infection, and damage to bowel were detailed and accepted. Witnessed informed consent was obtained. The abdomen was ultrasonographically surveyed. An appropriate pocket of fluid was identified at the right lower quadrant. The skin were cleaned and prepped in the usual sterile fashion. Using ultrasound guidance, the peritoneal cavity was accessed with a 5-Surinamese paracentesis needle/catheter system. The trocar was removed. A total of 7500 ml of camilo-colored fluid were removed from the peritoneal cavity. The catheter was removed and a sterile dressing was applied. The procedure was well tolerated. US/Paracentesis with US IMPRESSION: Ultrasound guided paracentesis. Electronically Signed: Mannie Escobedo MD at 11:14 EDT ,
[2022-02-07 10:13] VITALS: BP 105/45; BP 111/35; BP 99/42; PULSE 51; PULSE 55; PULSE 59; RESP 14; RESP 16; TEMP 36.6; O2SAT 100; O2SAT 99
[2022-02-07] MEDS: Lidocaine 2% (20 ml mdv) 20 ML Vial INFILT (10:13)
[2022-02-07 10:59] VITALS: BP 100/58; PULSE 52; RESP 16; TEMP 36.3; O2SAT 98
[2022-02-07] MEDS: Albumin Human 25% (100 mL) 25 GM/100 ML BAG IV ×2 (11:13→12:40)
[2022-02-07 14:29] VITALS: BP 139/53; PULSE 59; RESP 16; TEMP 36.5; O2SAT 98
== END 2022-02-07 23:59 | disposition home or self-care (01) ==
LOC: US 09:52 → MEDOUTP 10:52
PROVIDERS: PCP Internal Medicine; Referring Provider Internal Medicine Gastroenterology; Visit Provider Internal Medicine Gastroenterology
DX: K75.81 Nonalcoholic steatohepatitis (NASH) (principal); K74.60 Unspecified cirrhosis of liver; R18.8 Other ascites
CPT/HCPCS: 96365; 96366 ×3; 49083; P9047

== ENCOUNTER → 2022-02-14 | Outpatient (CLI) | payer MEDICARE, MEDICAID, SELFPAY ==
--- NOTE | 2022-02-14 09:44 | US_ITS ---
PROCEDURE: ULTRASOUND GUIDED PARACENTESIS CLINICAL HISTORY: Female, 66 years old. CIRRHOSIS PROCEDURE: Ultrasound guided paracentesis. PHYSICIAN: Roc Norris MD INFORMED CONSENT: The risks, benefits, and alternatives to the procedure were explained to the patient. The specific risks of bleeding, infection, and damage to bowel were detailed and accepted. Witnessed informed consent was obtained. TECHNIQUES: The abdomen was ultrasonographically surveyed. An appropriate pocket of fluid was identified at the right/left lower quadrant. The skin was cleaned and prepped in the usual sterile fashion. Using ultrasound guidance, the peritoneal cavity was accessed with a 5-Japanese paracentesis needle/catheter system. The trocar was removed. A total of 5600 ml of serous ascitic fluid was removed from the peritoneal cavity. The catheter was removed and a sterile dressing was applied. The procedure was well tolerated. The patient did receive albumin during the procedure. # of Images: 12 US/Paracentesis with US IMPRESSION: Ultrasound guided paracentesis. Electronically Signed: Jr Norris MD at 15:36 EDT ,
[2022-02-14 10:30] VITALS: BP 122/47; BP 144/71; BP 152/59; PULSE 56; PULSE 58; PULSE 61; RESP 18; TEMP 36.6; O2SAT 100
[2022-02-14] MEDS: Lidocaine 2% (20 ml mdv) 20 ML Vial INFILT (11:10)
[2022-02-14 12:01] VITALS: BP 148/45; PULSE 57; RESP 16; TEMP 36.2; O2SAT 100
[2022-02-14] MEDS: Albumin Human 25% (100 mL) 25 GM/100 ML BAG IV (12:36)
[2022-02-14 14:12] VITALS: BP 145/55; PULSE 60; RESP 16; TEMP 36.6; O2SAT 100
== END | disposition home or self-care (01) ==
LOC: US 09:43
PROVIDERS: PCP Internal Medicine; Referring Provider Internal Medicine Gastroenterology; Visit Provider Internal Medicine Gastroenterology
DX: K75.81 Nonalcoholic steatohepatitis (NASH) (principal); K74.60 Unspecified cirrhosis of liver; R18.8 Other ascites
CPT/HCPCS: 96365; 96366; 49083; P9047

== ENCOUNTER → 2022-02-21 | Outpatient (CLI) | payer MEDICARE, MEDICAID, SELFPAY ==
--- NOTE | 2022-02-21 09:49 | US_ITS ---
PROCEDURE: Ultrasound guided paracentesis. DATE OF EXAMINATION: 02/21/2022. INDICATION: Female, 66 years old. Ascites. PHYSICIAN: Mannie Escobedo M.D. TECHNIQUE: The risks, benefits, and alternatives to the procedure were explained to the patient. The specific risks of bleeding, infection, and damage to bowel were detailed and accepted. Witnessed informed consent was obtained. The abdomen was ultrasonographically surveyed. An appropriate pocket of fluid was identified at the right lower quadrant. The skin were cleaned and prepped in the usual sterile fashion. Using ultrasound guidance, the peritoneal cavity was accessed with a 5-Sudanese paracentesis needle/catheter system. The trocar was removed. A total of 5100 ml of camilo-colored fluid were removed from the peritoneal cavity. The catheter was removed and a sterile dressing was applied. The procedure was well tolerated. US/Paracentesis with US IMPRESSION: Ultrasound guided paracentesis. Electronically Signed: Mannie Escobedo MD at 11:56 EDT ,
[2022-02-21] MEDS: Lidocaine 2% (20 ml mdv) 20 ML Vial INFILT (10:30)
[2022-02-21 10:37] VITALS: BP 123/52; BP 131/52; PULSE 53; PULSE 56; RESP 16; TEMP 37.1; O2SAT 100; O2SAT 99
[2022-02-21 11:11] VITALS: BP 136/48; PULSE 66; RESP 16; TEMP 36.2; O2SAT 100
[2022-02-21] MEDS: Albumin Human 25% (100 mL) 25 GM/100 ML BAG IV (11:17)
[2022-02-21 12:58] VITALS: BP 128/71; PULSE 61; RESP 16
== END | disposition home or self-care (01) ==
LOC: US 09:48 → MEDOUTP 11:06
PROVIDERS: PCP Internal Medicine; Referring Provider Internal Medicine Gastroenterology; Visit Provider Internal Medicine Gastroenterology
DX: K75.81 Nonalcoholic steatohepatitis (NASH) (principal); K74.60 Unspecified cirrhosis of liver; R18.8 Other ascites
CPT/HCPCS: 96365; 96366; 49083; P9047

== ENCOUNTER → 2022-02-28 | Outpatient (CLI) | payer MEDICARE, MEDICAID, SELFPAY ==
--- NOTE | 2022-02-28 10:15 | US_ITS ---
PROCEDURE: Ultrasound guided paracentesis. DATE OF EXAMINATION: 02/28/2022. INDICATION: Female, 66 years old. Ascites. PHYSICIAN: Mannie Escobedo M.D. TECHNIQUE: The risks, benefits, and alternatives to the procedure were explained to the patient. The specific risks of bleeding, infection, and damage to bowel were detailed and accepted. Witnessed informed consent was obtained. The abdomen was ultrasonographically surveyed. An appropriate pocket of fluid was identified at the right lower quadrant. The skin were cleaned and prepped in the usual sterile fashion. Using ultrasound guidance, the peritoneal cavity was accessed with a 5-Lithuanian paracentesis needle/catheter system. The trocar was removed. A total of 4800 ml of camilo-colored fluid were removed from the peritoneal cavity. The catheter was removed and a sterile dressing was applied. The procedure was well tolerated. US/Paracentesis with US IMPRESSION: Ultrasound guided paracentesis. Electronically Signed: Mannie Escobedo MD at 12:24 EDT ,
[2022-02-28] MEDS: Lidocaine 2% (20 ml mdv) 20 ML Vial INFILT (10:41)
[2022-02-28 10:42] VITALS: BP 88/37; BP 96/41; PULSE 51; PULSE 54; RESP 16; TEMP 37.1; O2SAT 100; O2SAT 99
--- NOTE | 2022-02-28 11:11 | NURSING ---
DEEPAK, VEHICLE CONTROLS ENGINEER, AWARE NO NEED FOR ALBUMIN TODAY. PATIENT TO LAB BY [facility], ESCORTED BY THIS RN.
== END | disposition home or self-care (01) ==
PROVIDERS: PCP Internal Medicine; Referring Provider Internal Medicine Gastroenterology; Visit Provider Internal Medicine Gastroenterology
DX: K74.60 Unspecified cirrhosis of liver (principal); K75.81 Nonalcoholic steatohepatitis (NASH); R18.8 Other ascites
CPT/HCPCS: 49083

== ENCOUNTER → 2022-03-05 | Outpatient (CLI) | payer MEDICARE, MEDICAID, SELFPAY ==
[2022-03-05 12:53] LABS: BUN 56 mg/dL (7-18); BUN/Creat Ratio 13.4 RATIO (10-20); Calcium,Total 8.8 mg/dL (8.5-10.1); Chloride 112 mmol/L (98-107); Creatinine, Serum 4.18 mg/dL (0.55-1.02); EST Glomerular Filtration Rate 11 mL/min (>60); Est Glom Filt Rate - Afr Amer 14 mL/min (>60); Glucose 100 mg/dL (74-106); Potassium 4.4 mmol/L (3.5-5.1); Sodium Level 138 mmol/L (136-145)
[2022-03-05 12:58] LABS: PTHIN 264.8 pg/mL (18.4-80.1)
== END | disposition home or self-care (01) ==
LOC: POLAB3 09:19
PROVIDERS: PCP Internal Medicine; Visit Provider Internal Medicine Nephrology
DX: N18.5 Chronic kidney disease, stage 5 (principal); N25.81 Secondary hyperparathyroidism of renal origin
CPT/HCPCS: 36415; 80069; 83970

== ENCOUNTER → 2022-03-07 | Outpatient (CLI) | payer MEDICARE, MEDICAID, SELFPAY ==
--- NOTE | 2022-03-07 10:32 | US_ITS ---
PROCEDURE: Ultrasound guided paracentesis. DATE OF EXAMINATION: 03/07/2022. INDICATION: Female, 66 years old. Ascites. PHYSICIAN: Mannie Escobedo M.D. TECHNIQUE: The risks, benefits, and alternatives to the procedure were explained to the patient. The specific risks of bleeding, infection, and damage to bowel were detailed and accepted. Witnessed informed consent was obtained. The abdomen was ultrasonographically surveyed. An appropriate pocket of fluid was identified at the right lower quadrant. The skin were cleaned and prepped in the usual sterile fashion. Using ultrasound guidance, the peritoneal cavity was accessed with a 5-Montserratian paracentesis needle/catheter system. The trocar was removed. A total of 3600 ml of camilo-colored fluid were removed from the peritoneal cavity. The catheter was removed and a sterile dressing was applied. The procedure was well tolerated. US/Paracentesis with US IMPRESSION: Ultrasound guided paracentesis. Electronically Signed: Mannie Escobedo MD at 12:07 EDT ,
[2022-03-07 10:49] VITALS: BP 133/108; BP 134/47; BP 138/62; PULSE 58; PULSE 62; PULSE 63; RESP 16; RESP 18; RESP 20; TEMP 36.9; O2SAT 100; O2SAT 98; O2SAT 99
[2022-03-07] MEDS: Lidocaine 2% (20 ml mdv) 20 ML Vial INFILT (10:49)
== END | disposition home or self-care (01) ==
PROVIDERS: PCP Internal Medicine; Referring Provider Internal Medicine Gastroenterology; Visit Provider Internal Medicine Gastroenterology
DX: K75.81 Nonalcoholic steatohepatitis (NASH) (principal); K74.60 Unspecified cirrhosis of liver; R18.8 Other ascites
CPT/HCPCS: 49083

== ENCOUNTER → 2022-03-14 | Outpatient (CLI) | payer MEDICARE, MEDICAID, SELFPAY ==
--- NOTE | 2022-03-14 10:06 | US_ITS ---
PROCEDURE: Ultrasound guided paracentesis. DATE OF EXAMINATION: 03/14/2022. INDICATION: Female, 66 years old. Ascites. PHYSICIAN: Mannie Escobedo M.D. TECHNIQUE: The risks, benefits, and alternatives to the procedure were explained to the patient. The specific risks of bleeding, infection, and damage to bowel were detailed and accepted. Witnessed informed consent was obtained. The abdomen was ultrasonographically surveyed. An appropriate pocket of fluid was identified at the right lower quadrant. The skin were cleaned and prepped in the usual sterile fashion. Using ultrasound guidance, the peritoneal cavity was accessed with a 5-Palauan paracentesis needle/catheter system. The trocar was removed. A total of 4800 ml of camilo-colored fluid were removed from the peritoneal cavity. The catheter was removed and a sterile dressing was applied. The procedure was well tolerated. US/Paracentesis with US IMPRESSION: Ultrasound guided paracentesis. Electronically Signed: Mannie Escobedo MD at 12:00 EDT ,
[2022-03-14 10:30] VITALS: BP 109/56; BP 110/46; PULSE 51; PULSE 52; PULSE 76; RESP 14; RESP 16; TEMP 37.1; O2SAT 100; O2SAT 99
[2022-03-14] MEDS: Lidocaine 2% (20 ml mdv) 20 ML Vial INFILT (10:45)
== END | disposition home or self-care (01) ==
PROVIDERS: PCP Internal Medicine; Referring Provider Internal Medicine Gastroenterology; Visit Provider Internal Medicine Gastroenterology
DX: K75.81 Nonalcoholic steatohepatitis (NASH) (principal); K74.60 Unspecified cirrhosis of liver; R18.8 Other ascites
CPT/HCPCS: 49083; A4216

== ENCOUNTER → 2022-03-21 | Outpatient (CLI) | payer MEDICARE, MEDICAID, SELFPAY ==
--- NOTE | 2022-03-21 09:42 | US_ITS ---
PROCEDURE: ULTRASOUND GUIDED PARACENTESIS CLINICAL HISTORY: Female, 66 years old. CIRRHOSIS CONSENT: PROCEDURE: Ultrasound guided paracentesis. DATE OF EXAMINATION: 03/21/2022. INDICATION: Female, 66 years old. Ascites. PHYSICIAN: Dr. Johnathan Elizabeth TECHNIQUE: The risks, benefits, and alternatives to the procedure were explained to the patient. The specific risks of bleeding, infection, and damage to bowel were detailed and accepted. Witnessed informed consent was obtained. The abdomen was ultrasonographically surveyed. An appropriate pocket of fluid was identified at the right lower quadrant. The skin were cleaned and prepped in the usual sterile fashion. Using ultrasound guidance, the peritoneal cavity was accessed with a 5-Japanese paracentesis needle/catheter system. The trocar was removed. A total of 5500 ml of clear yellow ascites fluid were removed from the peritoneal cavity and discarded. The catheter was removed and a sterile dressing was applied. The procedure was well tolerated. The patient was discharged home in stable condition. US/Paracentesis with US IMPRESSION: Ultrasound guided therapeutic paracentesis with approximately 5500 cc of clear yellow ascites fluid aspirated and discarded. Electronically Signed: Johnathan Elizabeth, at 13:07 EDT ,
[2022-03-21 10:19] VITALS: BP 119/41; BP 123/60; BP 134/63; PULSE 75; PULSE 86; RESP 16; RESP 18; TEMP 36.6; O2SAT 100
[2022-03-21] MEDS: Lidocaine 2% (20 ml mdv) 20 ML Vial INFILT (10:31)
[2022-03-21] MEDS: 0.9% Saline Lock 10 ML Syringe IV ×2 (10:59→12:25)
[2022-03-21] MEDS: Albumin Human 25% (100 mL) 25 GM/100 ML BAG IV (12:07)
[2022-03-21] MEDS: Albumin Human 25% (50 mL) 12.5 GM/50 ML IV.SOLN IV (13:48)
[2022-03-21 14:35] VITALS: BP 142/67; PULSE 82; RESP 16; O2SAT 100
== END | disposition home or self-care (01) ==
LOC: US 09:40 → MEDOUTP 11:08
PROVIDERS: PCP Internal Medicine; Referring Provider Internal Medicine Gastroenterology; Visit Provider Internal Medicine Gastroenterology
DX: K75.81 Nonalcoholic steatohepatitis (NASH) (principal); K74.60 Unspecified cirrhosis of liver; R18.8 Other ascites
CPT/HCPCS: 96365; 96366; 49083; P9047; A4216

== ENCOUNTER → 2022-03-28 | Outpatient (CLI) | payer MEDICARE, MEDICAID, SELFPAY ==
--- NOTE | 2022-03-28 10:13 | US_ITS ---
PROCEDURE: Ultrasound guided paracentesis. DATE OF EXAMINATION: 03/28/2022. INDICATION: Female, 66 years old. Ascites. PHYSICIAN: Mannie Escobedo M.D. TECHNIQUE: The risks, benefits, and alternatives to the procedure were explained to the patient. The specific risks of bleeding, infection, and damage to bowel were detailed and accepted. Witnessed informed consent was obtained. The abdomen was ultrasonographically surveyed. An appropriate pocket of fluid was identified at the right lower quadrant. The skin were cleaned and prepped in the usual sterile fashion. Using ultrasound guidance, the peritoneal cavity was accessed with a 5-English paracentesis needle/catheter system. The trocar was removed. A total of 5250 ml of camilo-colored fluid were removed from the peritoneal cavity. The catheter was removed and a sterile dressing was applied. The procedure was well tolerated. US/Paracentesis with US IMPRESSION: Ultrasound guided paracentesis. Electronically Signed: Mannie Escobedo MD at 11:49 EDT ,
[2022-03-28 10:39] VITALS: BP 106/44; BP 113/51; BP 120/51; BP 127/77; PULSE 59; PULSE 63; PULSE 74; PULSE 83; RESP 16; RESP 18; TEMP 36.9; O2SAT 100
[2022-03-28] MEDS: Lidocaine 2% (20 ml mdv) 20 ML Vial INFILT (10:40)
[2022-03-28] MEDS: 0.9% Saline Lock 10 ML Syringe IV ×2 (11:11→14:18)
[2022-03-28 11:22] VITALS: BP 110/47; PULSE 77; RESP 16; TEMP 36.7; O2SAT 100
[2022-03-28] MEDS: Albumin Human 25% (100 mL) 25 GM/100 ML BAG IV (11:46)
[2022-03-28] MEDS: Albumin Human 25% (50 mL) 12.5 GM/50 ML IV.SOLN IV (13:13)
[2022-03-28 14:19] VITALS: BP 119/50; PULSE 64; RESP 16; TEMP 36.6; O2SAT 100
== END | disposition home or self-care (01) ==
LOC: US 10:11 → MEDOUTP 11:18
PROVIDERS: PCP Internal Medicine; Referring Provider Internal Medicine Gastroenterology; Visit Provider Internal Medicine Gastroenterology
DX: K57.81 Diverticulitis of intestine, part unspecified, with perforation and abscess with bleeding (principal); K74.60 Unspecified cirrhosis of liver; R18.8 Other ascites
CPT/HCPCS: 96365; 96366; 49083; P9047; A4216

== ENCOUNTER → 2022-04-04 | Outpatient (CLI) | payer MEDICARE, MEDICAID, SELFPAY ==
--- NOTE | 2022-04-04 10:12 | US_ITS ---
PROCEDURE: Ultrasound guided paracentesis. DATE OF EXAMINATION: 04/04/2022. INDICATION: Female, 66 years old. Ascites. PHYSICIAN: Johnathan Elizabeth M.D. TECHNIQUE: The risks, benefits, and alternatives to the procedure were explained to the patient. The specific risks of bleeding, infection, and damage to bowel were detailed and accepted. Witnessed informed consent was obtained. The abdomen was ultrasonographically surveyed. An appropriate pocket of fluid was identified at the right lower quadrant. The skin were cleaned and prepped in the usual sterile fashion. Using ultrasound guidance, the peritoneal cavity was accessed with a 5-Albanian paracentesis needle/catheter system. The trocar was removed. A total of 4450 ml of clear straw-colored ascites fluid were removed from the peritoneal cavity and discarded. The catheter was removed and a sterile dressing was applied. The procedure was well tolerated. There were no complications. The patient was discharged in stable condition. US/Paracentesis with US IMPRESSION: Ultrasound guided therapeutic paracentesis. Electronically Signed: Johnathan Elizabeth, at 12:57 EDT ,
[2022-04-04 10:45] VITALS: BP 142/61; BP 153/53; BP 165/72; BP 179/72; PULSE 58; PULSE 59; PULSE 61; PULSE 62; RESP 16; RESP 18; TEMP 36.6; O2SAT 100
[2022-04-04] MEDS: Lidocaine 2% (20 ml mdv) 20 ML Vial INFILT (11:03)
[2022-04-04 13:03] LABS: BUN 71 mg/dL (7-18); BUN/Creat Ratio 18.9 RATIO (10-20); Calcium,Total 8.8 mg/dL (8.5-10.1); Chloride 115 mmol/L (98-107); Creatinine, Serum 3.75 mg/dL (0.55-1.02); EST Glomerular Filtration Rate 13 mL/min (>60); Est Glom Filt Rate - Afr Amer 16 mL/min (>60); Glucose 94 mg/dL (74-106); Phosphorus 4.4 mg/dL (2.5-4.9); Potassium 4.4 mmol/L (3.5-5.1); Sodium Level 140 mmol/L (136-145)
[2022-04-04 13:15] LABS: PTHIN 148.7 pg/mL (18.4-80.1)
== END | disposition home or self-care (01) ==
PROVIDERS: PCP Internal Medicine; Referring Provider Internal Medicine Gastroenterology; Visit Provider Internal Medicine Gastroenterology
DX: K75.81 Nonalcoholic steatohepatitis (NASH) (principal); K74.60 Unspecified cirrhosis of liver; R18.8 Other ascites
CPT/HCPCS: 49083; 36415; 80069; 83970

== ENCOUNTER → 2022-04-11 | Outpatient (CLI) | payer MEDICARE, MEDICAID, SELFPAY ==
--- NOTE | 2022-04-11 10:09 | US_ITS ---
PROCEDURE: Ultrasound guided paracentesis. DATE OF EXAMINATION: 04/11/2022. INDICATION: Female, 66 years old. Ascites. PHYSICIAN: Mannie Escobedo M.D. TECHNIQUE: The risks, benefits, and alternatives to the procedure were explained to the patient. The specific risks of bleeding, infection, and damage to bowel were detailed and accepted. Witnessed informed consent was obtained. The abdomen was ultrasonographically surveyed. An appropriate pocket of fluid was identified at the right lower quadrant. The skin were cleaned and prepped in the usual sterile fashion. Using ultrasound guidance, the peritoneal cavity was accessed with a 5-Honduran paracentesis needle/catheter system. The trocar was removed. A total of 5900 ml of camilo-colored fluid were removed from the peritoneal cavity. The catheter was removed and a sterile dressing was applied. The procedure was well tolerated. US/Paracentesis with US IMPRESSION: Ultrasound guided paracentesis. Electronically Signed: Mannie Escobedo MD at 11:25 EDT ,
[2022-04-11] MEDS: Lidocaine 2% (20 ml mdv) 20 ML Vial INFILT (10:36)
[2022-04-11 10:46] VITALS: BP 112/49; BP 113/51; BP 133/58; PULSE 56; PULSE 57; PULSE 66; RESP 16; O2SAT 100
[2022-04-11 11:20] VITALS: BP 102/25; PULSE 63; RESP 16; TEMP 36.4; O2SAT 100
[2022-04-11] MEDS: Albumin Human 25% (100 mL) 25 GM/100 ML BAG IV (11:25)
[2022-04-11] MEDS: Albumin Human 25% (50 mL) 12.5 GM/50 ML IV.SOLN IV (12:46)
[2022-04-11 13:46] VITALS: BP 124/53; PULSE 62; RESP 16; TEMP 36.1; O2SAT 100
== END | disposition home or self-care (01) ==
LOC: US 10:08 → MEDOUTP 11:18
PROVIDERS: PCP Internal Medicine; Referring Provider Internal Medicine Gastroenterology; Visit Provider Internal Medicine Gastroenterology
DX: K75.81 Nonalcoholic steatohepatitis (NASH) (principal); K74.60 Unspecified cirrhosis of liver; R18.8 Other ascites
CPT/HCPCS: 96365; 96366; 49083; P9047

== ENCOUNTER → 2022-04-18 | Outpatient (CLI) | payer MEDICARE, MEDICAID, SELFPAY ==
--- NOTE | 2022-04-18 10:03 | US_ITS ---
PROCEDURE: Ultrasound guided paracentesis. DATE OF EXAMINATION: 04/18/2022. INDICATION: Female, 66 years old. Ascites. PHYSICIAN: Johnathan Elizabeth D.O. TECHNIQUE: The risks, benefits, and alternatives to the procedure were explained to the patient. The specific risks of bleeding, infection, and damage to bowel were detailed and accepted. Witnessed informed consent was obtained. The abdomen was ultrasonographically surveyed. An appropriate pocket of fluid was identified at the right lower quadrant. The skin were cleaned and prepped in the usual sterile fashion. Using ultrasound guidance, the peritoneal cavity was accessed with a 5-Pashto paracentesis needle/catheter system. The trocar was removed. A total of 4350 ml of clear straw-colored ascites fluid were removed from the peritoneal cavity and discarded. The catheter was removed and a sterile dressing was applied. The procedure was well tolerated. There were no complications. The patient was discharged in stable condition. US/Paracentesis with US IMPRESSION: Ultrasound guided therapeutic paracentesis. Electronically Signed: Johnathan Elizabeth, at 11:41 EDT ,
[2022-04-18 10:17] VITALS: BP 118/55; BP 119/60; PULSE 57; PULSE 64; RESP 18; TEMP 36.6; O2SAT 100; O2SAT 99
[2022-04-18] MEDS: Lidocaine 2% (20 ml mdv) 20 ML Vial (10:55)
== END | disposition home or self-care (01) ==
PROVIDERS: PCP Internal Medicine; Referring Provider Internal Medicine Gastroenterology; Visit Provider Internal Medicine Gastroenterology
DX: K75.81 Nonalcoholic steatohepatitis (NASH) (principal); K74.60 Unspecified cirrhosis of liver; R18.8 Other ascites
CPT/HCPCS: 49083; A4216

== ENCOUNTER → 2022-04-25 | Outpatient (CLI) | payer MEDICARE, MEDICAID, SELFPAY ==
--- NOTE | 2022-04-25 10:10 | US_ITS ---
PROCEDURE: Ultrasound guided paracentesis. DATE OF EXAMINATION: 04/25/2022. INDICATION: Female, 66 years old. Ascites. PHYSICIAN: Mannie Escobedo M.D. TECHNIQUE: The risks, benefits, and alternatives to the procedure were explained to the patient. The specific risks of bleeding, infection, and damage to bowel were detailed and accepted. Witnessed informed consent was obtained. The abdomen was ultrasonographically surveyed. An appropriate pocket of fluid was identified at the right lower quadrant. The skin were cleaned and prepped in the usual sterile fashion. Using ultrasound guidance, the peritoneal cavity was accessed with a 5-Nigerien paracentesis needle/catheter system. The trocar was removed. A total of 4500 ml of camilo-colored fluid were removed from the peritoneal cavity. The catheter was removed and a sterile dressing was applied. The procedure was well tolerated. US/Paracentesis with US IMPRESSION: Ultrasound guided paracentesis. Electronically Signed: Mannie Escobedo MD at 11:52 EDT ,
[2022-04-25 10:28] VITALS: BP 110/52; BP 125/57; PULSE 51; PULSE 53; RESP 18; O2SAT 100
[2022-04-25] MEDS: Lidocaine 2% (20 ml mdv) 20 ML Vial INFILT (10:50)
== END | disposition home or self-care (01) ==
PROVIDERS: PCP Internal Medicine; Referring Provider Internal Medicine Gastroenterology; Visit Provider Internal Medicine Gastroenterology
DX: R18.8 Other ascites (principal); K74.60 Unspecified cirrhosis of liver; K75.81 Nonalcoholic steatohepatitis (NASH)
CPT/HCPCS: 49083

== ENCOUNTER → 2022-05-02 | Outpatient (CLI) | payer MEDICARE, MEDICAID, SELFPAY ==
--- NOTE | 2022-05-02 10:07 | US_ITS ---
PROCEDURE: Ultrasound guided paracentesis. DATE OF EXAMINATION: 05/02/2022. INDICATION: Female, 66 years old. Ascites. PHYSICIAN: Mannie Escobedo M.D. TECHNIQUE: The risks, benefits, and alternatives to the procedure were explained to the patient. The specific risks of bleeding, infection, and damage to bowel were detailed and accepted. Witnessed informed consent was obtained. The abdomen was ultrasonographically surveyed. An appropriate pocket of fluid was identified at the right lower quadrant. The skin were cleaned and prepped in the usual sterile fashion. Using ultrasound guidance, the peritoneal cavity was accessed with a 5-Hong Konger paracentesis needle/catheter system. The trocar was removed. A total of 5950 ml of camilo-colored fluid were removed from the peritoneal cavity. The catheter was removed and a sterile dressing was applied. The procedure was well tolerated. US/Paracentesis with US IMPRESSION: Ultrasound guided paracentesis. Electronically Signed: Mannie Escobedo MD at 11:53 EDT ,
[2022-05-02 10:39] VITALS: BP 133/82; BP 140/76; BP 153/76; PULSE 73; PULSE 78; PULSE 79; RESP 16; TEMP 36.8; O2SAT 100
[2022-05-02] MEDS: Lidocaine 2% (5ml sdv) 5 ML VIAL.MPF INFILT (10:40)
[2022-05-02 11:19] VITALS: BP 151/84; RESP 16; TEMP 36.3; O2SAT 100; BMI 33.3
[2022-05-02] MEDS: Albumin Human 25% (100 mL) 25 GM/100 ML BAG IV (11:41)
[2022-05-02] MEDS: Albumin Human 25% (50 mL) 12.5 GM/50 ML IV.SOLN IV (13:10)
[2022-05-02 14:15] VITALS: BP 129/77; PULSE 70; RESP 16; TEMP 36.3; O2SAT 97
== END | disposition home or self-care (01) ==
LOC: US 10:56 → MEDOUTP 11:16
PROVIDERS: PCP Internal Medicine; Referring Provider Internal Medicine Gastroenterology; Visit Provider Internal Medicine Gastroenterology
DX: R18.8 Other ascites (principal); K74.60 Unspecified cirrhosis of liver; K75.81 Nonalcoholic steatohepatitis (NASH)
CPT/HCPCS: 96365; 96366; 49083; P9047; A4216

== ENCOUNTER → 2022-05-09 | Outpatient (CLI) | payer MEDICARE, MEDICAID, SELFPAY ==
--- NOTE | 2022-05-09 10:06 | US_ITS ---
PROCEDURE: Ultrasound guided paracentesis. DATE OF EXAMINATION: 05/09/2022. INDICATION: Female, 66 years old. Ascites. PHYSICIAN: Mannie Escobedo M.D. TECHNIQUE: The risks, benefits, and alternatives to the procedure were explained to the patient. The specific risks of bleeding, infection, and damage to bowel were detailed and accepted. Witnessed informed consent was obtained. The abdomen was ultrasonographically surveyed. An appropriate pocket of fluid was identified at the right lower quadrant. The skin were cleaned and prepped in the usual sterile fashion. Using ultrasound guidance, the peritoneal cavity was accessed with a 5-South Korean paracentesis needle/catheter system. The trocar was removed. A total of 7050 ml of camilo-colored fluid were removed from the peritoneal cavity. The catheter was removed and a sterile dressing was applied. The procedure was well tolerated. US/Paracentesis with US IMPRESSION: Ultrasound guided paracentesis. Electronically Signed: Mannie Escobedo MD at 11:49 EDT ,
[2022-05-09 10:19] VITALS: BP 110/44; BP 123/60; BP 131/42; BP 136/69; PULSE 60; PULSE 62; PULSE 74; RESP 18; TEMP 36.9; TEMP 37.1; O2SAT 100; O2SAT 99
[2022-05-09] MEDS: Lidocaine 2% (5ml sdv) 5 ML VIAL.MPF INFILT (10:30)
[2022-05-09] MEDS: Albumin Human 25% (100 mL) 25 GM/100 ML BAG IV (11:32)
[2022-05-09] MEDS: Albumin Human 25% (50 mL) 12.5 GM/50 ML IV.SOLN IV (13:01)
[2022-05-09 14:03] VITALS: BP 121/48; PULSE 63; RESP 16; O2SAT 100
== END | disposition home or self-care (01) ==
LOC: US 10:13 → MEDOUTP 11:03
PROVIDERS: PCP Internal Medicine; Referring Provider Internal Medicine Gastroenterology; Visit Provider Internal Medicine Gastroenterology
DX: R18.8 Other ascites (principal); K74.60 Unspecified cirrhosis of liver; K75.81 Nonalcoholic steatohepatitis (NASH)
CPT/HCPCS: 96365; 96366; 49083; P9047

== ENCOUNTER → 2022-05-16 | Outpatient (CLI) | payer MEDICARE, MEDICAID, SELFPAY ==
--- NOTE | 2022-05-16 09:58 | US_ITS ---
PROCEDURE: Ultrasound guided paracentesis. DATE OF EXAMINATION: 05/16/2022. INDICATION: Female, 66 years old. Ascites. PHYSICIAN: Mannie Escobedo M.D. TECHNIQUE: The risks, benefits, and alternatives to the procedure were explained to the patient. The specific risks of bleeding, infection, and damage to bowel were detailed and accepted. Witnessed informed consent was obtained. The abdomen was ultrasonographically surveyed. An appropriate pocket of fluid was identified at the right lower quadrant. The skin were cleaned and prepped in the usual sterile fashion. Using ultrasound guidance, the peritoneal cavity was accessed with a 5-Beninese paracentesis needle/catheter system. The trocar was removed. A total of 7000 ml of camilo-colored fluid were removed from the peritoneal cavity. The catheter was removed and a sterile dressing was applied. The procedure was well tolerated. US/Paracentesis with US IMPRESSION: Ultrasound guided paracentesis. Electronically Signed: Mannie Escobedo MD at 13:28 EDT ,
[2022-05-16 10:30] VITALS: BP 131/61; BP 131/63; BP 131/68; PULSE 77; PULSE 82; PULSE 85; RESP 14; RESP 16; RESP 18; TEMP 36.7; O2SAT 100
[2022-05-16] MEDS: Lidocaine 2% (10 ml mdv) 10 ML Vial (10:30)
[2022-05-16] MEDS: Albumin Human 25% (100 mL) 25 GM/100 ML BAG IV (11:24)
[2022-05-16] MEDS: Albumin Human 25% (50 mL) 12.5 GM/50 ML IV.SOLN IV (12:55)
[2022-05-16 13:54] VITALS: BP 122/55; PULSE 79; O2SAT 100
== END | disposition home or self-care (01) ==
LOC: US 09:57 → MEDOUTP 11:16
PROVIDERS: PCP Internal Medicine; Referring Provider Internal Medicine Gastroenterology; Visit Provider Internal Medicine Gastroenterology
DX: R18.8 Other ascites (principal); K74.60 Unspecified cirrhosis of liver; K75.81 Nonalcoholic steatohepatitis (NASH)
CPT/HCPCS: 96365; 49083; J7050; P9047; A4216

== ENCOUNTER → 2022-05-23 | Outpatient (CLI) | payer MEDICARE, MEDICAID, SELFPAY ==
--- NOTE | 2022-05-23 10:09 | US_ITS ---
PROCEDURE: Ultrasound guided paracentesis. DATE OF EXAMINATION: 05/23/2022.. INDICATION: Female, 66 years old. Ascites. PHYSICIAN: Mannie Escobedo M.D. TECHNIQUE: The risks, benefits, and alternatives to the procedure were explained to the patient. The specific risks of bleeding, infection, and damage to bowel were detailed and accepted. Witnessed informed consent was obtained. The abdomen was ultrasonographically surveyed. An appropriate pocket of fluid was identified at the right lower quadrant. The skin were cleaned and prepped in the usual sterile fashion. Using ultrasound guidance, the peritoneal cavity was accessed with a 5-Upper Sorbian paracentesis needle/catheter system. The trocar was removed. A total of 7000 ml of camilo-colored fluid were removed from the peritoneal cavity. The catheter was removed and a sterile dressing was applied. The procedure was well tolerated. US/Paracentesis with US IMPRESSION: Ultrasound guided paracentesis. Electronically Signed: Mannie Escobedo MD at 12:12 EDT ,
[2022-05-23 10:39] VITALS: BP 124/67; BP 124/82; BP 131/113; BP 131/59; PULSE 68; PULSE 81; PULSE 91; RESP 16; TEMP 36.6; O2SAT 100; O2SAT 98
[2022-05-23] MEDS: Lidocaine 2% (10 ml mdv) 10 ML Vial INFILT (10:39)
[2022-05-23 11:26] VITALS: BMI 35.3
[2022-05-23] MEDS: 0.9% NaCl Peripheral Flush Adult/Peds IV (11:37)
[2022-05-23] MEDS: Albumin Human 25% (50 mL) 12.5 GM/50 ML IV.SOLN IV (11:37)
[2022-05-23] MEDS: Albumin Human 25% (100 mL) 25 GM/100 ML BAG IV (13:02)
[2022-05-23 14:04] VITALS: BP 119/49; PULSE 86; RESP 16; TEMP 35.7; O2SAT 100
== END | disposition home or self-care (01) ==
LOC: US 10:08 → MEDOUTP 11:23
PROVIDERS: PCP Internal Medicine; Referring Provider Internal Medicine Gastroenterology; Visit Provider Internal Medicine Gastroenterology
DX: K75.81 Nonalcoholic steatohepatitis (NASH) (principal); K74.60 Unspecified cirrhosis of liver; R18.8 Other ascites
CPT/HCPCS: 96365; 96366; 49083; P9047; A4216

== ENCOUNTER → 2022-05-30 | Outpatient (CLI) | payer MEDICARE, MEDICAID, SELFPAY ==
--- NOTE | 2022-05-30 10:10 | US_ITS ---
PROCEDURE: ULTRASOUND GUIDED PARACENTESIS CLINICAL HISTORY: Female, 66 years old. CIRRHOSIS CONSENT: Time-Out Called: Yes. Consent form signed: Yes. PT-PTT Levels Checked: Yes. PROCEDURE: Ultrasound guided paracentesis. INDICATION: Female, 66 years old. CIRRHOSIS PHYSICIAN: Roc Norris MD INFORMED CONSENT: The risks, benefits, and alternatives to the procedure were explained to the patient. The specific risks of bleeding, infection, and damage to bowel were detailed and accepted. Witnessed informed consent was obtained. TECHNIQUES: The abdomen was ultrasonographically surveyed. An appropriate pocket of fluid was identified at the right/left lower quadrant. The skin was cleaned and prepped in the usual sterile fashion. Using ultrasound guidance, the peritoneal cavity was accessed with a 5-Mauritian paracentesis needle/catheter system. The trocar was removed. A total of 5350 ml of straw-colored ascitic fluid was removed from the peritoneal cavity. The catheter was removed and a sterile dressing was applied. The procedure was well tolerated. The patient did receive albumin during the procedure. # of Images: 11 US/Paracentesis with US IMPRESSION: Ultrasound guided paracentesis. Electronically Signed: Jr Norris MD at 13:02 EDT ,
[2022-05-30] MEDS: Lidocaine 2% (10 ml mdv) 10 ML Vial INFILT (10:42)
[2022-05-30 10:49] VITALS: BP 121/55; BP 131/61; PULSE 53; PULSE 56; RESP 16; TEMP 36.5; O2SAT 100; O2SAT 98
[2022-05-30 11:01] VITALS: BP 111/51; BP 125/68; PULSE 54; PULSE 56; RESP 18; O2SAT 100
[2022-05-30] MEDS: Albumin Human 25% (100 mL) 25 GM/100 ML BAG IV (11:47)
[2022-05-30 12:17] LABS: International Normalized Ratio 1.2; Prothrombin Time (Protime)PT. 14.9 SECONDS (11.7-14.9)
[2022-05-30 12:22] LABS: AST(SGOT) 20 U/L (15-37); Alanine Aminotransfer ALT/SGPT 17 U/L (13-56); Albumin, Serum 2.7 g/dL (3.2-5.0); Alkaline Phosphatase 74 U/L (45-117); Anion Gap 9 (5-15); BUN 68 mg/dL (7-18); BUN/Creat Ratio 16.7 RATIO (10-20); CRP < 2.90 mg/L (0.0-3.0); Calcium,Total 8.1 mg/dL (8.5-10.1); Chloride 117 mmol/L (98-107); Creatinine, Serum 4.08 mg/dL (0.55-1.02); EST Glomerular Filtration Rate 12 mL/min (>60); Est Glom Filt Rate - Afr Amer 14 mL/min (>60); Globulin 2.6 g/dL (2.2-4.2); Glucose 95 mg/dL (74-106); LDH 174 U/L (84-246); Potassium 4.4 mmol/L (3.5-5.1); Protein, Total 5.3 g/dL (6.4-8.2); Sodium Level 141 mmol/L (136-145)
[2022-05-30 13:46] VITALS: BP 130/63; PULSE 60; O2SAT 100
== END | disposition home or self-care (01) ==
LOC: US 10:08
PROVIDERS: PCP Internal Medicine; Referring Provider Internal Medicine Gastroenterology; Visit Provider Internal Medicine Gastroenterology
DX: K74.60 Unspecified cirrhosis of liver (principal); K75.81 Nonalcoholic steatohepatitis (NASH); R18.8 Other ascites
CPT/HCPCS: 96365; 96366; 49083; 80053; 82140; 83615; 85610; 86140; P9047

== ENCOUNTER → 2022-06-04 | Outpatient (CLI) | payer MEDICARE, MEDICAID, SELFPAY ==
[2022-06-04 10:19] LABS: Absolute Lymphocyte Count 0.55 X10^3/uL (0.83-4.51); Absolute Neutrophil Count 1.8 X10^3/uL (2.0-7.7); Basophil# 0.03 X10^3/uL; Eosinophil# 0.38 X10^3/uL; Eosinophils% 12.3 % (0-5); Hematocrit 30.9 % (37-47); Hemoglobin 9.6 g/dL (12.0-15.0); Lymphocyte # 0.55 X10^3/ul (0.83-4.51); Lymphocyte % 17.9 % (19-41); Mean Corp Hgb Conc 31.1 g/dL (32-36); Mean Corpuscular Hgb 30.2 pg (27.0-32.0); Mean Corpuscular Volume 97.2 fL (81-99); Mean Platelet Vol. 11.7 fl (6.2-12.0); Monocyte# 0.35 X10^3/uL; Monocyte% 11.4 % (0-10); NRBC Flagged by Analyzer 0 % (0-5); Neutrophil # 1.76 X10^3/uL (2.7-7.7); Neutrophil % 57.1 % (47-70); POSITIVE DIFFERENTIAL YES; Platelet Count 114 K/mm3 (150-450); RBC Distribution Width CV 15.1 % (11.6-14.6); Red Blood Count 3.18 M/mm3 (4.2-5.4); White Blood Count 3.1 K/mm3 (4.4-11.0)
[2022-06-04 10:26] LABS: Erythrocyte Sedimentation Rate 9 mm/hr (0-30)
[2022-06-04 10:28] LABS: Differential Indicated SCAN CRITERIA MET
[2022-06-04 10:59] LABS: Platelet Estimate SLT DEC (ADEQ); Red Cell Morphology NORM C+C NORMAL (NORM C&C)
[2022-06-05 13:27] LABS: Pathologist Review Reviewed
== END | disposition home or self-care (01) ==
LOC: LAB 09:32
PROVIDERS: PCP Internal Medicine; Referring Provider Internal Medicine Gastroenterology; Visit Provider Internal Medicine Gastroenterology
DX: K72.90 Hepatic failure, unspecified without coma (principal); K74.60 Unspecified cirrhosis of liver; K75.81 Nonalcoholic steatohepatitis (NASH)
CPT/HCPCS: 36415; 82040; 85025; 85652

== ENCOUNTER → 2022-06-06 | Outpatient (CLI) | payer MEDICARE, MEDICAID, SELFPAY ==
--- NOTE | 2022-06-06 10:13 | US_ITS ---
PROCEDURE: Ultrasound guided paracentesis. DATE OF EXAMINATION: 06/06/2022. INDICATION: Female, 66 years old. Ascites. PHYSICIAN: Johnathan Elizabeth D.O. TECHNIQUE: The risks, benefits, and alternatives to the procedure were explained to the patient. The specific risks of bleeding, infection, and damage to bowel were detailed and accepted. Witnessed informed consent was obtained. The abdomen was ultrasonographically surveyed. An appropriate pocket of fluid was identified at the right lower quadrant. The skin were cleaned and prepped in the usual sterile fashion. Using ultrasound guidance, the peritoneal cavity was accessed with a 5-Estonian paracentesis needle/catheter system. The trocar was removed. After draining approximately 3400 mL, the initial catheter stopped draining. Ultrasound demonstrated a moderate amount of ascites remaining and a new paracentesis needle/catheter system was utilized for access in the usual fashion. A total of 5720 ml of clear straw-colored ascites fluid were removed from the peritoneal cavity and discarded. The catheter was removed and a sterile dressing was applied. The procedure was well tolerated. There were no complications. The patient was discharged in stable condition. US/Paracentesis with US IMPRESSION: Ultrasound guided therapeutic paracentesis. Electronically Signed: Johnathan Elizabeth, at 12:18 EDT ,
[2022-06-06 10:29] VITALS: BP 113/53; BP 117/51; BP 120/62; BP 123/60; BP 123/66; BP 97/49; PULSE 53; PULSE 54; PULSE 55; PULSE 57; RESP 18; TEMP 36.6; O2SAT 100; O2SAT 96
[2022-06-06] MEDS: Lidocaine 2% (10 ml mdv) 10 ML Vial INFILT (10:30)
[2022-06-06] MEDS: Lidocaine 2% (10 ml mdv) 10 ML Vial (11:00)
[2022-06-06] MEDS: 0.9% NaCl Peripheral Flush Adult/Peds IV (11:54)
[2022-06-06] MEDS: Albumin Human 25% (100 mL) 25 GM/100 ML BAG IV (12:01)
[2022-06-06] MEDS: Albumin Human 25% (50 mL) 12.5 GM/50 ML IV.SOLN IV (13:27)
== END | disposition home or self-care (01) ==
LOC: US 10:12
PROVIDERS: PCP Internal Medicine; Referring Provider Internal Medicine Gastroenterology; Visit Provider Internal Medicine Gastroenterology
DX: R18.8 Other ascites (principal); K74.60 Unspecified cirrhosis of liver; K75.81 Nonalcoholic steatohepatitis (NASH)
CPT/HCPCS: 96365; 49083; J7050; P9047

== ENCOUNTER → 2022-06-13 | Outpatient (CLI) | payer MEDICARE, MEDICAID, SELFPAY ==
--- NOTE | 2022-06-13 10:39 | US_ITS ---
PROCEDURE: Ultrasound guided paracentesis. DATE OF EXAMINATION: 06/13/2022.. INDICATION: Female, 66 years old. Ascites. PHYSICIAN: Mannie Escobedo M.D. TECHNIQUE: The risks, benefits, and alternatives to the procedure were explained to the patient. The specific risks of bleeding, infection, and damage to bowel were detailed and accepted. Witnessed informed consent was obtained. The abdomen was ultrasonographically surveyed. An appropriate pocket of fluid was identified at the right lower quadrant. The skin were cleaned and prepped in the usual sterile fashion. Using ultrasound guidance, the peritoneal cavity was accessed with a 5-Kyrgyz paracentesis needle/catheter system. The trocar was removed. A total of 4650 ml of camilo-colored fluid were removed from the peritoneal cavity. The catheter was removed and a sterile dressing was applied. The procedure was well tolerated. US/Paracentesis with US IMPRESSION: Ultrasound guided paracentesis. Electronically Signed: Mannie Escobedo MD at 12:05 EDT ,
== END | disposition home or self-care (01) ==
PROVIDERS: PCP Internal Medicine; Referring Provider Internal Medicine Gastroenterology; Visit Provider Internal Medicine Gastroenterology
DX: K75.81 Nonalcoholic steatohepatitis (NASH) (principal); K74.60 Unspecified cirrhosis of liver; R18.8 Other ascites
CPT/HCPCS: 49083

== ENCOUNTER → 2022-06-18 | Outpatient (CLI) | payer MEDICARE, MEDICAID, SELFPAY ==
[2022-06-18] MEDS: 0.9% NaCl Peripheral Flush Adult/Peds IV (10:30)
[2022-06-18] MEDS: Acetaminophen 325 MG Tablet 650 MG PO (10:30)
[2022-06-18 10:45] VITALS: BP 121/49; PULSE 60; RESP 14; TEMP 36.5; O2SAT 100; BMI 32.1
[2022-06-18 11:29] VITALS: BP 119/45; PULSE 54; RESP 14; TEMP 36.6; O2SAT 100
[2022-06-18 12:29] VITALS: BP 115/45; PULSE 64; RESP 16; TEMP 36.5
== END | disposition home or self-care (01) ==
LOC: MEDOUTP 10:11
PROVIDERS: PCP Internal Medicine; Referring Provider Internal Medicine Hematology & Oncology; Visit Provider Internal Medicine Hematology & Oncology
DX: Z51.89 Encounter for other specified aftercare (principal); N18.9 Chronic kidney disease, unspecified; D64.9 Anemia, unspecified
CPT/HCPCS: 36430; 86850; 86900; 86901; 86920; 86922; J7040; P9016; A4216

== ENCOUNTER 2022-06-20 09:59 | Outpatient (CLI) | payer MEDICARE, MEDICAID, SELFPAY ==
--- NOTE | 2022-06-20 10:01 | US_ITS ---
PROCEDURE: Ultrasound guided paracentesis. DATE OF EXAMINATION: 06/20/2022.. INDICATION: Female, 66 years old. Ascites. PHYSICIAN: Mannie Escobedo M.D. TECHNIQUE: The risks, benefits, and alternatives to the procedure were explained to the patient. The specific risks of bleeding, infection, and damage to bowel were detailed and accepted. Witnessed informed consent was obtained. The abdomen was ultrasonographically surveyed. An appropriate pocket of fluid was identified at the right lower quadrant. The skin were cleaned and prepped in the usual sterile fashion. Using ultrasound guidance, the peritoneal cavity was accessed with a 5-Ukrainian paracentesis needle/catheter system. The trocar was removed. A total of 5200 ml of camilo-colored fluid were removed from the peritoneal cavity. The catheter was removed and a sterile dressing was applied. The procedure was well tolerated. US/Paracentesis with US IMPRESSION: Ultrasound guided paracentesis. Electronically Signed: Mannie Escobedo MD at 12:50 EDT ,
[2022-06-20 10:45] VITALS: BP 139/68; BP 139/98; PULSE 56; PULSE 59; RESP 14; RESP 16; TEMP 36.9; O2SAT 100
[2022-06-20] MEDS: Lidocaine 2% (10 ml mdv) 10 ML Vial INFILT (10:45)
[2022-06-20] MEDS: Albumin Human 25% (100 mL) 25 GM/100 ML BAG IV (11:37)
[2022-06-20] MEDS: 0.9% Saline Lock 10 ML Syringe IV (11:38)
[2022-06-20 13:23] VITALS: BP 132/56; PULSE 60; O2SAT 100
== END 2022-06-20 23:59 | disposition home or self-care (01) ==
LOC: US 10:00 → MEDOUTP 11:19
PROVIDERS: PCP Internal Medicine; Referring Provider Internal Medicine Gastroenterology; Visit Provider Internal Medicine Gastroenterology
DX: K75.81 Nonalcoholic steatohepatitis (NASH) (principal); K74.60 Unspecified cirrhosis of liver; R18.8 Other ascites
CPT/HCPCS: 49083; 96365; 96366; P9047; A4216

== ENCOUNTER → 2022-06-27 | Outpatient (CLI) | payer MEDICARE, MEDICAID, SELFPAY ==
--- NOTE | 2022-06-27 10:05 | US_ITS ---
PROCEDURE: Ultrasound guided paracentesis. DATE OF EXAMINATION: 06/27/2022. INDICATION: Female, 66 years old. Ascites. PHYSICIAN: Mannie Escobedo M.D. TECHNIQUE: The risks, benefits, and alternatives to the procedure were explained to the patient. The specific risks of bleeding, infection, and damage to bowel were detailed and accepted. Witnessed informed consent was obtained. The abdomen was ultrasonographically surveyed. An appropriate pocket of fluid was identified at the right lower quadrant. The skin were cleaned and prepped in the usual sterile fashion. Using ultrasound guidance, the peritoneal cavity was accessed with a 5-Liberian paracentesis needle/catheter system. The trocar was removed. A total of 5450 ml of camilo-colored fluid were removed from the peritoneal cavity. The catheter was removed and a sterile dressing was applied. The procedure was well tolerated. US/Paracentesis with US IMPRESSION: Ultrasound guided paracentesis. Electronically Signed: Mannie Escobedo MD at 11:25 EDT ,
[2022-06-27 10:36] VITALS: BP 103/43; BP 108/48; BP 112/51; BP 113/47; BP 98/41; PULSE 53; PULSE 54; PULSE 61; PULSE 62; PULSE 67; RESP 16; TEMP 36.4; O2SAT 100; O2SAT 98
[2022-06-27] MEDS: Lidocaine 2% (10 ml mdv) 10 ML Vial INFILT (10:37)
[2022-06-27] MEDS: Albumin Human 25% (100 mL) 25 GM/100 ML BAG IV (11:37)
[2022-06-27 13:16] VITALS: BP 107/39; PULSE 64; RESP 16; O2SAT 100
== END | disposition home or self-care (01) ==
LOC: US 10:05
PROVIDERS: PCP Internal Medicine; Referring Provider Internal Medicine Gastroenterology; Visit Provider Internal Medicine Gastroenterology
DX: K75.81 Nonalcoholic steatohepatitis (NASH) (principal); K74.60 Unspecified cirrhosis of liver; R18.8 Other ascites
CPT/HCPCS: 96365; 96366; 49083; J7050; P9047

== ENCOUNTER → 2022-07-04 | Outpatient (CLI) | payer MEDICARE, MEDICAID, SELFPAY ==
--- NOTE | 2022-07-04 10:08 | US_ITS ---
PROCEDURE: Ultrasound guided paracentesis. DATE OF EXAMINATION: 07/04/2022. INDICATION: Female, 66 years old. Ascites. PHYSICIAN: Mannie Escobedo M.D. TECHNIQUE: The risks, benefits, and alternatives to the procedure were explained to the patient. The specific risks of bleeding, infection, and damage to bowel were detailed and accepted. Witnessed informed consent was obtained. The abdomen was ultrasonographically surveyed. An appropriate pocket of fluid was identified at the right lower quadrant. The skin were cleaned and prepped in the usual sterile fashion. Using ultrasound guidance, the peritoneal cavity was accessed with a 5-Czech paracentesis needle/catheter system. The trocar was removed. A total of 6150 ml of cmailo-colored fluid were removed from the peritoneal cavity. The catheter was removed and a sterile dressing was applied. The procedure was well tolerated. US/Paracentesis with US IMPRESSION: Ultrasound guided paracentesis. Electronically Signed: Mannie Escobedo MD at 12:21 EDT ,
[2022-07-04 10:45] VITALS: BP 111/51; BP 119/52; BP 119/59; BP 128/66; PULSE 54; PULSE 55; PULSE 56; PULSE 63; RESP 16; RESP 18; TEMP 36.1; O2SAT 100
[2022-07-04] MEDS: Lidocaine 2% (10 ml mdv) 10 ML Vial INFILT (10:50)
[2022-07-04] MEDS: Albumin Human 25% (100 mL) 25 GM/100 ML BAG IV (12:00)
[2022-07-04] MEDS: 0.9% NaCl Peripheral Flush Adult/Peds IV (12:02)
[2022-07-04] MEDS: Albumin Human 25% (50 mL) 12.5 GM/50 ML IV.SOLN IV (13:33)
[2022-07-04 14:49] VITALS: BP 145/72; PULSE 61; RESP 16; O2SAT 100
== END | disposition home or self-care (01) ==
LOC: US 10:06
PROVIDERS: PCP Internal Medicine; Referring Provider Internal Medicine Gastroenterology; Visit Provider Internal Medicine Gastroenterology
DX: K74.60 Unspecified cirrhosis of liver (principal); R18.8 Other ascites; K75.81 Nonalcoholic steatohepatitis (NASH)
CPT/HCPCS: 96365; 49083; J7050; P9047

== ENCOUNTER → 2022-07-11 | Outpatient (CLI) | payer MEDICARE, MEDICAID, SELFPAY ==
--- NOTE | 2022-07-11 10:58 | US_ITS ---
PROCEDURE: Ultrasound guided paracentesis. DATE OF EXAMINATION: 07/11/2022. INDICATION: Female, 66 years old. Ascites. PHYSICIAN: Mannie Escobedo M.D. TECHNIQUE: The risks, benefits, and alternatives to the procedure were explained to the patient. The specific risks of bleeding, infection, and damage to bowel were detailed and accepted. Witnessed informed consent was obtained. The abdomen was ultrasonographically surveyed. An appropriate pocket of fluid was identified at the right lower quadrant. The skin were cleaned and prepped in the usual sterile fashion. Using ultrasound guidance, the peritoneal cavity was accessed with a 5-Dutch paracentesis needle/catheter system. The trocar was removed. A total of 6000 ml of camilo-colored fluid were removed from the peritoneal cavity. The catheter was removed and a sterile dressing was applied. The procedure was well tolerated. US/Paracentesis with US IMPRESSION: Ultrasound guided paracentesis. Electronically Signed: Mannie Escobedo MD at 12:13 EDT ,
[2022-07-11 11:12] VITALS: BP 123/39; BP 126/39; PULSE 52; PULSE 53; PULSE 57; RESP 16; RESP 18; RESP 97; TEMP 36.3; O2SAT 100
[2022-07-11] MEDS: 0.9% Saline Lock 10 ML Syringe IV (11:45)
[2022-07-11 12:04] VITALS: BMI 33.6
[2022-07-11] MEDS: Lidocaine 2% (10 ml mdv) 10 ML Vial INFILT (12:07)
[2022-07-11] MEDS: Albumin Human 25% (100 mL) 25 GM/100 ML BAG IV (12:20)
[2022-07-11] MEDS: Albumin Human 25% (50 mL) 12.5 GM/50 ML IV.SOLN IV (13:42)
[2022-07-11 14:40] VITALS: BP 143/69; PULSE 72; RESP 16; TEMP 35.7; O2SAT 100
== END | disposition home or self-care (01) ==
LOC: US 10:57
PROVIDERS: PCP Internal Medicine; Referring Provider Internal Medicine Gastroenterology; Visit Provider Internal Medicine Gastroenterology
DX: R18.8 Other ascites (principal); K74.60 Unspecified cirrhosis of liver; K75.81 Nonalcoholic steatohepatitis (NASH)
CPT/HCPCS: 96365; 49083; J7050; P9047

== ENCOUNTER → 2022-07-16 | Outpatient (CLI) | payer MEDICARE, MEDICAID, SELFPAY ==
[2022-07-16 12:22] LABS: Hemoglobin 9.5 g/dL (12.0-15.0); Mean Corp Hgb Conc 30.6 g/dL (32-36); Mean Corpuscular Hgb 31.1 pg (27.0-32.0); Mean Corpuscular Volume 101.6 fL (81-99); Mean Platelet Vol. 11.6 fl (6.2-12.0); POSITIVE COUNT YES; Platelet Count 86 K/mm3 (150-450); RBC Distribution Width CV 16.6 % (11.6-14.6); RBC Distribution Width SD 60.5 fl (35.1-43.9); Red Blood Count 3.05 M/mm3 (4.2-5.4); White Blood Count 1.7 K/mm3 (4.4-11.0)
[2022-07-16 12:41] LABS: Albumin, Serum 2.9 g/dL (3.2-5.0); BUN 55 mg/dL (7-18); BUN/Creat Ratio 15.6 RATIO (10-20); Calcium,Total 8.4 mg/dL (8.5-10.1); Chloride 117 mmol/L (98-107); Creatinine, Serum 3.52 mg/dL (0.55-1.02); EST Glomerular Filtration Rate 14 mL/min (>60); Est Glom Filt Rate - Afr Amer 17 mL/min (>60); Ferritin 16 ng/mL (8-252); Glucose 90 mg/dL (74-106); Iron 44 ug/dL (50-170); Iron Binding Capacity,Total 290 ug/dL (250-450); PERCENT IRON SATURATION 15.2 % (15.0-55.0); Potassium 4.4 mmol/L (3.5-5.1); Sodium Level 142 mmol/L (136-145)
[2022-07-16 12:52] LABS: Hepatitis B Surface Antigen Non-Reactive (Nonreactive)
[2022-07-16 12:53] LABS: PTHIN 369.7 pg/mL (18.4-80.1)
== END | disposition home or self-care (01) ==
PROVIDERS: PCP Internal Medicine; Visit Provider Internal Medicine Nephrology
DX: N18.6 End stage renal disease (principal); N25.81 Secondary hyperparathyroidism of renal origin; D50.9 Iron deficiency anemia, unspecified
CPT/HCPCS: 36415; 80069; 82728; 83540; 83550; 83970; 85027; 87340

== ENCOUNTER → 2022-07-18 | Outpatient (CLI) | payer MEDICARE, MEDICAID, SELFPAY ==
--- NOTE | 2022-07-18 10:03 | US_ITS ---
PROCEDURE: ULTRASOUND GUIDED PARACENTESIS INDICATION: Female, 66 years old. CIRRHOSIS PHYSICIAN: Roc Norris MD INFORMED CONSENT: The risks, benefits, and alternatives to the procedure were explained to the patient. The specific risks of bleeding, infection, and damage to bowel were detailed and accepted. Witnessed informed consent was obtained. TECHNIQUES: The abdomen was ultrasonographically surveyed. An appropriate pocket of fluid was identified at the right lower quadrant. The skin was cleaned and prepped in the usual sterile fashion. Using ultrasound guidance, the peritoneal cavity was accessed with a 5-Nigerien paracentesis needle/catheter system. The trocar was removed. A total of 6200 ml of straw-colored ascitic fluid was removed from the peritoneal cavity. The catheter was removed and a sterile dressing was applied. The procedure was well tolerated. The patient did receive albumin after the procedure. # of Images: 6 US/Paracentesis with US IMPRESSION: Ultrasound guided paracentesis. Electronically Signed: Jr Norris MD at 13:16 EDT ,
[2022-07-18 10:30] VITALS: BP 119/62; BP 125/58; BP 127/73; BP 142/70; BP 150/57; PULSE 59; PULSE 60; PULSE 61; RESP 16; TEMP 36.7; O2SAT 100; O2SAT 98
[2022-07-18] MEDS: Lidocaine 2% (10 ml mdv) 10 ML Vial INFILT (10:42)
[2022-07-18] MEDS: Albumin Human 25% (100 mL) 25 GM/100 ML BAG IV (11:55)
[2022-07-18] MEDS: Albumin Human 25% (50 mL) 12.5 GM/50 ML IV.SOLN IV (13:23)
[2022-07-18 14:28] VITALS: BP 125/54; PULSE 65; RESP 16; O2SAT 100
== END | disposition home or self-care (01) ==
LOC: US 10:02
PROVIDERS: PCP Internal Medicine; Referring Provider Internal Medicine Gastroenterology; Visit Provider Internal Medicine Gastroenterology
DX: K74.60 Unspecified cirrhosis of liver (principal); K75.81 Nonalcoholic steatohepatitis (NASH); R18.8 Other ascites
CPT/HCPCS: 96365; 96366; 49083; J7050; P9047; A4216

== ENCOUNTER → 2022-07-25 | Outpatient (CLI) | payer MEDICARE, MEDICAID, SELFPAY ==
--- NOTE | 2022-07-25 10:02 | US_ITS ---
PROCEDURE: Ultrasound guided paracentesis. DATE OF EXAMINATION: 07/25/2022. INDICATION: Female, 66 years old. Ascites. PHYSICIAN: Mannie Escobedo M.D. TECHNIQUE: The risks, benefits, and alternatives to the procedure were explained to the patient. The specific risks of bleeding, infection, and damage to bowel were detailed and accepted. Witnessed informed consent was obtained. The abdomen was ultrasonographically surveyed. An appropriate pocket of fluid was identified at the right lower quadrant. The skin were cleaned and prepped in the usual sterile fashion. Using ultrasound guidance, the peritoneal cavity was accessed with a 5-Maltese paracentesis needle/catheter system. The trocar was removed. A total of 6700 ml of camilo-colored fluid were removed from the peritoneal cavity. The catheter was removed and a sterile dressing was applied. The procedure was well tolerated. US/Paracentesis with US IMPRESSION: Ultrasound guided paracentesis. Electronically Signed: Mannie Escobedo MD at 11:59 EDT ,
[2022-07-25 10:44] VITALS: BP 106/51; BP 92/49; BP 94/53; BP 94/61; BP 98/53; BP 99/44; PULSE 61; PULSE 63; PULSE 64; PULSE 65; PULSE 66; PULSE 67; RESP 16; TEMP 36.8; O2SAT 100; O2SAT 99
[2022-07-25] MEDS: Lidocaine 2% (10 ml mdv) 10 ML Vial INFILT (10:50)
[2022-07-25 11:49] VITALS: BMI 33.6
[2022-07-25] MEDS: Albumin Human 25% (100 mL) 25 GM/100 ML BAG IV (12:22)
[2022-07-25] MEDS: Albumin Human 25% (50 mL) 12.5 GM/50 ML IV.SOLN IV (13:47)
[2022-07-25 14:49] VITALS: BP 118/62; PULSE 76
== END | disposition home or self-care (01) ==
LOC: US 10:00
PROVIDERS: PCP Internal Medicine; Referring Provider Internal Medicine Gastroenterology; Visit Provider Internal Medicine Gastroenterology
DX: R18.8 Other ascites (principal); K74.60 Unspecified cirrhosis of liver; K75.81 Nonalcoholic steatohepatitis (NASH)
CPT/HCPCS: 96365; 96366; 49083; J7050; P9047; A4216

== ENCOUNTER → 2022-08-01 | Outpatient (CLI) | payer MEDICARE, MEDICAID, SELFPAY ==
--- NOTE | 2022-08-01 10:10 | US_ITS ---
PROCEDURE: Ultrasound guided paracentesis. DATE OF EXAMINATION: 08/01/2022. INDICATION: Female, 66 years old. Ascites. PHYSICIAN: Mnanie Escobedo M.D. TECHNIQUE: The risks, benefits, and alternatives to the procedure were explained to the patient. The specific risks of bleeding, infection, and damage to bowel were detailed and accepted. Witnessed informed consent was obtained. The abdomen was ultrasonographically surveyed. An appropriate pocket of fluid was identified at the right lower quadrant. The skin were cleaned and prepped in the usual sterile fashion. Using ultrasound guidance, the peritoneal cavity was accessed with a 5-Gibraltarian paracentesis needle/catheter system. The trocar was removed. A total of 6300 ml of camilo-colored fluid were removed from the peritoneal cavity. The catheter was removed and a sterile dressing was applied. The procedure was well tolerated. US/Paracentesis with US IMPRESSION: Ultrasound guided paracentesis. Electronically Signed: Mannie Escobedo MD at 11:56 EDT ,
[2022-08-01 10:32] VITALS: BP 100/39; BP 107/45; PULSE 57; PULSE 59; RESP 18; RESP 20; TEMP 36.6; O2SAT 100
[2022-08-01] MEDS: Lidocaine 2% (20 ml mdv) 20 ML Vial INFILT (10:35)
[2022-08-01] MEDS: Albumin Human 25% (100 mL) 25 GM/100 ML BAG IV (11:44)
[2022-08-01] MEDS: 0.9% Saline Lock 10 ML Syringe IV (11:44)
[2022-08-01] MEDS: Albumin Human 25% (50 mL) 12.5 GM/50 ML IV.SOLN IV (13:10)
[2022-08-01 14:54] VITALS: BP 122/57; PULSE 65; O2SAT 100
== END | disposition home or self-care (01) ==
LOC: US 10:09
PROVIDERS: PCP Internal Medicine; Referring Provider Internal Medicine Gastroenterology; Visit Provider Internal Medicine Gastroenterology
DX: R18.8 Other ascites (principal); K74.60 Unspecified cirrhosis of liver; K75.81 Nonalcoholic steatohepatitis (NASH)
CPT/HCPCS: 96365; 96366; 49083; J7050; P9047

== ENCOUNTER → 2022-08-08 | Outpatient (CLI) | payer MEDICARE, MEDICAID, SELFPAY ==
--- NOTE | 2022-08-08 10:11 | US_ITS ---
PROCEDURE: Ultrasound guided paracentesis. DATE OF EXAMINATION: 08/08/2022. INDICATION: Female, 66 years old. Ascites. PHYSICIAN: Mannie Escobedo M.D. TECHNIQUE: The risks, benefits, and alternatives to the procedure were explained to the patient. The specific risks of bleeding, infection, and damage to bowel were detailed and accepted. Witnessed informed consent was obtained. The abdomen was ultrasonographically surveyed. An appropriate pocket of fluid was identified at the right lower quadrant. The skin were cleaned and prepped in the usual sterile fashion. Using ultrasound guidance, the peritoneal cavity was accessed with a 5-Tajik paracentesis needle/catheter system. The trocar was removed. A total of 7400 ml of camilo-colored fluid were removed from the peritoneal cavity. The catheter was removed and a sterile dressing was applied. The procedure was well tolerated. US/Paracentesis with US IMPRESSION: Ultrasound guided paracentesis. Electronically Signed: Mannie Escobedo MD at 12:29 EDT ,
[2022-08-08 10:28] VITALS: BP 104/44; BP 106/58; BP 110/58; BP 112/48; BP 119/62; BP 123/51; PULSE 77; PULSE 79; PULSE 80; PULSE 81; PULSE 86; PULSE 89; RESP 16; RESP 18; TEMP 36.9; O2SAT 100; O2SAT 97; O2SAT 98
[2022-08-08] MEDS: Lidocaine 2% (20 ml mdv) 20 ML Vial INFILT (10:32)
[2022-08-08 11:40] VITALS: BP 128/69; PULSE 90; RESP 16; TEMP 36.1; O2SAT 99
[2022-08-08] MEDS: Albumin Human 25% (100 mL) 25 GM/100 ML BAG IV ×2 (11:59→13:29)
[2022-08-08 15:26] VITALS: BP 126/46; PULSE 82; RESP 16; O2SAT 100
== END | disposition home or self-care (01) ==
LOC: US 10:10
PROVIDERS: PCP Internal Medicine; Referring Provider Internal Medicine Gastroenterology; Visit Provider Internal Medicine Gastroenterology
DX: R18.8 Other ascites (principal); K74.60 Unspecified cirrhosis of liver; K75.81 Nonalcoholic steatohepatitis (NASH)
CPT/HCPCS: 96365; 96366 ×2; 49083; J7050; P9047; A4216

== ENCOUNTER 2022-08-15 10:00 | Outpatient (CLI) | payer MEDICARE, MEDICAID, SELFPAY ==
--- NOTE | 2022-08-15 10:01 | US_ITS ---
PROCEDURE: ULTRASOUND GUIDED PARACENTESIS CLINICAL HISTORY: Female, 66 years old. ASCITES CONSENT: Informed consent obtained Time-Out Called: Yes. Consent form signed: Yes. PT-PTT Levels Checked: Yes. SEDATION: Local sedation 1% XYLOCAINE TECHNIQUE: Sonographically guided FINDINGS: FLUID PRE-PROCEDURE There is posterior enhancement. The findings appear anechoic. There is no loculation. FLUID POST-PROCEDURE Amount of fluid drained: 7050 ml. After informed consent was obtained, patient was placed on the sonographic table and an appropriate site for large volume paracentesis was determined. A large pocket of anechoic fluid is noted in the right flank. The area was prepped and draped in a sterile manner. 1% XYLOCAINE was used as local anesthetic. Under sonographic guidance, a drainage catheter was placed into the peritoneal cavity and approximately 7050 mL of straw-colored serous fluid was withdrawn. Patient tolerated the procedure well and no immediate complications US/Paracentesis with US IMPRESSION: Successful sonographically guided paracentesis Electronically Signed: Jean-Claude Peña MD at 12:45 EDT ,
[2022-08-15 10:48] VITALS: BP 111/89; BP 112/57; BP 113/61; BP 114/53; BP 120/65; PULSE 68; PULSE 69; PULSE 70; PULSE 72; PULSE 73; RESP 16; RESP 18; TEMP 36.9; O2SAT 98; O2SAT 99
[2022-08-15] MEDS: Albumin Human 25% (100 mL) 25 GM/100 ML BAG IV (12:01)
[2022-08-15] MEDS: Albumin Human 25% (50 mL) 12.5 GM/50 ML IV.SOLN IV (13:24)
[2022-08-15 14:27] VITALS: BP 122/46; PULSE 64; RESP 16; TEMP 36.4; O2SAT 97
== END 2022-08-15 23:59 | disposition home or self-care (01) ==
LOC: US 10:00
PROVIDERS: PCP Internal Medicine; Referring Provider Internal Medicine Gastroenterology; Visit Provider Internal Medicine Gastroenterology
DX: R18.8 Other ascites (principal); K74.60 Unspecified cirrhosis of liver; K75.81 Nonalcoholic steatohepatitis (NASH)
CPT/HCPCS: 49083; 96365; 96366; J7050; P9047

== ENCOUNTER → 2022-08-20 | Outpatient (CLI) | payer MEDICARE, MEDICAID, SELFPAY ==
[2022-08-20] VITALS (7 sets, daily range): BP systolic 84–123; BP diastolic 29–65; PULSE 59–71; RESP 14–16; TEMP 36.4–36.7; O2SAT 97–100; BMI 33.5
[2022-08-20] MEDS: Acetaminophen 325 MG Tablet 650 MG PO (09:54)
[2022-08-20] MEDS: 0.9% NaCl Peripheral Flush Adult/Peds IV (09:56)
== END | disposition home or self-care (01) ==
LOC: MEDOUTP 08:10
PROVIDERS: PCP Internal Medicine; Referring Provider Internal Medicine Nephrology; Visit Provider Internal Medicine Nephrology
DX: N18.6 End stage renal disease (principal); D63.1 Anemia in chronic kidney disease
CPT/HCPCS: 36430; 86644; 86850; 86900; 86901; 86920; 86922; J7040; P9016; A4216

== ENCOUNTER → 2022-08-22 | Outpatient (CLI) | payer MEDICARE, MEDICAID, SELFPAY ==
--- NOTE | 2022-08-22 10:05 | US_ITS ---
PROCEDURE: Ultrasound guided paracentesis. DATE OF EXAMINATION: 08/22/2022. INDICATION: Female, 66 years old. Ascites. PHYSICIAN: Mannie Escobedo M.D. TECHNIQUE: The risks, benefits, and alternatives to the procedure were explained to the patient. The specific risks of bleeding, infection, and damage to bowel were detailed and accepted. Witnessed informed consent was obtained. The abdomen was ultrasonographically surveyed. An appropriate pocket of fluid was identified at the right/left lower quadrant. The skin were cleaned and prepped in the usual sterile fashion. Using ultrasound guidance, the peritoneal cavity was accessed with a 5-Lao paracentesis needle/catheter system. The trocar was removed. A total of 7100 ml of camilo-colored fluid were removed from the peritoneal cavity. The catheter was removed and a sterile dressing was applied. The procedure was well tolerated. US/Paracentesis with US IMPRESSION: Ultrasound guided paracentesis. Electronically Signed: Mannie Escobedo MD at 11:52 EDT ,
[2022-08-22 10:45] VITALS: BP 102/47; BP 116/51; BP 131/53; PULSE 62; PULSE 63; PULSE 72; RESP 14; TEMP 36.3; O2SAT 100
[2022-08-22] MEDS: Lidocaine 2% (20 ml mdv) 20 ML Vial INFILT (10:48)
[2022-08-22] MEDS: Albumin Human 25% (100 mL) 25 GM/100 ML BAG IV (12:00)
[2022-08-22 12:01] VITALS: BP 103/46; PULSE 60; RESP 16; TEMP 35.9; O2SAT 100
[2022-08-22] MEDS: Albumin Human 25% (50 mL) 12.5 GM/50 ML IV.SOLN IV (13:25)
[2022-08-22 14:21] VITALS: BP 124/56; PULSE 81; RESP 16; TEMP 35.9; O2SAT 100
== END | disposition home or self-care (01) ==
LOC: US 10:04
PROVIDERS: PCP Internal Medicine; Referring Provider Internal Medicine Gastroenterology; Visit Provider Internal Medicine Gastroenterology
DX: R18.8 Other ascites (principal); K74.60 Unspecified cirrhosis of liver; K75.81 Nonalcoholic steatohepatitis (NASH)
CPT/HCPCS: 96365; 96366; 49083; J7050; P9047; A4216

== ENCOUNTER → 2022-08-29 | Outpatient (CLI) | payer MEDICARE, MEDICAID, SELFPAY ==
--- NOTE | 2022-08-29 10:07 | US_ITS ---
PROCEDURE: Ultrasound guided paracentesis. DATE OF EXAMINATION: 08/29/2022. INDICATION: Female, 66 years old. Ascites. PHYSICIAN: Mannie Escobedo M.D. TECHNIQUE: The risks, benefits, and alternatives to the procedure were explained to the patient. The specific risks of bleeding, infection, and damage to bowel were detailed and accepted. Witnessed informed consent was obtained. The abdomen was ultrasonographically surveyed. An appropriate pocket of fluid was identified at the right lower quadrant. The skin were cleaned and prepped in the usual sterile fashion. Using ultrasound guidance, the peritoneal cavity was accessed with a 5-Turkish paracentesis needle/catheter system. The trocar was removed. A total of 6800 ml of camilo-colored fluid were removed from the peritoneal cavity. The catheter was removed and a sterile dressing was applied. The procedure was well tolerated. US/Paracentesis with US IMPRESSION: Ultrasound guided paracentesis. Electronically Signed: Mannie Escobedo MD at 12:22 EDT ,
[2022-08-29 10:27] VITALS: BP 74/26; BP 74/35; BP 75/36; BP 77/36; BP 85/29; BP 88/38; BP 96/28; BP 97/31; BP 98/26; PULSE 60; PULSE 61; PULSE 62; PULSE 64; PULSE 65; PULSE 66; PULSE 80; RESP 16; RESP 18; RESP 20; TEMP 37.1; O2SAT 100; O2SAT 96; O2SAT 97; O2SAT 98; O2SAT 99
[2022-08-29] MEDS: Lidocaine 2% (20 ml mdv) 20 ML Vial INFILT (10:30)
[2022-08-29] MEDS: Albumin Human 25% (100 mL) 25 GM/100 ML BAG IV (11:41)
[2022-08-29] MEDS: Albumin Human 25% (50 mL) 12.5 GM/50 ML IV.SOLN IV (13:13)
[2022-08-29 14:23] VITALS: BP 85/48; PULSE 71; RESP 16; O2SAT 100
== END | disposition home or self-care (01) ==
LOC: US 10:07
PROVIDERS: PCP Internal Medicine; Referring Provider Internal Medicine Gastroenterology; Visit Provider Internal Medicine Gastroenterology
DX: R18.8 Other ascites (principal); K74.60 Unspecified cirrhosis of liver; K75.81 Nonalcoholic steatohepatitis (NASH)
CPT/HCPCS: 96365; 96366; 49083; P9047

== ENCOUNTER → 2022-09-03 | Outpatient (CLI) | payer MEDICARE, MEDICAID, SELFPAY ==
[2022-09-03] VITALS (7 sets, daily range): BP systolic 112–134; BP diastolic 44–63; PULSE 65–96; RESP 16; TEMP 36.9–37.3; O2SAT 98–100
[2022-09-03] MEDS: 0.9% NaCl Peripheral Flush Adult/Peds IV ×3 (09:48→12:12)
== END | disposition home or self-care (01) ==
LOC: MEDOUTP 08:31
PROVIDERS: PCP Internal Medicine; Referring Provider Internal Medicine Nephrology; Visit Provider Internal Medicine Nephrology
DX: N18.6 End stage renal disease (principal); D63.1 Anemia in chronic kidney disease
CPT/HCPCS: 36415; 36430; 86850; 86900; 86901; 86920; 86922; J7040; P9016; A4216

== ENCOUNTER → 2022-09-05 | Outpatient (CLI) | payer MEDICARE, MEDICAID, SELFPAY ==
--- NOTE | 2022-09-05 10:02 | US_ITS ---
PROCEDURE: Ultrasound guided paracentesis. DATE OF EXAMINATION: 09/05/2022. INDICATION: Female, 66 years old. Ascites. PHYSICIAN: Mannie Escobedo M.D. TECHNIQUE: The risks, benefits, and alternatives to the procedure were explained to the patient. The specific risks of bleeding, infection, and damage to bowel were detailed and accepted. Witnessed informed consent was obtained. The abdomen was ultrasonographically surveyed. An appropriate pocket of fluid was identified at the right lower quadrant. The skin were cleaned and prepped in the usual sterile fashion. Using ultrasound guidance, the peritoneal cavity was accessed with a 5-Tajik paracentesis needle/catheter system. The trocar was removed. A total of 6900 ml of camilo-colored fluid were removed from the peritoneal cavity. The catheter was removed and a sterile dressing was applied. The procedure was well tolerated. US/Paracentesis with US IMPRESSION: Ultrasound guided paracentesis. Electronically Signed: Mannie Escobedo MD at 12:55 EST ,
--- NOTE | 2022-09-05 10:30 | CASEMGMT ---
Complex Elderly Companion Assessment ? Navigator met with pt while Albumin was administered. ? -Per [facility] visit on 06/04/22, pt is 66 F. Established with the clinic on 11/20/21 for continued care of liver cirrhosis. Liver disease diagnosed in 1999 with liver biopsy in 2001. Interrupted sleep has been ongoing for many years, pruritis started 04/2021 and abdominal ascites and generalized edema noted 10/2021.?Pt was noted to be somewhat jaundice 01/01/2022/ Most recently a patient of Dr. Orellana for liver cirrhosis. Follows with Dr. Jacobs for CKD and Dr. Cifuentes for anemia. History of gastric bypass surgery. First paracentesis 11/20/2021. She has been getting them weekly since 01/03/2022. ? ?Dx:? -Liver Cirrhosis R/T RANKIN with Cirrhosis. ? ?Hospitalizations in 2021: -Per [facility], it doesn?t appear pt had any inpatient hospitalizations in 2021. ? New concerns: -Pt said she?s ?not sure?. Pt started dialysis ?six weeks ago? and said things have ?gone down hill since then?. Pt advised she has received two blood transfusions, gained fluid, and had increased weakness. ? Providers:? -Freya, PCP; Reynaldo, Nephrology, Vane, Hematology. ? Insurance:? -[employer]. ? Medication:? -Per GI visit on 06/04/2022, New- Metoclopramide HCL 5mg PO TID, Discontinue- Lactulose 10grams PO daily (Order Completed). Pt agrees this is the only change. ? Diet: -Pt reports being on a Low Sodium diet. Pt advised she is ?very careful? with her diet. ? Pharmacy: -[facility]. ? Smoker/Non, Alcohol use, substance use: -Pt denied any current nicotine, alcohol, or substance use. ? Understanding of the disease process: -Pt said ?Yes, pretty much? when asked if she understands the process of the disease. Pt denied any questions. ? SDOH (Finances, Housing, Transportation, Phone/Internet, Food, Support/Family, Employment): -Pt said she is financially ?okay?. Pt has ?enough but not much extra?. Pt has HUD housing. Pt utilized [facility] for Dialysis and the [facility] [employer]. If pt is shopping, she utilizes [employer]. Pt has doctors appointments on . Pt has dialysis on /Thu. Pt gets a paracentesis on Fridays. Pt has a phone and internet. Pt receives food assistance. Pt has the support of her friend, Chiqui, and neighbors. ? LW/HPOA: -Pt advised she has both. Pt said her friend, Chiqui Colon, is her HPOA. ? DME: -Pt?s home is accessible. Pt has the following:? a cane for the blind, shower chair, walker, and grab bars Pt?s Show Card Writer through [employer] is Jayde Lyn. Pt has a HH aide for ?nine-10hrs? per week. Pt has a medical alert button. Pt does have a hx of diabetes. Pt denied having a glucometer. ? Needs: -Pt any current needs but voiced interest in Palliative Care. ? Goals: -Start Palliative Care. ? -Pt chose [facility]. Pt agrees with Palliative Care. Information provided. Referral made. PCP?s office notified. ?
[2022-09-05 10:45] VITALS: BP 102/48; BP 107/50; BP 99/47; PULSE 64; PULSE 65; PULSE 66; PULSE 68; RESP 16; RESP 18; O2SAT 97; O2SAT 98
[2022-09-05] MEDS: Lidocaine 2% (20 ml mdv) 20 ML Vial (10:48)
[2022-09-05] MEDS: 0.9% NaCl Peripheral Flush Adult/Peds IV (11:52)
[2022-09-05] MEDS: Albumin Human 25% (100 mL) 25 GM/100 ML BAG IV (11:55)
[2022-09-05] MEDS: Albumin Human 25% (50 mL) 12.5 GM/50 ML IV.SOLN IV (13:27)
[2022-09-05 14:24] VITALS: BP 116/72; PULSE 78
--- NOTE | 2022-09-05 15:15 | CASEMGMT ---
Addendum entered by Marlene Thompson 09/05/22 16:27: TC to Dr. Barfield' office. Complex Timber Framer Helper spoke with Erwin. Navigator advised a referral was made to [facility]. Erwin stated she will inform Dr. Barfield. Original Note: Palliative Care discussed with pt while receiving Albumin. Pt is in agreement and chose [facility]. Pt denied any questions and stated she understands what Palliative Care entails. TC to [facility]. Complex Timber Framer Helper spoke with Angelica. Angelica requested a H&P, Facesheet, and Insurance information if available. Once the information is faxed, the admissions office will proceed with the referral. Navigator faxed the following: recent GI report (H&P was dated by two years so did not send), Facesheet, and insurance information.
--- NOTE | 2022-09-08 09:42 | CASEMGMT ---
Complex Stonework Supervisor called PCP William Barfield' office. Navigator spoke with Heather. Navigator spoke with pt on 09/05/22. Per [facility], pt has a hx of DM2. Pt denied having a glucometer. Navigator spoke with Heather regarding this. Heather advised it appears pt's DM2 is controlled. Pt's last H1C, a year ago, was 3.5. In April, pt's glucose level was within normal range. Pt was last seen in December. Heather advised pt can call to schedule another appointment if she wants tests ran again.
== END | disposition home or self-care (01) ==
LOC: US 10:01
PROVIDERS: PCP Internal Medicine; Referring Provider Internal Medicine Gastroenterology; Visit Provider Internal Medicine Gastroenterology
DX: R18.8 Other ascites (principal); K74.60 Unspecified cirrhosis of liver; K75.81 Nonalcoholic steatohepatitis (NASH)
CPT/HCPCS: 96365; 96366; 49083; J7050; P9047; A4216

== ENCOUNTER 2022-09-12 10:16 | Outpatient (CLI) | payer MEDICARE, MEDICAID, SELFPAY ==
--- NOTE | 2022-09-12 10:17 | US_ITS ---
PROCEDURE: Ultrasound guided paracentesis. DATE OF EXAMINATION: 09/12/2022.. INDICATION: Female, 66 years old. Ascites. PHYSICIAN: Mannie Escobedo M.D. TECHNIQUE: The risks, benefits, and alternatives to the procedure were explained to the patient. The specific risks of bleeding, infection, and damage to bowel were detailed and accepted. Witnessed informed consent was obtained. The abdomen was ultrasonographically surveyed. An appropriate pocket of fluid was identified at the right lower quadrant. The skin were cleaned and prepped in the usual sterile fashion. Using ultrasound guidance, the peritoneal cavity was accessed with a 5-Frisian paracentesis needle/catheter system. The trocar was removed. A total of 6400 ml of camilo-colored fluid were removed from the peritoneal cavity. The catheter was removed and a sterile dressing was applied. The procedure was well tolerated. US/Paracentesis with US IMPRESSION: Ultrasound guided paracentesis. Electronically Signed: Mannie Escobedo MD at 11:55 EST ,
[2022-09-12 10:35] VITALS: BP 108/42; BP 113/57; BP 92/42; BP 94/41; PULSE 62; PULSE 64; PULSE 76; PULSE 79; RESP 16; RESP 18; TEMP 36.3; O2SAT 100
[2022-09-12] MEDS: Lidocaine 2% (20 ml mdv) 20 ML Vial INFILT (10:40)
[2022-09-12 11:28] VITALS: BP 114/44; PULSE 78; RESP 16; TEMP 36.7
[2022-09-12] MEDS: Albumin Human 25% (100 mL) 25 GM/100 ML BAG IV (11:51)
--- NOTE | 2022-09-12 12:45 | CASEMGMT ---
Complex Straddle Bug Driver to speak with Pt while receiving Albumin. Navigator to follow-up regarding Palliative Care and a glucometer. Pt advised [facility] contacted her when she arrived home on Thursday. Pt had dialysis on Thursday so [facility] came to the home on Thursday. Another home visit is scheduled for Thursday. Pt reports being satisfied with [facility] and was impressed with their speediness. Pt will be receiving Palliative Care. Per Pt, since she is established, she will be able to transition to Hospice when the time comes. Pt said she has considered stopping dialysis as she is tired but is not ready to do so yet. For now, she will continue with Palliative Care and has a consult on Thursday with Dr. Soto for a Pleurx Catheter. Last week, Pt mentioned she does not have a Glucometer. Per the PCP's office, Pt has not needed one due to being within normal range and her last A1C being 3.5. The PCP's office advised Pt can contact them for a glucometer script or if Pt wants tests ran again. Navigator relayed this information. Pt said she may contact the office for a glucometer script if desired. Pt talked about being at peace. She said she has lived a good life and has wonderful children. Pt smiled as she talked about her boyfriend who lives next door. She said they would both rather spend a month loving one another than not. Pt said she and her boyfriend are there for one another and help each other laugh.
[2022-09-12] MEDS: Albumin Human 25% (50 mL) 12.5 GM/50 ML IV.SOLN IV (13:16)
== END 2022-09-12 23:59 | disposition home or self-care (01) ==
LOC: US 10:16
PROVIDERS: PCP Internal Medicine; Referring Provider Internal Medicine Gastroenterology; Visit Provider Internal Medicine Gastroenterology
DX: R18.8 Other ascites (principal); K75.81 Nonalcoholic steatohepatitis (NASH)
CPT/HCPCS: 96365; 96366; 49083; J7050; P9047

== ENCOUNTER 2022-09-17 09:11 | Day surgery (SDC) | payer MEDICARE, MEDICAID, SELFPAY ==
[2022-09-17] MEDS: 0.9% Normal Saline 1,000 ML 15 ML IV (10:24)
[2022-09-17 10:25] VITALS: BP 85/49; PULSE 52; RESP 18; TEMP 36.8; O2SAT 94; BMI 32.1
--- NOTE | 2022-09-17 11:25 | HP.PCM_ITS ---
History and Physical Date of Admission: 09/17/22 Date of Service:? 09/16/22 MR#: [id number] Acct: [id number] Name:ROSS RAMOS Rep #: [id number] : 1955 ? ? Provider: Dr. Ariana Soto MD Age/Sex:? 66/F ? ? Location: [facility] [place] Status: Signed Intake Vital Signs ? 09/03/2209:39 09/12/2211:28 09/16/2213:43 Height 5 ft 4 in 5 ft 4 in 5 ft 4 in Weight: ? ? 186 lb 2 oz BMI ? ? 31.9 BP ? 114/44 L 109/70 Blood Pressure Location ? ? Lt brachial Position ? Sitting Sitting Respiration ? 16 17 Pulse ? 78 60 Pulse Source ? ? Monitor Temp ? 98.0 F 97.8 F Temp Source ? Temporal Temporal Pulse Oximetry (%) ? ? 97 Oxygen Delivery Method ? ? room air Intake Visit Reasons:?PERITONEAL DRAIN Chief Complaint: peritoneal drain Is patient in pain?: Yes Allergies aspirin Allergy (Verified 09/16/22 13:45) Shortness of breathcelecoxib [From Celebrex] Allergy (Verified 09/16/22 13:45) Shortness of breathIodinated Contrast Media [Iodinated Contrast Media - IV Dye] Allergy (Verified 09/16/22 13:45) Shortness of breathlithium [[place]] Allergy (Verified 09/16/22 13:45) Shortness of breathSulfa (Sulfonamide Antibiotics) Allergy (Verified 09/16/22 13:45) Shortness of breathmetoprolol Adverse Reaction (Severe, Verified 09/16/22 13:45) Marked bradycardiadivalproex sodium [From Depakote] Adverse Reaction (Verified 09/16/22 13:45) seizures Medications aripiprazole 30 mg tablet 30 mg PO DAILY depression 01/04/20 [History Confirmed 09/16/22] lorazepam 1 mg tablet 1 mg PO Q6H PRN Anxiety 01/04/20 [History Confirmed 09/16/22] albuterol sulfate 90 mcg/actuation aerosol inhaler 1 - 2 puff inhalation Q4H PRN PRN Sob &/Or Wheezing 01/24/20 [History Confirmed 09/16/22] darbepoetin yayo in polysorbat 60 mcg/0.3 mL in polysorbate injection syringe 60 mcg IJ .QMONTH anemia 01/24/20 [History Confirmed 09/16/22] vit B6 35 mg-met.hydrofolate 5 mg-mecobalamin 2 mg-ALA 300 mg capsule 1 ea PO DAILY 01/24/20 [History Confirmed 09/16/22] calcium carbonate 600 mg calcium (1,500 mg) tablet (Calcium) 600 mg PO DAILY 08/23/20 [History Confirmed 09/16/22] cholestyramine-aspartame 4 gram oral powder 1 ea PO 4X/DAY 08/23/20 [History Confirmed 09/16/22] sodium bicarbonate 650 mg tablet 650 mg PO TID 08/23/20 [History Confirmed 09/16/22] budesonide-formoterol HFA 80 mcg-4.5 mcg/actuation aerosol inhaler (Symbicort) 2 puff inhalation BID 12/07/20 [History Confirmed 09/16/22] cyanocobalamin (vitamin B-12) 1,000 mcg/mL injection solution 100 mcg IM QMONTH 12/07/20 [History Confirmed 09/16/22] calcitriol 0.25 mcg capsule 0.5 mcg PO DAILY 01/29/21 [History Confirmed 09/16/22] amlodipine 2.5 mg tablet See Rx Instructions .Route .COMPLEX #90 tabs 05/03/21 [Rx Confirmed 09/16/22] furosemide 20 mg tablet See Rx Instructions .Route .COMPLEX #30 tabs 06/09/22 [Rx Confirmed 09/16/22] spironolactone 25 mg tablet See Rx Instructions .Route .COMPLEX #30 tabs 06/09/22 [Rx Confirmed 09/16/22] PFSH Medical History? 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 H/O gastric bypass H/O: hysterectomy History of appendectomy History of carpal tunnel release of both wrists History of cholecystectomy Family History? Mother?? ,? Age 60 of CHF Diabetes Hypertension Myocardial infarction CHF (congestive heart failure)Father?? ,? 34 [place] Myocardial infarction Ruptured, aorta CAD (coronary artery disease)Brother DiabetesBrother?? ,? [place] age 44 Myocardial infarction Diabetes Liver problem Social History? Smoking Status:? Former smoker Tobacco: How many years used:? 20 how long ago did patient quit smoking:? 1992 alcohol intake:? never substance use type:? does not use caffeine:? Yes Type: coffee Number of servings: 1 and tea Number of servings: 2 what type of physical activity do you participate in:? none additional social history:? HPI HPI HPI: 66-year-old female presents for abdominal Pleurx catheter placement due to ascites from cirrhosis/RANKIN.? Patient states she goes weekly for paracentesis and gets 6 to 8 L off each week.? Patient is planning to go hospice and she would like Pleurx catheter placed.? Patient currently does still go to dialysis 3 times a week. ROS General General: Yes weight change (wt loss); No appetite, fatigue, colon cancer, breast cancer or weakness HEENT HEENT: No difficulty swallowing, eye injury, eye surgery, swollen glands or hoarseness Endo Endocrine: No thyroid disease, diabetes mellitus, thyroid cancer, Hair loss, heat intolerance or cold intolerance Skin Skin: No rash or changing moles Breast Breast: No left breast lump, right breast lump, nipple discharge, breast pain, abnormal mammogram, abnormal US or breast enlargement Musc Musculoskeletal: Yes back problems and arthritis; No rheumatoid arthritis, gout or joint pain Cardio Cardiovascular: Yes murmur and atrial fibrillation; No pacemaker, heart disease, high blood pressure, heart attack, heart stent, palpitations, shortness of breat with exertion or chest pain Psych Psychiatric: No depression, anxiety or hearing voices Resp Respiratory: Yes shortness of breath, No sleep apnea, No cough, No COPD, Yes asthma, No emphysema and No wheezing Gastro Gastrointestinal: Yes abdominal pain, No nausea or vomiting, No diarrhea, No constipation, No blood in stool, No acid reflux, Yes hemorrhoids, No ulcers, No gallbladder problem and No black,tarry stools Edmund Hematologic: No blood thinners, No blood disorders, No bleeding, No anemia and No blood clots Neuro Neurologic: No system reviewed and no additional complaints, except as documented, No as per HPI, No abnormal gait, No abnormal hearing, No abnormal movements, No abnormal speech, No behavioral changes, No burning sensations, No confusion, No convulsions, No disequilibrium, No dizziness, No localized weakness, No frequent falls, No headache(s), No lack of coordination, No loss of vision, No memory loss, Yes numbness, No other visual disturbances, No radicular pain, No restless legs, No sensory deficit, No syncope, Yes tingling, No tremor(s), No weakness and No other Exam Const General: cooperative and no acute distress Neck Neck: normal visual inspection Resp Effort & Inspection: normal respiratory effort Cardio Rate: regular rate GI Inspection: distended and other (Ecchymosis in the right upper quadrant patient gets her paracentesis) Palpation: soft, no guarding, nontender and ascites Skin General: no rashes or lesions noted Neuro General: patient oriented x3 Psych Affect: normal affect Assessment and Plan Assessment and Plan (1) Abdominal ascites: ?Status:?Chronic (2) 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 Discussed with patient plan of placing a Pleurx catheter in the abdomen to allow for drainage of ascites without needing a paracentesis.? Discussed the risks including bleeding, leakage from the site, infection, injury to another organ (colon/small bowel/etc.).? Patient no further questions at this time. Ariana Soto M.D. Pager: [phone] [facility] [address] [place] [address], [facility], [address] [place] [address] Office: [phone] Coding Level of Care Code Off vis,new,level 4 Diagnoses Abdominal ascites? 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 K75.81; K74.60 09/16/22 1355 <Electronically signed by Ariana Soto MD> Date Ariana Soto MD
[2022-09-17] MEDS: Bupivacaine 0.25% 30 ML Vial (12:20)
[2022-09-17] MEDS: Cefazolin 2 GM in 0.9% Normal Saline 100 ML IV (12:20)
[2022-09-17] MEDS: Lidocaine 1% (20 ml mdv) 20 ML Vial (12:20)
--- NOTE | 2022-09-17 13:21 | OP.PCM_ITS ---
Report of Operation Date of Procedure: 09/17/22 Pre-Operative Diagnosis: Abdominal secondary to RANKIN/liver cirrhosis, right thi gh wound Post-Operative Diagnosis: Same Surgery/Procedure Performed:: Abdominal Pleurx catheter placement in the right upper quadrant, debridement of right thigh wound Surgeon: Ariana Soto Type of Anesthesia: General/Supplemental Anesthesiologist: Reynaldo Parmar Special Medications: Ancef 2 g IV x1 Specimen's removed: 4600 cc of serous ascites Drains: Pleurx catheter Estimated Blood Loss (mL): minimal Description of Procedure: Patient was brought into the operating room. Placed upon in the operating table. Timeout was completed verifying correct patient, procedure, site, positioning prior to beginning procedure. Patient did have a large superficial necrotic right thigh wound that was noted prior to patient coming in to the room patient was agreeable for superficial debridement as well as placement of Pleurx catheter. MAC anesthesia induced. Right upper quadrant was prepped and draped in usual sterile fashion with chlorhexidine. Ultrasound was used to identify fluid pocket. 1% lidocaine was instilled in this area. Needle was used to aspirate fluid then the needle was removed and a guidewire was placed in abdomen. Fluoroscopy was used as well. An exit site for the catheter was made after instilling 1% lidocaine in this area along with track site. Pleurx catheter was tunneled from the lower site to the most superior site. The dilator placed over the guidewire and the catheter was placed in the abdomen. Total of 4600 cc of serous fluid was removed from the abdomen. Incisions were sutured with 3-0 nylon suture at the skin. At exit site of the Pleurx catheter was secured with a 3-0 nylon. The tube was padded and dressing placed with OpSite. The right thigh was prepped draped in usual sterile fashion with Betadine. Local anesthesia 1% lidocaine was used. 15 blade scalpel was used for superficial debridement of the necrotic tissue. Wound is 11 x 4.5 cm. Betadine soaked Kerlix was placed. Patient tolerated procedure well and taken to the postanesthesia care in stable condition.
--- NOTE | 2022-09-17 13:26 | DCINST_ITS ---
Discharge Instructions Diet Discharge Diet: No restrictions Activity Discharge Activity: No Restrictions Dressing / Incision Additional Dressing/Incision Instructions:: Okay to keep the Pleurx catheter dressing on for 2 to 3 days. Then change daily. Hookup abdominal catheter as needed for drainage of ascites. Right thigh wet-to-dry's once to twice daily. Follow Up Care Please Follow Up With: Ariana Soto MD When: PRN Test Results: Test results from this visit will be discussed in further detail at your follow- up appointment, if applicable. Discharge Plan Admission Attending Provider: Ariana Soto Primary Care Provider: William Barfield Discharge Orders/Prescriptions Prescriptions: No Action lorazepam 1 mg tablet 1 mg PO Q6H PRN (Reason: Anxiety) budesonide-formoterol [Symbicort] 80-4.5 mcg/actuation HFA aerosol inhaler 2 puff INHALATION BID calcium carbonate [Calcium 600] 600 mg calcium (1,500 mg) tablet 600 mg PO DAILY sodium bicarbonate 650 mg tablet 650 mg PO TID cholestyramine-aspartame 4 gram powder 1 ea PO 4X/DAY Label Comments: supplement vit [id number]-[id number]-B12-ALA 1 EACH capsule 1 ea PO DAILY darbepoetin yayo in polysorbat 60 MCG/0.3 ML syringe 60 mcg subcut .QMONTH albuterol sulfate 1 PUFF inhaler 1 - 2 puff inhalation Q4H PRN PRN (Reason: Sob &/Or Wheezing) midodrine 10 mg Tablet 10 mg PO BID Rx Instructions: do not give last dose of day after 6PM or within 4 hrs of bedtime calcitriol 0.25 mcg capsule 0.5 mcg PO DAILY Referrals / Follow Up: William Barfield MD [Primary Care Provider] - Disposition Disposition (needs filled in before D/C Order can be placed): Home, Self Care
[2022-09-17 13:35] VITALS: BP 105/55; BP 85/49; PULSE 59; RESP 16; TEMP 36.6; O2SAT 98
[2022-09-17 13:40] VITALS: BP 103/57; BP 85/49; PULSE 60; RESP 16; O2SAT 98
[2022-09-17 13:45] VITALS: BP 107/61; BP 85/49; PULSE 61; RESP 16; O2SAT 98
[2022-09-17 13:50] VITALS: BP 110/68; BP 85/49; PULSE 62; RESP 16; TEMP 36.6; O2SAT 98
[2022-09-17 14:38] VITALS: BP 117/70; BP 85/49; PULSE 61; RESP 20; TEMP 36.4; O2SAT 99
== END 2022-09-17 14:57 | disposition home or self-care (01) ==
LOC: SDC 09:13 → AC 09:15
PROVIDERS: PCP Internal Medicine; Referring Provider Surgery; Visit Provider Surgery
PROC: (CPT 32550; principal; 2022-09-17 11:50)
DX: K75.81 Nonalcoholic steatohepatitis (NASH) (principal); K74.60 Unspecified cirrhosis of liver; N18.4 Chronic kidney disease, stage 4 (severe); I48.0 Paroxysmal atrial fibrillation; D69.6 Thrombocytopenia, unspecified; E11.9 Type 2 diabetes mellitus without complications; Z87.891 Personal history of nicotine dependence; R18.8 Other ascites; I12.9 Hypertensive chronic kidney disease with stage 1 through stage 4 chronic kidney disease, or unspecified chronic kidney disease; Z98.84 Bariatric surgery status; I35.0 Nonrheumatic aortic (valve) stenosis
CPT/HCPCS: 49418; 17999; 00790; 77001; J7030; J7120; C1729

== ENCOUNTER 2022-10-22 11:23 | Inpatient (IN) | payer MEDICARE, MEDICAID, SELFPAY ==
[2022-10-22] VITALS (12 sets, daily range): BP systolic 76–126; BP diastolic 36–90; PULSE 40–82; RESP 6–19; TEMP 35.9–36.4; O2SAT 92–99; BMI 30.2
--- NOTE | 2022-10-22 11:34 | RAD_ITS ---
STUDY: X-RAY - LEFT SHOULDER REASON FOR EXAM: Female, 66 years old. Trauma TECHNIQUE: 4 view(s) of the shoulder. COMPARISON: Chest x-ray dated October 22, 2022 FINDINGS: Normal glenohumeral articulation. Normal acromioclavicular joint. Normal acromion. Normal humeral head and visualized proximal humerus. The soft tissue structures are unremarkable. Large left pneumothorax redemonstrated. RAD/Shoulder min 2 Views IMPRESSION: 1. Normal x-ray examination of the shoulder. 2. Large left pneumothorax as described on the recent chest x-ray Electronically Signed: Parviz Jack MD at 13:05 EST ,
--- NOTE | 2022-10-22 11:34 | CT_ITS ---
INDICATION: Trauma EXAMINATION: CT BRAIN - CT Head or Brain W/O Contrast Injection TECHNIQUE: Multiple axial images were obtained of the head without intravenous contrast. A radiation dose optimization technique was used for this scan. IV Contrast dosage and agent: None. COMPARISON: Brain MRI from 10/05/2017. FINDINGS: No acute intracranial hemorrhage. No significant midline shift. Age-appropriate size and configuration of the ventricles. No hydrocephalus. Mild chronic small vessel ischemic changes. No acute infarct. Simmons-white matter differentiation is maintained. No significant cerebral edema. No parenchymal masses. No acute calvarial fracture. Soft tissues are unremarkable. Orbits and globes are intact. Sinuses are clear. Nonspecific right mastoid effusion. Left mastoid air cells are clear. CT/Brain/Head without Contrast IMPRESSION: 1. No acute intracranial findings. 2. Nonspecific right mastoid effusion. Electronically Signed: Johnathan Elizabeth, at 12:56 EST ,
--- NOTE | 2022-10-22 11:36 | EDS_ITS ---
HPI HPI - Fall History of Present Illness Chief Complaint: Fall Informant: patient Narrative Narrative: Patient had a mechanical fall yesterday. She is states that she tripped on a sheet that she had wrapped around her because she was cold. She states she does not think she hurt herself so much in the fall but she was too weak and could not get up off the floor so she laid there overnight. She has some soreness mostly in the left shoulder. She does not think she hit her head or lost consciousness. She is not on blood thinners. She was found because her daytime care provider came to the door this morning and she did not answer. Calls were made EMS got into the house and found her on the floor. Patient is on hospice care for both end-stage renal disease on dialysis and end- stage liver disease. She wanted to come in because of the left side pain to make sure there was nothing broken. Hospice approved her coming to the emergency department per reports that I have. When asked, patient states that she has been a little bit more tired recently. This is been going on a week or so but it sounds like its been progressive. She just went on hospice about 3 months ago. She does get help at home during the day. She has dialysis Thursday. Her last dialysis was Thursday because she fell yesterday and did not get to dialysis. [facility] Medical History Abdominal ascites Anemia Anxiety Aortic valve stenosis, nonrheumatic Arteriovenous fistula Arthritis Asthma Atrial arrhythmia Atrial premature beats Blind Cardiology follow-up encounter Chronic renal failure, stage 4 (severe) Chronic renal insufficiency, stage III (moderate) Cirrhosis Diabetes DM2 (diabetes mellitus, type 2) Easy bruising Essential hypertension Former smoker History of atrial fibrillation History of echocardiogram History of edema History of pain when walking History of renal dialysis History of stress test Left carotid bruit 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 Obesity Open wound Orthostatic hypotension Paroxysmal atrial fibrillation Premature ventricular contraction Shortness of breath Sinus bradycardia Stage 3 chronic renal impairment associated with type 2 diabetes mellitus Syncope Thrombocytopenia, unspecified Home Medications lorazepam 1 mg tablet 1 mg PO Q6H PRN Anxiety 01/04/20 [History Last Taken 09/16/22] albuterol sulfate 90 mcg/actuation aerosol inhaler 1 - 2 puff inhalation Q4H PRN PRN Sob &/Or Wheezing 01/24/20 [History Last Taken 09/17/22] darbepoetin yayo in polysorbat 60 mcg/0.3 mL in polysorbate injection syringe 60 mcg subcut .QMONTH anemia 01/24/20 [History Last Taken 09/16/22] vit B6 35 mg-met.hydrofolate 5 mg-mecobalamin 2 mg-ALA 300 mg capsule 1 ea PO DAILY 01/24/20 [History Last Taken 09/16/22] calcium carbonate 600 mg calcium (1,500 mg) tablet (Calcium) 600 mg PO DAILY 08/23/20 [History Last Taken 09/16/22] cholestyramine-aspartame 4 gram oral powder 1 ea PO 4X/DAY 08/23/20 [History Last Taken 09/16/22] sodium bicarbonate 650 mg tablet 650 mg PO TID 08/23/20 [History Last Taken 09/16/22] budesonide-formoterol HFA 80 mcg-4.5 mcg/actuation aerosol inhaler (Symbicort) 2 puff inhalation BID 12/07/20 [History Last Taken 09/16/22] calcitriol 0.25 mcg capsule 0.5 mcg PO DAILY 01/29/21 [History Last Taken 09/16/22] midodrine 10 mg tablet 10 mg PO BID 09/16/22 [History Last Taken 09/17/22] Allergy/AdvReac Type Severity Reaction Status Date / Time aspirin Allergy Shortness Verified 10/22/22 11:23 of breath celecoxib [From Celebrex] Allergy Shortness Verified 10/22/22 11:23 of breath Iodinated Contrast Media Allergy Shortness Verified 10/22/22 11:23 [Iodinated Contrast Media - of breath IV Dye] lithium [Trilby] Allergy Shortness Verified 10/22/22 11:23 of breath Sulfa (Sulfonamide Allergy Shortness Verified 10/22/22 11:23 Antibiotics) of breath metoprolol AdvReac Severe Marked Verified 10/22/22 11:23 bradycardia divalproex sodium AdvReac seizures Verified 10/22/22 11:23 [From Depakote] Family History Mother , Age 60 of CHF Diabetes Hypertension Myocardial infarction CHF (congestive heart failure) Father , 34 [place] Myocardial infarction Ruptured, aorta CAD (coronary artery disease) Brother Diabetes Brother , [place] age 44 Myocardial infarction Diabetes Liver problem Surgical History H/O gastric bypass H/O: hysterectomy History of appendectomy History of carpal tunnel release of both wrists History of cholecystectomy Social History Smoking Status: Former smoker Tobacco: How many years used: 20 how long ago did patient quit smokin alcohol intake: never substance use type: does not use caffeine: Yes Type: coffee Number of servings: 1 and tea Number of servings: 2 what type of physical activity do you participate in: none additional social history: ROS ROS ED Constitutional Constitutional ED: Denies chills or fever(s) Eyes Eyes: Reports other Details: Blind in right eye ENT ENT ED: Denies rhinorrhea Cardiovascular Cardiovascular: Denies chest pain, palpitations or racing heartbeat Respiratory/Chest Respiratory/Chest: Denies cough or dyspnea Gastrointestinal Gastrointestinal: Reports other Details: Patient does have reportedly advanced liver disease. She states nothing can fix this. She does have a drain in the right upper abdomen that is drained every 2 days. It has been draining a normal amount of fluid per patient. It is not bothering her at this time. ; Denies nausea or vomiting Genitourinary Genitourinary ED: Reports other Details: Patient no longer makes any urine. Musculoskeletal Musculoskeletal: Reports other Details: Primarily pain around the left shoulder area. Integumentary Reports Abrasions and other Details: She does have some mild abrasions on her arms and right knee from laying on the floor. Neurologic Neurologic: Denies headache(s) Hematologic/Lymphatic Hematologic/Lymphatic: Denies easy bleeding, easy bruising or lymphadenopathy Allergic/Immunologic Allergic/Immunologic ED: Denies urticaria EXAM Physical Exam Const Vital Signs: 10/22/22 11:24 10/22/22 11:32 10/22/22 13:23 Temperature 96.7 F L Temperature Source Temporal Pulse Rate Pulse Rate [1 (Initial Baseline)] Pulse Rate [2] Pulse Rate [3] Respiratory Rate 16 18 Respiratory Rate [1 (Initial Baseline)] Respiratory Rate [2] Respiratory Rate [3] Respiratory Effort Normal Non-Labored Respiratory Depth Normal Respiratory Pattern Normal Blood Pressure 126/90 H Blood Pressure [1 (Initial Baseline)] Blood Pressure [2] Blood Pressure [3] Blood Pressure Mean 102 Pulse Ox 98 Oxygen Delivery Method Room Air Room Air Oxygen Delivery Method [1 (Initial Baseline)] Oxygen Delivery Method [2] Oxygen Delivery Method [3] Oxygen Flow Rate (L/min) [1 (Initial Baseline)] Oxygen Flow Rate (L/min) [2] Oxygen Flow Rate (L/min) [3] 10/22/22 15:23 10/22/22 16:24 10/22/22 16:26 Temperature Temperature Source Pulse Rate 46 L 55 L Pulse Rate [1 (Initial Baseline)] 47 L Pulse Rate [2] 41 L Pulse Rate [3] 43 L Respiratory Rate 16 19 H Respiratory Rate [1 (Initial Baseline)] 16 Respiratory Rate [2] 6 L Respiratory Rate [3] 12 Respiratory Effort Respiratory Depth Respiratory Pattern Blood Pressure 118/72 85/65 L Blood Pressure [1 (Initial Baseline)] 94/64 Blood Pressure [2] 88/48 L Blood Pressure [3] 76/51 L Blood Pressure Mean 87 Pulse Ox 94 94 Oxygen Delivery Method Room Air Room Air Oxygen Delivery Method [1 (Initial Baseline)] Nasal Cannula Oxygen Delivery Method [2] Nasal Cannula Oxygen Delivery Method [3] Nasal Cannula Oxygen Flow Rate (L/min) [1 (Initial Baseline)] 2 Oxygen Flow Rate (L/min) [2] 2 Oxygen Flow Rate (L/min) [3] 2 10/22/22 16:44 10/22/22 16:49 10/22/22 16:54 Temperature Temperature Source Pulse Rate Pulse Rate [1 (Initial Baseline)] Pulse Rate [2] Pulse Rate [3] Respiratory Rate Respiratory Rate [1 (Initial Baseline)] Respiratory Rate [2] Respiratory Rate [3] Respiratory Effort Respiratory Depth Respiratory Pattern Blood Pressure Blood Pressure [1 (Initial Baseline)] Blood Pressure [2] Blood Pressure [3] Blood Pressure Mean Pulse Ox Oxygen Delivery Method Nasal Cannula Room Air Room Air Oxygen Delivery Method [1 (Initial Baseline)] Oxygen Delivery Method [2] Oxygen Delivery Method [3] Oxygen Flow Rate (L/min) [1 (Initial Baseline)] Oxygen Flow Rate (L/min) [2] Oxygen Flow Rate (L/min) [3] Positive well nourished and well developed Constitutional Narrative: Patient looks chronically ill but not acutely toxic. Vitals are normal. She is awake alert and appropriate. General Appearance ED: well developed and NAD HEENT Reports normocephalic HEENT Narrative: No sign of trauma contusions or abrasions. Eyes Eyes Narrative: Chronic scarred right eye. Neck full ROM Neck Narrative: No tenderness. Chest Wall inspection of chest normal and palpation of chest normal Chest Narrative: No chest wall tenderness. No subcutaneous air. Resp normal respiratory effort and clear to auscultation bilaterally Cardio regular rate and no murmurs GI non-tender, non-distended and no masses GI Narrative: I do note dressing in right upper quadrant. A drain tube can be seen under this. The area around this is clean and not red. There is no tenderness. Patient states it is functioning normally. Back/Spine no CVA tenderness Extremity Extremity Narrative: I do not see any deformity. Although her left shoulder is sore it does not appear to be dislocated. I do not see any marked contusions or abrasions. There is a very small area of redness on her right anterior patella but its not tender. This looks like she was laying on that area this evening. There is a dressing on the right upper medial thigh. The area around this dressing looks normal. Patient states this is a chronic lesion that is healing well. She is seeing wound care center and she does not want the dressing taken off because it has special compounds under it. Neuro oriented x3 Sensorium / Orientation: Negative for confused, lethargic or stuporous Psych Psych Narrative: My only flat affect Skin Skin Narrative: Several small contusions abrasions on forearms. MDM MDM MDM Narrative Medical decision making narrative: Procedure: Chest tube placement: I discussed risk benefits and options with the patient. Even though she is on hospice she does not want this placed. This may relieve some of her discomfort. She is not having dyspnea though. We chose anterior left chest. Patient then had sedation with 40 mg of propofol. There is certainly risks of this but patient did want some sedation for this.The area was anesthetized with 4 cc of 1% lidocaine locally. We anesthetized on the rib. We then crossed over the rib anesthetized the area drawing back and then finally entered the pleural space where a small amount of lidocaine was placed. Catheter over needle was placed in second and third interspace going right above the rib. We walked over the edge. We got bubbles back through fluid and easily advanced catheter without difficulty. It was hooked up initially to Heimlich valve and then to the Thora collects. It was sutured in place. We used Vaseline gauze around it, 4 x 4 gauze, taped in place and then taped a loop in the drainage catheter to avoid pulling. Post tube chest x-ray showed good reexpansion and patient was doing well. Patient's labs show very high white count. Some of this may be pain/demargination. She is not having fevers. She has no symptoms of infection. There is no sign of pneumonia on her CT. Although she has some abdominal discomfort she states it is at her baseline. She does not have a tender abdomen. I do not this represents a spontaneous bacterial peritonitis. I will send off blood cultures. Patient is too weak to go home. She has missed dialysis on Thursday. Her last dialysis was Thursday. She has elevated potassium although her EKG is not showing marked changes of that. She will need dialysis. She does live alone at home. She has help come in during the day but she is too weak to care for herself at this time. I also discussed her chest tube. We have been in contact with hospice care. It sounds like they cannot take her at the hospice center because of the chest tube. At this point, the plan is to revoke hospice while she is in the hospital. They will then be able to restart it when and if she leaves. I have hospitalist on page. Lab Data Attestation: I reviewed the patient's lab results. Labs: Laboratory Results - last 24 hr 10/22/22 10/22/22 10/22/22 11:50 11:50 11:50 WBC 21.6 H RBC 2.86 L Hgb 9.8 L Hct 30.1 L MCV 105.2 H MCH 34.3 H MCHC 32.6 RDW Std Deviation 61.2 H RDW Coeff of Mayte 16.7 H Plt Count 190 MPV 9.6 Immature Gran % (Auto) 1.700 H Neut % (Auto) 92.2 H Lymph % (Auto) 2.2 L [place] % (Auto) 3.7 Eos % (Auto) 0.0 Baso % (Auto) 0.2 Absolute Neuts (auto) 19.9 H Absolute Lymphs (auto) 0.47 L Nucleated RBC % 0.1 Differential Comment SCANNED Sodium 129 L Potassium 6.8 H* Chloride 92 L Carbon Dioxide 22.0 Anion Gap 15 BUN 121 H* Creatinine 11.00 H* Estim Creat Clear Calc 4.40 Est GFR (MDRD) Af Amer 5 L Est GFR (MDRD) Non-Af 4 L BUN/Creatinine Ratio 11.0 Glucose 92 Calcium 8.5 Total Bilirubin 2.00 H AST 176 H ALT 47 Alkaline Phosphatase 155 H Ammonia < 10.0 L Total Protein 5.8 L Albumin 1.9 L Globulin 3.9 Albumin/Globulin Ratio 0.5 L Radiography Diagnostic Testing: Clinical Impression(s) from Imaging Studies Brain CT 10/22/22 11:34 IMPRESSION: 1. No acute intracranial findings. 2. Nonspecific right mastoid effusion. Electronically Signed: Johnathan Elizabeth at 12:56 EST , Shoulder X-Ray 10/22/22 11:34 IMPRESSION: 1. Normal x-ray examination of the shoulder. 2. Large left pneumothorax as described on the recent chest x-ray Electronically Signed: Parviz Jack MD at 13:05 EST , Chest X-Ray 10/22/22 12:10 IMPRESSION: Moderate to large left pneumothorax with collapse of the left lung. The right lung is clear. A fracture line is not visualized. Electronically Signed: Fabienne Wong MD at 12:55 EST , ADDENDUM: 10/22/22 1306 IMPRESSION: Moderate to large left pneumothorax with collapse of the left lung. The right lung is clear. A fracture line is not visualized. N.B. : The above Results were Read Back by Fabienne Wong MD to Cosme Velazquez MD, and understanding confirmed on 10/22/2022 12:59:56 (ET). Electronically Signed: Fabienne Wong MD at 12:55 EST , Chest CT 10/22/22 12:25 IMPRESSION: Large left pneumothorax. Collapse of the left lung. These findings were called to the on-call physician on a stat basis Dr. Velazquez regarding the chest x-ray performed October 22, 2022 at 12:24 PM. No visualized acute fracture. Partially visualized ascites. Tubing in the right upper quadrant. Postoperative change stomach. Partially visualized abdominal varices. Partially visualized renal atrophy. Partially visualized coronary artery calcification borderline cardiac enlargement. Degenerative changes of the thoracolumbar spine. Electronically Signed: Fabienne Wong MD at 13:30 EST , Chest X-Ray 10/22/22 16:59 IMPRESSION: Interval placement of left-sided chest tube which appears to be in satisfactory position. Interval improvement in now trace left pneumothorax. Pulmonary lacerations and/or contusions in the left mid to lower lung. Electronically Signed: Michel Sweet MD at 17:21 EST , Chest x-ray shows left-sided pneumothorax. CT shows left-sided pneumo without any other acute process. CT of the head shows no acute process. X-ray of the shoulder shows no acute process but does show the pneumothorax which is likely the source of discomfort in that region. Discharge Plan Dx/Rx/DC Orders Clinical Impression: Fall at home, Pneumothorax on left, Leukocytosis, Hospice care Disposition Disposition: [facility]
[2022-10-22 12:05] LABS: Absolute Lymphocyte Count 0.47 X10^3/uL (0.83-4.51); Absolute Neutrophil Count 19.9 X10^3/uL (2.0-7.7); Basophil# 0.04 X10^3/uL; Basophil% 0.2 % (0-1); Eosinophil# 0.01 X10^3/uL; Hematocrit 30.1 % (37-47); Hemoglobin 9.8 g/dL (12.0-15.0); Lymphocyte # 0.47 X10^3/ul (0.83-4.51); Lymphocyte % 2.2 % (19-41); Mean Corp Hgb Conc 32.6 g/dL (32-36); Mean Corpuscular Hgb 34.3 pg (27.0-32.0); Mean Corpuscular Volume 105.2 fL (81-99); Mean Platelet Vol. 9.6 fl (6.2-12.0); Monocyte# 0.81 X10^3/uL; Monocyte% 3.7 % (0-10); NRBC Flagged by Analyzer 0.1 % (0-5); Neutrophil # 19.92 X10^3/uL (2.7-7.7); Neutrophil % 92.2 % (47-70); POSITIVE DIFFERENTIAL YES; Platelet Count 190 K/mm3 (150-450); RBC Distribution Width CV 16.7 % (11.6-14.6); RBC Distribution Width SD 61.2 fl (35.1-43.9); Red Blood Count 2.86 M/mm3 (4.2-5.4); White Blood Count 21.6 K/mm3 (4.4-11.0)
--- NOTE | 2022-10-22 12:10 | RAD_ITS ---
We are attempting to reach an attending provider to discuss findings. An addendum with communication details will be sent when the communication is complete. STUDY: X-RAY CHEST REASON FOR EXAM: Female, 66 years old. Trauma TECHNIQUE: Single AP portable view of the chest. COMPARISON: August 21, 2016 chest x-ray FINDINGS: There is a large left pneumothorax with collapse of the left lung towards the left hilum. For technique of rib fractures not visualized. Normal size heart. Normal mediastinum and soy. Normal visualized pulmonary arteries. Normal visualized aortic arch and descending thoracic aorta. Normal visualized thoracic spine. Normal visualized ribs, clavicles, and shoulders. There is no demonstrated abnormality of the visualized soft tissue structures of the upper abdomen. RAD/Chest 1 View (Portable) IMPRESSION: Moderate to large left pneumothorax with collapse of the left lung. The right lung is clear. A fracture line is not visualized. Electronically Signed: Fabienne Wong MD at 12:55 EST Reading Location ID and State: [facility] / [place] Tel , Service support ,
--- NOTE | 2022-10-22 12:25 | CT_ITS ---
INDICATION: Trauma EXAMINATION: CT CHEST WITHOUT CONTRAST - CT Chest W/O Contrast Injection TECHNIQUE: Helically acquired images were obtained of the chest. A radiation dose optimization technique was used for this scan. Reconstructed sagittal coronal views are performed. IV Contrast dosage and agent: None. COMPARISON: Chest x-ray October 22, 2022 CT scan abdomen and pelvis November 19, 2021 FINDINGS: LUNGS, PLEURA AND LARGE AIRWAYS: There is a large left pneumothorax. There is left lung collapse partial consolidation. THYROID: No thyroid lesions. HEART AND PERICARDIUM: There is borderline cardiac enlargement. There are visualize coronary artery calcifications. No pericardial effusion. CORONARY ARTERIES: Coronary artery calcification VESSELS: The aorta is minimally calcified and tortuous. The ascending thoracic aorta measures 3.7 x 3.7 cm. MEDIASTINUM AND JIMMY: No mediastinal or hilar adenopathy. Esophagus is unremarkable. This postoperative change within the upper abdomen at the level of the gastroesophageal junction proximal stomach. UPPER ABDOMEN: There is a partially visualized right side drain. There is a visualized fluid collection in the right upper quadrant which may represent ascites. There is an elongated appearance of the left hepatic lobe with lobulation. There are partially visualized large and report there is sees within the left upper quadrant. There is partial visualization of renal atrophy. BONES: There is a suggestion of a nonacute left anteriorly located lower rib fracture image #[id number]. This visualized degenerative change within the thoracic spine. The visualized bony hemangioma at the level of T10. CT/Chest without Contrast IMPRESSION: Large left pneumothorax. Collapse of the left lung. These findings were called to the on-call physician on a stat basis Dr. Velazquez regarding the chest x-ray performed October 22, 2022 at 12:24 PM. No visualized acute fracture. Partially visualized ascites. Tubing in the right upper quadrant. Postoperative change stomach. Partially visualized abdominal varices. Partially visualized renal atrophy. Partially visualized coronary artery calcification borderline cardiac enlargement. Degenerative changes of the thoracolumbar spine. Electronically Signed: Fabienne Wong MD at 13:30 EST Reading Location ID and State: [facility] / [place] Tel , Service support ,
[2022-10-22 12:29] LABS: Differential Indicated SCAN CRITERIA MET
[2022-10-22 12:30] LABS: ALB/GLOB Ratio 0.5 RATIO (0.9-2.4); AST(SGOT) 176 U/L (15-37); Alanine Aminotransfer ALT/SGPT 47 U/L (13-56); Albumin, Serum 1.9 g/dL (3.2-5.0); Alkaline Phosphatase 155 U/L (45-117); Anion Gap 15 (5-15); BUN 121 mg/dL (7-18); Calcium,Total 8.5 mg/dL (8.5-10.1); Chloride 92 mmol/L (98-107); EST Glomerular Filtration Rate 4 mL/min (>60); Est Glom Filt Rate - Afr Amer 5 mL/min (>60); Globulin 3.9 g/dL (2.2-4.2); Glucose 92 mg/dL (74-106); Potassium 6.8 mmol/L (3.5-5.1); Protein, Total 5.8 g/dL (6.4-8.2); Sodium Level 129 mmol/L (136-145)
[2022-10-22 12:37] LABS: Ammonia < 10.0 umol/L (11-32)
[2022-10-22 12:52] LABS: Differential Comment SCANNED
[2022-10-22] MEDS: Propofol 200 MG/20 ML Vial IV BOLUS (16:53)
--- NOTE | 2022-10-22 16:59 | RAD_ITS ---
INDICATION: Status post chest tube placement EXAMINATION/TECHNIQUE: X-RAY - XR Chest 1 View COMPARISON: None. FINDINGS: Pulmonary lacerations and/or contusions in the left mid to lower lung. Tortuous and calcified thoracic aorta. The heart is borderline enlarged. No pleural effusion. Trace left pneumothorax. Degenerative changes of the thoracic spine. RAD/Chest 1 View (Portable) IMPRESSION: Interval placement of left-sided chest tube which appears to be in satisfactory position. Interval improvement in now trace left pneumothorax. Pulmonary lacerations and/or contusions in the left mid to lower lung. Electronically Signed: Michel Sweet MD at 17:21 EST ,
--- NOTE | 2022-10-22 18:19 | NURSING ---
MED SURG 117 [place] FALL, WEAKNESS, LEFT PNEUMOTHORAX, RENAL FAILURE
[2022-10-22 18:27] LABS: Procalcitonin 4.63 ng/mL (0.00-0.09)
--- NOTE | 2022-10-22 18:48 | HP.PCM.HOS_ITS ---
[facility] - General General Date of Admission: 10/22/22 HPI Narrative ROSS TOVAR, is a 66 F who presents to the hospital after mechanical fall, with subsequently lying on the floor overnight. She was found to have a large left pneumothorax and a chest tube was placed with good resolution. 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 She also has bilateral lower extremity edema which has been new over the last year or 2 as well. She has had previous variceal banding with periodic bleeding and anemia. Of note she is also in end-stage renal disease due to diabetes and she is getting dialysis however she is on hospice. She states that she does feel terrible with dialysis however she does want to . I discussed with her that hospice is end-of-life comfort care and that the illnesses that she has with her continued decline in terms of functionality will lead to her and she expressed understanding and she just wants to keep doing what she is doing and she does not wanted to stop dialysis because even though she feels terrible initially after the treatment she has a boyfriend and interact with family and has an okay quality of life at this moment. Per nephrology she has not had dialysis since last Thursday, her creatinine is elevated at 11 with an elevated potassium. There might be a component of rhabdomyolysis to this given her history of laying on a concrete floor overnight. [facility] Medical History Abdominal ascites Anemia Anxiety Aortic valve stenosis, nonrheumatic Arteriovenous fistula Arthritis Asthma Atrial arrhythmia Atrial premature beats Blind Cardiology follow-up encounter Chronic renal failure, stage 4 (severe) Chronic renal insufficiency, stage III (moderate) Cirrhosis Diabetes DM2 (diabetes mellitus, type 2) Easy bruising Essential hypertension Former smoker History of atrial fibrillation History of echocardiogram History of edema History of pain when walking History of renal dialysis History of stress test Left carotid bruit Liver 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 Obesity Open wound Orthostatic hypotension Paroxysmal atrial fibrillation Premature ventricular contraction Shortness of breath Sinus bradycardia Stage 3 chronic renal impairment associated with type 2 diabetes mellitus Syncope Thrombocytopenia, unspecified Home Medications lorazepam 1 mg tablet 1 mg PO Q6H PRN Anxiety 01/04/20 [History Last Taken 10/20/22] albuterol sulfate 90 mcg/actuation aerosol inhaler 1 - 2 puff inhalation Q4H PRN PRN Sob &/Or Wheezing 01/24/20 [History Last Taken 10/21/22] darbepoetin yayo in polysorbat 60 mcg/0.3 mL in polysorbate injection syringe (Aranesp) 60 mcg subcut QMONTH anemia 01/24/20 [History Last Taken 10/01/22] calcium carbonate 600 mg calcium (1,500 mg) tablet (Calcium) 600 mg PO DAILY supplement 08/23/20 [History Last Taken 10/21/22] cholestyramine-aspartame 4 gram oral powder 1 ea PO TID PRN Diarrhea 08/23/20 [History Last Taken 10/20/22] budesonide-formoterol HFA 80 mcg-4.5 mcg/actuation aerosol inhaler (Symbicort) 2 puff inhalation BID COPD 12/07/20 [History Last Taken 10/15/22] midodrine 10 mg tablet 10 mg PO BID 09/16/22 [History Last Taken 09/17/22] brimonidine 0.2 % eye drops 1 drp EACH EYE TID GLAUCOMA 10/22/22 [History Last Taken 10/20/22] calcitriol 0.5 mcg capsule 0.5 mcg PO TU 10/22/22 [History Last Taken 10/14/22] cyclosporine 0.05 % eye drops in a dropperette (Restasis) 2 drp EACH EYE QHS DRY EYE 10/22/22 [History Last Taken 10/20/22] furosemide 20 mg tablet 20 mg PO DAILY FLUID 10/22/22 [History Last Taken 10/14/22] latanoprost 0.005 % eye drops 1 drp EACH EYE QHS GLAUCOMA 10/22/22 [History Last Taken 10/20/22] montelukast 10 mg tablet 10 mg PO QHS ALLERGIES 10/22/22 [History Last Taken 10/14/22] xkdfucwe-dmulkuptg-oeapoisu 3.5 mg/mL-10,000 unit/mL-0.1% eye drops 2 drp RIGHT EYE 4X/DAY EYE BACTERIAL INFECTION 10/22/22 [History Last Taken 10/20/22] oxycodone 10 mg tablet 10 mg PO TID PRN Pain 10/22/22 [History Last Taken Unknown] sevelamer carbonate 800 mg tablet 800 mg PO TID 10/22/22 [History Last Taken Unknown] spironolactone 25 mg tablet 25 mg PO BID BLOOD PRESSURE 10/22/22 [History Last Taken Unknown] tobramycin 0.3 % eye drops 1 drp EACH EYE QHS EYE BACTERIAL INFECTION 10/22/22 [History Last Taken 10/20/22] Allergy/AdvReac Type Severity Reaction Status Date / Time aspirin Allergy Shortness Verified 10/22/22 11:23 of breath celecoxib [From Celebrex] Allergy Shortness Verified 10/22/22 11:23 of breath Iodinated Contrast Media Allergy Shortness Verified 10/22/22 11:23 [Iodinated Contrast Media - of breath IV Dye] lithium [[place]] Allergy Shortness Verified 10/22/22 11:23 of breath Sulfa (Sulfonamide Allergy Shortness Verified 10/22/22 11:23 Antibiotics) of breath metoprolol AdvReac Severe Marked Verified 10/22/22 11:23 bradycardia divalproex sodium AdvReac seizures Verified 10/22/22 11:23 [From Depakote] Family History Mother , Age 60 of CHF Diabetes Hypertension Myocardial infarction CHF (congestive heart failure) Father , 34 [place] Myocardial infarction Ruptured, aorta CAD (coronary artery disease) Brother Diabetes Brother , [place] age 44 Myocardial infarction Diabetes Liver problem Surgical History H/O gastric bypass H/O: hysterectomy History of appendectomy History of carpal tunnel release of both wrists History of cholecystectomy Social History Smoking Status: Former smoker Tobacco: How many years used: 20 how long ago did patient quit smokin alcohol intake: never substance use type: does not use caffeine: Yes Type: coffee Number of servings: 1 and tea Number of servings: 2 what type of physical activity do you participate in: none additional social history: ROS Constitutional Constitutional: Reports malaise; Denies chills, fatigue or fever(s) Eyes Eyes: Denies blurry vision ENT HEENT: Denies headache(s) or nasal discharge Cardiovascular Cardiovascular: Denies chest pain, dyspnea on exertion or syncope Respiratory/Chest Respiratory/Chest: Denies cough, shortness of breath at rest or shortness of breath with exertion Gastrointestinal Gastrointestinal: Denies constipation, diarrhea, nausea or vomiting Genitourinary Genitourinary: Denies dysuria Musculoskeletal Musculoskeletal: Reports joint pain Neurologic Neurologic: Denies focal weakness, numbness or tremor(s) Psychiatric Psychiatric: Denies anxiety or depression Vital Signs Vital Signs Vital Signs: 10/22/22 11:24 10/22/22 11:32 10/22/22 13:23 Temperature 96.7 F L Temperature Source Temporal Pulse Rate Pulse Rate [1 (Initial Baseline)] Pulse Rate [2] Pulse Rate [3] Respiratory Rate 16 18 Respiratory Rate [1 (Initial Baseline)] Respiratory Rate [2] Respiratory Rate [3] Respiratory Effort Normal Non-Labored Respiratory Depth Normal Respiratory Pattern Normal Blood Pressure 126/90 H Blood Pressure [1 (Initial Baseline)] Blood Pressure [2] Blood Pressure [3] Blood Pressure Mean 102 Pulse Ox 98 Oxygen Delivery Method Room Air Room Air Oxygen Delivery Method [1 (Initial Baseline)] Oxygen Delivery Method [2] Oxygen Delivery Method [3] Oxygen Flow Rate (L/min) [1 (Initial Baseline)] Oxygen Flow Rate (L/min) [2] Oxygen Flow Rate (L/min) [3] 10/22/22 15:23 10/22/22 16:24 10/22/22 16:26 Temperature Temperature Source Pulse Rate 46 L 55 L Pulse Rate [1 (Initial Baseline)] 47 L Pulse Rate [2] 41 L Pulse Rate [3] 43 L Respiratory Rate 16 19 H Respiratory Rate [1 (Initial Baseline)] 16 Respiratory Rate [2] 6 L Respiratory Rate [3] 12 Respiratory Effort Respiratory Depth Respiratory Pattern Blood Pressure 118/72 85/65 L Blood Pressure [1 (Initial Baseline)] 94/64 Blood Pressure [2] 88/48 L Blood Pressure [3] 76/51 L Blood Pressure Mean 87 Pulse Ox 94 94 Oxygen Delivery Method Room Air Room Air Oxygen Delivery Method [1 (Initial Baseline)] Nasal Cannula Oxygen Delivery Method [2] Nasal Cannula Oxygen Delivery Method [3] Nasal Cannula Oxygen Flow Rate (L/min) [1 (Initial Baseline)] 2 Oxygen Flow Rate (L/min) [2] 2 Oxygen Flow Rate (L/min) [3] 2 10/22/22 16:44 10/22/22 16:49 10/22/22 16:54 Temperature Temperature Source Pulse Rate Pulse Rate [1 (Initial Baseline)] Pulse Rate [2] Pulse Rate [3] Respiratory Rate Respiratory Rate [1 (Initial Baseline)] Respiratory Rate [2] Respiratory Rate [3] Respiratory Effort Respiratory Depth Respiratory Pattern Blood Pressure Blood Pressure [1 (Initial Baseline)] Blood Pressure [2] Blood Pressure [3] Blood Pressure Mean Pulse Ox Oxygen Delivery Method Nasal Cannula Room Air Room Air Oxygen Delivery Method [1 (Initial Baseline)] Oxygen Delivery Method [2] Oxygen Delivery Method [3] Oxygen Flow Rate (L/min) [1 (Initial Baseline)] Oxygen Flow Rate (L/min) [2] Oxygen Flow Rate (L/min) [3] 10/22/22 17:00 Temperature Temperature Source Pulse Rate 47 L Pulse Rate [1 (Initial Baseline)] Pulse Rate [2] Pulse Rate [3] Respiratory Rate 14 Respiratory Rate [1 (Initial Baseline)] Respiratory Rate [2] Respiratory Rate [3] Respiratory Effort Respiratory Depth Respiratory Pattern Blood Pressure 94/36 L Blood Pressure [1 (Initial Baseline)] Blood Pressure [2] Blood Pressure [3] Blood Pressure Mean 55 Pulse Ox 96 Oxygen Delivery Method Room Air Oxygen Delivery Method [1 (Initial Baseline)] Oxygen Delivery Method [2] Oxygen Delivery Method [3] Oxygen Flow Rate (L/min) [1 (Initial Baseline)] Oxygen Flow Rate (L/min) [2] Oxygen Flow Rate (L/min) [3] Weight Weight: 176 lb Body Mass Index (BMI) 30.0 Physical Exam Narrative General: Alert, Oriented x3, Cooperative, No apparent distress HEENT: Atraumatic, blind in her right eye, EOMI Oral: Moist Mucosa Neck: Supple, No JVD Lungs: Diminished, Normal air movement, No rhonchi, No wheeze, No rales Cardiovascular: Regular rate, Regular Rhythm, Normal S1, Normal S2, No murmurs Abdomen: Soft, Non Tender, Non-Distended, No Hepato-splenomegaly, drain in her right abdomen Extremities: Edema, Capillary Refill Less than 3 Seconds Skin: No rashes, No breakdown Musculoskeletal: No Tenderness to Palpation of Joints or Extremities Neurological: Cranial nerves II-XII grossly intact, Motor Exam 5/5 strength throughout, Sensory exam intact to light touch and pain Psych/Mental Status: Normal Affect, Appropriate Results Lab / Micro Data Result Diagrams: 10/22/22 11:50 10/22/22 11:50 Labs: Laboratory Results - last 24 hr 10/22/22 11:50: WBC 21.6 H, RBC 2.86 L, Hgb 9.8 L, Hct 30.1 L, MCV 105.2 H, MCH 34.3 H, MCHC 32.6, RDW Std Deviation 61.2 H, RDW Coeff of [place] 16.7 H, Plt Count 190, MPV 9.6, Immature Gran % (Auto) 1.700 H, Neut % (Auto) 92.2 H, Lymph % (Auto) 2.2 L, [place] % (Auto) 3.7, Eos % (Auto) 0.0, Baso % (Auto) 0.2, Absolute Neuts (auto) 19.9 H, Absolute Lymphs (auto) 0.47 L, Nucleated RBC % 0.1, Differential Comment SCANNED 10/22/22 11:50: Sodium 129 L, Potassium 6.8 H*, Chloride 92 L, Carbon Dioxide 22.0, Anion Gap 15, BUN 121 H*, Creatinine 11.00 H*, Estim Creat Clear Calc 4.40, Est GFR (MDRD) Af Amer 5 L, Est GFR (MDRD) Non-Af 4 L, BUN/Creatinine Ratio 11.0, Glucose 92, Calcium 8.5, Total Bilirubin 2.00 H, AST 176 H, ALT 47, Alkaline Phosphatase 155 H, Total Protein 5.8 L, Albumin 1.9 L, Globulin 3.9, Albumin/Globulin Ratio 0.5 L 10/22/22 11:50: Ammonia < 10.0 L 10/22/22 17:45: Procalcitonin 4.63 H Radiology Impression Brain CT 10/22/22 11:34 IMPRESSION: 1. No acute intracranial findings. 2. Nonspecific right mastoid effusion. Electronically Signed: Johnathan Elizabeth, at 12:56 EST , Shoulder X-Ray 10/22/22 11:34 IMPRESSION: 1. Normal x-ray examination of the shoulder. 2. Large left pneumothorax as described on the recent chest x-ray Electronically Signed: Parviz Jack MD at 13:05 EST , Chest X-Ray 10/22/22 12:10 IMPRESSION: Moderate to large left pneumothorax with collapse of the left lung. The right lung is clear. A fracture line is not visualized. Electronically Signed: Fabienne Wong MD at 12:55 EST , ADDENDUM: 10/22/22 1306 IMPRESSION: Moderate to large left pneumothorax with collapse of the left lung. The right lung is clear. A fracture line is not visualized. N.B. : The above Results were Read Back by Fabienne Wong MD to Cosme Velazquez MD, and understanding confirmed on 10/22/2022 12:59:56 (ET). Electronically Signed: Fabienne Wong MD at 12:55 EST , Chest CT 10/22/22 12:25 IMPRESSION: Large left pneumothorax. Collapse of the left lung. These findings were called to the on-call physician on a stat basis Dr. Velazquez regarding the chest x-ray performed October 22, 2022 at 12:24 PM. No visualized acute fracture. Partially visualized ascites. Tubing in the right upper quadrant. Postoperative change stomach. Partially visualized abdominal varices. Partially visualized renal atrophy. Partially visualized coronary artery calcification borderline cardiac enlargement. Degenerative changes of the thoracolumbar spine. Electronically Signed: Fabienne Wong MD at 13:30 EST , Chest X-Ray 10/22/22 16:59 IMPRESSION: Interval placement of left-sided chest tube which appears to be in satisfactory position. Interval improvement in now trace left pneumothorax. Pulmonary lacerations and/or contusions in the left mid to lower lung. Electronically Signed: Michel Sweet MD at 17:21 EST , Assessment & Plan Assessment/Plan (1) Pneumothorax on left: PLAN: Plan 1. Pneumothorax after mechanical fall no obvious rib fracture ? We will obtain a chest x-ray in the morning and consult surgery for management of the chest tube ? We will obtain PT/OT evaluation for discharge planning ? She does have a leukocytosis of 21.6 but she is afebrile and no other signs of infection. Given her presentation with pneumothorax as well as the possibility of a rhabdo we will recheck in the morning, if she continues to have a leukocytosis she may benefit from SBP prophylaxis secondary to her liver failure. 2. End-stage renal disease secondary to diabetes with acute renal failure from missed dialysis compounded by possible rhabdomyolysis ? We will consult nephrology for dialysis, per nephrology she has not had dialysis for about 8 days secondary to weakness ? She does miss several dialysis treatments due to an inability to get to the dialysis center ? We will get a CPK to evaluate for rhabdo ? I had an extensive discussion with her on advance care planning for about 30 minutes on what hospice is and about the role of dialysis and hospice. She states that she wants to stay on hospice because she does want any heroic measures but she also does not want to discontinue dialysis. It does not appear that she has tremendous insight into her condition or into what hospice actually is despite our discussion. ? We will give her a dose of Kayexalate while awaiting dialysis to be done tonight 3. Cirrhosis secondary to Rg with ascites ? She does have tunneled catheter in her right abdomen and gets drained periodically. She had 6000 cc removed in the middle of August ? We will continue with her home medications including her midodrine and cholestyramine, she does not make any urine so we will hold her Lasix pending dialysis today DVT: SCDs Charges/Coding Visit Charges Inpatient E&M: 93912 Init Hosp L3 Procedures Hospitalists Procedures: 52760 Advncd Care Plan 30 Min
--- NOTE | 2022-10-22 19:00 | PCA ---
EMERGENCY DOCUMENTATION
--- NOTE | 2022-10-22 20:01 | CM.ED ---
DORITA Note SW was advised that patient is currently linked with [facility]. RN inquired if patient could go to IPU at [facility]. DORITA called Snow at [facility] [phone]. Snow said that patient lives alone and on their role they have no listed NOK. [facility] does not have a IPU. Snow said that they have GIP with [facility] where they use the hospital beds for hospice patients. Snow stated that they have phone call into their corporate office to see if patient needs to revoke her hospice as the mechanical fall and pneumothorax are not related to the end stage. Snow said that they are waiting to see if patient needs to revoke hospice from their corporate offices. Patient has [facility]. DORITA updated [facility] VenegasFounder. Patient will need to be admitted. Nohemi FIERRO
[2022-10-22] MEDS: Sodium Polystyrene Sulfonate 15 GM/60 ML UDC 30 GM PO (20:13)
[2022-10-22] MEDS: Sodium Bicarbonate 650 MG Tablet PO (20:13)
[2022-10-22 21:52] LABS: CPK Total, Creatine Kinase 354 U/L (26-192)
--- NOTE | 2022-10-22 22:55 | DIALYSIS ---
Right arm AV fistula is absent of thrill and bruit. Pt has dialysis ordered d/t missed treatments and high potassium level. Able to insert 1 #16g needle, however slow blood return with insertion, able to flush needle, however will not draw adequately for dialysis. Attempted 2 more times to get another needle accessed for arterial with no success. Dr. Jacobs notified, orders received.
[2022-10-22 23:41] LABS: Anion Gap 12 (5-15); BUN 124 mg/dL (7-18); BUN/Creat Ratio 11.3 RATIO (10-20); Calcium,Total 7.9 mg/dL (8.5-10.1); Chloride 94 mmol/L (98-107); EST Glomerular Filtration Rate 4 mL/min (>60); Est Glom Filt Rate - Afr Amer 5 mL/min (>60); Glucose 99 mg/dL (74-106); Potassium 6.9 mmol/L (3.5-5.1); Sodium Level 130 mmol/L (136-145)
[2022-10-22] MEDS: Cholestyramine/Sucrose 4 GM/PACKET PO (23:53)
[2022-10-23] VITALS (10 sets, daily range): BP systolic 90–95; BP diastolic 48–68; PULSE 56–92; RESP 14–18; TEMP 36.1–36.6; O2SAT 95–100
[2022-10-23 01:04] LABS: Potassium 5.3 mmol/L (3.5-5.1)
[2022-10-23] MEDS: Calcium Gluconate IV 1 GM in Syringe 1 EACH IV (01:36)
[2022-10-23] MEDS: Dextrose 50%-Water 25 GM/50 ML DISP.SYRIN IV (01:42)
[2022-10-23] MEDS: Insulin Lispro 10 UNIT in Syringe 0 ML 6 UNIT IV (01:44)
[2022-10-23] MEDS: Sodium Bicarbonate 8.4% 50 ML Syringe 50 MEQ IV (01:48)
[2022-10-23] MEDS: 0.9% Saline Lock 10 ML Syringe IV ×2 (01:49→09:01)
[2022-10-23] MEDS: Albuterol *CONC* 2.5mg/0.5mL VIAL.NEB. 10 MG INHALATION (02:03)
[2022-10-23 04:06] LABS: Anion Gap 14 (5-15); BUN 122 mg/dL (7-18); Calcium,Total 8.1 mg/dL (8.5-10.1); Chloride 95 mmol/L (98-107); EST Glomerular Filtration Rate 4 mL/min (>60); Est Glom Filt Rate - Afr Amer 4 mL/min (>60); Estimated Creatinine Clearance 4.36 ml/min; Glucose 100 mg/dL (74-106); Potassium 5.9 mmol/L (3.5-5.1); Sodium Level 131 mmol/L (136-145)
[2022-10-23] MEDS: Sodium Polystyrene Sulfonate 15 GM/60 ML UDC 30 GM PO ×2 (05:21→12:23)
--- NOTE | 2022-10-23 05:55 | RAD_ITS ---
STUDY: X-RAY CHEST REASON FOR EXAM: Female, 66 years old. pneumothorax TECHNIQUE: Single AP portable view of the chest. COMPARISON: October 22, 2022 at 4:[address] chest October 22, 2022. Chest x-ray October 22, 2022 at 12:24 PM. FINDINGS: A left-sided small bore chest catheter is present. The tip has been repositioned and is now in the inferior portion of the left upper lung. There may be a kink in the midportion of the chest tube. No pneumothorax. No focal infiltrates. Minimal left mid lung density probably representing subsegmental atelectasis decreased in size. Normal size heart. Normal mediastinum and soy. Normal visualized pulmonary arteries. Normal visualized aortic arch and descending thoracic aorta. Normal visualized thoracic spine. Normal visualized ribs, clavicles, and shoulders. There is no demonstrated abnormality of the visualized soft tissue structures of the upper abdomen. RAD/Chest 1 View (Portable) IMPRESSION: No pneumothorax. Repositioning of left chest tube. Evaluate clinically to exclude a significant kink in the chest tube. Electronically Signed: Pepe Dixon MD at 7:12 EST Reading Location ID and State: [id number] / , Service support ,
[2022-10-23 06:15] LABS: Bedside Glucose 207 mg/dL (74-106)
[2022-10-23] MEDS: Budesonide Respules 0.5 MG/2 ML AMPUL.NEB. INHALATION (07:13)
[2022-10-23] MEDS: Albuterol 2.5 MG/3 ML VIAL.NEB. INHALATION (07:13)
--- NOTE | 2022-10-23 07:18 | EX.PCM.CON.S ---
Assessment & Plan Assessment/Plan (1) Pneumothorax on left: (2) Fall at home: (3) Hospice care: PLAN: Plan Patient's chest x-ray after placement of chest tube showed lung was reexpanded. However this morning lung is still reexpanded but the chest tube appears to be kinked in several locations on chest x-ray which I personally reviewed. Patient's chest tube is still in place according to where it was sutured. However there is no leak but likely there is no able ability to have a leak with the kink in the chest tube and due to the small chest tube there is no ability to readjusts and replace the tube without contaminating. Chest tube was removed at bedside and Vaseline gauze was placed over the secondary costal anterior rib space with 4 x 4 and tape. We will plan to repeat chest x-ray two-view. If no pneumothorax seen or very small we will plan to clinically follow and not replace tube if clinically stable. Ariana Soto M.D. Pager: [phone] [facility] [address] [place] [address], [facility], [address] [place] [address] Office: [phone] HPI Consult Data Date of Consult: 10/23/22 HPI Narrative HPI Narrative: ROSS TOVAR, is a 66 F who presents to the ER after a fall and was found to have a large left pneumothorax. Patient had a percutaneous chest tube placed in the ER and had good reexpansion of her lung. Patient also has not had dialysis in several days and was planned to have dialysis last night however patient's fistula is no longer functional and was able to have dialysis. Patient is currently on hospice and is known to me as I placed Pleurx catheter in abdomen due to ascites from her Rg where she gets about 8 L off a week [facility] Medical History (Updated 10/23/22 @ 10:[address] 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 Obesity Open wound Orthostatic hypotension Paroxysmal atrial fibrillation Premature ventricular contraction Shortness of breath Sinus bradycardia Stage 3 chronic renal impairment associated with type 2 diabetes mellitus Syncope Thrombocytopenia, unspecified Home Medications lorazepam 1 mg tablet 1 mg PO Q6H PRN Anxiety 01/04/20 [History Last Taken 10/20/22] albuterol sulfate 90 mcg/actuation aerosol inhaler 1 - 2 puff inhalation Q4H PRN PRN Sob &/Or Wheezing 01/24/20 [History Last Taken 10/21/22] darbepoetin yayo in polysorbat 60 mcg/0.3 mL in polysorbate injection syringe (Aranesp) 60 mcg subcut QMONTH anemia 01/24/20 [History Last Taken 10/01/22] calcium carbonate 600 mg calcium (1,500 mg) tablet (Calcium) 600 mg PO DAILY supplement 08/23/20 [History Last Taken 10/21/22] cholestyramine-aspartame 4 gram oral powder 1 ea PO TID PRN Diarrhea 08/23/20 [History Last Taken 10/20/22] budesonide-formoterol HFA 80 mcg-4.5 mcg/actuation aerosol inhaler (Symbicort) 2 puff inhalation BID COPD 12/07/20 [History Last Taken 10/15/22] midodrine 10 mg tablet 10 mg PO BID 09/16/22 [History Last Taken 09/17/22] brimonidine 0.2 % eye drops 1 drp EACH EYE TID GLAUCOMA 10/22/22 [History Last Taken 10/20/22] calcitriol 0.5 mcg capsule 0.5 mcg PO TU 10/22/22 [History Last Taken 10/14/22] cyclosporine 0.05 % eye drops in a dropperette (Restasis) 2 drp EACH EYE QHS DRY EYE 10/22/22 [History Last Taken 10/20/22] furosemide 20 mg tablet 20 mg PO DAILY FLUID 10/22/22 [History Last Taken 10/14/22] latanoprost 0.005 % eye drops 1 drp EACH EYE QHS GLAUCOMA 10/22/22 [History Last Taken 10/20/22] montelukast 10 mg tablet 10 mg PO QHS ALLERGIES 10/22/22 [History Last Taken 10/14/22] sucrykxo-ghlhbyibi-ytkdgcsx 3.5 mg/mL-10,000 unit/mL-0.1% eye drops 2 drp RIGHT EYE 4X/DAY EYE BACTERIAL INFECTION 10/22/22 [History Last Taken 10/20/22] oxycodone 10 mg tablet 10 mg PO TID PRN Pain 10/22/22 [History Last Taken Unknown] sevelamer carbonate 800 mg tablet 800 mg PO TID 10/22/22 [History Last Taken Unknown] spironolactone 25 mg tablet 25 mg PO BID BLOOD PRESSURE 10/22/22 [History Last Taken Unknown] tobramycin 0.3 % eye drops 1 drp EACH EYE QHS EYE BACTERIAL INFECTION 10/22/22 [History Last Taken 10/20/22] Allergy/AdvReac Type Severity Reaction Status Date / Time aspirin Allergy Shortness Verified 10/22/22 11:23 of breath celecoxib [From Celebrex] Allergy Shortness Verified 10/22/22 11:23 of breath Iodinated Contrast Media Allergy Shortness Verified 10/22/22 11:23 [Iodinated Contrast Media - of breath IV Dye] lithium [[place]] Allergy Shortness Verified 10/22/22 11:23 of breath Sulfa (Sulfonamide Allergy Shortness Verified 10/22/22 11:23 Antibiotics) of breath metoprolol AdvReac Severe Marked Verified 10/22/22 11:23 bradycardia divalproex sodium AdvReac seizures Verified 10/22/22 11:23 [From Depakote] Family History Mother , Age 60 of CHF Diabetes Hypertension Myocardial infarction CHF (congestive heart failure) Father , 34 [place] Myocardial infarction Ruptured, aorta CAD (coronary artery disease) Brother Diabetes Brother , [place] age 44 Myocardial infarction Diabetes Liver problem Surgical History H/O gastric bypass H/O: hysterectomy History of appendectomy History of carpal tunnel release of both wrists History of cholecystectomy Social History Smoking Status: Former smoker Tobacco: How many years used: 20 how long ago did patient quit smokin alcohol intake: never substance use type: does not use caffeine: Yes Type: coffee Number of servings: 1 and tea Number of servings: 2 what type of physical activity do you participate in: none additional social history: ROS Constitutional Constitutional: Denies fever(s) Eyes Eyes: Denies loss of central vision ENT HEENT: Denies dysphagia Cardiovascular Cardiovascular: Denies dyspnea Respiratory/Chest Respiratory/Chest: Denies wheezing Gastrointestinal Gastrointestinal: Reports abdominal pain and bloating Genitourinary Genitourinary: Denies dysuria Musculoskeletal Musculoskeletal: Denies abnormal gait Integumentary Integumentary: Reports jaundice Neurologic Neurologic: Denies dizziness Endocrine Endocrinology: Denies palpitations Hematologic/Lymphatic Hematologic/Lymphatic: Reports easy bleeding Physical Exam Const alert and no apparent distress Resp normal respiratory effort Resp Narrative: Left percutaneous anterior second intercostal chest tube in place?removed at bedside as chest x-ray showed it was kinked in 2 locations and the lung was still up. Cardio Rate: regular rate Lab / Micro Data Result Diagrams: 10/23/22 07:01 10/23/22 07:01 Labs: Laboratory Results - last 24 hr 10/22/22 11:50: WBC 21.6 H, RBC 2.86 L, Hgb 9.8 L, Hct 30.1 L, MCV 105.2 H, MCH 34.3 H, MCHC 32.6, RDW Std Deviation 61.2 H, RDW Coeff of Mayte 16.7 H, Plt Count 190, MPV 9.6, Immature Gran % (Auto) 1.700 H, Neut % (Auto) 92.2 H, Lymph % (Auto) 2.2 L, [place] % (Auto) 3.7, Eos % (Auto) 0.0, Baso % (Auto) 0.2, Absolute Neuts (auto) 19.9 H, Absolute Lymphs (auto) 0.47 L, Nucleated RBC % 0.1, Differential Comment SCANNED 10/22/22 11:50: Sodium 129 L, Potassium 6.8 H*, Chloride 92 L, Carbon Dioxide 22.0, Anion Gap 15, BUN 121 H*, Creatinine 11.00 H*, Estim Creat Clear Calc 4.40, Est GFR (MDRD) Af Amer 5 L, Est GFR (MDRD) Non-Af 4 L, BUN/Creatinine Ratio 11.0, Glucose 92, Calcium 8.5, Total Bilirubin 2.00 H, AST 176 H, ALT 47, Alkaline Phosphatase 155 H, Total Protein 5.8 L, Albumin 1.9 L, Globulin 3.9, Albumin/Globulin Ratio 0.5 L 10/22/22 11:50: Ammonia < 10.0 L 10/22/22 11:50: Total Creatine Kinase 354 H 10/22/22 17:45: Procalcitonin 4.63 H 10/22/22 17:45: Sodium 130 L, Potassium 6.9 H*, Chloride 94 L, Carbon Dioxide 24.0, Anion Gap 12, BUN 124 H*, Creatinine 11.00 H*, Estim Creat Clear Calc 4.40, Est GFR (MDRD) Af Amer 5 L, Est GFR (MDRD) Non-Af 4 L, BUN/Creatinine Ratio 11.3, Glucose 99, Calcium 7.9 L 10/23/22 00:25: Potassium 5.3 H 10/23/22 01:46: POC Glucose 207 H 10/23/22 03:15: Sodium 131 L, Potassium 5.9 H, Chloride 95 L, Carbon Dioxide 22.0, Anion Gap 14, BUN 122 H*, Creatinine 11.10 H*, Estim Creat Clear Calc 4.36, Est GFR (MDRD) Af Amer 4 L, Est GFR (MDRD) Non-Af 4 L, BUN/Creatinine Ratio 11.0, Glucose 100, Calcium 8.1 L Radiology Impression Brain CT 10/22/22 11:34 IMPRESSION: 1. No acute intracranial findings. 2. Nonspecific right mastoid effusion. Electronically Signed: Johnathan Elizabeth, at 12:56 EST , Shoulder X-Ray 10/22/22 11:34 IMPRESSION: 1. Normal x-ray examination of the shoulder. 2. Large left pneumothorax as described on the recent chest x-ray Electronically Signed: Parviz Jack MD at 13:05 EST , Chest X-Ray 10/22/22 12:10 IMPRESSION: Moderate to large left pneumothorax with collapse of the left lung. The right lung is clear. A fracture line is not visualized. Electronically Signed: Fabienne Wong MD at 12:55 EST , ADDENDUM: 10/22/22 1306 IMPRESSION: Moderate to large left pneumothorax with collapse of the left lung. The right lung is clear. A fracture line is not visualized. N.B. : The above Results were Read Back by Fabienne Wong MD to Cosme Velazquez MD, and understanding confirmed on 10/22/2022 12:59:56 (ET). Electronically Signed: Fabienne Wong MD at 12:55 EST , Chest CT 10/22/22 12:25 IMPRESSION: Large left pneumothorax. Collapse of the left lung. These findings were called to the on-call physician on a stat basis Dr. Velazquez regarding the chest x-ray performed October 22, 2022 at 12:24 PM. No visualized acute fracture. Partially visualized ascites. Tubing in the right upper quadrant. Postoperative change stomach. Partially visualized abdominal varices. Partially visualized renal atrophy. Partially visualized coronary artery calcification borderline cardiac enlargement. Degenerative changes of the thoracolumbar spine. Electronically Signed: Fabienne Wong MD at 13:30 EST , Chest X-Ray 10/22/22 16:59 IMPRESSION: Interval placement of left-sided chest tube which appears to be in satisfactory position. Interval improvement in now trace left pneumothorax. Pulmonary lacerations and/or contusions in the left mid to lower lung. Electronically Signed: Michel Sweet MD at 17:21 EST , Chest X-Ray 10/23/22 05:55 IMPRESSION: No pneumothorax. Repositioning of left chest tube. Evaluate clinically to exclude a significant kink in the chest tube. Electronically Signed: Pepe Dixon MD at 7:12 EST Reading Location ID and State: [id number] / , Service support , Charges/Coding Visit Charges Inpatient E&M: 13062 Init Hosp L3
[2022-10-23 07:22] LABS: M R Staph aureus DNA By PCR Negative (Negative); Probe Check PASS; Specimen Processing Control PASS; Staph aureus DNA By PCR POSITIVE (Negative)
[2022-10-23 07:30] LABS: Absolute Lymphocyte Count 0.44 X10^3/uL (0.83-4.51); Anion Gap 14 (5-15); BUN 125 mg/dL (7-18); BUN/Creat Ratio 11.4 RATIO (10-20); Basophil# 0.05 X10^3/uL; Basophil% 0.3 % (0-1); Chloride 97 mmol/L (98-107); EST Glomerular Filtration Rate 4 mL/min (>60); Est Glom Filt Rate - Afr Amer 5 mL/min (>60); Glucose 68 mg/dL (74-106); Hematocrit 30.6 % (37-47); Hemoglobin 9.8 g/dL (12.0-15.0); Lymphocyte # 0.44 X10^3/ul (0.83-4.51); Lymphocyte % 2.7 % (19-41); Mean Corpuscular Volume 109.3 fL (81-99); Mean Platelet Vol. 9.8 fl (6.2-12.0); Monocyte# 0.58 X10^3/uL; Monocyte% 3.5 % (0-10); NRBC Flagged by Analyzer 0.1 % (0-5); Neutrophil # 15.02 X10^3/uL (2.7-7.7); Neutrophil % 91.8 % (47-70); POSITIVE DIFFERENTIAL YES; Platelet Count 156 K/mm3 (150-450); Potassium 6.7 mmol/L (3.5-5.1); RBC Distribution Width CV 17.1 % (11.6-14.6); RBC Distribution Width SD 63.3 fl (35.1-43.9); Sodium Level 129 mmol/L (136-145); White Blood Count 16.4 K/mm3 (4.4-11.0)
[2022-10-23 07:50] LABS: Differential Indicated SCAN CRITERIA MET
[2022-10-23 08:58] LABS: Differential Comment SCANNED
[2022-10-23 08:59] LABS: Burr Cells 1+; Ovalocyte 1+
[2022-10-23] MEDS: Midodrine HCl 5 MG Tablet 10 MG PO (09:01)
[2022-10-23] MEDS: Cholestyramine/Sucrose 4 GM/PACKET PO ×2 (09:01→16:21)
[2022-10-23] MEDS: Calcium (Elemental) 500 MG Tablet PO (09:01)
[2022-10-23] MEDS: Sodium Bicarbonate 650 MG Tablet PO ×2 (09:01→13:43)
[2022-10-23] MEDS: Calcitriol 0.25 MCG Capsule 0.5 MCG PO (09:01)
--- NOTE | 2022-10-23 10:08 | CASEMGMT ---
BRIAN BAUER Assessment: Face to Face with pt for initial transition planning/care coordination assessment. BRIAN BAUER introduced self and role at [facility], pt voices understanding and consents to assessment. Pt in bed. Pt is able to answer questions but, at times, appears confused. Care providers, pharmacy, and demographics verified/updated. Admitting Dx: Renal Failure And Left Pneumothorax After Fall. PCP: William Barfield. Specialists: Friend, GI. Pt reports having other specialists but is unable to provide the information. Preferred Pharmacy: [facility]. Insurance: [employer]. [employer]. Prescription Benefit: Yes. LW/HPOA: Pt denies having a LW/HPOA. Pt is interested in speaking with SW. SW advised. LNOK: Chiqui Colon, Friend. Living Arrangements: Pt lives alone in a one story apartment with no steps to enter. Pt reports being I in ADLs. Transportation: Pt does not drive. When asked how pt is transported, pt answered, hospital van. Pt was unable to answer how she gets food or any other supplies. It appears pt was confused regarding this question. DME/HHC/SNF: Pt was unable to answer questions regarding DME, HHC, or SNF. Pt keeps stating, Everything happened so fast. Pt states she isn't the same as she was. Pt doesn't elaborate. Pt was receiving dialysis through [facility], , Thu. Pt checks blood glucose levels and reports having necessary DM supplies. Pt denies receiving hospice care at this time but states she does receive palliative care. Pt is unsure of what she wants and needs at this time. Again, pt reiterated that everything is overwhelming and hard right now. Pt open to speaking with SW. SW advised. CM to follow. Advised pt to ask CM if any further question/concerns/needs arise, voices understanding. Pt Goal: TBD. Plan:? TBD.
--- NOTE | 2022-10-23 10:35 | DIALYSIS ---
0745, assessed RFA AVF, no bruit no thrill, bruising noted, updated Dr. Jacobs with nephrology
--- NOTE | 2022-10-23 10:45 | CON.PCM.RE_ITS ---
Assessment & Plan Assessment/Plan (1) ESRD (end stage renal disease): PLAN: Noncompliance with dialysis with last treatment 10 days ago. AV fistula with no thrill and bruit. Patient with hospice care at home to admission. Discussed with patient to discontinue dialysis since she has not been coming in for her dialysis treatments due to weakness, encephalopathy, not feeling well. Would require a tunneled catheter placement if we do to continue with her dialysis which I think would be futile to continue dialysis at this point. P atient agreed with this decision. 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 She sustained left pneumothorax and chest tube was placed in the emergency room. She denied any shortness of breath chest pain or cough. She has ESRD due to diabetes hepatorenal syndrome. Her last dialysis was Thursday which was over a week. Potassium was elevated at 6.9 upon presentation with elevated BUN 125 creatinine 11. She has been confused with tremors. She has hospice care with [facility] at home. She has had progressive decline in health with weakness, wheelchair-bound. She has a Pleurx catheter for ascites from liver cirrhosis. Urgent dialysis was arranged last night for hyperkalemia however her AV fistula was found to be clotted without thrill or bruit. Attempt was made to use AV fistula and this morning without success. She received Kayexalate for her high potassium. Discussed with patient about discontinuing dialysis and placement at an center hospice care center. She would otherwise need on dialysis catheter placed but due to her overall condition it would be best not to continue with dialysis especially since she has not been coming in for her treatments due to generalized weakness and encephalopathy. [facility] Medical History (Updated 10/23/22 @ 10:[address] 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 Obesity Open wound Orthostatic hypotension Paroxysmal atrial fibrillation Premature ventricular contraction Shortness of breath Sinus bradycardia Stage 3 chronic renal impairment associated with type 2 diabetes mellitus Syncope Thrombocytopenia, unspecified Home Medications lorazepam 1 mg tablet 1 mg PO Q6H PRN Anxiety 01/04/20 [History Last Taken 10/20/22] albuterol sulfate 90 mcg/actuation aerosol inhaler 1 - 2 puff inhalation Q4H PRN PRN Sob &/Or Wheezing 01/24/20 [History Last Taken 10/21/22] darbepoetin yayo in polysorbat 60 mcg/0.3 mL in polysorbate injection syringe (Aranesp) 60 mcg subcut QMONTH anemia 01/24/20 [History Last Taken 10/01/22] calcium carbonate 600 mg calcium (1,500 mg) tablet (Calcium) 600 mg PO DAILY supplement 08/23/20 [History Last Taken 10/21/22] cholestyramine-aspartame 4 gram oral powder 1 ea PO TID PRN Diarrhea 08/23/20 [History Last Taken 10/20/22] budesonide-formoterol HFA 80 mcg-4.5 mcg/actuation aerosol inhaler (Symbicort) 2 puff inhalation BID COPD 12/07/20 [History Last Taken 10/15/22] midodrine 10 mg tablet 10 mg PO BID 09/16/22 [History Last Taken 09/17/22] brimonidine 0.2 % eye drops 1 drp EACH EYE TID GLAUCOMA 10/22/22 [History Last Taken 10/20/22] calcitriol 0.5 mcg capsule 0.5 mcg PO TU 10/22/22 [History Last Taken 10/14/22] cyclosporine 0.05 % eye drops in a dropperette (Restasis) 2 drp EACH EYE QHS DRY EYE 10/22/22 [History Last Taken 10/20/22] furosemide 20 mg tablet 20 mg PO DAILY FLUID 10/22/22 [History Last Taken 10/14/22] latanoprost 0.005 % eye drops 1 drp EACH EYE QHS GLAUCOMA 10/22/22 [History Last Taken 10/20/22] montelukast 10 mg tablet 10 mg PO QHS ALLERGIES 10/22/22 [History Last Taken 10/14/22] kqcsamnf-wvzkvjmzf-oirrkuag 3.5 mg/mL-10,000 unit/mL-0.1% eye drops 2 drp RIGHT EYE 4X/DAY EYE BACTERIAL INFECTION 10/22/22 [History Last Taken 10/20/22] oxycodone 10 mg tablet 10 mg PO TID PRN Pain 10/22/22 [History Last Taken Unknown] sevelamer carbonate 800 mg tablet 800 mg PO TID 10/22/22 [History Last Taken Unknown] spironolactone 25 mg tablet 25 mg PO BID BLOOD PRESSURE 10/22/22 [History Last Taken Unknown] tobramycin 0.3 % eye drops 1 drp EACH EYE QHS EYE BACTERIAL INFECTION 10/22/22 [History Last Taken 10/20/22] Allergy/AdvReac Type Severity Reaction Status Date / Time aspirin Allergy Shortness Verified 10/22/22 11:23 of breath celecoxib [From Celebrex] Allergy Shortness Verified 10/22/22 11:23 of breath Iodinated Contrast Media Allergy Shortness Verified 10/22/22 11:23 [Iodinated Contrast Media - of breath IV Dye] lithium [[place]] Allergy Shortness Verified 10/22/22 11:23 of breath Sulfa (Sulfonamide Allergy Shortness Verified 10/22/22 11:23 Antibiotics) of breath metoprolol AdvReac Severe Marked Verified 10/22/22 11:23 bradycardia divalproex sodium AdvReac seizures Verified 10/22/22 11:23 [From Depakote] Family History Mother , Age 60 of CHF Diabetes Hypertension Myocardial infarction CHF (congestive heart failure) Father , 34 [place] Myocardial infarction Ruptured, aorta CAD (coronary artery disease) Brother Diabetes Brother , [place] age 44 Myocardial infarction Diabetes Liver problem Surgical History H/O gastric bypass H/O: hysterectomy History of appendectomy History of carpal tunnel release of both wrists History of cholecystectomy Social History Smoking Status: Former smoker Tobacco: How many years used: 20 how long ago did patient quit smokin alcohol intake: never substance use type: does not use caffeine: Yes Type: coffee Number of servings: 1 and tea Number of servings: 2 what type of physical activity do you participate in: none additional social history: Physical Exam Const alert and oriented x3 Nutritional Appearance: cachectic Eyes EOMs intact bilaterally Eyes Narrative: Patient is blind with cataract right eye Resp clear to auscultation bilaterally Cardio regular rate and no rub GI non-tender and non-distended GI Narrative: Pleurx catheter right upper quadrant Auscultation: normoactive bowel sounds Palpation: soft Back/Spine Thoracic Spine / Upper Back: ROM limited Extremity Extremity Narrative: Clotted AV fistula with no thrill and bruit right forearm General Extremity: AV fistula Skin General Skin Exam: ecchymosis Neuro Sensorium / Orientation: awake and alert Psych cooperative Mood & Affect: depressed Lab / Micro Data Result Diagrams: 10/23/22 07:01 10/23/22 07:01 Labs: Laboratory Results - last 24 hr 10/22/22 11:50: WBC 21.6 H, RBC 2.86 L, Hgb 9.8 L, Hct 30.1 L, MCV 105.2 H, MCH 34.3 H, MCHC 32.6, RDW Std Deviation 61.2 H, RDW Coeff of [place]ye 16.7 H, Plt Count 190, MPV 9.6, Immature Gran % (Auto) 1.700 H, Neut % (Auto) 92.2 H, Lymph % (Auto) 2.2 L, [place] % (Auto) 3.7, Eos % (Auto) 0.0, Baso % (Auto) 0.2, Absolute Neuts (auto) 19.9 H, Absolute Lymphs (auto) 0.47 L, Nucleated RBC % 0.1, Differential Comment SCANNED 10/22/22 11:50: Sodium 129 L, Potassium 6.8 H*, Chloride 92 L, Carbon Dioxide 22.0, Anion Gap 15, BUN 121 H*, Creatinine 11.00 H*, Estim Creat Clear Calc 4.40, Est GFR (MDRD) Af Amer 5 L, Est GFR (MDRD) Non-Af 4 L, BUN/Creatinine Ratio 11.0, Glucose 92, Calcium 8.5, Total Bilirubin 2.00 H, AST 176 H, ALT 47, Alkaline Phosphatase 155 H, Total Protein 5.8 L, Albumin 1.9 L, Globulin 3.9, Albumin/Globulin Ratio 0.5 L 10/22/22 11:50: Ammonia < 10.0 L 10/22/22 11:50: Total Creatine Kinase 354 H 10/22/22 17:45: Procalcitonin 4.63 H 10/22/22 17:45: Sodium 130 L, Potassium 6.9 H*, Chloride 94 L, Carbon Dioxide 24.0, Anion Gap 12, BUN 124 H*, Creatinine 11.00 H*, Estim Creat Clear Calc 4.40, Est GFR (MDRD) Af Amer 5 L, Est GFR (MDRD) Non-Af 4 L, BUN/Creatinine Ratio 11.3, Glucose 99, Calcium 7.9 L 10/23/22 00:25: Potassium 5.3 H 10/23/22 01:46: POC Glucose 207 H 10/23/22 03:15: Sodium 131 L, Potassium 5.9 H, Chloride 95 L, Carbon Dioxide 22.0, Anion Gap 14, BUN 122 H*, Creatinine 11.10 H*, Estim Creat Clear Calc 4.36, Est GFR (MDRD) Af Amer 4 L, Est GFR (MDRD) Non-Af 4 L, BUN/Creatinine Ratio 11.0, Glucose 100, Calcium 8.1 L 10/23/22 04:45: S.aureus Protein A PCR POSITIVE H, MRSA (PCR) Negative 10/23/22 07:01: WBC 16.4 H, RBC 2.80 L, Hgb 9.8 L, Hct 30.6 L, MCV 109.3 H, MCH 35.0 H, MCHC 32.0, RDW Std Deviation 63.3 H, RDW Coeff of Mayte 17.1 H, Plt Count 156, MPV 9.8, Immature Gran % (Auto) 1.700 H, Neut % (Auto) 91.8 H, Lymph % (Auto) 2.7 L, [place] % (Auto) 3.5, Eos % (Auto) 0.0, Baso % (Auto) 0.3, Absolute Neuts (auto) 15.0 H, Absolute Lymphs (auto) 0.44 L, Nucleated RBC % 0.1, Differential Comment SCANNED, Ovalocytes 1+, Lance Cells 1+ 10/23/22 07:01: Sodium 129 L, Potassium 6.7 H*, Chloride 97 L, Carbon Dioxide 18.0 L, Anion Gap 14, BUN 125 H*, Creatinine 11.00 H*, Estim Creat Clear Calc 4.40, Est GFR (MDRD) Af Amer 5 L, Est GFR (MDRD) Non-Af 4 L, BUN/Creatinine Ratio 11.4, Glucose 68 L, Calcium 8.0 L Radiology Impression Brain CT 10/22/22 11:34 IMPRESSION: 1. No acute intracranial findings. 2. Nonspecific right mastoid effusion. Electronically Signed: Johnathan Elizabeth, at 12:56 EST , Shoulder X-Ray 10/22/22 11:34 IMPRESSION: 1. Normal x-ray examination of the shoulder. 2. Large left pneumothorax as described on the recent chest x-ray Electronically Signed: Parviz Jack MD at 13:05 EST , Chest X-Ray 10/22/22 12:10 IMPRESSION: Moderate to large left pneumothorax with collapse of the left lung. The right lung is clear. A fracture line is not visualized. Electronically Signed: Fabienne Wong MD at 12:55 EST , ADDENDUM: 10/22/22 1306 IMPRESSION: Moderate to large left pneumothorax with collapse of the left lung. The right lung is clear. A fracture line is not visualized. N.B. : The above Results were Read Back by Fabienne Wong MD to Cosme Velazquez MD, and understanding confirmed on 10/22/2022 12:59:56 (ET). Electronically Signed: Fabienne Wong MD at 12:55 EST , Chest CT 10/22/22 12:25 IMPRESSION: Large left pneumothorax. Collapse of the left lung. These findings were called to the on-call physician on a stat basis Dr. Velazquez regarding the chest x-ray performed October 22, 2022 at 12:24 PM. No visualized acute fracture. Partially visualized ascites. Tubing in the right upper quadrant. Postoperative change stomach. Partially visualized abdominal varices. Partially visualized renal atrophy. Partially visualized coronary artery calcification borderline cardiac enlargement. Degenerative changes of the thoracolumbar spine. Electronically Signed: Fabienne Wong MD at 13:30 EST , Chest X-Ray 10/22/22 16:59 IMPRESSION: Interval placement of left-sided chest tube which appears to be in satisfactory position. Interval improvement in now trace left pneumothorax. Pulmonary lacerations and/or contusions in the left mid to lower lung. Electronically Signed: Michel Sweet MD at 17:21 EST , Chest X-Ray 10/23/22 05:55 IMPRESSION: No pneumothorax. Repositioning of left chest tube. Evaluate clinically to exclude a significant kink in the chest tube. Electronically Signed: Pepe Dixon MD at 7:12 EST Reading Location ID and State: [id number] / , Service support ,
[2022-10-23] MEDS: Lactulose 20 GM/30 ML UDC 40 GM PO (11:08)
[2022-10-23] MEDS: LORazepam 1 MG Tablet PO (11:20)
--- NOTE | 2022-10-23 12:05 | RAD_ITS ---
STUDY: X-RAY CHEST REASON FOR EXAM: Female, 66 years old. Chest tube removal TECHNIQUE: PA and 2 lateral views of the chest COMPARISON: Earlier today FINDINGS: EKG leads overlie the chest. A previously noted small caliber chest tube has been removed. Lungs are expanded with evidence of left apical pneumothorax affecting a less than 10% of the left hemithorax without mediastinal shift. Right lung is free of superimposed process. Stable lingular atelectasis Normal size heart. Normal mediastinum and soy. Normal visualized pulmonary arteries. Normal visualized aortic arch and descending thoracic aorta. Normal visualized thoracic spine. Normal visualized ribs, clavicles, and shoulders. There is no demonstrated abnormality of the visualized soft tissue structures of the upper abdomen. RAD/Chest PA and Lateral IMPRESSION: After chest tube removal, there is a small left apical pneumothorax without mediastinal shift Stable lingular atelectasis Right lung is clear Electronically Signed: Jean-Claude Peña MD at 12:45 EST ,
[2022-10-23 13:41] LABS: Potassium 6.4 mmol/L (3.5-5.1)
--- NOTE | 2022-10-23 13:54 | CASEMGMT ---
Social Work Consult: Inpatient Hospice Unit Referral source: Hospitalist This web content & social media manager met with patient in room. Introduced self and web content & social media manager role. Patient agreeable to inpatient hospice referral with [facility]. Patient reports that main warehouse person would be patient friend, Chiqui and is agreeable to this web content & social media manager calling Chiqui to provide updated on discharge plan. This web content & social media manager noting that Chiqui lives in [place]. Patient reports that Chiqui is Health Care Power of Certified Endoscopy Technician for patient. Telephone call to [facility], clinical information faxed. No answer. Voicemail left. Telephone call to Chiqui. Chiqui confirms to be patient Health Care Power of deputy attorney general. Chiqui thanked this web content & social media manager for the call and update. Proposed discharge date: TBD PLAN: Inpatient Hospice unit, pending acceptance. Bobo DUMONT, MICHAELS
--- NOTE | 2022-10-23 14:09 | WOUNDNOTE ---
wound photo: right thigh
--- NOTE | 2022-10-23 14:25 | RAD_ITS ---
STUDY: X-RAY CHEST REASON FOR EXAM: Female, 66 years old. Pneumo TECHNIQUE: PA and lateral views of the chest. COMPARISON: October 23, 2022 at 12:21 PM FINDINGS: There is elevation of the left greater than right hemidiaphragm. There is minimal left lower lobe atelectasis similar to prior study. Pneumothorax is not visualized. There is no demonstrated pleural abnormality. Normal size heart. Normal mediastinum and soy. Normal visualized pulmonary arteries. Normal visualized aortic arch and descending thoracic aorta. There are diffuse degenerative changes of the visualized thoracic spine. Normal visualized ribs, clavicles, and shoulders. There is a visualized drain in the right upper quadrant. RAD/Chest 1 View (Portable) IMPRESSION: A left apical Pneumothorax is no longer visualized. Minimal left lower lobe atelectasis. Electronically Signed: Fabienne Wong MD at 15:49 EST ,
--- NOTE | 2022-10-23 15:42 | CASEMGMT ---
[facility] provided. [facility] to call patient or hospital unit to set up time to meet as patient HCPOA and not local. Patient is alert and able to make own decisions. Medical team updated. Bobo DUMONT, MCIHAELS
--- NOTE | 2022-10-23 15:58 | CHAPLAIN ---
Type of Pastoral Visit _x__ Initial Visit ___ Follow-up Visit ___ On-call Visit ___ General Patient Visit ___ Spiritual Assessment ___ Family Conference ___ Bereavement ___ Rapid Response ___ Code Blue ___ Other (describe below) Pastoral Care Referral From _x__ Patient ___ Family ___ Nurse ___ Physician ___ Examiner Of Currency ___ Street Engineer ___ Other (describe below) Sacrament/Intervention ___ Active listening ___ Anointing ___ Orthodoxy ___ Bereavement ___ Communion ___ Ashley exploration ___ ___ Life review _x__ Prayer ___ Reconciliation ___ Sacrament of Sick _x__ Supportive presence ___ Wedding ___ Other (describe below) Pastoral Comments patient appears to be weak, opens eyes when spoken to but then shuts them again; pt agrees that prayer would be helpful to her; otherwise gave pt assurance of good care and God's presence in her situation;
--- NOTE | 2022-10-23 16:02 | CASEMGMT ---
Social Work Telephone call from Jayde Villanueva, . Patient active with [employer] [facility] and receives aide services. Jayde request to be updated on discharge plan and when patient is discharged to fax clinical information to [phone]. This social worker clinical updated Jayde that plan is for patient to meet with hospice. Social Work to continue to follow. Bobo DUMONT, SHANNON
--- NOTE | 2022-10-23 16:45 | PCM.PN.HOSP ---
Objective Data Objective Data Vital Signs: Vital Signs Temp Pulse Resp BP Pulse Ox O2 Del Method O2 Flow Rate 98 F 74 18 90/50 L 99 Room Air 2 10/23/22 14:59 10/23/22 14:59 10/23/22 14:59 10/23/22 14:59 10/23/22 14:59 10/23/22 14:59 10/22/22 16:26 Oxygen Flow Rate (L/min) [3] 2 Oxygen Flow Rate (L/min) [2] 2 Oxygen Flow Rate (L/min) [1 ( 2 Initial Baseline)] Oxygen Delivery Method [3] Nasal Cannula Oxygen Delivery Method [2] Nasal Cannula Oxygen Delivery Method [1 ( Nasal Cannula Initial Baseline)] Oxygen Delivery Method Room Air Weight: 79.832 kg Body Mass Index (BMI) 30.2 Intake & Output: Intake and Output for Last 24 Hours 10/21/22 10/22/22 10/23/22 23:59 23:59 23:59 Intake Total 260 / 260 Output Total 0 / 0 0 / 0 Balance 0 / 0 260 / 260 Lab / Micro Data Result Diagrams: 10/23/22 07:01 10/23/22 13:13 Labs: Laboratory Results - last 24 hr 10/22/22 11:50: Total Creatine Kinase 354 H 10/22/22 17:45: Procalcitonin 4.63 H 10/22/22 17:45: Sodium 130 L, Potassium 6.9 H*, Chloride 94 L, Carbon Dioxide 24.0, Anion Gap 12, BUN 124 H*, Creatinine 11.00 H*, Estim Creat Clear Calc 4.40, Est GFR (MDRD) Af Amer 5 L, Est GFR (MDRD) Non-Af 4 L, BUN/Creatinine Ratio 11.3, Glucose 99, Calcium 7.9 L 10/23/22 00:25: Potassium 5.3 H 10/23/22 01:46: POC Glucose 207 H 10/23/22 03:15: Sodium 131 L, Potassium 5.9 H, Chloride 95 L, Carbon Dioxide 22.0, Anion Gap 14, BUN 122 H*, Creatinine 11.10 H*, Estim Creat Clear Calc 4.36, Est GFR (MDRD) Af Amer 4 L, Est GFR (MDRD) Non-Af 4 L, BUN/Creatinine Ratio 11.0, Glucose 100, Calcium 8.1 L 10/23/22 04:45: S.aureus Protein A PCR POSITIVE H, MRSA (PCR) Negative 10/23/22 07:01: WBC 16.4 H, RBC 2.80 L, Hgb 9.8 L, Hct 30.6 L, MCV 109.3 H, MCH 35.0 H, MCHC 32.0, RDW Std Deviation 63.3 H, RDW Coeff of Mayte 17.1 H, Plt Count 156, MPV 9.8, Immature Gran % (Auto) 1.700 H, Neut % (Auto) 91.8 H, Lymph % (Auto) 2.7 L, [place] % (Auto) 3.5, Eos % (Auto) 0.0, Baso % (Auto) 0.3, Absolute Neuts (auto) 15.0 H, Absolute Lymphs (auto) 0.44 L, Nucleated RBC % 0.1, Differential Comment SCANNED, Ovalocytes 1+, [place] Cells 1+ 10/23/22 07:01: Sodium 129 L, Potassium 6.7 H*, Chloride 97 L, Carbon Dioxide 18.0 L, Anion Gap 14, BUN 125 H*, Creatinine 11.00 H*, Estim Creat Clear Calc 4.40, Est GFR (MDRD) Af Amer 5 L, Est GFR (MDRD) Non-Af 4 L, BUN/Creatinine Ratio 11.4, Glucose 68 L, Calcium 8.0 L 10/23/22 13:13: Potassium 6.4 H* Micro: Microbiology 10/23/22 04:45 Wound - Leg, Right Gram Stain - Final Radiography Diagnostic Testing: Radiology Impression Chest X-Ray 10/22/22 16:59 IMPRESSION: Interval placement of left-sided chest tube which appears to be in satisfactory position. Interval improvement in now trace left pneumothorax. Pulmonary lacerations and/or contusions in the left mid to lower lung. Electronically Signed: Michel Sweet MD at 17:21 EST , Chest X-Ray 10/23/22 05:55 IMPRESSION: No pneumothorax. Repositioning of left chest tube. Evaluate clinically to exclude a significant kink in the chest tube. Electronically Signed: Pepe Dixon MD at 7:12 EST Reading Location ID and State: [id number] / , Service support , Chest X-Ray 10/23/22 12:05 IMPRESSION: After chest tube removal, there is a small left apical pneumothorax without mediastinal shift Stable lingular atelectasis Right lung is clear Electronically Signed: Jean-Claude Peña MD at 12:45 EST , Chest X-Ray 10/23/22 14:25 IMPRESSION: A left apical Pneumothorax is no longer visualized. Minimal left lower lobe atelectasis. Electronically Signed: Fabienne Wong MD at 15:49 EST ,
[2022-10-23] MEDS: oxyCODONE 5 MG Tablet PO (16:55)
--- NOTE | 2022-10-23 17:48 | EKG12_ITS ---
Test Reason : Blood Pressure : / mmHG Vent. Rate : 165 BPM Atrial Rate : 000 BPM P-R Int : 000 ms QRS Dur : 008 ms QT Int : 178 ms P-R-T Axes : 000 000 213 degrees QTc Int : 294 ms Cardiac Rhythm: Consider Course Ventricular Fibrillation Confirmed by SAMPSON CABAN, CHRIS ([id number]), commercial production editor PRISCILLA ABEBE ([id number]) on 10/30/2022 9:49:30 AM Referred By: HERB Confirmed By:CHRIS BRADEN MD
--- NOTE | 2022-10-23 18:08 | ED.RN ---
at 1743, monitor alarming, vfib/vtach. entered room to assess patient. agonal breathing with thready pulse. yam curer and this RN at bedside, paged Dr. Garcia. MD arrived to room, no pulse felt. EKG was obtained. spoke with caregiver, Lilibeth listed as contact. no more breaths taken, checked gag reflex and corneal response. Time of 1800.
--- NOTE | 2022-10-23 19:36 | EXP.PCM_ITS ---
Preliminary Cause of Preliminary Cause of Preliminary Cause of : Ventricular fibrillation arrest Date of Admission: 10/22/22 Date of : 10/23/22 Principle Diagnosis Problem List: Active and Suspected Problems (Updated 10/23/22 @ 10:[address] Kayla Jacobs, DO) Hyperkalemia (Acute) Iron deficiency anemia (Acute) ESRD (end stage renal disease) (Acute) Fall at home (Acute) Pneumothorax on left (Acute) Leukocytosis (Acute) Hospice care (Acute) Hospital Course 66-year-old female with history of end-stage renal disease on dialysis, diabetes type 2, paroxysmal A. fib, sinus bradycardia, on outpatient hospice who presented 10/22/2022 after mechanical fall and was found subsequently lying on the floor overnight. Found to have a large left pneumothorax and chest tube was placed with good resolution. 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 Also had bilateral lower extremity edema. She had had dialysis in over a week because she feels terrible when she is on it but initially wanted to continue this. Her creatinine and potassium are elevated and she was admitted. Her chest tube had to be removed because it was twisted but her pneumothorax resolved. Her fistula was found to be clotted and she was evaluated by nephrology and after nephrology discussed with her they decided no further dialysis and Rissa was agreeable to inpatient hospice consult. Saw her earlier in the day when she had general aches and pains, had difficulty answering some of my questions and would often stare off. She was given Kayexalate x2 for her hyperkalemia as well as multiple grams of calcium gluconate and had yet to have a bowel movement. Was not making urine and was not getting dialysis. Was messaged around 1730 that she was agonal he breathing and had V. tach, EKG confirmed ventricular rhythm. Stat calcium gluconate ordered and called patient's contact Lilibeth. Ms. Ritchie past prior to being able to receive calcium gluconate. She was DNR CC and there is no intubation or compressions. Informed the next of kin listed as well as her other contact on file. Time of 1800. Assessment & Plan Assessment/Plan (1) Pneumothorax on left: PLAN: Plan 1. Pneumothorax after mechanical fall no obvious rib fracture ? We will obtain a chest x-ray in the morning and consult surgery for management of the chest tube ? We will obtain PT/OT evaluation for discharge planning ? She does have a leukocytosis of 21.6 but she is afebrile and no other signs of infection. Given her presentation with pneumothorax as well as the possibility of a rhabdo we will recheck in the morning, if she continues to have a leukocytosis she may benefit from SBP prophylaxis secondary to her liver failure. 10/23: Chest tube had to be removed but pneumothorax was monitored with chest x- ray and had resolved 2. End-stage renal disease secondary to diabetes with acute renal failure from missed dialysis compounded by possible rhabdomyolysis ? We will consult nephrology for dialysis, per nephrology she has not had dialysis for about 8 days secondary to weakness ? She does miss several dialysis treatments due to an inability to get to the dialysis center ? We will get a CPK to evaluate for rhabdo ? I had an extensive discussion with her on advance care planning for about 30 minutes on what hospice is and about the role of dialysis and hospice. She states that she wants to stay on hospice because she does want any heroic measures but she also does not want to discontinue dialysis. It does not appear that she has tremendous insight into her condition or into what hospice actually is despite our discussion. ? We will give her a dose of Kayexalate while awaiting dialysis to be done tonight 10/23: Multiple doses of Kayexalate given and had yet to have a bowel movement, also got multiple doses of calcium gluconate. She had discussed with Dr. Jacobs with nephrology and I also spoke with both her and Dr. Jacobs and the plan was for no further dialysis and she verbalized that she was agreeable to inpatient hospice consult. prior to being related on 10/23/2022 at 1800 3. Cirrhosis secondary to Rg with ascites ? She does have tunneled catheter in her right abdomen and gets drained periodically. She had 6000 cc removed in the middle of August ? We will continue with her home medications including her midodrine and cholestyramine, she does not make any urine so we will hold her Lasix pending dialysis today 10/13:
== END 2022-10-23 22:30 | DRG 199 ==
LOC: ED 18:13 → PCU 18:22
PROVIDERS: Family Medicine; Internal Medicine Nephrology; Admitting Provider Family Medicine; Emergency Provider Emergency Medicine; PCP Internal Medicine; Visit Provider Internal Medicine
DX: S27.0XXA Traumatic pneumothorax, initial encounter (principal); N18.6 End stage renal disease; I12.0 Hypertensive chronic kidney disease with stage 5 chronic kidney disease or end stage renal disease; M62.82 Rhabdomyolysis; N17.9 Acute kidney failure, unspecified; R18.8 Other ascites; K76.82 Hepatic encephalopathy; K72.90 Hepatic failure, unspecified without coma; E11.22 Type 2 diabetes mellitus with diabetic chronic kidney disease; Z99.2 Dependence on renal dialysis; I49.01 Ventricular fibrillation; K74.60 Unspecified cirrhosis of liver; I48.0 Paroxysmal atrial fibrillation; Z91.15 Patient's noncompliance with renal dialysis; K75.81 Nonalcoholic steatohepatitis (NASH); R00.1 Bradycardia, unspecified; D50.9 Iron deficiency anemia, unspecified; E87.5 Hyperkalemia; Z51.5 Encounter for palliative care; Z66 Do not resuscitate; Z87.891 Personal history of nicotine dependence
CPT/HCPCS: 36415; 70450; 71045; 71046; 71250; 73030; 80048; 80053; 82140; 82550; 82962; 84132; 84145; 85025; 87040; 87070; 87077; 87186; 87205; 87640; 93005; 94640; 99285; J7030; J7040; A4216; J0610; J3490